=== PATIENT | female | born 1935 | race Caucasian/White ===

== ENCOUNTER → 2018-11-26 11:11 | Outpatient (CLI) | payer MEDICARE, BC, SELFPAY ==
--- NOTE | 2018-11-26 11:18 | CI_ITS ---
Cerebrovascular Exam Indications: Transient vision loss 368.12. IMPRESSIONS 1. The bilateral vertebral arteries are patent with normal antegrade flow. 2. Study suggests 20-49% stenosis involving the right internal carotid artery and the left internal carotid artery, lower end of scale. 3. Tortuous carotid arteries seen bilaterally. 4. Difficult exam. Carotid duplex study. Complete study and Doppler flow study including spectral analysis, color and bob scale imaging. Height: Height: 170.2cm. Height: 67in. Weight: Weight: 81.6kg. Weight: 179.6lb. Body mass index: BMI: 28.2kg/m^2. Body surface area: BSA: 1.98m^2. Location: Vascular laboratory. Patient status: Outpatient. Tables: Arterial flow: + +--------+--------+ Location V sys V ed + +--------+--------+ Right CCA - proximal 83.3cm/s 14.1cm/s + +--------+--------+ Right CCA - distal 62.9cm/s 15.7cm/s + +--------+--------+ Right ECA 62.5cm/s -------- + +--------+--------+ Right ICA - proximal 94.4cm/s 30.6cm/s + +--------+--------+ Right ICA - mid 70.2cm/s 17.9cm/s + +--------+--------+ Right ICA - distal 71.5cm/s 22.3cm/s + +--------+--------+ Right vertebral 31.4cm/s -------- + +--------+--------+ Left CCA - proximal 81.7cm/s 14.7cm/s + +--------+--------+ Left CCA - distal 65.2cm/s 15.7cm/s + +--------+--------+ Left ECA 75.4cm/s -------- + +--------+--------+ Left ICA - proximal 65.4cm/s 18.2cm/s + +--------+--------+ Left ICA - mid 46.4cm/s 10.3cm/s + +--------+--------+ Left ICA - distal 59.7cm/s 17.2cm/s + +--------+--------+ Left vertebral 40.8cm/s -------- + +--------+--------+ Velocity ratios: + + + + + + Right, V sys Right, V ed Left, V sys Left, V ed + + + + + + Max ICA/dist CCA 1.5 1.95 1 1.16 + + + + + + (Report amended ) Electronically signed by: Nikos Jolly [id number]
== END ==
PROVIDERS: PCP Family Medicine; Visit Provider Family Medicine
DX: G45.3 Amaurosis fugax (principal)
CPT/HCPCS: 93880

== ENCOUNTER → 2018-12-25 15:07 | Outpatient (CLI) | payer MEDICARE, BC, SELFPAY | PROVIDERS: PCP Family Medicine; Visit Provider Family Medicine | DX: G47.30 Sleep apnea, unspecified (principal); I10 Essential (primary) hypertension | CPT/HCPCS: G0399 ==

== ENCOUNTER → 2019-03-19 11:48 | Outpatient (CLI) | payer MEDICARE, BC, SELFPAY ==
--- NOTE | 2019-03-19 11:52 | XR_ITS ---
PROCEDURE: XR CHEST 2V CLINICAL HISTORY: CHRONIC COUGH COMPARISON: CXR CHEST(2 VIEWS-NOT PORTABLE) from 04/02/2013 FINDINGS: The cardiomediastinal silhouette and pulmonary vascularity are within normal limits. There are stable benign calcified granulomas. Lung rdz are otherwise clear without pleural effusion or pneumothorax. 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 No acute bony abnormalities. IMPRESSION: No acute findings. Dictated by: Donavan Cole 03/19/2019 12:13 Electronically signed by Donavan Cole in [place] 03/19/2019 12:13
== END ==
PROVIDERS: PCP Family Medicine; Visit Provider Family Medicine
DX: R05 Cough (principal)
CPT/HCPCS: 71046

== ENCOUNTER → 2019-05-29 08:50 | Outpatient (CLI) | payer MEDICARE, BC, SELFPAY ==
--- NOTE | 2019-05-29 09:09 | FL_ITS ---
PROCEDURE: FL BARIUM SWALLOW CLINICAL INDICATION: Dysphagia COMPARISON: No exams were available for comparison TECHNIQUE: In the upright position the patient was observed to swallow barium in both the AP and lateral view. The cervical esophagus was examined under fluoroscopy with images obtained. The patient was then placed prone in the right anterior oblique position and was observed to swallow barium with Valsalva technique . FLUOROSCOPY TIME: 48 seconds FINDINGS: There was no evidence of aspiration. There was normal peristalsis. No filling defects or mucosal abnormalities. No masses or strictures. There is a small sliding hiatal hernia with a non constricting Schatzki's ring IMPRESSION: Small hiatal hernia otherwise negative barium swallow Dictated by: Nikos Jolly MD 05/29/2019 14:05 Electronically signed by Nikos Jolly MD in [facility] 05/29/2019 14:05
--- NOTE | 2019-05-29 09:09 | US_ITS ---
PROCEDURE: US THYROID CLINICAL INDICATION: Thyromegaly COMPARISON: No exams were available for comparison FINDINGS: Right lobe: 4.2 x 1.4 x 1.3 cm with homogeneous echogenicity Left lobe: 3.7 x 1.5 x 1.5 cm with homogeneous echogenicity Isthmus: 3 mm hypoechoic nodule centrally wider than tall fairly well-circumscribed with no calcifications Additional findings: IMPRESSION: 3 mm nodule within the isthmus otherwise negative. Recommend six-month follow-up Dictated by: Nikos Jolly MD 05/29/2019 14:19 Electronically signed by Nikos Jolly MD in [facility] 05/29/2019 14:19
[2019-05-29 13:46] LABS: Free T4 (Free Thyroxine) 0.81 ng/dl (0.76-1.46); Thyroid Stimulating Hormone 2.28 uIU/ml (0.358-3.740)
== END ==
PROVIDERS: PCP Family Medicine; Visit Provider Otolaryngology
DX: R13.10 Dysphagia, unspecified (principal); E01.0 Iodine-deficiency related diffuse (endemic) goiter
CPT/HCPCS: 36415; 74220; 76536; 84439; 84443

== ENCOUNTER → 2020-10-28 11:36 | Outpatient (CLI) | payer MEDICARE, BC, SELFPAY ==
--- NOTE | 2020-10-31 11:16 | P.PN_ITS ---
[facility] Anesthesia Checklist - Patient Identification Patient Identification: Arm Band - Structural Data Admitted From: Home Planned Operative Procedure/s: egd Consent for Planned Operative Procedure(s) Verified: Yes Verified Documents: Surgical Consent, History and Physical - NPO Status Verified Time NPO: 00:00 - Additional verifications Anesthesia Reactions: No - Airway Assessment C-Spine Mobility Assessed: Yes (mp2) TMJ Mobility Assessed: Yes Dentition: Good Dentition - Neurological Assessment Level of Consciousness: Awake, Alert - Anesthesia Plan Anesthesia Risk discussed: Yes Anesthesia Plan: Verified ASA Class: III Anesthesia Type: MAC [facility] History I have reviewed the patient's past medical history: Yes Medical History: Reports:: Hypertension Denies:: Cancer, Diabetes Mellitus Type 1, Diabetes Mellitus Type 2, Internal Pacemaker, MRSA, Seizures *Have you ever received a pneumonia vaccine?: No *Have you received a flu vaccine this season?: Yes Other Medical History: Reports: Other (LAI) Anesthesia experience/problems:: nac Laterality Cases: Right: Arthroscopy Shoulder Other Surgeries: Yes: Other. No: Pacemaker Amputation: No Fractures: No - *Social History Smoking Status: Never smoker Alcohol Intake: never Substance Use Type: denies use *Occupational Status:: retired Housing: house Household Members: other *Travel in the last 8 weeks: None Family Hx:: No significant family history
== END ==
PROVIDERS: Visit Provider Internal Medicine Gastroenterology
DX: Z01.812 Encounter for preprocedural laboratory examination (principal); Z20.822 Contact with and (suspected) exposure to COVID-19; Z13.810 Encounter for screening for upper gastrointestinal disorder; R13.10 Dysphagia, unspecified
CPT/HCPCS: U0003

== ENCOUNTER 2020-10-31 10:23 | Day surgery (SDC) | payer MEDICARE, BC, SELFPAY ==
[2020-10-26 13:15] VITALS: BMI 29.0
[2020-10-31 10:44] VITALS: BP 133/60; PULSE 71; RESP 18; TEMP 36.7; O2SAT 96
--- NOTE | 2020-10-31 11:25 | HMH.PROC ---
[facility] Procedure Note Procedure Note:: Upper Endoscopy Procedure Report: Esophagogastroduodenoscopy with cold biopsies and TTS balloon dilation Endoscopost: Danis Cameron II, MD Referring Physician: Zoran Nava MD Date of Procedure: October 31, 2020 Equipment: Olympus GIF 190 standard upper endoscope Sedation: MAC sedation Indications: Mrs. Zayas is an 85-year-old female with recent intractable GERD 6 weeks ago. This improved with omeprazole. She still gets some intermittent dysphagia and globus sensation. She has some belching and occasional epigastric discomfort. She has some intermittent nausea and regurgitation. She has never had an upper endoscopy. She reports normal bowel function. Procedure: Prior to the procedure, a history and physical exam was performed, and patient's medications and allergies were reviewed. The risks, benefits and alternatives of the sedation and procedure were discussed with the patient. All questions were answered and informed consent was obtained. The patient was brought to the procedure room. Patient identification and proposed procedure were verified by the physician and the nurse. The patient was placed in a left lateral decubitus position and the scope was passed under direct vision. Throughout the procedure, the patient's blood pressure, pulse, and oxygen saturations were monitored continuously. The upper GI endoscopy was accomplished without difficulty. The patient tolerated the procedure well. Findings: The scope was passed directly into the upper esophagus and advanced to the third portion of the duodenum. The post bulbar duodenum and duodenal bulb were normal with normal mucosa and conniventes. The scope was withdrawn through a normal duodenal bulb and pylorus into the stomach. There was moderate bile reflux with linear reactive gastropathy of the antrum. There was some chronic gastritis of the body and fundus of the stomach. Upon retroflexion there was a 2 cm hiatal hernia. 2 biopsies were taken in the antrum and along the lesser curvature for histology to rule out gastritis and/or H pylori. The scope was then withdrawn into the esophagus. There was a serrated Z-line. There was no evidence of reflux esophagitis, Richards's or Schatzki's ring. There were tertiary contractions and evidence of moderate esophageal dysmotility. The entire esophagus was dilated to 60 [place]/20 mm with a TTS hydrostatic balloon. There was some resistance at the cricopharyngeus. The remainder of the esophageal mucosa was normal. Impression: 1. Nonerosive GERD with moderate esophageal dysmotility and small 2 cm hiatal hernia 2. Bile reflux with linear reactive gastropathy and mild chronic gastritis Plan: I will follow-up the biopsies. The patient has had clinical improvement with omeprazole. She does have uncomplicated GERD. We will discuss short-term use (3 months). I do feel that she could achieve maintenance control of her functional GERD with dietary measures and short-term antacids.
[2020-10-31 11:28] VITALS: BP 117/60; PULSE 72; RESP 16; TEMP 36.1; O2SAT 94
[2020-10-31 11:38] VITALS: BP 113/60; PULSE 58; RESP 18; TEMP 36.1; O2SAT 97
[2020-10-31 11:48] VITALS: BP 130/68; PULSE 58; RESP 18; TEMP 36.1; O2SAT 98
[2020-10-31 11:58] VITALS: BP 139/73; PULSE 62; RESP 18; TEMP 36.1; O2SAT 95
[2020-10-31 12:37] VITALS: BP 160/87; PULSE 66; RESP 18; TEMP 36.1; O2SAT 96
== END 2020-10-31 12:37 | disposition home or self-care (01) ==
LOC: OUTP 10:27
PROVIDERS: PCP Family Medicine; Visit Provider Internal Medicine Gastroenterology
PROC: 0DJ08ZZ Inspection of Upper Intestinal Tract, Via Natural or Artificial Opening Endoscopic (ICD-10-PCS; CPT 43235; principal; 2020-10-31 11:30)
DX: K21.9 Gastro-esophageal reflux disease without esophagitis (principal); K22.4 Dyskinesia of esophagus; K31.9 Disease of stomach and duodenum, unspecified; K44.9 Diaphragmatic hernia without obstruction or gangrene; K29.30 Chronic superficial gastritis without bleeding; I10 Essential (primary) hypertension; Z79.899 Other long term (current) drug therapy
CPT/HCPCS: 43239; 43249; 88305; C1726

== ENCOUNTER 2021-06-16 11:07 | Emergency (ER) | payer MEDICARE, BC, SELFPAY ==
[2021-06-16 12:15] VITALS: BP 149/70; PULSE 79; RESP 20; TEMP 36.9; O2SAT 97; BMI 28.1
--- NOTE | 2021-06-16 12:32 | HMH.EDUTC ---
[facility] [place] Disposition Clinical Impression: Acute bronchitis Qualifiers: Bronchitis organism: unspecified organism Qualified Code(s): J20.9 - Acute bronchitis, unspecified Disposition: Home, Self-Care Condition on Discharge: Good Instructions: Acute Bronchitis, DI for Acute Bronchitis, DI for COVID-19 (Suspected or Confirmed ), Preventing the Spread of Coronavirus Discharge Instructions Additional Instructions: Drink plenty of fluids. Take tylenol or ibuprofen for pain or fever. Take the medications as directed. Follow up with your regular doctor. GO TO THE ER FOR ANY WORSENING SYMPTOMS Quarantine until you know the results of your covid-19 test. If it is positive, the health department should call you and give you further instructions about your length of Quarantine and other things. Notify your school or workplace of your results and follow their instructions regarding return to work/school. Prescriptions: Benzonatate [Benzonatate 100mg cap] 100 mg PO TIDP PRN #30 cap PRN Reason: Cough [id number] methylPREDNISolone [Medrol] 4 mg PO DIRECTED 6 Days #21 packet Transmission Status: [id number] Azithromycin [Z-Reno 250mg Tab*] 250 mg PO UD DOSE PK #6 tab Transmission Status: Re[facility] by [facility] Referrals: Zoran Nava MD [Primary Care Provider] - Time of Disposition: 13:09 Medical Decision Making - Medical Records Medical records reviewed: No: I reviewed the patient's medical records. - Edgardo Inquiry Pt receiving controlled substance: No Vital Signs: 06/16/21 12:15 06/16/21 12:50 Temperature 98.4 F 98.4 F Temperature Source Oral Pulse Rate 79 Pulse Rate [Right Brachial] 79 Respiratory Rate 20 20 Blood Pressure 149/70 H Blood Pressure [Right Arm] 149/70 H Blood Pressure Mean [Right Arm] 96 Blood Pressure Source [Right Arm] Automatic Cuff Blood Pressure Position [Right Arm] Sitting 02 Sat by Pulse Oximetry 97 Oxygen Delivery Method Room Air - Lab Data Lab results reviewed: Yes: I reviewed the patient's lab results. Lab Results 06/16/21 12:54: Influenza Type A Ag Negative, Influenza Type B Ag Negative [facility] [place] HPI - General Stated complaint: sore thoat, cough Time Seen by Provider: 06/16/21 12:32 Mode of Arrival: Ambulatory Source of Information: Patient Limitations: No Limitations Description of Symptoms (Recalled from Triage Doc. by RN): PATIENT C/O COUGH WITH PHLEGM THAT STARTED YESTERDAY. DENIES ANY OTHER SYMPTOMS HEENT Symptoms (Recalled from RN notes): No Resp Symptoms (Recalled from RN notes): Yes Skin Symptoms (Recalled from RN notes): No MS Symptoms (Recalled from RN notes): No Functional Status (Recalled from RN notes): WNL - History of Present Illness Provider Complaint: She states that since yesterday she has had a sore throat and a productive cough. She has been coughing very frequently. She denies shortness of breath. She denies fever but she has had some chilling. She has not been vaccinated against covid-19. - Related Data Home Medications Medication Instructions Recorded Confirmed amlodipine 10 mg-benazepril 40 mg 1 tab PO DAILY #90 cap 05/21/19 04/27/21 capsule simvastatin 40 mg tablet 40 mg PO DAILY #90 tab 05/21/19 04/27/21 Oxybutynin Chloride [Oxybutynin 5 mg PO DAILY 10/26/20 04/27/21 Chloride ER] omeprazole 40 mg capsule,delayed 40 mg PO DAILY cap 01/24/21 04/27/21 release vitamins A,C,C-oljs-fxjnio 14,320 1 cap PO BID 01/24/21 04/27/21 unit-226 mg-200 unit capsule Previous Rx's Medication Instructions Recorded Azithromycin [Z-Reno 250mg Tab*] 250 mg PO UD DOSE PK #6 tab 06/16/21 Benzonatate [Benzonatate 100mg 100 mg PO TIDP PRN #30 cap 06/16/21 cap] methylPREDNISolone [Medrol] 4 mg PO DIRECTED 6 Days #21 06/16/21 packet Allergies Allergy/AdvReac Type Severity Reaction Status Date / Time No Known Allergies Allergy
[2021-06-16 12:50] VITALS: BP 149/70; PULSE 79; RESP 20; TEMP 36.9; O2SAT 97
[2021-06-16 13:13] LABS: UTC Influenza A Antigen Negative (Negative); UTC Influenza B Antigen Negative (Negative)
== END 2021-06-16 13:16 | disposition home or self-care (01) ==
PROVIDERS: Emergency Provider Nurse Practitioner Family; PCP Family Medicine
DX: J20.9 Acute bronchitis, unspecified (principal); I10 Essential (primary) hypertension; E78.5 Hyperlipidemia, unspecified
CPT/HCPCS: G0463; 87804; 99202; C9803; U0003; U0005

== ENCOUNTER 2021-06-19 13:00 | Emergency (ER) | payer MEDICARE, BC, SELFPAY ==
[2021-06-19 14:50] VITALS: BP 138/82; PULSE 86; RESP 19; TEMP 37.8; O2SAT 98; BMI 29.7
--- NOTE | 2021-06-19 15:04 | XR_ITS ---
FINAL REPORT CLINICAL HISTORY: COUGH AND CONGESTION FINDINGS: 2 views of the chest were obtained. The heart size is normal. The mediastinum is unremarkable. There are patchy bibasilar airspace infiltrates, right greater than left, consistent with acute pneumonia. There are no pleural effusions. There is no pneumothorax. There is no acute osseous abnormality. IMPRESSION: Patchy bibasilar airspace infiltrates, right greater than left, consistent with acute pneumonia. Continued follow-up is recommended. Reviewed, Interpreted and Dictated by Nicholas Salomon MD Transcribed by Quynh Palma Authenticated by Nicholas Salomon MD on 06/19/2021 04:57:51 PM [facility]
--- NOTE | 2021-06-19 15:30 | HMH.EDUTC ---
[facility] [place] Clinical Impression: Pneumonia Qualifiers: Pneumonia type: due to unspecified organism Laterality: unspecified laterality Lung location: unspecified part of lung Qualified Code(s): J18.9 - Pneumonia, unspecified organism Disposition: Home, Self-Care Condition on Discharge: Good Instructions: Pneumonia-Adult, Cefdinir Additional Instructions: Continue taking Azithromycin and Medrol dose pack as you was prescribed Cefdinir was added Start this medication tomorrow Follow up with Your Family Doctor in the next week to monitor for improvement Straight to ER if any life threatening symptoms or worsening of shortness of breath Prescriptions: Cefdinir [Omnicef 300mg Capsule] 300 mg PO BID #20 cap Transmission Status: Received by [id number] Referrals: Zoran Nava MD [Primary Care Provider] - As needed Time of Disposition: 17:12 Medical Decision Making - Edgardo Inquiry Pt receiving controlled substance: No Edgardo was queried for this patient: No Vital Signs: 06/19/21 14:50 06/19/21 17:18 Temperature 100.0 F H 100.0 F H Temperature Source Oral Pulse Rate 86 Pulse Rate [Right Brachial] 86 Respiratory Rate 19 19 Blood Pressure 138/82 Blood Pressure [Right Arm] 138/82 Blood Pressure Mean [Right Arm] 100 Blood Pressure Source [Right Arm] Automatic Cuff Blood Pressure Position [Right Arm] Sitting 02 Sat by Pulse Oximetry 98 Oxygen Delivery Method Room Air - Lab Data Lab Results 06/19/21 15:04: Influenza Type A Ag Negative, Influenza Type B Ag Negative Orders (Tests/Meds): ED MEDICATIONS Discontinued Medications Generic Name Dose Route Start Last Admin Trade Name Freq PRN Reason Stop Dose Admin Ceftriaxone Sodium 1 gm 06/19/21 17:10 06/19/21 17:15 Ceftriaxone 1gm Vial IM 06/19/21 17:11 1 gm ONCE ONE Administration Lidocaine HCl 0 ml 06/19/21 17:10 06/19/21 17:15 Lidocaine 1% 5ml Pf Vial IM 06/19/21 17:11 2 ml ONCE ONE Administration ORDERS Category Date Time Status Full Resp Panel w/COVID ([facility] [place]) Routine Lab 06/19/21 16:15 Received - Radiology Data #1 Image(s): Chest Image Reviewed: Yes I have reviewed radiologist's interpretation IMPRESSION: Patchy bibasilar airspace infiltrates, right greater than left, consistent with acute pneumonia. Continued follow-up is recommended. [facility] [place] - General Stated complaint: sore throat, cough, runny nose, congestion Time Seen by Provider: 06/19/21 15:30 Mode of Arrival: Ambulatory Source of Information: Patient Limitations: No Limitations Description of Symptoms (Recalled from Triage Doc. by RN): PATIENT C/O COUGH AND CHEST CONGESTION HEENT Symptoms (Recalled from RN notes): No Resp Symptoms (Recalled from RN notes): Yes Skin Symptoms (Recalled from RN notes): No MS Symptoms (Recalled from RN notes): No Functional Status (Recalled from RN notes): WNL - History of Present Illness Provider Complaint: Patient states she was seen a few days ago and was dx with bronchitis States that she has been taking her medication but still isnt feeling much better States that she is tired and achy and cough that is worse when she lays down States that she was worried and wanted to get tested for COVID again - Related Data Home Medications Medication Instructions Recorded Confirmed amlodipine 10 mg-benazepril 40 mg 1 tab PO DAILY #90 cap 05/21/19 04/27/21 capsule simvastatin 40 mg tablet 40 mg PO DAILY #90 tab 05/21/19 04/27/21 Oxybutynin Chloride [Oxybutynin 5 mg PO DAILY 10/26/20 04/27/21 Chloride ER] omeprazole 40 mg capsule,delayed 40 mg PO DAILY cap 01/24/21 04/27/21 release vitamins A,C,M-ggiv-truikq 14,320 1 cap PO BID 01/24/21 04/27/21 unit-226 mg-200 unit capsule Previous Rx's Medication Instructions Recorded Azithromycin [Z-Reno 250mg Tab*] 250 mg PO UD DOSE PK #6 tab 06/16/21 Benzonatate [Benzonatate 100mg 100 mg PO TIDP PRN #30 cap 06/16/21 cap]
[2021-06-19 15:44] LABS: UTC Influenza A Antigen Negative (Negative); UTC Influenza B Antigen Negative (Negative)
[2021-06-19 16:32] LABS: Adenovirus,PCR Not Detected (NotDetected); Bordetella Pertussis Not Detected (NotDetected); Chlamydophila Pneumoniae, PCR Not Detected (NotDetected); Coronavirus 19, PCR Not Detected (NotDetected); Coronavirus 229E Not Detected (NotDetected); Coronavirus NL63 Not Detected (NotDetected); Coronavirus OC43 Not Detected (NotDetected); Coronovirus HKU1,PCR Not Detected (NotDetected); Influenza A, PCR Not Detected (NotDetected); Influenza AH1, 2009 Not Detected (NotDetected); Influenza AH1, PCR Not Detected (NotDetected); Influenza AH3,PCR Not Detected (NotDetected); Influenza B, PCR Not Detected (NotDetected); Mycoplasma Pneumoniae, PCR Not Detected (NotDetected); Parainfluenza 1, PCR Not Detected (NotDetected); Parainfluenza 2, PCR Not Detected (NotDetected); Parainfluenza 3, PCR Not Detected (NotDetected); Parainfluenza 4, PCR Not Detected (NotDetected); Respiratory Syncytial Virus Not Detected (NotDetected); Rhinovirus/Enterovirus Not Detected (NotDetected)
[2021-06-19 17:18] VITALS: BP 138/82; PULSE 86; RESP 19; TEMP 37.8; O2SAT 98
[2021-06-20 02:42] LABS: Human Metapneumovirus Detected (NotDetected)
== END 2021-06-19 17:27 | disposition home or self-care (01) ==
PROVIDERS: Emergency Provider Nurse Practitioner; PCP Family Medicine
DX: J18.9 Pneumonia, unspecified organism (principal); B34.8 Other viral infections of unspecified site; I10 Essential (primary) hypertension
CPT/HCPCS: G0463; 71046; 87581; 87632; 87798; 87804; 96372; 99202; C9803; J0696; U0003; U0005

== ENCOUNTER 2021-06-23 10:54 | Emergency (ER) | payer MEDICARE, BC, SELFPAY ==
[2021-06-23 11:20] VITALS: BP 148/60; PULSE 80; RESP 20; TEMP 37.2; O2SAT 93; BMI 29.0
--- NOTE | 2021-06-23 12:04 | HMH.EDUTC ---
[facility] [place] Disposition Clinical Impression: Viral syndrome Disposition: Home, Self-Care Condition on Discharge: Good Instructions: Human Metapneumovirus Infection Additional Instructions: ? Monitor temp. Tylenol every 4 hours as needed and / or ibuprofen every 6 hours as needed ( As long as your primary care physician has told you that it ok to take both. For fever/aches/pains ER if no less than 101 despite Tylenol or Motrin ? Humidifier/vaporizer or hot steamy shower ? Inhaler every 4-6 hours as needed like we discussed. If unsure how to use it, ask pharmacist to demonstrate how. Should help open airways and improve cough, wheezing, and shortness of breath ? Mucinex during the day for your cough and cough suppressant only at night. Be sure to drink lots of water. Insurance may not cover a prescriptions for mucinex. Might be cheaper to get 400mg tablets and take 2 tablet in the morning, mid-day and evening with lots of water. *Start steroid today. Helps with inflammation therefore, cough and wheezing. Follow directions on the package. Reviewed side effects. Patient reports taking them before. Follow up IMMEDIATELY for new or worsening of symptoms OR no noticeable improvement over the next 48-72 hours. 911 immediately for any life threatening symptoms such as chest pain or difficulty breathing Prescriptions: guaiFENesin [Mucinex 600mg tablet] 1 - 2 tab PO Q12HP PRN #20 tab PRN Reason: Congestion [facility] Status[facility] methylPREDNISolone [Medrol 4mg tab] 4 mg PO DIRECTED #21 tab Transmission Status: Received by [id number] Referrals: Zoran Nava MD [Primary Care Provider] - As needed Time of Disposition: 18:07 Medical Decision Making - Edgardo Inquiry Pt receiving controlled substance: No Edgardo was queried for this patient: No Vital Signs: 06/23/21 11:20 06/23/21 12:31 Temperature 99.0 F 99.0 F Temperature Source Oral Pulse Rate 80 Pulse Rate [Right Brachial] 80 Respiratory Rate 20 20 Blood Pressure 148/60 H Blood Pressure [Right Arm] 148/60 H Blood Pressure Mean [Right Arm] 89 Blood Pressure Source [Right Arm] Automatic Cuff Blood Pressure Position [Right Arm] Sitting 02 Sat by Pulse Oximetry 93 L Oxygen Delivery Method Room Air Orders (Tests/Meds): ED MEDICATIONS Discontinued Medications Generic Name Dose Route Start Last Admin Trade Name Serg PRN Reason Stop Dose Admin Albuterol Sulfate 2.5 mg 06/23/21 12:23 06/23/21 12:29 Albuterol 0.083% 2.5 Mg/3 Ml Neb IH 06/23/21 12:24 2.5 mg ONCE ONE Administration Medical Decision Narrative: Patient educated that viral illness will have to take it course that antibiotics will not work to clear a viral infection patient was given Neb treatment and rechecked SPO2 and it was 97% patient state that she is breathing better now Discussed with patient and recommended transfer to the ED and she declined Family states that they will bring her back if she gets any worse [facility] [place] HPI - General Stated complaint: possible pna Time Seen by Provider: 06/23/21 12:05 Mode of Arrival: Ambulatory Source of Information: Patient Limitations: No Limitations Description of Symptoms (Recalled from Triage Doc. by RN): PATIENT C/O COUGH AND SOA. PATIENT REPORTS SHE WAS SEEN IN [facility] ON 06/19 AND GIVEN ANTIBIOTICS. SHE STATES SHE FOLLOWED UP WITH HER PCP ON SATURDAY AND HE DISCONTINUES HER ANTIBIOTIC. SHE STATES SHE FEELS LIKE SHE NEEDS AN ANTIBIOTIC BECAUSE SHE FEELS LIKE SHE IS NOT GETTING BETTER HEENT Symptoms (Recalled from RN notes): No Resp Symptoms (Recalled from RN notes): Yes Skin Symptoms (Recalled from RN notes): No MS Symptoms (Recalled from RN notes): No Functional Status (Recalled from RN notes): WNL - History of Present Illness Provider Complaint: Patient state that she was was initially on Zpack and it wasnt helping her and she came back in had a URP and was changed to Cefdinir State that she seen her P
[2021-06-23 12:31] VITALS: BP 148/60; PULSE 80; RESP 20; TEMP 37.2; O2SAT 93
== END 2021-06-23 12:41 | disposition home or self-care (01) ==
PROVIDERS: Emergency Provider Nurse Practitioner; PCP Family Medicine
DX: B34.9 Viral infection, unspecified (principal); I10 Essential (primary) hypertension
CPT/HCPCS: G0463; 99202

== ENCOUNTER 2021-11-19 15:03 | Observation (INO) | payer OTHER, MEDICARE, BC, SELFPAY ==
[2021-11-19] VITALS (7 sets, daily range): BP systolic 142–169; BP diastolic 69–84; PULSE 79–96; RESP 16–18; TEMP 36.7–36.9; O2SAT 96–99; BMI 29.0; BMI 29.2
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
[2021-11-19 15:29] LABS: Basophils # 0.2 K/mm3 (0-0.2); Basophils % 2.6 % (0.1-2.0); Eosinophils # 0.2 K/mm3 (0.0-0.4); Eosinophils % 2.1 % (0.1-12.0); Hematocrit 41.1 % (37.0-47.0); Hemoglobin 13.8 g/dL (12.2-16.2); Lymphocytes # 2.6 K/mm3 (0.7-4.5); Lymphocytes % 32.4 % (10-50); Mean Corpuscular HGB Conc 33.6 g/dL (31.8-35.4); Mean Corpuscular Hemoglobin 31.9 pg (27.0-31.2); Mean Corpuscular Volume 95.2 fl (81-99); Mean Platelet Volume 9.3 fl (7.4-10.4); Monocytes # 0.5 K/mm3 (0.1-1.0); Monocytes % 6.6 % (1.7-9.3); Neutrophils # 4.5 K/mm3 (1.8-7.8); Neutrophils % 56.3 % (37.0-80.0); Platelet Count 251 K/mm3 (142-424); Red Blood Count 4.31 M/mm3 (4.20-5.40); Red Cell Distribution Width 12.9 % (11.5-17.5)
[2021-11-19 15:34] LABS: Chloride 104 mmol/L (98-107); Potassium 3.4 mmoL/L (3.5-5.1); Sodium 138 mmol/L (136-145)
[2021-11-19 15:37] LABS: Alanine Aminotransferase 29 U/L (12-78); Albumin Level 4.4 g/dl (3.5-5.0); Albumin/Globulin Ratio 1.4 (1.1-1.8); Alkaline Phosphatase 117 U/L (38-126); Anion Gap 11.4 mEq/L (5-15); Aspartate Amino Transferase 40 U/L (14-36); Bilirubin,Total 0.5 mg/dl (0.2-1.3); Blood Urea Nitrogen 17 mg/dl (7-17); Calcium 9.4 mg/dl (8.4-10.2); Carbon Dioxide 26 mmol/L (22.0-30.0); Creatinine Clearance Estimated 52 mL/min (50-200); Estimated Glomerular Filt Rate 59 ml/min (>60); GFR (African American) 72 ML/MIN (>60); Globulin 3.2 g/dL (1.3-3.2); Glucose 183 mg/dl (74-100); Total Protein,Serum 7.6 g/dl (6.3-8.2)
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
[2021-11-19 15:49] LABS: Troponin I < 0.01 ng/ml (0.00-0.034)
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
--- NOTE | 2021-11-19 16:04 | ECG_ITS ---
APPROVED REPORT Exam: Resting ECG HR:81 bpm ECG Measurements Heart Rate 81 AXES UT 144 P 54 QRSd 82 QRS 30 QT 366 T 28 QTc 404 Conclusion SINUS RHYTHM NORMAL ECG UNCONFIRMED REPORT Electronically signed by : Zoran Van MD 11/21/2021 18:44:26
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
--- NOTE | 2021-11-19 17:28 | PC.NURSE ---
had been paged
--- NOTE | 2021-11-19 17:29 | PC.NURSE ---
is on the phone with
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
--- NOTE | 2021-11-19 18:10 | PC.NURSE ---
Went into room to check on patient and asked if she needed anything. She said she need a glass of water. Brought patient water.
[2021-11-19 18:46] LABS: Coronavirus 19, PCR Not Detected (NotDetected); Influenza A, PCR Not Detected (NotDetected); Influenza B, PCR Not Detected (NotDetected)
[2021-11-19 19:12] LABS: Troponin I < 0.01 ng/ml (0.00-0.034)
--- NOTE | 2021-11-19 19:18 | PC.NURSE ---
REPORT CALLED TO FLOOR
--- NOTE | 2021-11-19 19:55 | PC.NURSE ---
patient remains in ED. called ms for confirmation they were going to ome after the patient. spoke with hakeem.
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
[2021-11-19 22:12] LABS: Troponin I < 0.01 ng/ml (0.00-0.034)
[2021-11-20] VITALS: BP 128/59; PULSE 80; PULSE 88; RESP 17; TEMP 37.2; O2SAT 95
[2021-11-20 04:00] VITALS: BP 117/47; PULSE 79; PULSE 81; RESP 18; TEMP 37.3; O2SAT 94
[2021-11-20 05:00] VITALS: BMI 29.2
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
--- NOTE | 2021-11-20 07:00 | CA_ITS ---
APPROVED REPORT EXAM: Comprehensive 2D, Doppler, and color-flow Echocardiogram Electric Motorman: Chela To, RCS, RVS Ht: 5 ft 6 in Wt: 182lbs BSA: 1.92 BP: 148/74 mmHg Indications: Syncope, HTN 2D Dimensions IVSd 1.07 cm LVEF (Visual) 48.30 % PWd 1.05 cm LA Volume 83.40 mL LVDd 4.12 cm LA Volume Index 43.40 mL/m2 (M/F) 16-34 LVDs 3.13 cm Aortic Root 3.16 cm Left Atrium 2.85 cm LVOT 1.73 cm (M/F) 1.5-2.5 M-Mode Dimensions RVDd 2.86 cm (0.9-2.6) LA Diam 3.56 cm (1.9-4.0) LVDd 4.18 cm (3.5-5.7) Ao Diam 3.46 cm (2.0-3.7) LVDs 3.21 cm (3.5-5.7) IVSd 1.04 cm (0.6-1.1) PWd 0.96 cm (0.6-1.1) EF (Teich) 46.80% EPSs 0.57 cm FS 23.20% EDV (Teich) 77.70 mL TAPSE 2.54 (<1.7) ESV (Teich) 41.30 mL LV Diastology E Decel Time 247.00 (160-240 msec) E/A Ratio 0.71 MED E' 5.20 (< 7 cm/sec) MED A' 10.80 cm/s E'/MED E' Ratio 14.44 (>14) LAT E' 3.80 (<10 cm/sec) LAT A' 11.70 cm/s E/LAT E' Ratio 19.76 (>14) Aortic Valve LVOT Max 107.00 (70-110 cm/s) LVOT VTI 21.26 cm AoV Peak Sukumar. 150.00 (50-130 cm/s) AO Peak GR. 9.00 mmHg AO Mean GR. 4.50 (<5 mmHg) AO VTI 30.49 (18-25 cm) TANYA (VTI) 1.64 (2.5-4.5 cm2) Mitral Valve MV A Velocity 106.00 (40-130 cm/s) E/A Ratio 0.71 MV Decel. Time 247.00 (160-240 ms) MV Mean Gr. 2.30 (<2mmHg) MV PHT 67.00 ms Pulmonary Valve PV Peak Velocity 111.00 (50-150 cm/s) Tricuspid Valve TR P. Velocity 210.00 cm/s RAP Estimate 10.00 mmHg RVSP 27.60 mmHg Left Ventricle Left atrium is mildly enlarged, left ventricle is normal size, mild concentric left ventricular hypertrophy, estimated ejection fraction 55% with no regional wall motion abnormality, Doppler evidence of impaired relaxation seen, tissue Doppler is not indicated raise left atrial pressure. Right Ventricle Right atrium and right ventricle mildly enlarged with normal contractility. Aortic Valve Aortic valve is minimally thickened and fibrosed there is no aortic stenosis or aortic insufficiency. Mitral Valve Mitral valve is minimally thickened, there is mild mitral regurgitation. Tricuspid Valve Tricuspid grossly normal, there is mild tricuspid regurgitation, tricuspid regurgitation jet velocity is inadequate for calculation of the right ventricular systolic pressure. Pulmonic Valve Pulmonic valve is poorly visualized. Great Vessels Aortic root is normal size. Inferior vena cava is normal size with normal inspiratory collapse. Pericardium No significant pericardial effusion. Conclusion 1. Mildly enlarged atrium, normal left ventricular size, mild concentric left ventricular hypertrophy, estimated ejection fraction 55% with no regional wall motion abnormality, grade 1 diastolic dysfunction seen without tissue Doppler evidence of raise left atrial pressure. 2. Mild mitral and tricuspid regurgitation. 3. No significant pericardial effusion noted. 4. Inferior vena cava normal size with normal inspiratory collapse. Electronically signed by : Joao Segovia MD 11/20/2021 19:50:41
--- NOTE | 2021-11-20 07:00 | CA_ITS ---
FINAL REPORT TECHNIQUE: Color Doppler, duplex Doppler and bob scale sonography of the bilateral neck arterial vasculature was performed. Velocities were measured in the carotid arteries. Stenosis evaluation based on the validated velocity criteria. CLINICAL HISTORY: syncope, calc plaque on CT, HTN FINDINGS: The peak systolic velocity of the right common carotid artery is 79 cm/s. The peak systolic velocity of the right internal carotid artery is 109 cm/s and end diastolic velocity 20 cm/s. The ICA/CCA ratio is 1.8. A small amount of plaque is present. The right external carotid artery is patent. The right vertebral artery is patent with antegrade flow. The peak systolic velocity of the left common carotid artery is 88 cm/s. The peak systolic velocity of the left internal carotid artery is 111 cm/s and end diastolic velocity 26 cm/s. The ICA/CCA ratio is 1.66. A small amount of plaque is present. The left external carotid artery is patent.The left vertebral artery is patent with antegrade flow. IMPRESSION: Less than 50% bilateral carotid stenoses. Bilateral patent vertebral arteries with antegrade flow. If indicated, CTA or MRA could further evaluate. Reviewed, Interpreted and Dictated by Bc Bernstein III, MD Transcribed by Deborah Edwards Authenticated and [facility]
--- NOTE | 2021-11-20 07:01 | HMH.PHAINT ---
MEDICATION RECONCILIATION COMPLETED ON PATIENT USING EXTERNAL FILL HISTORY FROM PHARMACY. -SANTOS FONTANEZ, JULIOCESARD
[2021-11-20 08:00] VITALS: BP 134/64; PULSE 79; PULSE 90; RESP 20; TEMP 36.7; O2SAT 95
[2021-11-20 09:12] LABS: Basophils # 0.1 K/mm3 (0-0.2); Basophils % 1.2 % (0.1-2.0); Eosinophils # 0.1 K/mm3 (0.0-0.4); Eosinophils % 0.9 % (0.1-12.0); Hematocrit 38.1 % (37.0-47.0); Hemoglobin 12.9 g/dL (12.2-16.2); Lymphocytes # 1.4 K/mm3 (0.7-4.5); Lymphocytes % 16.2 % (10-50); Mean Corpuscular HGB Conc 33.8 g/dL (31.8-35.4); Mean Corpuscular Hemoglobin 32.5 pg (27.0-31.2); Mean Platelet Volume 9.1 fl (7.4-10.4); Monocytes # 0.6 K/mm3 (0.1-1.0); Monocytes % 6.5 % (1.7-9.3); Neutrophils # 6.5 K/mm3 (1.8-7.8); Neutrophils % 75.3 % (37.0-80.0); Platelet Count 236 K/mm3 (142-424); Red Blood Count 3.97 M/mm3 (4.20-5.40); White Blood Count 8.6 K/mm3 (4.8-10.8)
[2021-11-20 09:24] LABS: Chloride 102 mmol/L (98-107); Potassium 3.6 mmoL/L (3.5-5.1); Sodium 135 mmol/L (136-145)
[2021-11-20 09:27] LABS: Anion Gap 13.6 mEq/L (5-15); Blood Urea Nitrogen 14 mg/dl (7-17); Carbon Dioxide 23 mmol/L (22.0-30.0); Creatinine Clearance Estimated 53 mL/min (50-200); Estimated Glomerular Filt Rate 59 ml/min (>60); GFR (African American) 72 ML/MIN (>60); Glucose 213 mg/dl (74-100)
[2021-11-20 09:28] LABS: Calcium 9.2 mg/dl (8.4-10.2)
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
[2021-11-20 12:00] VITALS: PULSE 70
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
--- NOTE | 2021-11-23 15:18 | CARE MANAGER ---
Spoke with patient for post-discharge phone interview, patient states that she is doing well and has no acute needs at this time.
== END 2021-11-20 14:45 | disposition home or self-care (01) ==
LOC: ER 17:36 → 2ND 17:38
PROVIDERS: Nurse Practitioner Family; Admitting Provider Emergency Medicine; Emergency Provider Emergency Medicine; PCP Family Medicine; Visit Provider Emergency Medicine
DX: R55 Syncope and collapse (principal); S80.212A Abrasion, left knee, initial encounter; Z23 Encounter for immunization; Z20.822 Contact with and (suspected) exposure to COVID-19; S61.421A Laceration with foreign body of right hand, initial encounter; V43.52XA Car driver injured in collision with other type car in traffic accident, initial encounter; Y92.413 State road as the place of occurrence of the external cause; I10 Essential (primary) hypertension; Z79.899 Other long term (current) drug therapy
CPT/HCPCS: 12002; 90471; 36415; 70450; 71045; 72125; 72170; 73130; 73562; 73600; 80048; 80053; 84484; 85025; 90715; 93005; 93306; 93880; 97162; 97166; 99285; C9803; G0378; U0003; U0005

== ENCOUNTER → 2021-12-05 06:14 | Outpatient (CLI) | payer MEDICARE, BC, SELFPAY ==
--- NOTE | 2021-12-05 06:15 | NM_ITS ---
APPROVED REPORT Exam: Nuclear Stress Test Indication: Syncope, HTN, High cholesterol, Tobacco use Patient Location: Outpatient Stress Tech: Amanda Mayer ID Tech:Eileen Downing, ARRT, RT (R)(N) Ht: 5 ft 7 in Wt: 184 lbs Bra Size: 36C HR: 71 bpm BP: 147/68 mmHg BSA: 1.95 m2 TID: 1.09 BMI: 28.8 History: Syncope, HTN, High cholesterol, Tobacco use Procedure: Patient received a 0.4 mg of intravenous Lexiscan, resting heart rate 71 bpm, resting blood pressure 147/68 mmHg, with Lexiscan maximum heart rate achived was 107 bpm which is Less than 85 % of the maximum predicted heart rate and blood pressure was 159/70 mmHg. With Lexiscan, patient denied any complaint of chest pain. Electrocardiogram Resting electrocardiogram shows sinus rhythm, with Lexiscan there is less than 1.[address] segment depression noted from the baseline EKG. The EKG portion of the Lexiscan is nondiagnostic. Cardiac Stress and Resting SPECT Images: Cardiac Stress and Resting SPECT images were obtained using technetium 99m Myoview 32.7 mCi stress and 10.80 mCi at rest. Gated SPECT for analysis of segmental wall motion and calculation of the ejection fraction also done. Prone images were also obtained. Cardiac stress and rest SPECT images show mild fixed defect in the anterior wall with normal contractility gated SPECT is likely secondary to soft tissue attenuation, no reversible ischemia seen, computer derived ejection fraction is over 65% with no regional wall motion abnormality, right ventricle is normal size and contractility. Conclusion: 1. The EKG portion of the Lexiscan is nondiagnostic. 2. No scintigraphic evidence of reversible ischemia seen, computer derived ejection fraction is over 65% with no regional wall motion abnormality, right ventricle is normal size and contractility. 3. Likely normal Lexiscan Myoview study. Electronically signed by : Joao Segovia MD 12/05/2021 20:04:54
--- NOTE | 2021-12-05 06:15 | CA_ITS ---
APPROVED REPORT Exam: Pharmacologic Technologist: Amanda Kline, Ht: 5 ft 7 in Wt: 185 lbs BSA: 1.96 m2 HR: 61 bpm BP: 147/68 mmHg Medical History Medications: Omeprazole,,,,, Simvastatin,,,,, LoTREL,,,,, DiTROPAN xl,,,,, Stress Test Details Test: LEXISCAN HR Resting HR: 71 bpm Max Heart Rate (APMHR): 134.286313 bpm Max HR Achieved: 107 bpm Target HR (85% APMHR): 113.490816 bpm % of APMHR: 79.85 Recovery HR: 87 bpm BP Resting BP: 147.0/68.0 mmHg Max BP: 159.0/70.0 mmHg Recovery BP: 147.0/71.0 mmHg ECG Resting ECG: NSR, normal Clinical Exercise duration: 04:00 min Highest Stage Achieved: Exercise capacity: 1.0 METs Stress ECG Conclusion Symptoms: None Arrhythmias/Ectopy: Occassional isolated PVC ST-T Changes: No significant changes Conclusion: Unremarkable Lexiscan stress. Myoview images reported separately Test Summary RECOVERY 03:22 . . 82 . 147/ 71 . . Stage 1 01:00 . . 105 . . . . Stage 2 01:00 . . 94 . 159/ 70 . . Stage 3 01:00 . . 86 . 150/ 66 . . Stage 4 01:00 . . 87 . 150/ 66 . Stop exercise at 04:00 RECOVERY 01:00 . . 75 . . . . RECOVERY 02:00 . . 74 . 140/ 62 . . RECOVERY 03:00 . . 87 . 147/ 71 . . RECOVERY 03:22 . . 82 . 147/ 71 . . Electronically signed by : Joao Segovia MD 12/05/2021 20:01:53
--- NOTE | 2021-12-05 08:31 | HMH.ITSHM ---
Current Home Medications as stated by this patient Caty Zayas or call center representative. []VITAMINS SIMVASTATIN OMEPRAZOLE AMLODIPINE OXYBUTYNIN
== END ==
PROVIDERS: PCP Family Medicine; Visit Provider Nurse Practitioner Family
DX: E78.5 Hyperlipidemia, unspecified (principal); I10 Essential (primary) hypertension; R55 Syncope and collapse; I65.23 Occlusion and stenosis of bilateral carotid arteries; Z72.0 Tobacco use; R06.09 Other forms of dyspnea; Z20.822 Contact with and (suspected) exposure to COVID-19; Z01.818 Encounter for other preprocedural examination
CPT/HCPCS: 78452; 93017; A9502; C9803; J2785; U0003; U0005

== ENCOUNTER → 2021-12-05 09:23 | Outpatient (CLI) | payer MEDICARE, BC, SELFPAY | PROVIDERS: PCP Family Medicine; Visit Provider Internal Medicine | DX: Z01.812 Encounter for preprocedural laboratory examination (principal); Z20.822 Contact with and (suspected) exposure to COVID-19 | CPT/HCPCS: C9803; U0003; U0005 ==

== ENCOUNTER → 2021-12-06 10:18 | Outpatient (CLI) | payer MEDICARE, BC, SELFPAY ==
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
== END ==
PROVIDERS: PCP Family Medicine; Visit Provider Specialist
DX: R40.4 Transient alteration of awareness (principal); R55 Syncope and collapse
CPT/HCPCS: 70551; 95816

== ENCOUNTER 2021-12-08 09:07 | Day surgery (SDC) | payer MEDICARE, BC, SELFPAY ==
[2021-12-08 09:16] VITALS: BMI 29.7
[2021-12-08 09:30] VITALS: BP 161/73; PULSE 82; RESP 18; TEMP 36.9
[2021-12-08 09:37] VITALS: BP 161/73; PULSE 82; RESP 18; TEMP 36.8; O2SAT 94
[2021-12-08 09:40] VITALS: PULSE 76
[2021-12-08 10:15] VITALS: BP 150/77; PULSE 80; RESP 17; O2SAT 95
[2021-12-08 10:17] VITALS: PULSE 80
[2021-12-08 10:32] VITALS: BP 120/85; PULSE 80; RESP 17; O2SAT 95
--- NOTE | 2021-12-08 12:13 | HMH.LOOP ---
[facility] Loop Recorder Date: 12/08/21 Time: 10:10 Procedure Performed:: Loop recorder insertion Indication:: syncope Technique:: Patient was brought to the cardiac Roofer Applicator. After informed consent obtained, 1% lidocaine with epinephrine was used to anesthetize the site along the left anterior aspect of the chest near the sternal border. Using the preformed scalpel, an incision was made and using the supplied preloaded apparatus, the loop recorder was placed subcutaneously without difficulty. Following the deployment of the loop recorder interrogation of the device was performed to ensure appropriate voltage was being detected. Once this was verified, Steri-Strips were placed over the incision and the patient was prepped to discharge home. Patient tolerated the procedure well with minimal discomfort. Impression:: Successful implantation of loop recorder Serial Number:: Model: M301 LUX-Dx Serial number: [id number] Plan:: Routine postop care Loop recorder was successfully implanted by Chata To APRN under the direct supervision of Dr. Owen Feng MD.
== END 2021-12-08 10:38 | disposition home or self-care (01) ==
LOC: CATHLAB 09:10
PROVIDERS: PCP Family Medicine; Visit Provider Internal Medicine
DX: R55 Syncope and collapse (principal); Z79.899 Other long term (current) drug therapy; I65.23 Occlusion and stenosis of bilateral carotid arteries; I10 Essential (primary) hypertension
CPT/HCPCS: 33285

== ENCOUNTER → 2021-12-11 12:40 | Outpatient (CLI) | payer MEDICARE, BC, SELFPAY | PROVIDERS: PCP Family Medicine; Visit Provider Specialist | DX: G47.33 Obstructive sleep apnea (adult) (pediatric) (principal); R53.83 Other fatigue | CPT/HCPCS: G0399 ==

== ENCOUNTER → 2022-03-13 13:40 | Outpatient (CLI) | payer MEDICARE, BC, SELFPAY ==
[2022-03-13 14:58] LABS: Alanine Aminotransferase 20 U/L (12-78); Albumin Level 4.2 g/dl (3.5-5.0); Alkaline Phosphatase 141 U/L (38-126); Aspartate Amino Transferase 27 U/L (14-36); Bilirubin,Indirect 0.2 mg/dL (0.0-0.9); Bilirubin,Total 0.2 mg/dl (0.2-1.3); Bilirubin,Unconjugated 0.4 mg/dL (0.0-1.1); Chol/HDL Ratio 2.8 (1-3.5); Cholesterol 153 mg/dl (140-200); HDL Cholesterol 54 mg/dl (40-60); Triglycerides 77 mg/dl (30-150); VLDL Cholesterol 15 mg/dL (0-40)
[2022-03-13 15:09] LABS: Direct LDL Cholesterol 84.54 mg/dL (100-129)
== END ==
PROVIDERS: Internal Medicine; PCP Nurse Practitioner Family; Visit Provider Nurse Practitioner
DX: E78.2 Mixed hyperlipidemia (principal)
CPT/HCPCS: 36415; 80061; 80076

== ENCOUNTER 2022-09-29 08:45 | Emergency (ER) | payer MEDICARE, BC, SELFPAY ==
[2022-09-29 09:00] VITALS: BP 131/86; PULSE 76; RESP 19; TEMP 37.1; O2SAT 98; BMI 33.1
[2022-09-29 09:13] LABS: Color,Urine Red (Yellow)
[2022-09-29 09:14] LABS: Apearance,Urine Cloudy (Clear); Bilirubin,Urine Negative (Negative); Blood, Urine 3+ (Negative); Glucose,Urine (UA) Negative (Negative); Ketones,Urine Negative (Negative); Protein,Urine Negative (Negative); Specific Gravity, Urine 1.015 (1.005-1.030); UTC Leukocyte Esterase,Urine 1+ (Negative); UTC Nitrate,Urine Negative (Negative); Urobilinogen,Urine 0.2 EU/dl (0.2)
[2022-09-29 09:40] VITALS: BP 131/86; PULSE 76; RESP 19; TEMP 37.1; O2SAT 98
--- NOTE | 2022-09-29 10:07 | EXP.UTC ---
Discharge Plan Disposition Patient Disposition: Home, Self-Care Condition: Good Prescriptions Prescriptions: New nitrofurantoin monohyd/m-cryst [Macrobid] 100 mg capsule 100 mg PO Q12H 5 Days Qty: 10 0RF Rx Instructions: must administer with a meal/food No Action amlodipine-benazepril 10-40 mg capsule 1 tab PO DAILY Qty: 90 Label Comments: TAKE 1 CAPSULE BY MOUTH ONCE DAILY simvastatin 40 mg tablet 40 mg PO HS Qty: 90 Label Comments: TAKE 1 TABLET BY MOUTH AT BEDTIME omeprazole 40 mg capsule,delayed release(DR/EC) 40 mg PO DAILY Label Comments: TAKE 1 CAPSULE BY MOUTH ONCE DAILY 30 MINUTES BEFORE MORNING MEAL oxybutynin chloride 5 MG tablet extended release 24hr 5 mg PO DAILY Referrals Follow up/Referrals: Biju Hernandes MD [Primary Care Provider] - See instructions Clinical Impressions Clinical Impression: Urinary tract infection Qualifiers: Urinary tract infection type: acute cystitis Hematuria presence: with hematuria Qualified Code(s): N30.01 - Acute cystitis with hematuria Instructions Patient Instructions: DI for Urinary Tract Infection (UTI) Discharge ED Provider: Jenny Pinedo [facility] General Stated complaint: Possible UTI Mode of Arrival: Ambulatory Source of Information: Patient Limitations: No Limitations Time Seen by Provider: 09/29/22 10:07 Description of Symptoms (Recalled from Triage Doc. by RN): PATIENT C/O BLOOD IN URINE AND CHILLS X 2 DAYS HEENT Symptoms (Recalled from RN notes): No Resp Symptoms (Recalled from RN notes): No Skin Symptoms (Recalled from RN notes): No MS Symptoms (Recalled from RN notes): No Functional Status (Recalled from RN notes): WNL History of Present Illness Provider Complaint: Pt relates that she has had blood in her urine with chills for the past 2 days. She denies abdominal pain or back pain. No burning with urination, but has increase frequency and urgency. She denies taking anything for her symptoms. Related Data Home Medications Medication Instructions Recorded Confirmed amlodipine 10 mg-benazepril 40 mg 1 tab PO DAILY Hypertension #90 05/21/19 09/29/22 capsule caps simvastatin 40 mg tablet 40 mg PO HS Cholesterol #90 tabs 05/21/19 09/29/22 oxybutynin chloride 5 mg 5 mg PO DAILY BLADDER 10/26/20 09/29/22 tablet,extended release 24 hr omeprazole 40 mg capsule,delayed 40 mg PO DAILY GERD 01/24/21 09/29/22 release Previous Rx's Medication Instructions Recorded nitrofurantoin 100 mg PO Q12H 5 days #10 caps 09/29/22 monohydrate/macrocrystals 100 mg capsule (Macrobid) Allergies Allergy/AdvReac Type Severity Reaction Status Date / Time No Known Allergies Allergy Verified 09/10/22 13:05 Worker's Comp Is this a Worker's Comp case?: No [facility] Disclaimer: The information contained in this section may have been updated after the patient was seen, as this information can be updated by other users. Surgical History History of right shoulder replacement Family History Other Hypertension Social History Smoking Status: Never smoker second hand exposure: No alcohol intake: never substance use type: denies use current occupational status: retired Travel in the last 8 weeks: None household members: none housing: house marital status: current occupational exposures/hazards: No caffeine: Yes ROS Obtained: Yes All systems reviewed & no additional complaints except as documented Constitutional Constitutional: Reports system reviewed and no additional complaints, except as documented and Reports chills Eyes Eyes: Reports system reviewed and no additional complaints, except as documented ENT Ears, Nose, Mouth, and Throat: Reports system reviewed and no additional complaints, except
== END 2022-09-29 10:10 | disposition home or self-care (01) ==
PROVIDERS: Emergency Provider Nurse Practitioner Family; PCP Family Medicine
DX: N30.01 Acute cystitis with hematuria (principal)
CPT/HCPCS: 81003; 87086; 99212; 99214; G0463

== ENCOUNTER → 2022-10-22 08:23 | Outpatient (CLI) | payer MEDICARE, BC, SELFPAY ==
--- NOTE | 2022-10-22 08:27 | US_ITS ---
FINAL REPORT CLINICAL HISTORY: CALCIFICATION FINDINGS: Sonographic images were obtained of the abdominal aorta. The abdominal aorta measures up to 1.6 in greatest dimensions. The common iliac arteries are within normal limits. Moderate calcified plaque disease. IMPRESSION: No evidence of aneurysm. Reviewed, Interpreted and Dictated by Rohith Cheatham MD Transcribed by Matt Neville Authenticated and [facility]
== END ==
PROVIDERS: PCP Family Medicine; Visit Provider Nurse Practitioner Family
DX: I70.0 Atherosclerosis of aorta (principal)
CPT/HCPCS: 76770

== ENCOUNTER → 2022-11-06 09:12 | Outpatient (CLI) | payer MEDICARE, BC, SELFPAY ==
--- NOTE | 2022-11-06 09:17 | XR_ITS ---
FINAL REPORT CLINICAL HISTORY: Right Foot Pain FINDINGS: 3 weight bearing views of the right foot were obtained. There is no acute fracture or dislocation. There are mild degenerative changes. There is a small chronic calcification medial to the head of the 1st metatarsal. Calcaneal spurs are present. There are vascular calcifications. IMPRESSION: Mild degenerative changes. Reviewed, Interpreted and Dictated by Bc Bernstein III, MD Transcribed by Matt Neville Authenticated and [facility]
== END ==
PROVIDERS: PCP Family Medicine; Visit Provider Nurse Practitioner Family
DX: M79.671 Pain in right foot (principal)
CPT/HCPCS: 73630

== ENCOUNTER 2023-06-16 10:35 | Emergency (ER) | payer MEDICARE, BC, SELFPAY ==
[2023-06-16 11:00] VITALS: BP 127/67; PULSE 104; RESP 18; TEMP 36.8; O2SAT 94; BMI 29.9
--- NOTE | 2023-06-16 11:00 | ED_ITS ---
Discharge Plan Disposition Patient Disposition: Home, Self-Care Condition: Good Prescriptions Prescriptions: New azithromycin [Zithromax] 250 mg tablet 250 mg PO UD DOSE PK Qty: 6 0RF Rx Instructions: Take two (2) tablets today, then one (1) tablet days #2 thru #5 methylprednisolone 4 mg Tablets,Dose Pack 4 mg PO DIRECTED 6 Days Qty: 21 0RF Rx Instructions: Take 1 pack as directed for 6 days No Action amlodipine-benazepril 10-40 mg capsule 1 tab PO DAILY Qty: 90 Patient Comments: TAKE 1 CAPSULE BY MOUTH ONCE DAILY simvastatin 40 mg tablet 40 mg PO HS Qty: 90 Patient Comments: TAKE 1 TABLET BY MOUTH AT BEDTIME omeprazole 40 mg capsule,delayed release(DR/EC) 40 mg PO DAILY Patient Comments: TAKE 1 CAPSULE BY MOUTH ONCE DAILY 30 MINUTES BEFORE MORNING MEAL oxybutynin chloride 5 MG tablet extended release 24hr 5 mg PO DAILY amoxicillin 500 mg capsule 500 mg PO BID Patient Comments: TAKE 1 CAPSULE BY MOUTH TWICE DAILY FOR 10 DAYS tolterodine 1 mg tablet 1 mg PO BID benzonatate 100 mg capsule See Rx Instructions .ROUTE .COMPLEX Patient Comments: TAKE 1 CAPSULE BY MOUTH THREE TIMES DAILY NEEDED FOR 7 DAYS Rx Instructions: TAKE 1 CAPSULE BY MOUTH THREE TIMES DAILY NEEDED FOR 7 DAYS Referrals Follow up/Referrals: Biju Hernandes MD [Primary Care Provider] - See instructions Activity Restrictions/Add. Instructions Additional Instructions/Restrictions: Stop the amoxicillin that you are on and start the azithromycin pack. Start the steroid dose pack. Follow up with your primary care physicain. GO TO THE ER FOR ANY WORSENING SYMPTOMS Clinical Impressions Clinical Impression: Acute bronchitis Instructions Patient Instructions: Acute Bronchitis, DI for Acute Bronchitis Discharge ED Provider: Len Nichole [facility] General Stated complaint: cough congestion weakness Time Seen by Provider: 06/16/23 11:00 History of Present Illness Provider Complaint: She states that for the past 3 days she has had chest congestion, sinus congestion, and she has felt bad. Related Data Home Medications Medication Instructions Recorded Confirmed amlodipine 10 mg-benazepril 40 mg 1 tab PO DAILY Hypertension #90 05/21/19 06/16/23 capsule caps simvastatin 40 mg tablet 40 mg PO HS Cholesterol #90 tabs 05/21/19 06/16/23 oxybutynin chloride 5 mg 5 mg PO DAILY BLADDER 10/26/20 06/16/23 tablet,extended release 24 hr omeprazole 40 mg capsule,delayed 40 mg PO DAILY GERD 01/24/21 06/16/23 release amoxicillin 500 mg capsule 500 mg PO BID 06/16/23 06/16/23 benzonatate 100 mg capsule See Rx Instructions .Route .COMPLEX 06/16/23 06/16/23 tolterodine 1 mg tablet 1 mg PO BID 06/16/23 06/16/23 Previous Rx's Medication Instructions Recorded azithromycin 250 mg tablet 250 mg PO UD DOSE PK #6 tabs 06/16/23 (Zithromax) methylprednisolone 4 mg tablets in 4 mg PO DIRECTED 6 days #21 tabs 06/16/23 a dose pack Allergies Allergy/AdvReac Type Severity Reaction Status Date / Time No Known Allergies Allergy Verified 06/16/23 11:34 [facility] Disclaimer: The information contained in this section may have been updated after the patient was seen, as this information can be updated by other users. Surgical History History of right shoulder replacement Family History Other Hypertension Social History Smoking Status: Never smoker second hand exposure: No alcohol intake: never substance use type: denies use current occupational status: retired Travel in the last 8 weeks: None household members: none housing: house marital status: current occupational exposures/hazards: No caffeine: Yes ROS Obtained: Yes All systems reviewed & no additional complaints except as documented Constitutional Constitutional: Reports poor appetite Eyes Eyes: Reports system reviewed and no additional complaints, except as documented ENT Ears, Nose, Mouth, and Throat: Reports as per HPI Cardiovascular Cardiovascular: Reports system reviewed and no additional complaints, except as documented and Denies chest pain Respiratory Respiratory: Denies shortness of breath, Reports chest congestion, Reports cough, Denies stridor and Denies wheezing Gastrointestinal Gastrointestingal: Reports system reviewed and no additional complaints, except as documented; Denies abdominal pain, diarrhea or vomiting Musculoskeletal Musculoskeletal: Reports system reviewed and no additional complaints, except as documented and Denies arthralgias Integumentary/Breasts Skin/Breast: Reports system reviewed and no additional complaints, except as d ocumented and Denies rash Neurologic Neurologic: Denies paresthesias Allergic/Immunologic Allergic/Immunologic: Denies wheezing Physical Exam General General appearance: alert and in no apparent distress Eye Eye exam: Present normal appearance, PERRL and EOMI ENT ENT exam: Present mucous membranes moist and normal external ear exam Expanded ENT Exam External ear exam: Present normal external inspection TM/Canal exam: Bilateral TM: erythema and bulging Nose exam: Absent sinus tenderness Nasal speculum exam: Bilateral: normal Mouth exam: Present normal external inspection; Absent drooling Teeth exam: Present normal inspection Throat exam: Present tonsillar erythema and tonsillomegaly Neck Neck exam: Present normal inspection, full ROM and trachea midline; Absent tenderness, lymphadenopathy or thyromegaly Chest Chest inspection: Present normal inspection and symmetric chest wall rise; Absent tenderness or rash Respiratory Respiratory exam: Present normal lung sounds bilaterally; Absent respiratory distress, wheezes, stridor or accessory muscle use Cardiovascular Cardiovascular exam: Present regular rate, normal rhythm and normal heart sounds Abdominal Exam Abdominal exam: Present soft; Absent distention, tenderness, guarding, rebound or rigidity Extremities Exam Extremities exam: Present normal inspection, full ROM and normal capillary refill; Absent tenderness or calf tenderness Back Exam Back exam: Present normal inspection and full ROM; Absent tenderness Neurological Exam Neurological exam: Present alert and oriented X3 Psychiatric Psychiatric exam: Present normal affect and normal mood Skin Skin exam: Present warm, dry, intact and normal color Lymphatic Lymphatic Findings: no adenopathy Medical Decision Making Medical Records Medical records reviewed: No I reviewed the patient's medical records. Edgardo Inquiry Pt receiving controlled substance: No
[2023-06-16 11:36] LABS: UTC Strep Screen (Rapid) Negative (Negative)
[2023-06-16 11:51] VITALS: BP 127/67; PULSE 104; RESP 19; TEMP 36.8; O2SAT 94
== END 2023-06-16 11:51 | disposition home or self-care (01) ==
PROVIDERS: Emergency Provider Nurse Practitioner Family; PCP Family Medicine
DX: J20.9 Acute bronchitis, unspecified (principal); R05.9 Cough, unspecified; R09.89 Other specified symptoms and signs involving the circulatory and respiratory systems; R09.81 Nasal congestion; R53.81 Other malaise
CPT/HCPCS: 87880; 99212; 99214; G0463

== ENCOUNTER 2023-06-27 17:54 | Outpatient (CLI) | payer MEDICARE, BC, SELFPAY ==
[2023-06-27 18:43] LABS: Basophils # 0.1 K/mm3 (0-0.2); Basophils % 0.4 % (0.1-2.0); Hematocrit 43.1 % (37.0-47.0); Hemoglobin 14.3 g/dL (12.2-16.2); Lymphocytes # 0.7 K/mm3 (0.7-4.5); Lymphocytes % 3.3 % (10-50); Mean Corpuscular HGB Conc 33.1 g/dL (31.8-35.4); Mean Corpuscular Hemoglobin 32.5 pg (27.0-31.2); Mean Corpuscular Volume 98.2 fl (81-99); Mean Platelet Volume 9.8 fl (7.4-10.4); Monocytes # 0.9 K/mm3 (0.1-1.0); Monocytes % 4.3 % (1.7-9.3); Neutrophils # 18.7 K/mm3 (1.8-7.8); Platelet Count 269 K/mm3 (142-424); Red Blood Count 4.39 M/mm3 (4.20-5.40); Red Cell Distribution Width 12.8 % (11.5-17.5); White Blood Count 20.3 K/mm3 (4.8-10.8)
[2023-06-27 18:48] LABS: MANUAL DIFFERENTIAL MANUAL DIFFERENTIAL (MANUAL DIFF)
[2023-06-27 19:01] LABS: Alanine Aminotransferase 25 U/L (12-78); Albumin Level 4.1 g/dl (3.5-5.0); Albumin/Globulin Ratio 1.4 (1.1-1.8); Alkaline Phosphatase 139 U/L (38-126); Anion Gap 14.1 mEq/L (5-15); Aspartate Amino Transferase 29 U/L (14-36); Bilirubin,Total 0.8 mg/dl (0.2-1.3); Blood Urea Nitrogen 14 mg/dl (7-17); Calcium 8.9 mg/dl (8.4-10.2); Carbon Dioxide 27 mmol/L (22.0-30.0); Chloride 99 mmol/L (98-107); Estimated Glomerular Filt Rate 52 ml/min (>60); GFR (African American) 63 ML/MIN (>60); Glucose 182 mg/dl (74-100); Potassium 5.1 mmoL/L (3.5-5.1); Sodium 135 mmol/L (136-145); Total Protein,Serum 7.1 g/dl (6.3-8.2)
[2023-06-27 19:17] LABS: Lymphocytes % 1 % (10-50); Monocytes % 2 % (2-9); Neutrophils % 97 % (42-76); Platelet Estimate Normal; Stomatocytes 1+; Total Cells Counted 100
== END 2023-06-27 23:59 ==
LOC: LAB.DROPOF 17:58
PROVIDERS: PCP Internal Medicine; Visit Provider Internal Medicine
DX: R11.10 Vomiting, unspecified (principal)
CPT/HCPCS: 80053; 85007; 85025

== ENCOUNTER 2023-06-27 21:13 | Inpatient (IN) | payer MEDICARE, BC, SELFPAY ==
[2023-06-27 21:15] VITALS: BP 142/68; PULSE 104; RESP 16; TEMP 37.3; O2SAT 93; BMI 29.7
--- NOTE | 2023-06-27 21:51 | XR_ITS ---
PROCEDURE INFORMATION: Exam: XR Chest Exam date and time: 06/27/2023 9:52 PM Age: 87 years old Clinical indication: Cough and fever; Patient HX: Cough, congestion, sputum production. Fever. ; Additional info: Weakness chills TECHNIQUE: Imaging protocol: Radiologic exam of the chest. Views: 1 view. COMPARISON: CR XR CHEST PORTABLE 11/19/2021 3:29 PM FINDINGS: Lungs: Possible retrocardiac consolidation. Pleural spaces: No large effusion or pneumothorax. Heart/Mediastinum: No evidence of mediastinal widening or cardiac silhouette enlargement; the mediastinum and heart appear within normal limits for contour and size. Stable cardiac and mediastinal contours. Vasculature: There are calcifications of the aortic arch. Bones/joints: Status post right shoulder arthroplasty. IMPRESSION: Possible retrocardiac consolidation.
[2023-06-27 22:02] LABS: Coronavirus 19, PCR Not Detected (NotDetected); Influenza A, PCR Not Detected (NotDetected); Influenza B, PCR Not Detected (NotDetected)
[2023-06-27 22:21] LABS: Basophils # 0.1 K/mm3 (0-0.2); Basophils % 0.4 % (0.1-2.0); Eosinophils % 0.1 % (0.1-12.0); Hematocrit 42.6 % (37.0-47.0); Hemoglobin 14.2 g/dL (12.2-16.2); Lymphocytes # 0.7 K/mm3 (0.7-4.5); Lymphocytes % 2.9 % (10-50); Mean Corpuscular HGB Conc 33.3 g/dL (31.8-35.4); Mean Corpuscular Hemoglobin 32.3 pg (27.0-31.2); Mean Corpuscular Volume 97.1 fl (81-99); Monocytes # 1.1 K/mm3 (0.1-1.0); Monocytes % 4.3 % (1.7-9.3); Neutrophils # 22.8 K/mm3 (1.8-7.8); Neutrophils % 92.3 % (37.0-80.0); Platelet Count 258 K/mm3 (142-424); Red Blood Count 4.39 M/mm3 (4.20-5.40); Red Cell Distribution Width 12.9 % (11.5-17.5); White Blood Count 24.7 K/mm3 (4.8-10.8)
[2023-06-27 22:23] LABS: Lactic Acid 2.8 mmol/L (0.7-2.1)
--- NOTE | 2023-06-27 22:26 | ECG_ITS ---
APPROVED REPORT Exam: Resting ECG HR:112 bpm ECG Measurements Heart Rate 112 AXES [place] 190 P 74 QRSd 72 QRS 60 QT 238 T 53 QTc 304 Conclusion SINUS TACHYCARDIA NONSPECIFIC T-WAVE ABNORMALITY ABNORMAL RHYTHM ECG UNCONFIRMED REPORT Electronically signed by : Zoran Van MD 06/28/2023 12:06:53
--- NOTE | 2023-06-27 22:28 | CT_ITS ---
PROCEDURE INFORMATION: Exam: CTA Chest With Contrast Exam date and time: 06/27/2023 11:41 PM Age: 87 years old Clinical indication: Shortness of breath; Additional info: SOA hypoxemia TECHNIQUE: Imaging protocol: Computed tomographic angiography of the chest with contrast. Exam focused on the arteries. 3D rendering (Not supervised by radiologist): MIP and/or 3D reconstructed images were created by the technologist. Radiation optimization: All CT scans at this facility use at least one of these dose optimization techniques: automated exposure control; mA and/or kV adjustment per patient size (includes targeted exams where dose is matched to clinical indication); or iterative reconstruction. Contrast material: ISOVUE; Contrast volume: 75 ml; Contrast route: INTRAVENOUS (IV); COMPARISON: 1. CR XR CHEST PORTABLE 06/27/2023 9:52 PM 2. CR XR CHEST PORTABLE 11/19/2021 3:29 PM 3. CR XR CHEST 2V 06/19/2021 3:25 PM FINDINGS: Tubes, catheters and devices: If concern persists, repeat examination or nuclear medicine V/Q scan would be recommended. Pulmonary arteries: There is poor opacification of the pulmonary arterial tree. No large central pulmonary arterial filling defect is seen. Lobar, segmental, and subsegmental branches are not well evaluated. Aorta: There is atherosclerotic disease of the visualized aorta and its major branch vessels. Lungs: There is a right upper lobe calcified granuloma. Left lower lobe and lingular parenchymal consolidation concerning for pneumonia. Scattered areas of bronchial wall thickening which are likely chronic inflammatory. A few areas of subpleural reticulation are noted, nonspecific. A 6 mm right middle lobe pulmonary nodule (image 180 series 2). Fleischner Society guidelines for follow-up are detailed below. Pleural spaces: Unremarkable. No pneumothorax. No pleural effusion. Heart: Unremarkable. No cardiomegaly. No pericardial effusion. Lymph nodes: Unremarkable. No enlarged lymph nodes. Diaphragm: Possible tiny sliding-type hiatal hernia. Bones/joints: Status post right shoulder arthroplasty. There is diffuse degenerative disease of the visualized osseous structures. There is exaggeration of the spinal curvature. Soft tissues: Unremarkable. IMPRESSION: 1. Left lower lobe pneumonia. 2. There is poor opacification of the pulmonary arterial tree. No large central pulmonary arterial filling defect is seen. Lobar, segmental, and subsegmental branches are not well evaluated. If concern persists, repeat examination or nuclear medicine V/Q scan would be recommended. 3. Solid pulmonary nodules measuring less than 6 mm. For patients at low risk (minimal or absent history of smoking and of other known risk factors), no routine follow-up is indicated. For patients at high risk (history of smoking or of other known risk factors), consider optional CT Chest at 12 months. (Reference: Iglesia). REFERENCES: Iglesia Núñez, et al. Guidelines for Management of Incidental Pulmonary Nodules Detected on CT Images: From the Fleischner Society 2017. Radiology. 2017;284(1):228-243.
[2023-06-27 22:29] LABS: Chloride 99 mmol/L (98-107); Potassium 4.3 mmoL/L (3.5-5.1); Sodium 134 mmol/L (136-145)
[2023-06-27 22:32] LABS: Alanine Aminotransferase 39 U/L (12-78); Albumin/Globulin Ratio 1.1 (1.1-1.8); Alkaline Phosphatase 138 U/L (38-126); Anion Gap 13.3 mEq/L (5-15); Aspartate Amino Transferase 37 U/L (14-36); Bilirubin,Total 1.1 mg/dl (0.2-1.3); Blood Urea Nitrogen 14 mg/dl (7-17); Calcium 8.8 mg/dl (8.4-10.2); Carbon Dioxide 26 mmol/L (22.0-30.0); Creatinine Clearance Estimated 54 mL/min (50-200); Estimated Glomerular Filt Rate 52 ml/min (>60); GFR (African American) 63 ML/MIN (>60); Globulin 3.8 g/dL (1.3-3.2); Glucose 222 mg/dl (74-100); Total Protein,Serum 7.8 g/dl (6.3-8.2)
[2023-06-27 22:36] VITALS: BP 119/71; PULSE 110; RESP 22; TEMP 38.4; O2SAT 94
[2023-06-27] MEDS: VANCOMYCIN CONSULT REQUEST 1 EACH NOTAPPLIC (22:36)
[2023-06-27 22:38] LABS: Microscopic, Urine URINE MICROSCOPIC (MICROSCOPIC)
[2023-06-27 22:41] LABS: Appearance,Urine CLEAR (Clear); Bilirubin,Urine Negative (Negative); Blood, Urine 1+ (Negative); Color,Urine YELLOW (Yellow); Glucose,Urine (UA) Negative (Negative); Ketones,Urine 1+ (Negative); Leukocyte Esterase,Urine Negative (Negative); Nitrate,Urine Negative (Negative); Protein,Urine TRACE (Negative)
[2023-06-27 22:41] LABS: NT Pro Brain Natriuretic Pep. 217 pg/mL (0-450)
--- NOTE | 2023-06-27 22:44 | ED_ITS ---
Discharge Plan Disposition Patient Disposition: Home, Self-Care Chief Complaint: Weakness Prescriptions Prescriptions: No Action amlodipine-benazepril 10-40 mg capsule 1 tab PO DAILY Qty: 90 Patient Comments: TAKE 1 CAPSULE BY MOUTH ONCE DAILY simvastatin 40 mg tablet 40 mg PO HS Qty: 90 Patient Comments: TAKE 1 TABLET BY MOUTH AT BEDTIME omeprazole 40 mg capsule,delayed release(DR/EC) 40 mg PO DAILY Patient Comments: TAKE 1 CAPSULE BY MOUTH ONCE DAILY 30 MINUTES BEFORE MORNING MEAL PreserVision AREDS-2 250-90-40-1 mg capsule 1 tab PO BID tolterodine 1 mg tablet 1 mg PO BID Referrals Follow up/Referrals: Owen Temple DO [Primary Care Provider] - See instructions Clinical Impressions Clinical Impression: Pneumonia, Sepsis, Acute respiratory failure with hypoxemia Discharge ED Provider: Francisco Javier Alberts General Adult HPI General Chief complaint: Weakness Stated complaint: cough, weakness, incontinence Time Seen by Provider: 06/27/23 21:55 Mode of Arrival: Wheelchair Source of Information: Patient Limitations: No Limitations Description of Symptoms (Recalled from ER Triage Doc. by RN): pt c/o cough,congestion body chills,weakness x couple of days. was seen by pcp today for same problem History of Present Illness HPI narrative: 87-year-old female history of bronchitis, hyper, hyper lipidemia, carotid artery disease presenting with cough, congestion, body aches. Saw PCP today, labs drawn, concerning for leukocytosis. Patient was told to come to the emergency d epartment. Patient is coughing up green/yellow sputum. Fevers. No nausea or vomiting. Patient has persistent cough that has been interfering with functioning. Related Data Home Medications Medication Instructions Recorded Confirmed amlodipine 10 mg-benazepril 40 mg 1 tab PO DAILY Hypertension #90 05/21/19 06/27/23 capsule caps simvastatin 40 mg tablet 40 mg PO HS Cholesterol #90 tabs 05/21/19 06/27/23 omeprazole 40 mg capsule,delayed 40 mg PO DAILY GERD 01/24/21 06/27/23 release tolterodine 1 mg tablet 1 mg PO BID 06/16/23 06/27/23 vit C 250 mg-vit E 90 mg-zinc 40 1 tab PO BID 06/27/23 06/27/23 mg-copper 1 by-lufrav-rpritv capsule (PreserVision AREDS-2) Allergies Allergy/AdvReac Type Severity Reaction Status Date / Time No Known Allergies Allergy Verified 06/27/23 15:29 [facility] Disclaimer: The information contained in this section may have been updated after the patient was seen, as this information can be updated by other users. Surgical History History of right shoulder replacement Family History Other Hypertension Social History Smoking Status: Never smoker second hand exposure: No alcohol intake: never substance use type: denies use current occupational status: retired Travel in the last 8 weeks: None household members: none housing: house marital status: current occupational exposures/hazards: No caffeine: Yes ROS Obtained: Yes All systems reviewed & no additional complaints except as documented Physical Exam General General appearance: alert and in no apparent distress Head Head exam: atraumatic and normocephalic Eye Eye exam: Present normal appearance, PERRL and EOMI ENT ENT exam: Present mucous membranes moist Neck Neck exam: Present normal inspection, full ROM and trachea midline Respiratory Respiratory exam: Present other (Intermittently coughing, hypoxemic); Absent respiratory distress, wheezes, stridor, accessory muscle use or prolonged expiratory phase Cardiovascular Cardiovascular exam: Present normal rhythm Abdominal Exam Abdominal exam: Present soft; Absent distention, tenderness, guarding, rebound or rigidity Extremities Exam Extremities exam: Absent edema Neurological Exam Neurological exam: Present alert, oriented X3, CN II-XII intact and normal gait; Absent motor sensory deficit Skin Skin exam: Present warm and dry; Absent diaphoresis or erythema Medical Decision Making Medical Records Medical records reviewed: Yes I reviewed the patient's medical records. Edgardo Inquiry Pt receiving controlled substance: No Edgardo was queried for this patient: No Vital Signs: 06/27/23 21:15 06/27/23 22:45 06/27/23 22:45 Temperature 99.1 F Temperature Source Oral Pulse Rate 106 H 106 H Pulse Rate [Right] 104 H Respiratory Rate 16 Blood Pressure Blood Pressure [Right Arm] 142/68 H Blood Pressure Mean Blood Pressure Mean [Right Arm] 92 02 Sat by Pulse Oximetry 93 L 06/27/23 22:36 06/27/23 23:58 Temperature 101.2 F H Temperature Source Pulse Rate 110 H 125 H Pulse Rate [Right] Respiratory Rate 22 16 Blood Pressure 119/71 156/66 H Blood Pressure [Right Arm] Blood Pressure Mean 87 83 Blood Pressure Mean [Right Arm] 02 Sat by Pulse Oximetry 94 L 94 L Lab Data Lab Results 06/27/23 21:58: SARS-CoV-2 (PCR) Not detected, Influenza A Untype (PCR) Not detected, Influenza Type B (PCR) Not detected 06/27/23 22:00: WBC 24.7 H*, RBC 4.39, Hgb 14.2, Hct 42.6, MCV 97.1, MCH 32.3 H, MCHC 33.3, RDW 12.9, Plt Count 258, MPV 9.0, Neut % (Auto) 92.3 H, Lymph % (Auto) 2.9 L, [place] % (Auto) 4.3, Eos % (Auto) 0.1, Baso % (Auto) 0.4, Neut # (Auto) 22.8 H, Lymph # (Auto) 0.7, [place] # (Auto) 1.1 H, Eos # (Auto) 0.0, Baso # (Auto) 0.1, Sodium 134 L, Potassium 4.3, Chloride 99, Carbon Dioxide 26, Anion Gap 13.3, BUN 14, Creatinine 1.00, Estimated Creat Clear 54, Estimated GFR 52 L, Est GFR ( Amer) 63, Glucose 222 H D, Lactate 2.8 H, Calcium 8.8, Total Bilirubin 1.1, AST 37 H D, ALT 39 D, Alkaline Phosphatase 138 H, NT-Pro-B Na triuret Pep 217, Total Protein 7.8, Albumin 4.0, Globulin 3.8 H, Albumin/Glob ulin Ratio 1.1 06/27/23 22:35: Urine Color Yellow, Urine Appearance Clear, Urine pH 6.0, Ur Specific [place] 1.020, Urine Protein Trace, Urine Glucose (UA) Negative, Urine Ketones 1+, Urine Blood 1+, Urine Nitrate Negative, Urine Bilirubin Negative, Urine Urobilinogen 1.0, Ur Leukocyte Esterase Negative, Urine RBC 3-5, Urine WBC None, Ur Squamous Epith Cells None, Urine Bacteria None 06/27/23 22:00 06/27/23 22:00 Orders (Tests/Meds): ED MEDICATIONS Generic Name Dose Route Start Last Admin Trade Name Serg PRN Reason Stop Dose Admin Lactated Ringer's 1,850 mls @ 925 mls/hr 06/27/23 22:30 06/27/23 22:47 Lactated Ringer's 1000 Ml Bag 30 ml/kg infuse over 2 hr (1850 ml) 06/28/23 00:29 925 mls/hr IV Administration .Q2H ONE Vancomycin HCl 2,000 mg/ 250 mls @ 125 mls/hr 06/27/23 22:45 06/27/23 23:23 Sodium Chloride IV 06/28/23 00:44 125 mls/hr ONCE ONE Administration Iopamidol 75 ml 06/27/23 23:58 06/27/23 23:59 Iopamidol-370 (76%);100ml Bottle IV 06/27/23 23:59 75 ml ONCE ONE Administration Miscellaneous 1 each 06/27/23 22:30 06/27/23 22:36 Vancomycin Consult Request NOTAPPLIC 07/27/23 22:29 1 each CONSULT [facility] Administration Sodium Chloride 10 ml 06/27/23 23:58 06/27/23 23:59 Sodium Chloride 0.9% 10ml Syr (Rad Only) IV 07/27/23 23:57 10 ml NEEDED PRN Administration Maintain IV Site Discontinued Medications Generic Name Dose Route Start Last Admin Trade Name Serg PRN Reason Stop Dose Admin Acetaminophen 1,000 mg 06/27/23 23:16 06/27/23 23:23 Acetaminophen 1,000mg/100ml Vial IV 06/27/23 23:17 1,000 mg ONCE ONE Administration Albuterol/Ipratropium 6 ml 06/27/23 22:28 06/27/23 22:45 Ipratropium/Albuterol 3 Ml Neb IH 06/27/23 22:29 6 ml ONCE ONE Administration Cefepime HCl 2 gm/ Sodium 100 mls @ 200 mls/hr 06/27/23 22:28 06/27/23 22:47 Chloride IV 06/27/23 22:57 200 mls/hr ONCE ONE Administration ORDERS Category Date Time Status CT angio chest PE protocol Stat Cat Scan 06/27/23 22:28 Taken XR chest portable Stat Exams 06/27/23 21:51 Completed BNP [Brain Natriuretic Peptide] Stat Lab 06/27/23 22:00 Completed Complete Blood Count Auto Diff Stat Lab 06/27/23 22:00 Completed Comprehensive Metabolic Panel Stat Lab 06/27/23 22:00 Completed Lactic Acid Stat Lab 06/27/23 22:00 Completed Rapid PCR Covid and Flu A/B Stat Lab 06/27/23 21:58 Completed UA [Urinalysis and Microscopic] Stat Lab 06/27/23 22:35 Completed Blood Culture Stat Micro 06/27/23 22:00 Received Sputum Culture & Gram Stain Stat Micro 06/27/23 22:35 Received ECG initial Besson Routine Y 06/27/23 22:26 Completed Medical Decision Narrative: 87-year-old female history of bronchitis, hyper, hyper lipidemia, carotid artery disease presenting with cough, congestion, body aches. Saw PCP today, labs drawn, concerning for leukocytosis. Patient was told to come to the emergency department. Patient is coughing up green/yellow sputum. Fevers. No nausea or vomiting. Patient has persistent cough that has been interfering with functioning. History was obtained via conversation with patient and family. On arrival, patient hemodynamically stable, alert, oriented x4, appropriate, GCS 15, moving all extremities spontaneously, pupils equal and reactive to light. Full physical exam performed and significant for intermittently coughing. Hypoxemic 93%. Tachycardic, hypertensive, febrile. Lungs with no discrete abnormal findings, other than wheezing left lower lobe. Lower extremity edema. Differential includes pneumonia, bronchitis, PE, ACS, IA, pneumothorax, among others. Patient was given vancomycin, cefepime, DuoNeb for symptomatic management and correction of underlying abnormalities. Workup independently interpreted and significant for leukocytosis 24.7, lactate 2.8. Nonactionable chemistry otherwise. Chest x-ray with concern for left lower lobe pneumonia. CT PE without PE, but left lower lobe pneumonia was confirmed. See radiology read for full review of final results. Independent interpretation of EKG shows sinus tachycardia [address] or T wave changes concerning for acute ischemia. OK, QRS, QT intervals within normal limits. On reevaluation, patient resting comfortably in bed. Oxygen placed 2 L. [facility] medicine contacted and case was discussed at length, patient to be admitted. Because patient high risk for clinical decompensation, deemed appropriate for inpatient admission. Results were relayed to patient who voiced understanding and patient was agreeable to inpatient admission and management. Patient was admitted to the hospital for further definitive management. Critical Care Critical Care Time Critical Care Time: No
[2023-06-27 22:45] VITALS: PULSE 106
[2023-06-27] MEDS: IPRATROPIUM/ALBUTEROL 3 ML NEB 6 ML IH (22:45)
[2023-06-27] MEDS: CEFEPIME HCL 2 GM in 0.9 % SODIUM CHLORIDE 100 ML IV (22:47)
[2023-06-27] MEDS: LACTATED RINGERS 1000ML 1,850 ML 925 ML IV (22:47)
[2023-06-27] MEDS: VANCOMYCIN HCL 2,000 MG in 0.9 % SODIUM CHLORIDE 250 ML 125 MG IV (23:23)
[2023-06-27] MEDS: ACETAMINOPHEN 1,000MG/100ML VIAL 1000 MG IV (23:23)
--- NOTE | 2023-06-27 23:56 | PC.NURSE ---
patient back from CT
[2023-06-27 23:58] VITALS: BP 156/66; PULSE 125; RESP 16; O2SAT 94
[2023-06-27] MEDS: SODIUM CHLORIDE 0.9% 10ML SYR (RAD ONLY) 10 ML IV (23:59)
[2023-06-27] MEDS: IOPAMIDOL-370 (76%);100ML BOTTLE 75 ML IV (23:59)
[2023-06-28] VITALS (14 sets, daily range): BP systolic 110–141; BP diastolic 55–98; PULSE 82–110; RESP 18–20; TEMP 36.8–37.9; O2SAT 89–96; BMI 30.3
--- NOTE | 2023-06-28 00:02 | PC.NURSE ---
on phone with hospitalist
--- NOTE | 2023-06-28 00:05 | PC.NURSE ---
notified maintenance worker house trailer of admission
--- NOTE | 2023-06-28 00:07 | PC.NURSE ---
OBSERVATION ADMISSION TO 210 WITH DX OF PNA, SEPSIS WITH ORGAN DYSFUNCTION TO SERVICE OF THE HOSPITALIST.
--- NOTE | 2023-06-28 00:53 | PC.NURSE ---
0024 RECEIVED PHONE REPORT FROM ED VELASQUEZ RN/ED. PATIENT IS A 87 YO FEMALE . DIAGNOSIS: PNEUMONIA/SEPSIS. RESP FAILURE WITH HYPOXEMIA. NKA. WILL ARRIVE BY STRETCHER.
--- NOTE | 2023-06-28 00:58 | PC.NURSE ---
Patient arrived to floor via stretcher from ED at 00:56.
--- NOTE | 2023-06-28 01:13 | P.HP_ITS ---
History of Present Illness *Admission Date: 06/28/23 *Reason for visit:: Cough and shortness of breath *History of present illness: This is an 87-year-old female with past medical history of hypertension and hyperlipidemia who presents to the emergency department today with complaints of cough, congestion, body chills and shortness of breath. She reports cough for several days with increased weakness and fever. She states that her cough has been productive. She reports being treated for bronchitis last week but has had persistent cough and bodyaches since. She saw her PCP today and her labs were drawn concerning for leukocytosis. She was told to go to the emergency department. She endorses green and yellow productive sputum. Denies nausea vomiting. Denies chest pain. Emergency department workup significant for febrile illness with hypoxia. She was noted to be hypoxic in the 80s requiring 2 L nasal cannula. She is also noted to be tachycardic. Leukocytosis noted with a white blood cell count of 24 which is up from 20 from her PCPs office. Lactic acid of 2.8. CT of her chest notable for left lower lobe pneumonia with poor opacification of the pulmonary arterial tree but no filling defect noted. She also has a solid nodule measuring 6 mm. She was covered with vancomycin and cefepime and admitted to the hospitalist service for further evaluation management. [facility] Disclaimer: The information contained in this section may have been updated after the patient was seen, as this information can be updated by other users. Surgical History History of right shoulder replacement Family History Other Hypertension Social History (Updated 06/28/23 @ 01:31 by Vandana Lee RN) Smoking Status: Never smoker second hand exposure: No alcohol intake: never substance use type: denies use current occupational status: retired Travel in the last 8 weeks: None household members: none housing: house marital status: current occupational exposures/hazards: No caffeine: Yes Review of Systems Review of Systems Review of systems:: pertinent systems reviewed and negative unless documented below Constitutional Constitutional: Reports fatigue, Reports fever(s) and Reports lethargy *Cardiovascular Cardiovascular: Reports dyspnea *Respiratory Respiratory: Reports chest congestion, Reports cough, Reports dyspnea and Reports excessive phlegm production Endocrine Endocrine: Reports fatigue Meds Home Medications and Allergies Home Medications Medication Instructions Recorded Confirmed Type amlodipine 10 mg-benazepril 40 mg 1 tab PO DAILY High Blood Pressure 05/21/19 06/27/23 History capsule #90 caps simvastatin 40 mg tablet 40 mg PO HS Cholesterol #90 tabs 05/21/19 06/27/23 History omeprazole 40 mg capsule,delayed 40 mg PO DAILY Acid Reflux 01/24/21 06/27/23 History release tolterodine 1 mg tablet 1 mg PO BID bladder 06/16/23 06/27/23 History vit C 250 mg-vit E 90 mg-zinc 40 1 tab PO BID Supplement 06/27/23 06/27/23 H istory mg-copper 1 [id number]-[id number] capsule (PreserVision AREDS-2) New Prescriptions to Start Prescriptions: Allergies Allergy/AdvReac Type Severity Reaction Status Date / Time No Known Allergies Allergy Verified 06/27/23 15:29 Exam Data for Last 24 hours Vital signs and Labs for Last 24 Hours: Temp Pulse Resp BP Pulse Ox O2 Del Method O2 Flow Rate 98.4 F 110 H 18 141/59 H 94 L Nasal Cannula 2 06/28/23 00:27 06/28/23 00:27 06/28/23 00:27 06/28/23 00:27 06/28/23 00:00 06/28/23 00:27 06/28/23 00:27 Laboratory Results - last 24 hr 06/27/23 21:58: SARS-CoV-2 (PCR) Not detected, Influenza A Untype (PCR) Not detected, Influenza Type B (PCR) Not detected 06/27/23 22:00: WBC 24.7 H*, RBC 4.39, Hgb 14.2, Hct 42.6, MCV 97.1, MCH 32.3 H, MCHC 33.3, RDW 12.9, Plt Count 258, MPV 9.0, Neut % (Auto) 92.3 H, Lymph % (Auto) 2.9 L, [place] % (Auto) 4.3, Eos % (Auto) 0.1, Baso % (Auto) 0.4, Neut # (Auto) 22.8 H, Lymph # (Auto) 0.7, [place] # (Auto) 1.1 H, Eos # (Auto) 0.0, Baso # (Auto) 0.1, Sodium 134 L, Potassium 4.3, Chloride 99, Carbon Dioxide 26, Anion Gap 13.3, BUN 14, Creatinine 1.00, Estimated Creat Clear 54, Estimated GFR 52 L, Est GFR ( Amer) 63, Glucose 222 H D, Lactate 2.8 H, Calcium 8.8, Total Bilirubin 1.1, AST 37 H D, ALT 39 D, Alkaline Phosphatase 138 H, NT-Pro-B Natriuret Pep 217, Total Protein 7.8, Albumin 4.0, Globulin 3.8 H, Albumin/Globulin Ratio 1.1 06/27/23 22:35: Urine Color Yellow, Urine Appearance Clear, Urine pH 6.0, Ur Specific [place] 1.020, Urine Protein Trace, Urine Glucose (UA) Negative, Urine Ketones 1+, Urine Blood 1+, Urine Nitrate Negative, Urine Bilirubin Negative, Urine Urobilinogen 1.0, Ur Leukocyte Esterase Negative, Urine RBC 3-5, Urine WBC None, Ur Squamous Epith Cells None, Urine Bacteria None I & O for Last 24 hours: Intake & Output 06/25/23 06/26/23 06/27/23 06/28/23 23:59 23:59 23:59 23:59 Weight 86.183 kg Constitutional Constitutional: no acute distress *Routine HEENT Exam Head: Present normocephalic Eye: Present EOMI and PERRL ENT: Present mucous membranes moist *Routine Neck Exam Neck: Present supple; Absent lymphadenopathy *Routine Respiratory Exam Respiratory: Present decreased breath sounds and crackles *Routine Cardiovascular Exam Cardiovascular: Present bradycardia *Routine Abdominal Exam Abdominal: Present soft and normoactive bowel sounds; Absent tenderness *Routine Rectal Exam Rectal:: deferred *Routine Genitalia Exam Genitalia:: deferred *Routine Extremities Exam Extremities: Absent cyanosis, clubbing or edema *Routine Skin Exam Skin: Present warm; Absent rash *Routine Neurological Exam Neurological: Present alert and oriented X3 Assessment and Plan *Assessment and plan (1) Severe sepsis with acute organ dysfunction: Status: Acute Category: Medical Code(s): A41.9 - Sepsis, unspecified organism; R65.20 - Severe sepsis without septic shock (2) Pneumonia: Status: Acute Qualifiers: Laterality: left Lung location: lower lobe of lung Pneumonia type: due to unspecified organism Qualified Code(s): J18.9 - Pneumonia, unspecified organism Category: Medical Code(s): J18.9 - Pneumonia, unspecified organism (3) HANSA treated with BiPAP: Status: Chronic Category: Medical Code(s): G47.33 - Obstructive sleep apnea (adult) (pediatric) (4) HLD (hyperlipidemia): Status: Chronic Qualifiers: Hyperlipidemia type: mixed hyperlipidemia Qualified Code(s): E78.2 - Mixed hyperlipidemia Category: Medical Code(s): E78.5 - Hyperlipidemia, unspecified (5) HTN (hypertension): Problem Comment: Active follow-up with [facility]?cardiology team Status: Chronic Qualifiers: Hypertension type: primary hypertension Qualified Code(s): I10 - Essential (primary) hypertension Category: Medical Code(s): I10 - Essential (primary) hypertension Plan This is an 87-year-old female with past medical history of hypertension hyperlipidemia was admitted for further evaluation of sepsis secondary to pneumonia Admit to medicine Severe sepsis with acute organ dysfunction Pneumonia Meets criteria for leukocytosis, fever, tachycardia and infection source with a lactic acidosis. Received 30 mL/kg of normal saline in the emergency department for sepsis Lactic acid 2.8, repeat pending Left lower lobe pneumonia on CT Continue with broad-spectrum antibiotic coverage vancomycin and cefepime Sputum culture obtained prior to antibiotic administration in the emergency department, follow-up culture Follow-up blood cultures Supplemental O2 to keep oxygen saturation greater than 90%. Patient reports wearing CPAP nightly. HLD Continue home statin medication Hypertension Continue home antihypertensives DVT PPx Lovenox Rounded on patient after nurse practitioner. Personally examined and interviewed patient. Agree with exam findings and care plan as documented.
[2023-06-28 01:54] LABS: Reflex Lactic Add Lactic Reflex
[2023-06-28] MEDS: 0.9 % SODIUM CHLORIDE 1000ML 1,000 ML 100 ML IV ×2 (01:54→14:55)
[2023-06-28 02:18] LABS: Lactic Acid Follow Up (RFLX 1) 3.6 mmol/L (0.7-2.1)
--- NOTE | 2023-06-28 02:59 | PC.NURSE ---
REPEAT LACTATE 3.6. [facility] [employer]IN[employer]IAN NOTIFIED. ORDER RECEIVED TO BOLUS WITH ANOTHER LITER (NS).
[2023-06-28] MEDS: 0.9 % SODIUM CHLORIDE 1000ML 1,000 ML 999 ML IV (03:01)
--- NOTE | 2023-06-28 03:01 | EXP.SEPSISRE ---
[facility] Tissue Perfusion Eval Sepsis Re-Evaluation Performed: Yes Date Performed: 06/28/23 Time Performed: 03:02
[2023-06-28 04:00] LABS: Reflex Lactic (2 hrs) Add Lactic Reflex
[2023-06-28 04:48] LABS: Basophils # 0.1 K/mm3 (0-0.2); Basophils % 0.3 % (0.1-2.0); Eosinophils % 0.2 % (0.1-12.0); Hematocrit 37.7 % (37.0-47.0); Mean Corpuscular HGB Conc 33.2 g/dL (31.8-35.4); Mean Corpuscular Hemoglobin 32.5 pg (27.0-31.2); Mean Corpuscular Volume 97.8 fl (81-99); Mean Platelet Volume 8.8 fl (7.4-10.4); Monocytes % 4.2 % (1.7-9.3); Neutrophils # 22.8 K/mm3 (1.8-7.8); Neutrophils % 91.5 % (37.0-80.0); Platelet Count 210 K/mm3 (142-424); Red Blood Count 3.86 M/mm3 (4.20-5.40); White Blood Count 24.9 K/mm3 (4.8-10.8)
[2023-06-28 04:51] LABS: Chloride 102 mmol/L (98-107); Potassium 3.8 mmoL/L (3.5-5.1); Sodium 135 mmol/L (136-145)
[2023-06-28 04:54] LABS: Anion Gap 11.8 mEq/L (5-15); Blood Urea Nitrogen 13 mg/dl (7-17); Carbon Dioxide 25 mmol/L (22.0-30.0); Creatinine Clearance Estimated 55 mL/min (50-200); Estimated Glomerular Filt Rate 59 ml/min (>60); GFR (African American) 72 ML/MIN (>60); Glucose 161 mg/dl (74-100)
[2023-06-28 04:55] LABS: Magnesium 1.7 mg/dl (1.6-2.3)
[2023-06-28 04:56] LABS: MANUAL DIFFERENTIAL MANUAL DIFFERENTIAL (MANUAL DIFF)
[2023-06-28 04:57] LABS: Lactic Acid Follow up (RFLX 2) 3.1 mmol/L (0.7-2.1)
[2023-06-28 05:40] LABS: Hemoglobin A1C 6.1 % (4.0-6.0)
[2023-06-28 06:25] LABS: Lymphocytes % 7 % (10-50); Monocytes % 7 % (2-9); Neutrophils % 65 % (42-76); Total Cells Counted 100
[2023-06-28 06:43] LABS: Platelet Estimate Normal; RBC Morphology Normal
[2023-06-28 07:13] LABS: Hemoglobin 12.4 g/dL (12.2-16.2)
--- NOTE | 2023-06-28 07:37 | [facility].PHAINT1 ---
Pharmacy Intervention Comments: MEDICATION RECONCILIATION COMPLETED ON PATIENT USING EXTERNAL FILL HISTORY FROM PHARMACY AND LIST FROM PCP OFFICE. -SANTOS FONTANEZ, JULIOCESARD
--- NOTE | 2023-06-28 07:45 | P.CONPHA_ITS ---
Pharmacy Consult Date: 06/28/23 Time: 07:46 Referring provider: DR. HOLLEY Reason for Consult:: VANCOMYCIN DOSING Allergies Allergy/AdvReac Type Severity Reaction Status Date / Time No Known Allergies Allergy Verified 06/27/23 15:29 Home Medications Medication Instructions Recorded Confirmed Type amlodipine 10 mg-benazepril 40 mg 1 tab PO DAILY High Blood Pressure 05/21/19 06/27/23 History capsule #90 caps simvastatin 40 mg tablet 40 mg PO HS Cholesterol #90 tabs 05/21/19 06/27/23 History omeprazole 40 mg capsule,delayed 40 mg PO DAILY Acid Reflux 01/24/21 06/27/23 Hi story release tolterodine 1 mg tablet 1 mg PO BID bladder 06/16/23 06/27/23 History vit C 250 mg-vit E 90 mg-zinc 40 1 tab PO BID Supplement 06/27/23 06/27/23 History mg-copper 1 [id number] capsule (PreserVision AREDS-2) New Prescriptions to Start Prescriptions: Height: 1.7 m Weight: 87.634 kg Laboratory Results:: Laboratory Results - last 24 hr 06/27/23 21:58: SARS-CoV-2 (PCR) Not detected, Influenza A Untype (PCR) Not detected, Influenza Type B (PCR) Not detected 06/27/23 22:00: WBC 24.7 H*, RBC 4.39, Hgb 14.2, Hct 42.6, MCV 97.1, MCH 32.3 H, MCHC 33.3, RDW 12.9, Plt Count 258, MPV 9.0, Neut % (Auto) 92.3 H, Lymph % (Auto) 2.9 L, [place] % (Auto) 4.3, Eos % (Auto) 0.1, Baso % (Auto) 0.4, Neut # (Auto) 22.8 H, Lymph # (Auto) 0.7, [place] # (Auto) 1.1 H, Eos # (Auto) 0.0, Baso # (Auto) 0.1, Sodium 134 L, Potassium 4.3, Chloride 99, Carbon Dioxide 26, Anion Gap 13.3, BUN 14, Creatinine 1.00, Estimated Creat Clear 54, Estimated GFR 52 L, Est GFR ( Amer) 63, Glucose 222 H D, Lactate 2.8 H, Calcium 8.8, Total Bilirubin 1.1, AST 37 H D, ALT 39 D, Alkaline Phosphatase 138 H, NT-Pro-B Natriuret Pep 217, Total Protein 7.8, Albumin 4.0, Globulin 3.8 H, Albumin/Globulin Ratio 1.1 06/27/23 22:35: Urine Color Yellow, Urine Appearance Clear, Urine pH 6.0, Ur Specific [place] 1.020, Urine Protein Trace, Urine Glucose (UA) Negative, Urine Ketones 1+, Urine Blood 1+, Urine Nitrate Negative, Urine Bilirubin Negative, Urine Urobilinogen 1.0, Ur Leukocyte Esterase Negative, Urine RBC 3-5, Urine WBC None, Ur Squamous Epith Cells None, Urine Bacteria None 06/28/23 02:04: Lactate 3.6 H 06/28/23 04:40: WBC 24.9 H*, RBC 3.86 L, Hgb 12.4 D, Hct 37.7, MCV 97.8, MCH 32.5 H, MCHC 33.2, RDW 13.0, Plt Count 210, MPV 8.8, Neut % (Auto) 91.5 H, Lymph % (Auto) 4.0 L, [place] % (Auto) 4.2, Eos % (Auto) 0.2, Baso % (Auto) 0.3, Neut # (Auto) 22.8 H, Lymph # (Auto) 1.0, [place] # (Auto) 1.0, Eos # (Auto) 0.0, Baso # (Auto) 0.1, Total Counted 100, Neutrophils % (Manual) 65, Band Neutrophils % 21.0 H, Lymphocytes % (Manual) 7 L, Monocytes % (Manual) 7, Platelet Estimate Normal, RBC Morphology Normal, Sodium 135 L, Potassium 3.8, Chloride 102, Carbon Dioxide 25, Anion Gap 11.8, BUN 13, Creatinine 0.90, Estimated Creat Clear 55, Estimated GFR 59, Est GFR ( Amer) 72, Glucose 161 H D, Hemoglobin A1c 6.1 H, Lactate 3.1 H, Calcium 8.0 L, Magnesium 1.7 Assessment and Plan Assessment and plan all Dx Assessment and Plan for all problems:: Pharmacokinetic dosing service Objective: Patient: Floor: Age: 87 yo Serum creatinine: 1 mg/dL Height: 66.9 Inches Weight (kg): 87.6 Assessment: IBW (kg): 61.37 Dosing wt(kg): 87.6 Estimated Creatinine clearance (ml/min): 38.4 CRCL method: Cockcroft and Gault using ibw(default). Drug selected: Vancomycin Loading dose (mg): 0 Vd (liters): 70.1 (factor used: 0.8 L/kg) Simone (hr-1): 0.036 Half life (hrs): 19.25 Recommended dose: 1500 mg Interval: 24 hrs Infusion time (hrs): 2.0 Predicted peak (mcg/mL): 35.7 Predicted trough (mcg/mL): 16.17 Total body weight is being used for vancomycin dosing. Recommendations: Give Vancomycin 1500 mg q 24 hrs with an expected Cpeak of 35.7 mcg/ml and an expected Ctrough of 16.17 mcg/ml ----Vanco only - ignore for aminoglycosides----- CLvanco= 2.52 L/hr AUC 0-24 /FADIA Data: FADIA 0.5 mcg/mL: AUC/FADIA: 1190.5 FADIA 1.0 mcg/mL: AUC/FADIA: 595.2
[2023-06-28] MEDS: ENOXAPARIN 40MG/0.4ML SYRINGE 40 MG SQ (08:56)
[2023-06-28] MEDS: CEFEPIME HCL 1 GM in 0.9 % SODIUM CHLORIDE 50 ML IV ×2 (08:56→20:58)
[2023-06-28] MEDS: GUAIFENESIN/DEXTROMETHORPHAN 200MG/20MG 10ML UDC 10 ML PO ×3 (09:06→23:32)
--- NOTE | 2023-06-28 09:33 | PC.NURSE ---
Pt C/O cough during assessment. MD was notified. New orders received and carried out
[2023-06-28] MEDS: IPRATROPIUM/ALBUTEROL 3 ML NEB IH ×3 (11:15→23:28)
[2023-06-28] MEDS: TOLTERODINE 1 MG PO (20:58)
[2023-06-28] MEDS: PRAVASTATIN 40MG TAB 80 MG PO (20:58)
[2023-06-28] MEDS: VANCOMYCIN/WATER FOR INJ (PEG) 1.5 GM/300 ML PIGGYBACK IV (22:53)
[2023-06-28] MEDS: ACETAMINOPHEN 325MG TAB 650 MG PO (23:32)
[2023-06-29] VITALS (11 sets, daily range): BP systolic 103–136; BP diastolic 59–86; PULSE 79–107; RESP 16–26; TEMP 36.6–37; O2SAT 90–95; BMI 30.3
--- NOTE | 2023-06-29 03:50 | PC.NURSE ---
Pt is A&Ox4 and currently tolerating 2L of O2. Pt started the shift on 1L of O2 and increased O2 to 2L due to SOB and excessive coughing. Pt is anxious and upset due to coughing pt treated per MAR which helped for a shirt time. Pt denies pain and seems to rest better in a seated position. Son at bedside. Pt denies other needs at this time.
[2023-06-29] MEDS: IPRATROPIUM/ALBUTEROL 3 ML NEB IH ×4 (06:28→23:38)
[2023-06-29 07:19] LABS: Basophils # 0.1 K/mm3 (0-0.2); Basophils % 0.3 % (0.1-2.0); Eosinophils # 0.1 K/mm3 (0.0-0.4); Eosinophils % 0.5 % (0.1-12.0); Hemoglobin 11.9 g/dL (12.2-16.2); Lymphocytes % 10.8 % (10-50); Mean Corpuscular HGB Conc 33.1 g/dL (31.8-35.4); Mean Corpuscular Hemoglobin 32.3 pg (27.0-31.2); Mean Corpuscular Volume 97.7 fl (81-99); Mean Platelet Volume 9.3 fl (7.4-10.4); Monocytes # 0.7 K/mm3 (0.1-1.0); Monocytes % 3.7 % (1.7-9.3); Neutrophils # 15.5 K/mm3 (1.8-7.8); Neutrophils % 84.7 % (37.0-80.0); Platelet Count 194 K/mm3 (142-424); Red Blood Count 3.68 M/mm3 (4.20-5.40); Red Cell Distribution Width 12.8 % (11.5-17.5); White Blood Count 18.3 K/mm3 (4.8-10.8)
[2023-06-29 07:21] LABS: MANUAL DIFFERENTIAL MANUAL DIFFERENTIAL (MANUAL DIFF)
[2023-06-29 07:29] LABS: Alanine Aminotransferase 23 U/L (12-78); Albumin Level 3.3 g/dl (3.5-5.0); Alkaline Phosphatase 121 U/L (38-126); Anion Gap 8.1 mEq/L (5-15); Aspartate Amino Transferase 36 U/L (14-36); Bilirubin,Total 0.7 mg/dl (0.2-1.3); Blood Urea Nitrogen 10 mg/dl (7-17); Calcium 7.9 mg/dl (8.4-10.2); Carbon Dioxide 26 mmol/L (22.0-30.0); Chloride 102 mmol/L (98-107); Creatinine Clearance Estimated 55 mL/min (50-200); Estimated Glomerular Filt Rate 68 ml/min (>60); GFR (African American) 82 ML/MIN (>60); Globulin 3.3 g/dL (1.3-3.2); Glucose 137 mg/dl (74-100); Magnesium 1.8 mg/dl (1.6-2.3); Potassium 3.1 mmoL/L (3.5-5.1); Sodium 133 mmol/L (136-145); Total Protein,Serum 6.6 g/dl (6.3-8.2)
[2023-06-29] MEDS: ACETAMINOPHEN 325MG TAB 650 MG PO ×3 (07:51→23:03)
[2023-06-29] MEDS: GUAIFENESIN/DEXTROMETHORPHAN 200MG/20MG 10ML UDC 10 ML PO ×3 (07:56→20:27)
[2023-06-29] MEDS: 0.9 % SODIUM CHLORIDE 1000ML 1,000 ML 100 ML IV (07:56)
[2023-06-29 08:25] LABS: Lymphocytes % 13 % (10-50); Monocytes % 5 % (2-9); Neutrophils % 82 % (42-76); Total Cells Counted 100
[2023-06-29 08:30] LABS: Platelet Estimate Normal; RBC Morphology Normal
[2023-06-29] MEDS: CEFEPIME HCL 1 GM in 0.9 % SODIUM CHLORIDE 50 ML IV (08:50)
[2023-06-29] MEDS: ENOXAPARIN 40MG/0.4ML SYRINGE 40 MG SQ (08:50)
[2023-06-29] MEDS: POTASSIUM CHLORIDE 20MEQ TAB 20 MEQ PO ×3 (08:51→20:28)
[2023-06-29] MEDS: TOLTERODINE 1 MG PO ×2 (08:52→20:28)
--- NOTE | 2023-06-29 10:51 | P.PN_ITS ---
Subjective *Date: 06/29/23 *Time: 10:51 Interval history: In bedside chair on exam this morning. Tolerating 2 L nasal cannula oxygen. No chest pain but does have a more productive cough. No nausea or vomiting. Tolerating p.o. intake. Having significant coughing fits. Alert and oriented x 3. Family at bedside. Medical Exam Vital signs and Labs for Last 24 Hours: Vital Signs Temp Pulse Pulse Resp BP Pulse Ox O2 Del Method 06/29/23 09:00 Nasal Cannula 06/29/23 08:00 94 H 26 H 116/65 95 Nasal Cannula 06/29/23 08:00 Nasal Cannula 06/29/23 06:28 93 H 06/29/23 06:28 96 H 06/29/23 06:28 90 L Nasal Cannula 06/29/23 03:55 97.9 F 84 16 123/63 94 L Nasal Cannula 06/29/23 06:55 Nasal Cannula 06/29/23 04:38 Nasal Cannula 06/29/23 03:00 Nasal Cannula 06/29/23 01:00 Nasal Cannula 06/28/23 23:00 Nasal Cannula 06/28/23 21:00 Nasal Cannula 06/28/23 20:00 91 L Nasal Cannula 06/28/23 23:53 98.3 F 109 H 20 110/55 L 91 L Nasal Cannula 06/28/23 23:28 100 H 06/28/23 23:28 105 H 06/28/23 19:56 98.5 F 100 H 18 133/95 H 91 L Nasal Cannula 06/28/23 18:55 Nasal Cannula 06/28/23 17:00 Nasal Cannula 06/28/23 18:19 100 H 06/28/23 18:19 100 H 06/28/23 18:19 92 L Nasal Cannula 06/28/23 16:00 100.2 F H 82 18 134/67 93 L Nasal Cannula 06/28/23 15:00 Nasal Cannula 06/28/23 13:00 Nasal Cannula 06/28/23 12:00 99.4 F 97 H 18 140/77 95 Nasal Cannula 06/28/23 11:00 Nasal Cannula 06/28/23 11:15 86 06/28/23 11:15 89 06/28/23 11:15 89 L Nasal Cannula O2 Flow Rate 06/29/23 09:00 2 06/29/23 08:00 2 06/29/23 08:00 2 06/29/23 06:28 06/29/23 06:28 06/29/23 06:28 2 06/29/23 03:55 2 06/29/23 06:55 2 06/29/23 04:38 2 06/29/23 03:00 2 06/29/23 01:00 2 06/28/23 23:00 2 06/28/23 21:00 1 06/28/23 20:00 1 06/28/23 23:53 2 06/28/23 23:28 06/28/23 23:28 06/28/23 19:56 2 06/28/23 18:55 1 06/28/23 17:00 1 06/28/23 18:19 06/28/23 18:19 06/28/23 18:19 2 06/28/23 16:00 2 06/28/23 15:00 1 06/28/23 13:00 1 06/28/23 12:00 2 06/28/23 11:00 1 06/28/23 11:15 06/28/23 11:15 06/28/23 11:15 1 Intake and Output 06/28/23 06/29/23 06/29/23 23:59 07:59 15:59 Intake Total 280 / 4414 240 / 510 270 / 510 Output Total 0 / 500 900 / 900 0 / 900 Balance 280 / 3914 -660 / -390 270 / -390 Intake: Intake, Oral Amount 280 / 880 240 / 510 270 / 510 Output: Output, Urine Amount 0 / 500 900 / 900 0 / 900 Other: Number of Voids 0 Number of Unmeasured Voids 1 3 Weight 87.6 kg Patient Weight 06/29/23 23:59 Weight 87.6 kg Laboratory Results - last 24 hr 06/29/23 06:33: WBC 18.3 H D, RBC 3.68 L, Hgb 11.9 L, Hct 36.0 L, MCV 97.7, MCH 32.3 H, MCHC 33.1, RDW 12.8, Plt Count 194, MPV 9.3, Neut % (Auto) 84.7 H, Lymph % (Auto) 10.8, [place] % (Auto) 3.7, Eos % (Auto) 0.5, Baso % (Auto) 0.3, Neut # (Auto) 15.5 H, Lymph # (Auto) 2.0, [place] # (Auto) 0.7, Eos # (Auto) 0.1, Baso # (Auto) 0.1, Total Counted 100, Neutrophils % (Manual) 82 H, Lymphocytes % (Manual) 13, Monocytes % (Manual) 5, Platelet Estimate Normal, RBC Morphology Normal, Sodium 133 L, Potassium 3.1 L, Chloride 102, Carbon Dioxide 26, Anion Gap 8.1, BUN 10, Creatinine 0.80, Estimated Creat Clear 55, Estimated GFR 68, Est GFR ( Amer) 82, Glucose 137 H, Calcium 7.9 L, Magnesium 1.8, Total Bilirubin 0.7, AST 36, ALT 23 D, Alkaline Phosphatase 121, Total Protein 6.6, Albumin 3.3 L D, Globulin 3.3 H, Albumin/Globulin Ratio 1.0 L I & O for Labs for Last 24 Hours: Intake & Output 06/26/23 06/27/23 06/28/23 06/29/23 23:59 23:59 23:59 23:59 Intake Total 4174 / 4414 510 / 510 Output Total 500 / 500 900 / 900 Balance 3674 / 3914 -390 / -390 Weight 86.183 kg 87.63 kg 87.6 kg Constitutional: Present no acute distress, obese and chronically ill appearing Head: Present atraumatic and normocephalic ENT: Present normal exam Respiratory: Present rhonchi, crackles and normal respiratory effort; Absent wheezes Comment:: Adventitious sounds in the left lung field Cardiac: Present Reg Rate and Rhythm GI: Present soft and normal bowel sounds; Absent distention or tenderness Extremities: Present normal inspection and full ROM Skin: Present intact; Absent erythema Neuro: Present Grossly Intact, alert, awake, oriented x 3 and moves all extremities Assessment and Plan *Assessment and plan (1) Severe sepsis with acute organ dysfunction: Status: Acute Category: Medical Code(s): A41.9 - Sepsis, unspecified organism; R65.20 - Severe sepsis without septic shock (2) Pneumonia: Status: Acute Qualifiers: Laterality: left Lung location: lower lobe of lung Pneumonia type: due to unspecified organism Qualified Code(s): J18.9 - Pneumonia, unspecified organism Category: Medical Code(s): J18.9 - Pneumonia, unspecified organism (3) HANSA treated with BiPAP: Status: Chronic Category: Medical Code(s): G47.33 - Obstructive sleep apnea (adult) (pediatric) (4) HLD (hyperlipidemia): Status: Chronic Qualifiers: Hyperlipidemia type: mixed hyperlipidemia Qualified Code(s): E78.2 - Mixed hyperlipidemia Category: Medical Code(s): E78.5 - Hyperlipidemia, unspecified (5) HTN (hypertension): Problem Comment: Active follow-up with [facility]?cardiology team Status: Chronic Qualifiers: Hypertension type: primary hypertension Qualified Code(s): I10 - Essential (primary) hypertension Category: Medical Code(s): I10 - Essential (primary) hypertension Plan 87-year-old female who presented with sepsis from pneumonia. Currently on 2 L nasal cannula oxygen this morning. Showing some improvement in her cell counts. Continues to require inpatient management. Problems addressed as follows: Severe sepsis with acute organ dysfunction Pneumonia -White cell count improved to 18 from 24, repeat CBC, CMP, magnesium ordered for the morning. -Appears to be responding to antibiotics. Cefepime increased to 2 g every 12 hours, continue vancomycin, monitoring for toxicity. -Chronic cough, continue Robitussin and Tessalon Perles -Nose dry from oxygen, add nasal spray/saline -Continue supplemental oxygen, goal saturation greater 90%. Currently on 2 L. CPAP at night. - Continue to follow sputum culture and blood culture - DuoNebs every 6 hours scheduled Hypokalemia: Potassium 3.1, replacing p.o. today with 20 mEq 3 times daily Hyperlipidemia: Continue pravastatin 80 mg nightly Overactive bladder, continue tolterodine 1 mg twice daily Hypertension: Holding blood pressure meds in the setting of normal blood pressure and sepsis DVT PPx Lovenox Regular diet Full code
[2023-06-29] MEDS: BENZONATATE 100MG CAPSULE 200 MG PO ×3 (11:26→23:03)
[2023-06-29] MEDS: SODIUM CHLORIDE NASAL SPRAY 44ML NS (11:58)
--- NOTE | 2023-06-29 18:47 | PC.NURSE ---
Pt currently resting in the chair at this time. She is currently on RA. O2 sats 94%. Has c/o cough this shift. Medicated per aug. Ambulated to BSC with standby assist. Family in room. Call light within reach.
[2023-06-29] MEDS: CEFEPIME HCL 2 GM in 0.9 % SODIUM CHLORIDE 50 ML IV (20:27)
[2023-06-29] MEDS: PRAVASTATIN 40MG TAB 80 MG PO (20:28)
[2023-06-29 22:19] LABS: Vancomycin,Trough 9.2 ug/mL (5.0-10.0)
--- NOTE | 2023-06-29 22:27 | PC.NURSE ---
Contacted pharmacy with vanc trough level of 9.2, pharmacy ordered to continue with current scheduled dose, Spoke with Asmita from [facility].
[2023-06-29] MEDS: VANCOMYCIN/WATER FOR INJ (PEG) 1.5 GM/300 ML PIGGYBACK IV (22:40)
[2023-06-30] VITALS (10 sets, daily range): BP systolic 132–163; BP diastolic 51–80; PULSE 90–113; RESP 18–20; TEMP 36.7–37; O2SAT 90–94; BMI 30.5
--- NOTE | 2023-06-30 02:25 | PC.NURSE ---
Pt C/O cramping in pelvis, Pt C/O urge to urinate but is not able to form output AIRAM Pleitez notified. Bladder scan perform on pt with 1079 mL result. Recieved orders to insert 16 fr calderon. 1200 out within first 15 minutes. Pt tolerated well.
[2023-06-30] MEDS: GUAIFENESIN/DEXTROMETHORPHAN 200MG/20MG 10ML UDC 10 ML PO ×2 (03:02→19:03)
[2023-06-30] MEDS: ACETAMINOPHEN 325MG TAB 650 MG PO (06:00)
[2023-06-30] MEDS: BENZONATATE 100MG CAPSULE 200 MG PO ×2 (06:01→22:13)
[2023-06-30] MEDS: IPRATROPIUM/ALBUTEROL 3 ML NEB IH ×4 (06:20→23:59)
[2023-06-30 08:26] LABS: Basophils % 0.3 % (0.1-2.0); Eosinophils # 0.1 K/mm3 (0.0-0.4); Eosinophils % 0.6 % (0.1-12.0); Hematocrit 33.2 % (37.0-47.0); Hemoglobin 11.3 g/dL (12.2-16.2); Lymphocytes # 0.8 K/mm3 (0.7-4.5); Lymphocytes % 5.6 % (10-50); Mean Corpuscular Hemoglobin 32.7 pg (27.0-31.2); Mean Corpuscular Volume 96.2 fl (81-99); Mean Platelet Volume 9.6 fl (7.4-10.4); Monocytes # 0.5 K/mm3 (0.1-1.0); Monocytes % 3.5 % (1.7-9.3); Neutrophils # 12.2 K/mm3 (1.8-7.8); Neutrophils % 90.1 % (37.0-80.0); Platelet Count 212 K/mm3 (142-424); Red Blood Count 3.45 M/mm3 (4.20-5.40); Red Cell Distribution Width 12.9 % (11.5-17.5); White Blood Count 13.6 K/mm3 (4.8-10.8)
[2023-06-30 08:28] LABS: Chloride 104 mmol/L (98-107)
[2023-06-30 08:29] LABS: Potassium 3.6 mmoL/L (3.5-5.1); Sodium 135 mmol/L (136-145)
[2023-06-30 08:31] LABS: Blood Urea Nitrogen 8 mg/dl (7-17); Creatinine Clearance Estimated 55 mL/min (50-200); Estimated Glomerular Filt Rate 68 ml/min (>60); GFR (African American) 82 ML/MIN (>60)
[2023-06-30 08:32] LABS: Alanine Aminotransferase 31 U/L (12-78); Albumin Level 3.2 g/dl (3.5-5.0); Albumin/Globulin Ratio 0.9 (1.1-1.8); Alkaline Phosphatase 151 U/L (38-126); Anion Gap 9.6 mEq/L (5-15); Aspartate Amino Transferase 39 U/L (14-36); Bilirubin,Total 0.9 mg/dl (0.2-1.3); Calcium 8.3 mg/dl (8.4-10.2); Carbon Dioxide 25 mmol/L (22.0-30.0); Globulin 3.4 g/dL (1.3-3.2); Glucose 171 mg/dl (74-100); Total Protein,Serum 6.6 g/dl (6.3-8.2)
[2023-06-30 08:38] LABS: MANUAL DIFFERENTIAL MANUAL DIFFERENTIAL (MANUAL DIFF)
[2023-06-30] MEDS: ENOXAPARIN 40MG/0.4ML SYRINGE 40 MG SQ (09:02)
[2023-06-30] MEDS: POTASSIUM CHLORIDE 20MEQ TAB 20 MEQ PO ×3 (09:02→20:01)
[2023-06-30] MEDS: CEFEPIME HCL 2 GM in 0.9 % SODIUM CHLORIDE 50 ML IV ×2 (09:02→20:01)
--- NOTE | 2023-06-30 09:14 | EXP.PHA.CONS ---
Pharmacy Consult Date: 06/30/23 Time: 09:14 Referring provider: DR. HOLLEY Reason for Consult:: VANCOMYCIN LEVEL Allergies Allergy/AdvReac Type Severity Reaction Status Date / Time No Known Allergies Allergy Verified 06/27/23 15:29 Home Medications Medication Instructions Recorded Confirmed Type amlodipine 10 mg-benazepril 40 mg 1 tab PO DAILY High Blood Pressure 05/21/19 06/27/23 History capsule #90 caps simvastatin 40 mg tablet 40 mg PO HS Cholesterol #90 tabs 05/21/19 06/27/23 History omeprazole 40 mg capsule,delayed 40 mg PO DAILY Acid Reflux 01/24/21 06/27/23 History release tolterodine 1 mg tablet 1 mg PO BID bladder 06/16/23 06/27/23 History vit C 250 mg-vit E 90 mg-zinc 40 1 tab PO BID Supplement 06/27/23 06/27/23 History mg-copper 1 [id number]-rtjsjy-[id number] capsule (PreserVision AREDS-2) New Prescriptions to Start Prescriptions: Height: 1.7 m Weight: 88.3 kg Laboratory Results:: Laboratory Results - last 24 hr 06/29/23 21:35: Vancomycin Trough 9.2 06/30/23 07:37: WBC 13.6 H D, RBC 3.45 L, Hgb 11.3 L, Hct 33.2 L, MCV 96.2, MCH 32.7 H, MCHC 34.0, RDW 12.9, Plt Count 212, MPV 9.6, Neut % (Auto) 90.1 H, Lymph % (Auto) 5.6 L, [place] % (Auto) 3.5, Eos % (Auto) 0.6, Baso % (Auto) 0.3, Neut # (Auto) 12.2 H, Lymph # (Auto) 0.8, [place] # (Auto) 0.5, Eos # (Auto) 0.1, Baso # (Auto) 0.0, Sodium 135 L, Potassium 3.6, Chloride 104, Carbon Dioxide 25, Anion Gap 9.6, BUN 8, Creatinine 0.80, Estimated Creat Clear 55, Estimated GFR 68, Est GFR ( Amer) 82, Glucose 171 H, Calcium 8.3 L, Magnesium 2.0 D, Total Bilirubin 0.9, AST 39 H, ALT 31 D, Alkaline Phosphatase 151 H, Total Protein 6.6, Albumin 3.2 L, Globulin 3.4 H, Albumin/Globulin Ratio 0.9 L Assessment and Plan Assessment and plan all Dx Assessment and Plan for all problems:: PATIENT'S VANCOMYCIN TROUGH LEVEL WAS 9.2 MCG/ML OVERNIGHT PRIOR TO 3RD DOSE. RECOMMEND CONTINUING WITH CURRENT DOSE OF VANCOMYCIN 1500 MG Q24H AT THIS TIME.
[2023-06-30 09:43] LABS: Lymphocytes % 7 % (10-50); Monocytes % 3 % (2-9); Neutrophils % 90 % (42-76); Platelet Estimate Normal; RBC Morphology Normal; Total Cells Counted 100
[2023-06-30] MEDS: FUROSEMIDE 40MG/4ML VIAL 40 MG IV (12:59)
[2023-06-30] MEDS: ONDANSETRON 4MG/2ML VIAL 4 MG IV (14:09)
[2023-06-30] MEDS: LORazepam 0.5MG TABLET 0.25 MG PO ×2 (14:34→20:01)
--- NOTE | 2023-06-30 16:31 | PC.NURSE ---
CALLED TO UPDATE MD ON URINARY OUTPUT SINCE ADMINISTRATION OF LASIX THIS AFTERNOON. MD WISHES FOR BLADDER SCAN TO MAKE SURE BLADDER IS FULLY EMPTYING. BLADDER SCAN SHOWED >671ML. UPDATED LEYDI. STATES TO GIVE HER DOSE OF FLOMAX NOW, AND OKAY TO APPLY PURE WICK TO MAKE VOIDING EASIER ON PT. WILL CONTINUE TO MONITOR OUTPUT. IF PT BECOMES SYMPTOMATIC (PRESSURE, DISCOMFORT, URGE TO PEE), OKAY TO INSERT F/C PER LEYDI.
[2023-06-30] MEDS: TAMSULOSIN 0.4MG CAPSULE 0.800000000000000044 MG PO ×2 (16:38→20:01)
--- NOTE | 2023-06-30 16:47 | EXP.ACUTE.PN ---
Subjective *Date: 06/30/23 *Time: 16:47 Interval history: Patient had some urine retention overnight, Elias was placed with removal of over 2 L of urine. Doing better this morning. Wants to trial having catheter out. On room air. Cough has become somewhat productive. No nausea or vomiting. No chest pain. Has been anxious. Requesting something for anxiety. Afebrile Medical Exam Vital signs and Labs for Last 24 Hours: Vital Signs Temp Pulse Pulse Resp BP Pulse Ox O2 Del Method 06/30/23 15:00 Room Air 06/30/23 15:05 98.6 F 96 H 18 138/68 90 L Room Air 06/30/23 13:00 Room Air 06/30/23 11:00 Room Air 06/30/23 11:44 95 H 06/30/23 11:44 101 H 06/30/23 11:44 93 L Room Air 06/30/23 11:04 98.3 F 92 H 19 149/75 H 94 L Room Air 06/30/23 09:00 Room Air 06/30/23 08:00 Room Air 06/30/23 07:29 98.2 F 101 H 18 133/56 L 91 L Room Air 06/30/23 06:54 Room Air 06/30/23 06:20 94 H 06/30/23 06:20 107 H 06/30/23 06:20 91 L Room Air 06/30/23 05:00 Room Air 06/30/23 04:00 98.5 F 100 H 20 132/51 L 92 L Room Air 06/30/23 03:00 Room Air 06/30/23 01:00 Room Air 06/30/23 00:00 98.1 F 105 H 18 158/76 H 90 L 06/29/23 23:38 Nasal Cannula 06/29/23 23:00 Room Air 06/29/23 21:00 Room Air 06/29/23 20:00 98.6 F 94 H 20 136/63 93 L 06/29/23 19:53 93 L Room Air 06/29/23 18:38 94 L Room Air 06/29/23 18:37 Room Air 06/29/23 17:01 94 L Room Air 06/29/23 16:56 Room Air O2 Flow Rate 06/30/23 15:00 06/30/23 15:05 06/30/23 13:00 06/30/23 11:00 06/30/23 11:44 06/30/23 11:44 06/30/23 11:44 06/30/23 11:04 06/30/23 09:00 06/30/23 08:00 06/30/23 07:29 06/30/23 06:54 06/30/23 06:20 06/30/23 06:20 06/30/23 06:20 06/30/23 05:00 06/30/23 04:00 06/30/23 03:00 06/30/23 01:00 06/30/23 00:00 06/29/23 23:38 06/29/23 23:00 93 06/29/23 21:00 06/29/23 20:00 06/29/23 19:53 06/29/23 18:38 06/29/23 18:37 06/29/23 17:01 06/29/23 16:56 Intake and Output 06/30/23 06/30/23 06/30/23 07:59 15:59 23:59 Intake Total 600 / 840 240 / 840 Output Total 3900 / 6800 2900 / 6800 Balance -3300 / -5960 -2660 / -5960 Intake: Intake, Oral Amount 600 / 840 240 / 840 Output: Output, Urine Amount 3900 / 5600 1700 / 5600 Output, Urine Amount (Catheter) 1200 / 1200 Elias 1200 / 1200 Other: Number of Unmeasured Voids 0 0 Number of Bowel Movements 1 Weight 88.3 kg 88.3 kg Patient Weight 06/30/23 23:59 Weight 88.3 kg Laboratory Results - last 24 hr 06/29/23 21:35: Vancomycin Trough 9.2 06/30/23 07:37: WBC 13.6 H D, RBC 3.45 L, Hgb 11.3 L, Hct 33.2 L, MCV 96.2, MCH 32.7 H, MCHC 34.0, RDW 12.9, Plt Count 212, MPV 9.6, Neut % (Auto) 90.1 H, Lymph % (Auto) 5.6 L, [place] % (Auto) 3.5, Eos % (Auto) 0.6, Baso % (Auto) 0.3, Neut # (Auto) 12.2 H, Lymph # (Auto) 0.8, [place] # (Auto) 0.5, Eos # (Auto) 0.1, Baso # (Auto) 0.0, Total Counted 100, Neutrophils % (Manual) 90 H, Lymphocytes % (Manual) 7 L, Monocytes % (Manual) 3, Platelet Estimate Normal, RBC Morphology Normal, Sodium 135 L, Potassium 3.6, Chloride 104, Carbon Dioxide 25, Anion Gap 9.6, BUN 8, Creatinine 0.80, Estimated Creat Clear 55, Estimated GFR 68, Est GFR ( Amer) 82, Glucose 171 H, Calcium 8.3 L, Magnesium 2.0 D, Total Bilirubin 0.9, AST 39 H, ALT 31 D, Alkaline Phosphatase 151 H, Total Protein 6.6, Albumin 3.2 L, Globulin 3.4 H, Albumin/Globulin Ratio 0.9 L I & O for Labs for Last 24 Hours: Intake & Output 06/27/23 06/28/23 06/29/23 06/30/23 23:59 23:59 23:59 23:59 Intake Total 4174 / 4414 1107 / 1467 840 / 840 Output Total 500 / 500 1550 / 1550 6800 / 6800 Balance 3674 / 3914 -443 / -83 -5960 / -5960 Weight 86.183 kg 87.63 kg 87.6 kg 88.3 kg Microbiology Reports for the Last 24 Hours: Microbiology 06/27/23 22:35 Sputum - Expectorated Sputum Gram Stain - Final Constitutional: Present no acute distress, obese and chronically ill appearing Head: Present atraumatic and normocephalic ENT: Present normal exam Respiratory: Present rhonchi, crackles and normal respiratory effort; Absent wheezes Comment:: Adventitious sounds in the left lung field Cardiac: Present Reg Rate and Rhythm GI: Present soft and normal bowel sounds; Absent distention or tenderness Extremities: Present normal inspection, full ROM and edema (1+ in lower extremities) Skin: Present intact; Absent erythema Neuro: Present Grossly Intact, alert, awake, oriented x 3 and moves all extremities Assessment and Plan *Assessment and plan (1) Severe sepsis with acute organ dysfunction: Status: Acute Category: Medical Code(s): A41.9 - Sepsis, unspecified organism; R65.20 - Severe sepsis without septic shock (2) Pneumonia: Status: Acute Qualifiers: Laterality: left Lung location: lower lobe of lung Pneumonia type: due to unspecified organism Qualified Code(s): J18.9 - Pneumonia, unspecified organism Category: Medical Code(s): J18.9 - Pneumonia, unspecified organism (3) HANSA treated with BiPAP: Status: Chronic Category: Medical Code(s): G47.33 - Obstructive sleep apnea (adult) (pediatric) (4) HLD (hyperlipidemia): Status: Chronic Qualifiers: Hyperlipidemia type: mixed hyperlipidemia Qualified Code(s): E78.2 - Mixed hyperlipidemia Category: Medical Code(s): E78.5 - Hyperlipidemia, unspecified (5) HTN (hypertension): Problem Comment: Active follow-up with [facility]?cardiology team Status: Chronic Qualifiers: Hypertension type: primary hypertension Qualified Code(s): I10 - Essential (primary) hypertension Category: Medical Code(s): I10 - Essential (primary) hypertension (6) Urinary retention: Status: Acute Category: Medical Code(s): R33.9 - Retention of urine, unspecified Plan 87-year-old female who presented with sepsis from pneumonia. Currently on 2 L nasal cannula oxygen this morning. Showing some improvement in her cell counts. Weaning oxygen. New onset of urinary retention. Continues to require inpatient management. Problems addressed as follows: Severe sepsis with acute organ dysfunction, improving Pneumonia -White cell count improved to 13 from 24, repeat CBC, CMP, magnesium ordered for the morning. -Appears to be responding to antibiotics. Continue cefepime 2 g every 12 hours. continue vancomycin, monitoring for toxicity. -Chronic cough, continue Robitussin and Tessalon Perles -Continue supplemental oxygen, goal saturation greater 90%. Currently on room air. CPAP at night. - Continue to follow sputum culture and blood culture - DuoNebs every 6 hours scheduled Hypokalemia: Potassium within normal range today, replacing p.o. today with 20 mEq 3 times daily Hyperlipidemia: Continue pravastatin 80 mg nightly Urinary retention. Patient on tolterodine for overactive bladder, concerned that she is actually having urinary incontinence due to overflow. Will initiate tamsulosin 0.8 mg nightly. Elias removed today, monitor urine output. Will scan again in the morning and if still has retention, will place Elias and refer to urology for follow-up. Hypertension: Holding blood pressure meds in the setting of normal blood pressure and sepsis DVT PPx Lovenox Regular diet Full code
[2023-06-30] MEDS: PRAVASTATIN 40MG TAB 80 MG PO (20:04)
[2023-06-30] MEDS: VANCOMYCIN/WATER FOR INJ (PEG) 1.5 GM/300 ML PIGGYBACK IV (22:08)
[2023-07-01] VITALS: BP 141/73; PULSE 100; PULSE 87; RESP 16; TEMP 37.8; O2SAT 97
[2023-07-01] MEDS: GUAIFENESIN/DEXTROMETHORPHAN 200MG/20MG 10ML UDC 10 ML PO ×2 (01:57→08:13)
[2023-07-01 04:00] VITALS: BP 125/59; PULSE 105; RESP 24; TEMP 37.2; O2SAT 80; BMI 30.9
--- NOTE | 2023-07-01 06:02 | PC.NURSE ---
2100 decreased UOP, anxious, couldn't void, distended, and pelvic pain - bladder scanned: 780ml PRV. hung calderon 16FR and immediately drained 700mls, stat lock in place. 0545 O2 80% RA, son states pt has hx of HANSA and wears CPAP at home - 2l NC added and pt 95% now
[2023-07-01 06:30] VITALS: PULSE 88; PULSE 94; O2SAT 92
[2023-07-01] MEDS: IPRATROPIUM/ALBUTEROL 3 ML NEB IH (06:30)
[2023-07-01 07:24] LABS: Basophils % 0.4 % (0.1-2.0); Eosinophils # 0.1 K/mm3 (0.0-0.4); Eosinophils % 1.2 % (0.1-12.0); Hematocrit 32.9 % (37.0-47.0); Lymphocytes # 1.6 K/mm3 (0.7-4.5); Lymphocytes % 17.5 % (10-50); Mean Corpuscular HGB Conc 33.5 g/dL (31.8-35.4); Mean Corpuscular Hemoglobin 32.6 pg (27.0-31.2); Mean Corpuscular Volume 97.4 fl (81-99); Mean Platelet Volume 9.1 fl (7.4-10.4); Monocytes # 0.6 K/mm3 (0.1-1.0); Monocytes % 6.8 % (1.7-9.3); Neutrophils # 6.6 K/mm3 (1.8-7.8); Neutrophils % 74.1 % (37.0-80.0); Platelet Count 205 K/mm3 (142-424); Red Blood Count 3.38 M/mm3 (4.20-5.40); Red Cell Distribution Width 12.8 % (11.5-17.5)
[2023-07-01 07:31] LABS: Magnesium 2.1 mg/dl (1.6-2.3)
[2023-07-01 07:32] LABS: Alanine Aminotransferase 28 U/L (12-78); Albumin Level 3.1 g/dl (3.5-5.0); Albumin/Globulin Ratio 0.9 (1.1-1.8); Alkaline Phosphatase 141 U/L (38-126); Anion Gap 8.8 mEq/L (5-15); Aspartate Amino Transferase 35 U/L (14-36); Bilirubin,Total 0.7 mg/dl (0.2-1.3); Blood Urea Nitrogen 12 mg/dl (7-17); Calcium 7.9 mg/dl (8.4-10.2); Carbon Dioxide 27 mmol/L (22.0-30.0); Chloride 102 mmol/L (98-107); Creatinine Clearance Estimated 56 mL/min (50-200); Estimated Glomerular Filt Rate 59 ml/min (>60); GFR (African American) 72 ML/MIN (>60); Globulin 3.3 g/dL (1.3-3.2); Glucose 116 mg/dl (74-100); Potassium 3.8 mmoL/L (3.5-5.1); Sodium 134 mmol/L (136-145); Total Protein,Serum 6.4 g/dl (6.3-8.2)
[2023-07-01 07:35] VITALS: BP 118/65; PULSE 106; RESP 16; TEMP 37.2; O2SAT 89
[2023-07-01] MEDS: CEFEPIME HCL 2 GM in 0.9 % SODIUM CHLORIDE 50 ML IV (08:04)
[2023-07-01] MEDS: ENOXAPARIN 40MG/0.4ML SYRINGE 40 MG SQ (08:04)
[2023-07-01] MEDS: POTASSIUM CHLORIDE 20MEQ TAB 20 MEQ PO ×2 (08:04→12:26)
--- NOTE | 2023-07-01 08:22 | P.PN_ITS ---
Subjective *Date: 07/01/23 *Time: 08:22 Medical Exam Vital signs and Labs for Last 24 Hours: Vital Signs Temp Pulse Pulse Resp BP Pulse Ox O2 Del Method 07/01/23 07:35 98.9 F 106 H 16 118/65 89 L Nasal Cannula 07/01/23 06:45 Nasal Cannula 07/01/23 04:00 98.9 F 105 H 24 125/59 L 80 L Room Air 07/01/23 04:35 Room Air 07/01/23 03:00 Room Air 07/01/23 01:00 Room Air 07/01/23 00:00 100.1 F H 100 H 16 141/73 H 97 Room Air 07/01/23 00:00 100 H 07/01/23 00:00 87 06/30/23 23:00 Room Air 06/30/23 21:00 Room Air 06/30/23 20:00 110 H Room Air 06/30/23 20:00 98.4 F 113 H 18 163/80 H 91 L Room Air 06/30/23 19:04 91 H 06/30/23 19:03 90 06/30/23 17:15 Room Air 06/30/23 15:00 Room Air 06/30/23 15:05 98.6 F 96 H 18 138/68 90 L Room Air 06/30/23 13:00 Room Air 06/30/23 11:00 Room Air 06/30/23 11:44 95 H 06/30/23 11:44 101 H 06/30/23 11:44 93 L Room Air 06/30/23 11:04 98.3 F 92 H 19 149/75 H 94 L Room Air 06/30/23 09:00 Room Air O2 Flow Rate 07/01/23 07:35 2 07/01/23 06:45 2 07/01/23 04:00 07/01/23 04:35 07/01/23 03:00 07/01/23 01:00 07/01/23 00:00 07/01/23 00:00 07/01/23 00:00 06/30/23 23:00 06/30/23 21:00 06/30/23 20:00 06/30/23 20:00 06/30/23 19:04 06/30/23 19:03 06/30/23 17:15 06/30/23 15:00 06/30/23 15:05 06/30/23 13:00 06/30/23 11:00 06/30/23 11:44 06/30/23 11:44 06/30/23 11:44 06/30/23 11:04 06/30/23 09:00 Intake and Output 06/30/23 07/01/23 07/01/23 23:59 07:59 15:59 Intake Total 840 / 1680 470 / 470 Output Total 1000 / 1000 Balance 840 / -5120 -530 / -530 Intake: Intake, Oral Amount 360 / 1200 470 / 470 Intake, Other Amount 30 / 30 Intake, Total IV Amount 450 / 450 Cefepime HCl 2 gm In 0.9 % 150 / 150 Sodium Chloride 50 ml @ 100 mls /hr IV Q12H FLACO Rx#:[id number] Vancomycin/Water For Inj (Peg) 300 / 300 1.5 gm In 300 ml @ 150 mls/hr IV Q24H FLACO Rx#:[id number] Output: Output, Urine Amount 1000 / 1000 Other: Intake, Other Source Saline Solution Number of Unmeasured Voids 0 Weight 89.556 kg Patient Weight 07/01/23 23:59 Weight 89.556 kg Laboratory Results - last 24 hr 06/30/23 07:37: WBC 13.6 H D, RBC 3.45 L, Hgb 11.3 L, Hct 33.2 L, MCV 96.2, MCH 32.7 H, MCHC 34.0, RDW 12.9, Plt Count 212, MPV 9.6, Neut % (Auto) 90.1 H, Lymph % (Auto) 5.6 L, [place] % (Auto) 3.5, Eos % (Auto) 0.6, Baso % (Auto) 0.3, Neut # (Auto) 12.2 H, Lymph # (Auto) 0.8, [place] # (Auto) 0.5, Eos # (Auto) 0.1, Baso # (Auto) 0.0, Total Counted 100, Neutrophils % (Manual) 90 H, Lymphocytes % (Manual) 7 L, Monocytes % (Manual) 3, Platelet Estimate Normal, RBC Morphology Normal, Sodium 135 L, Potassium 3.6, Chloride 104, Carbon Dioxide 25, Anion Gap 9.6, BUN 8, Creatinine 0.80, Estimated Creat Clear 55, Estimated GFR 68, Est GFR ( Amer) 82, Glucose 171 H, Calcium 8.3 L, Magnesium 2.0 D, Total Bilirubin 0.9, AST 39 H, ALT 31 D, Alkaline Phosphatase 151 H, Total Protein 6.6, Albumin 3.2 L, Globulin 3.4 H, Albumin/Globulin Ratio 0.9 L 07/01/23 06:58: WBC 9.0 D, RBC 3.38 L, Hgb 11.0 L, Hct 32.9 L, MCV 97.4, MCH 32.6 H, MCHC 33.5, RDW 12.8, Plt Count 205, MPV 9.1, Neut % (Auto) 74.1, Lymph % (Auto) 17.5, [place] % (Auto) 6.8, Eos % (Auto) 1.2, Baso % (Auto) 0.4, Neut # (Auto) 6.6, Lymph # (Auto) 1.6, [place] # (Auto) 0.6, Eos # (Auto) 0.1, Baso # (Auto) 0.0, Sodium 134 L, Potassium 3.8, Chloride 102, Carbon Dioxide 27, Anion Gap 8.8, BUN 12 D, Creatinine 0.90, Estimated Creat Clear 56, Estimated GFR 59, Est GFR ( Amer) 72, Glucose 116 H D, Calcium 7.9 L, Magnesium 2.1, Total Bilirubin 0.7, AST 35, ALT 28, Alkaline Phosphatase 141 H, Total Protein 6.4, Albumin 3.1 L, Globulin 3.3 H, Albumin/Globulin Ratio 0.9 L I & O for Labs for Last 24 Hours: Intake & Output 06/28/23 06/29/23 06/30/23 07/01/23 23:59 23:59 23:59 23:59 Intake Total 4174 / 4414 1107 / 1467 1680 / 1680 470 / 470 Output Total 500 / 500 1550 / 1550 6800 / 6800 1000 / 1000 Balance 3674 / 3914 -443 / -83 -5120 / -5120 -530 / -530 Weight 87.63 kg 87.6 kg 88.3 kg 89.556 kg Microbiology Reports for the Last 24 Hours: Microbiology 06/27/23 22:35 Sputum - Expectorated Sputum Gram Stain - Final The patient's infection will respond to the chosen ABx?: Yes (BLOOD CULTURE NO GROWTH AT 24 HR, SPUTUM PENDING, WHITE COUNT NORMAL (9.0)) Is the patient receiving the right drug, dose, and route?: Yes Could a more targeted ABx be ordered?: No
[2023-07-01 11:34] VITALS: BP 113/51; PULSE 92; RESP 16; TEMP 36.8; O2SAT 86
--- NOTE | 2023-07-01 11:51 | P.DS_ITS ---
General Admission date:: 06/28/23 Discharge date: 07/01/23 HPI HPI HPI: This is an 87-year-old female with past medical history of hypertension and hyperlipidemia who presents to the emergency department today with complaints of cough, congestion, body chills and shortness of breath. She reports cough for several days with increased weakness and fever. She states that her cough has been productive. She reports being treated for bronchitis last week but has had persistent cough and bodyaches since. She saw her PCP today and her labs were drawn concerning for leukocytosis. She was told to go to the emergency department. She endorses green and yellow productive sputum. Denies nausea vomiting. Denies chest pain. Emergency department workup significant for febrile illness with hypoxia. She was noted to be hypoxic in the 80s requiring 2 L nasal cannula. She is also noted to be tachycardic. Leukocytosis noted with a white blood cell count of 24 which is up from 20 from her PCPs office. Lactic acid of 2.8. CT of her chest notable for left lower lobe pneumonia with poor opacification of the pulmonary arterial tree but no filling defect noted. She also has a solid nodule measuring 6 mm. She was covered with vancomycin and cefepime and admitted to the hospitalist service for further evaluation management. Hospital Course Hospital Course Hospital Course: 87-year-old female who presented with sepsis from pneumonia. Symptoms have been present for approximately 2 weeks before coming to the hospital. Was initiated on antibiotics and oxygen. Gradually showed improvement in her oxygenation and overall clinical appearance. White cell count significantly improved and resumed to normal by day of discharge. Still requiring oxygen, provided at discharge. Transition to oral antibiotics to complete course. Follow-up with urology as an outpatient due to development of urinary retention. Problems addressed during hospitalization as follows: Severe sepsis with acute organ dysfunction, improving Pneumonia -White cell count elevated 24,000 on presentation, normalized to 9000 by day of discharge. Sepsis symptoms resolved with treatment of her underlying infection. Was initiated on cefepime and vancomycin. Gradually transition to Levaquin to complete 7 days of antibiotics. Having prominent cough, initiated on Tessalon Perles and Robitussin. Continue cough medication at home. Breathing better at rest but still requiring oxygen with activity and sleep. Discharged home with supplemental oxygen. Continue inhalers at home. Due to a component of pulmonary congestion, patient was diuresed last 2 days of hospitalization with improvement in crackles on exam. Appears euvolemic on discharge. Hypokalemia: Potassium was replaced during admission and normalized. No indication to continue supplementation at discharge. Hyperlipidemia: Continue pravastatin 80 mg nightly Urinary retention. Patient on tolterodine for overactive bladder, concerned that she is actually having urinary incontinence due to overflow. Initiated on tamsulosin 0.8 mg nightly. Elias catheter was placed due to retention. Patient had over a liter remaining in her bladder even with voiding. Attempts were made to remove the Elias but after 24 hours with spontaneous voiding, noted to have another 675 cc of urine in her bladder. Elias replaced and will discharge home with Elias. Referral made to urology to evaluate. Counseled on signs and symptoms to watch for for possible UTI. Hypertension: Holding blood pressure meds in the setting of normal blood pressure and sepsis. Patient to monitor blood pressure at home. If blood pressure elevates greater than 140/90 consistently, okay to resume her home regimen. Spent 30 minutes in discharge counseling, documentation, chart review, and direct care with patient. Exam Data for Last 24 hours Vital signs and Labs for Last 24 Hours: Temp Pulse Resp BP Pulse Ox O2 Del Method O2 Flow Rate 98.2 F 92 H 16 113/51 L 86 L Room Air 2 07/01/23 11:34 07/01/23 11:34 07/01/23 11:34 07/01/23 11:34 07/01/23 11:34 07/01/23 11:34 07/01/23 07:35 Laboratory Results - last 24 hr 07/01/23 06:58: WBC 9.0 D, RBC 3.38 L, Hgb 11.0 L, Hct 32.9 L, MCV 97.4, MCH 32.6 H, MCHC 33.5, RDW 12.8, Plt Count 205, MPV 9.1, Neut % (Auto) 74.1, Lymph % (Auto) 17.5, [place] % (Auto) 6.8, Eos % (Auto) 1.2, Baso % (Auto) 0.4, Neut # (Auto) 6.6, Lymph # (Auto) 1.6, [place] # (Auto) 0.6, Eos # (Auto) 0.1, Baso # (Auto) 0.0, Sodium 134 L, Potassium 3.8, Chloride 102, Carbon Dioxide 27, Anion Gap 8.8, BUN 12 D, Creatinine 0.90, Estimated Creat Clear 56, Estimated GFR 59, Est GFR ( Amer) 72, Glucose 116 H D, Calcium 7.9 L, Magnesium 2.1, Total Bilirubin 0.7, AST 35, ALT 28, Alkaline Phosphatase 141 H, Total Protein 6.4, Albumin 3.1 L, Globulin 3.3 H, Albumin/Globulin Ratio 0.9 L I & O for Last 24 hours: Intake & Output 06/28/23 06/29/23 06/30/23 07/01/23 23:59 23:59 23:59 23:59 Intake Total 4174 / 4414 1107 / 1467 1680 / 1680 470 / 470 Output Total 500 / 500 1550 / 1550 6800 / 6800 1000 / 1000 Balance 3674 / 3914 -443 / -83 -5120 / -5120 -530 / -530 Weight 87.63 kg 87.6 kg 88.3 kg 89.556 kg Microbiology Reports for the Last 24 Hours: Microbiology 06/27/23 22:00 Blood Blood Culture - Preliminary 06/27/23 22:00 Blood Blood Culture - Preliminary 06/27/23 22:35 Sputum - Expectorated Sputum Gram Stain - Final Constitutional Constitutional: no acute distress, obese, chronically ill appearing and cooperative *Routine HEENT Exam Head: Present normocephalic Eye: Present EOMI and PERRL ENT: Present mucous membranes moist *Routine Neck Exam Neck: Present supple; Absent lymphadenopathy *Routine Respiratory Exam Respiratory: Present crackles (right base and left posterior lung field) and normal respiratory effort; Absent accessory muscle use or rhonchi *Routine Cardiovascular Exam Cardiovascular: Present RRR *Routine Abdominal Exam Abdominal: Present soft and normoactive bowel sounds; Absent tenderness *Routine Extremities Exam Extremities: Absent cyanosis, clubbing or edema *Routine Skin Exam Skin: Present warm; Absent rash *Routine Neurological Exam Neurological: Present alert, oriented X3 and moving all extremities; Absent altered mental status Results Data Completed and Pending Labs on day of discharge: Labs from last 24 hours 07/01/23 06:58 WBC 9.0 D RBC 3.38 L Hgb 11.0 L Hct 32.9 L MCV 97.4 MCH 32.6 H MCHC 33.5 RDW 12.8 Plt Count 205 MPV 9.1 Neut % (Auto) 74.1 Lymph % (Auto) 17.5 [place] % (Auto) 6.8 Eos % (Auto) 1.2 Baso % (Auto) 0.4 Neut # (Auto) 6.6 Lymph # (Auto) 1.6 [place] # (Auto) 0.6 Eos # (Auto) 0.1 Baso # (Auto) 0.0 Sodium 134 L Potassium 3.8 Chloride 102 Carbon Dioxide 27 Anion Gap 8.8 BUN 12 D Creatinine 0.90 Estimated Creat Clear 56 Estimated GFR 59 Est GFR ( Amer) 72 Glucose 116 H D Calcium 7.9 L Magnesium 2.1 Total Bilirubin 0.7 AST 35 ALT 28 Alkaline Phosphatase 141 H Total Protein 6.4 Albumin 3.1 L Globulin 3.3 H Albumin/Globulin Ratio 0.9 L Preliminary micro results at discharge 06/27/23 22:00 Blood Culture - Preliminary Blood 06/27/23 22:00 Blood Culture - Preliminary Blood DS: Diagnosis Discharge Diagnosis (1) Severe sepsis with acute organ dysfunction: Status: Acute Code(s): A41.9 - Sepsis, unspecified organism; R65.20 - Severe sepsis without septic shock (2) Pneumonia: Status: Acute Code(s): J18.9 - Pneumonia, unspecified organism Qualifiers: Laterality: left Lung location: lower lobe of lung Pneumonia type: due to unspecified organism Qualified Code(s): J18.9 - Pneumonia, unspecified organism (3) HANSA treated with BiPAP: Status: Chronic Code(s): G47.33 - Obstructive sleep apnea (adult) (pediatric) (4) HLD (hyperlipidemia): Status: Chronic Code(s): E78.5 - Hyperlipidemia, unspecified Qualifiers: Hyperlipidemia type: mixed hyperlipidemia Qualified Code(s): E78.2 - Mixed hyperlipidemia (5) HTN (hypertension): Status: Chronic Code(s): I10 - Essential (primary) hypertension Qualifiers: Hypertension type: primary hypertension Qualified Code(s): I10 - Essential (primary) hypertension Problem details: Active follow-[facility] with [facility]?cardiology team (6) Urinary retention: Status: Acute Code(s): R33.9 - Retention of urine, unspecified Meds Home Medications and Allergies Home Medications Medication Instructions Recorded Confirmed Type amlodipine 10 mg-benazepril 40 mg 1 tab PO DAILY High Blood Pressure 05/21/19 06/27/23 History capsule #90 caps simvastatin 40 mg tablet 40 mg PO HS Cholesterol #90 tabs 05/21/19 06/27/23 History omeprazole 40 mg capsule,delayed 40 mg PO DAILY Acid Reflux 01/24/21 06/27/23 History release vit C 250 mg-vit E 90 mg-zinc 40 1 tab PO BID Supplement 06/27/23 06/27/23 History mg-copper 1 lb-xopujg-wginag capsule (PreserVision AREDS-2) dextromethorphan-guaifenesin 10 10 ml PO Q6HP PRN Cough 5 days 07/01/23 Rx mg-100 mg/5 mL oral syrup #237 mL levofloxacin 750 mg tablet 750 mg PO DAILY 2 days #2 tabs 07/01/23 Rx tamsulosin 0.4 mg capsule 0.8 mg PO HS 30 days #60 caps 07/01/23 Rx New Prescriptions to Start Prescriptions: dextromethorphan-guaifenesin Len Cartagena levofloxacin [place],Len tamsulosin Len Cartagena Allergies Allergy/AdvReac Type Severity Reaction Status Date / Time No Known Allergies Allergy Verified 06/27/23 15:29 Discharge Plan Disposition Patient Disposition: Home, Self-Care Condition: Fair Discharge Order Discharge Orders: Discharge Order (Routine); Ordered 07/01/23 Ordered By: Len Cartagnea Follow up Plan Follow up with: Arian Bernal MD [Staff Physician] - 07/22/23 1:45 pm Owen Temple DO [Primary Care Provider] - 07/09/23 10:00 am Prescriptions/Medication Reconciliation: New tamsulosin 0.4 mg Capsule 0.8 mg PO HS 30 Days Qty: 60 0RF dextromethorphan-guaifenesin 10-100 mg/5 mL Syrup 10 ml PO Q6HP PRN (Reason: Cough) 5 Days Qty: 237 0RF levofloxacin 750 mg tablet 750 mg PO DAILY 2 Days Qty: 2 0RF Rx Instructions: first dose 07/02 Continued simvastatin 40 mg tablet 40 mg PO HS Qty: 90 Patient Comments: TAKE 1 TABLET BY MOUTH AT BEDTIME omeprazole 40 mg capsule,delayed release(DR/EC) 40 mg PO DAILY Patient Comments: TAKE 1 CAPSULE BY MOUTH ONCE DAILY 30 MINUTES BEFORE MORNING MEAL PreserVision AREDS-2 250-90-40-1 mg capsule 1 tab PO BID Held amlodipine-benazepril 10-40 mg capsule 1 tab PO DAILY Qty: 90 Hold Instructions: resume if blood pressure consistently >140/90 Patient Comments: TAKE 1 CAPSULE BY MOUTH ONCE DAILY Discontinued tolterodine 1 mg tablet 1 mg PO BID Other Ambulatory Orders: Home Medical Equipment (Routine) Location: None Selected Ordered By: Len Cartagena Problem Reconciliation Problems Reviewed?: Yes Patient Discharge Instructions ACTIVITY: Continue current activity DIET: continue same diet Patient Instructions: DI for Pneumonia -- Adult, DI for Sepsis -- Adult, Catheter-Associated Urinary Tract Infection Providers Primary Care Provider: Owen Temple Admit Provider: Len Cartagena Attending Provider: Len Cartagena
[2023-07-01] MEDS: FUROSEMIDE 40MG/4ML VIAL 40 MG IV (12:26)
--- NOTE | 2023-07-01 13:46 | PC.NURSE ---
went over discharge packet with pt and son. waiting for home o2 to be delivered at this time.
--- NOTE | 2023-07-01 14:35 | CARE MANAGER ---
Patient's O2 saturation is 83% on room air at rest.
[2023-07-03 10:02] LABS: MRSA DNA PCR Negative
--- NOTE | 2023-07-03 14:34 | CARE MANAGER ---
Called and spoke with patient regarding recent discharge. Patient stated that she is doing well, has started taking her new medication, and was unaware of scheduled f/u appts. I gave her appt date/time and she put them on her calender.
== END 2023-07-01 15:53 | disposition home or self-care (01) | DRG 871 ==
LOC: ER 06-28 00:13 → 2ND 06-28 00:58
PROVIDERS: Nurse Practitioner Acute Care; Admitting Provider Internal Medicine Adolescent Medicine; Emergency Provider Emergency Medicine; PCP Internal Medicine; Visit Provider Internal Medicine Adolescent Medicine
DX: A41.9 Sepsis, unspecified organism (principal); J18.9 Pneumonia, unspecified organism; J96.01 Acute respiratory failure with hypoxia; R65.20 Severe sepsis without septic shock; G47.33 Obstructive sleep apnea (adult) (pediatric); E78.2 Mixed hyperlipidemia; I10 Essential (primary) hypertension; R33.9 Retention of urine, unspecified; Z96.611 Presence of right artificial shoulder joint; E87.6 Hypokalemia; N32.81 Overactive bladder
CPT/HCPCS: 36415; 71045; 71275; 80048; 80053; 80202; 81001; 83036; 83605; 83735; 83880; 85007; 85025; 87040; 87070; 87205; 87278; 87636; 87641; 93005; 94640; J0131; J0692; J2405; J3370; Q9967

== ENCOUNTER 2023-07-22 15:31 | Outpatient (CLI) | payer MEDICARE, BC, SELFPAY ==
[2023-07-22 15:37] LABS: Microscopic, Urine URINE MICROSCOPIC (MICROSCOPIC)
[2023-07-22 15:51] LABS: Appearance,Urine CLEAR (Clear); Bilirubin,Urine Negative (Negative); Blood, Urine Negative (Negative); Color,Urine YELLOW (Yellow); Glucose,Urine (UA) Negative (Negative); Ketones,Urine Negative (Negative); Leukocyte Esterase,Urine Negative (Negative); Nitrate,Urine Negative (Negative); Protein,Urine Negative (Negative); Specific Gravity, Urine >= 1.030 (1.005-1.030); Urobilinogen,Urine 0.2 EU/dl (0.2)
[2023-07-27 15:10] LABS: Atopobium vaginae Low - 0 Score (.); BVAB2 Low - 0 Score (.); Candida albicans NAA Negative (Negative); Candida glabrata Positive (Negative); Chlamydia Trachomatis NAA Negative (Negative); HSV 1 NAA Negative (Negative); HSV 2 NAA Negative (Negative); Megasphaera 1 Low - 0 Score (.); Neisseria gonorrhoeae NAA Negative (Negative); Trich vag NAA Negative (Negative)
[2023-08-01 10:23] LABS: Atopobium vaginae 0; Candida albicans, NAA 0; Megasphaera 1 0
[2023-08-01 10:24] LABS: Bacterial Vaginosis Associated 0
== END 2023-07-22 23:59 ==
LOC: LAB.DROPOF 15:32
PROVIDERS: PCP Internal Medicine; Visit Provider Urology
DX: N89.8 Other specified noninflammatory disorders of vagina; N39.41 Urge incontinence; R33.9 Retention of urine, unspecified; N77.1 Vaginitis, vulvitis and vulvovaginitis in diseases classified elsewhere; Z11.3 Encounter for screening for infections with a predominantly sexual mode of transmission
CPT/HCPCS: 81001; 87491; 87529; 87591; 87661; 87798; 87801

== ENCOUNTER 2023-08-23 13:09 | Outpatient (CLI) | payer MEDICARE, BC, SELFPAY | END 2023-08-23 23:59 | disposition home or self-care (01) | PROVIDERS: PCP Internal Medicine; Visit Provider Internal Medicine | DX: R05.9 Cough, unspecified (principal); R53.83 Other fatigue; Z79.899 Other long term (current) drug therapy | CPT/HCPCS: 87070; 87205 ==

== ENCOUNTER 2023-08-26 15:39 | Outpatient (CLI) | payer MEDICARE, BC, SELFPAY | END 2023-08-26 23:59 | PROVIDERS: PCP Urology; Visit Provider Urology | DX: N39.41 Urge incontinence; R33.9 Retention of urine, unspecified; N95.2 Postmenopausal atrophic vaginitis | CPT/HCPCS: 87801 ==

== ENCOUNTER 2023-09-12 11:37 | Outpatient (CLI) | payer MEDICARE, BC, SELFPAY ==
[2023-09-12 12:06] LABS: Basophils # 0.1 K/mm3 (0-0.2); Basophils % 1.3 % (0.1-2.0); Eosinophils # 0.1 K/mm3 (0.0-0.4); Eosinophils % 2.4 % (0.1-12.0); Hematocrit 42.2 % (37.0-47.0); Hemoglobin 13.4 g/dL (12.2-16.2); Lymphocytes # 1.8 K/mm3 (0.7-4.5); Lymphocytes % 32.6 % (10-50); Mean Corpuscular HGB Conc 31.7 g/dL (31.8-35.4); Mean Corpuscular Hemoglobin 31.6 pg (27.0-31.2); Mean Corpuscular Volume 99.5 fl (81-99); Mean Platelet Volume 8.4 fl (7.4-10.4); Monocytes # 0.4 K/mm3 (0.1-1.0); Monocytes % 7.4 % (1.7-9.3); Neutrophils % 56.3 % (37.0-80.0); Platelet Count 256 K/mm3 (142-424); Red Blood Count 4.24 M/mm3 (4.20-5.40); Red Cell Distribution Width 13.7 % (11.5-17.5); White Blood Count 5.4 K/mm3 (4.8-10.8)
[2023-09-12 12:50] LABS: Alanine Aminotransferase 22 U/L (12-78); Albumin Level 3.9 g/dl (3.5-5.0); Alkaline Phosphatase 120 U/L (38-126); Anion Gap 8.6 mEq/L (5-15); Aspartate Amino Transferase 33 U/L (14-36); Bilirubin,Direct 0.1 mg/dl (0.0-0.4); Bilirubin,Indirect 0.5 mg/dL (0.0-0.9); Bilirubin,Total 0.6 mg/dl (0.2-1.3); Bilirubin,Unconjugated 0.5 mg/dL (0.0-1.1); Blood Urea Nitrogen 16 mg/dl (7-17); Calcium 9.3 mg/dl (8.4-10.2); Carbon Dioxide 32 mmol/L (22.0-30.0); Chloride 105 mmol/L (98-107); Chol/HDL Ratio 4.9 (1-3.5); Cholesterol 166 mg/dl (140-200); Estimated Glomerular Filt Rate 59 ml/min (>60); GFR (African American) 71 ML/MIN (>60); Glucose 118 mg/dl (74-100); HDL Cholesterol 34 mg/dl (40-60); Magnesium 2.2 mg/dl (1.6-2.3); Potassium 4.6 mmoL/L (3.5-5.1); Sodium 141 mmol/L (136-145); Triglycerides 141 mg/dl (30-150); VLDL Cholesterol 28 mg/dL (0-40)
[2023-09-12 12:53] LABS: Free T4 (Free Thyroxine) 0.97 ng/dl (0.78-2.19)
[2023-09-12 13:01] LABS: Direct LDL Cholesterol 86.82 mg/dL (100-129)
[2023-09-12 13:21] LABS: Thyroid Stimulating Hormone 2.98 uIU/mL (0.465-4.68)
== END 2023-09-12 23:59 ==
LOC: LAB 11:38
PROVIDERS: PCP Internal Medicine; Visit Provider Nurse Practitioner Family
DX: E78.2 Mixed hyperlipidemia (principal); R06.00 Dyspnea, unspecified; I10 Essential (primary) hypertension; G47.33 Obstructive sleep apnea (adult) (pediatric); Z95.818 Presence of other cardiac implants and grafts; Z99.89 Dependence on other enabling machines and devices
CPT/HCPCS: 80048; 80061; 80076; 83735; 84439; 84443; 85025

== ENCOUNTER 2023-10-10 13:50 | Outpatient (CLI) | payer MEDICARE, BC, SELFPAY ==
--- NOTE | 2023-10-10 13:51 | US_ITS ---
FINAL REPORT TECHNIQUE: Sonographic imaging of the urinary bladder were obtained pre and postvoid CLINICAL HISTORY: Urge incontinence COMPARISON: None FINDINGS: Sonographic imaging of the urinary bladder were obtained. The prevoid volume measured 464 cc. The postvoid urinary bladder volume was measured at 220 cc. IMPRESSION: Significant postvoid residual. Reviewed, Interpreted and Dictated by Nicholas Salomon MD Transcribed by RGOELIO Castro Authenticated and [facility]
== END 2023-10-10 23:59 | disposition home or self-care (01) ==
LOC: RAD 13:51
PROVIDERS: PCP Internal Medicine; Visit Provider Urology
DX: N39.41 Urge incontinence (principal); N39.43 Post-void dribbling
CPT/HCPCS: 76857

== ENCOUNTER → 2023-11-01 10:01 | Day surgery (SDC) | payer MEDICARE, BC, SELFPAY ==
[2023-11-01 10:59] VITALS: BP 166/68; PULSE 64; RESP 16; TEMP 36.5; O2SAT 96; BMI 29.7
[2023-11-01] MEDS: LIDOCAINE 2% UROJET 10ML 10 ML (12:20)
--- NOTE | 2023-11-01 12:27 | HMH.PROCNOTE ---
[facility] Procedure Note Date: 11/01/23 Time: 12:27 Procedure Note:: Preop diagnosis urinary frequency/urgency/UTI postop diagnosis urinary urgency/frequency/UTI/urethritis Operation cystoscopy The patient was brought to the operating room. Local anesthesia was administered. She was prepped and draped in the usual fashion for procedural cystoscopy. The patient has atrophic vaginitis and voids intra vaginally. She was catheterized for culture and sensitivity. She then underwent flexible cystoscopy. She has significant urethritis. The patient's bladder is trabeculated throughout. There is no bladder stone tumor hemorrhage or infection otherwise. Her ureteral orifice ease are normal bilaterally with clear E flux of urine. The patient will come next week and we will recheck postvoid residual urine.
[2023-11-01 12:31] VITALS: BP 159/71; PULSE 66; RESP 18; TEMP 36.7; O2SAT 95
== END | disposition home or self-care (01) ==
PROVIDERS: PCP Internal Medicine; Visit Provider Urology
PROC: 0TJB8ZZ Inspection of Bladder, Via Natural or Artificial Opening Endoscopic (ICD-10-PCS; CPT 52000; principal; 2023-11-01 11:15)
DX: N34.2 Other urethritis (principal); N95.2 Postmenopausal atrophic vaginitis
CPT/HCPCS: 52000; 87086

== ENCOUNTER 2023-11-05 08:33 | Outpatient (CLI) | payer MEDICARE, BC, SELFPAY ==
--- NOTE | 2023-11-05 08:38 | US_ITS ---
FINAL REPORT CLINICAL HISTORY: Urge incontience COMPARISON: None FINDINGS: ULTRASOUND BLADDER WITH POST VOID RESIDUAL Bladder volumes were estimated based on 3 dimensional measurements, pre- and postvoid. Prevoid bladder volume: 674 mls Postvoid bladder volume: 247 mls IMPRESSION: Significant postvoid residual.. Reviewed, Interpreted and Dictated by Nicholas Salomon MD Transcribed by Deborah Edwards Authenticated and [facility]
== END 2023-11-05 23:59 | disposition home or self-care (01) ==
LOC: RAD 08:34
PROVIDERS: PCP Internal Medicine; Visit Provider Urology
DX: N39.41 Urge incontinence (principal)
CPT/HCPCS: 76857

== ENCOUNTER 2024-03-16 07:58 | Outpatient (CLI) | payer MEDICARE, BC, SELFPAY ==
--- NOTE | 2024-03-16 08:06 | CA_ITS ---
FINAL REPORT TECHNIQUE: Real-time imaging was performed of the extracranial carotid arteries in transverse and longitudinal planes, with color duplex evaluation of blood flow velocity. Spectral analysis was performed. The cervical vertebral arteries were also examined. CLINICAL HISTORY: LAUREN,LT BRUIT,HTN COMPARISON: 11/20/2021 FINDINGS: NASCET technique is utilized for stenosis evaluation. Right carotid system (centimeters/second): CCA: 76 ICA: 148 ECA: 91 Vertebral artery: Antegrade ICA/CCA ratio: 2.8 Mild plaque is identified at the bifurcation. Left carotid system (centimeters/second): CCA: 77 ICA: 75 ECA: 106 Vertebral artery: Antegrade ICA/CCA ratio: 1.2 Mild plaque is identified at the bifurcation. IMPRESSION: Less than 50% right ICA stenosis. Less than 50% left ICA stenosis. Antegrade flow in the vertebral arteries bilaterally. Reviewed, Interpreted and Dictated by Nicholas Salomon MD Transcribed by Swetha Negrete Authenticated and . [facility]
== END 2024-03-16 23:59 | disposition home or self-care (01) ==
PROVIDERS: PCP Internal Medicine; Visit Provider Internal Medicine
DX: R09.89 Other specified symptoms and signs involving the circulatory and respiratory systems (principal); I65.29 Occlusion and stenosis of unspecified carotid artery
CPT/HCPCS: 93880

== ENCOUNTER 2024-06-20 08:12 | Outpatient (CLI) | payer MEDICARE, BC, SELFPAY ==
--- OUTSIDE RECORDS SUMMARY | 2025-06-21 11:37 | XMS_ITS | Encounter Summary ---
Author Organization [facility] Address [address] [place] [address] Care Team Providers Care Sales Advisory Manager Name Role Phone Jann Hernandes MD Unavailable [phone] Owen Temple DO Primary Care Provider [phone] Chata Temple DO Unavailable [phone] Reason for Visit * Reason Comments Med Refill Encounter Details Date Type Department Care Team (Late st Contact Info) Description 04/12/2025 Refill [facility] [address] [place] [address] Ivonne Meyers, CRABBING MACHINE OPERATOR, DNP [address] [place] [address] Social History Tobacco Use Types Packs/Day Years Used Date Smoking Tobacco: Never Passive Smoke Exposure: Never Smokeless Tobacco: Never Alcohol Use Standard Drinks/Week Comments Not Currently 0 (1 standard drink = 0.6 oz pur e alcohol) PHQ-2 Answer Date Recorded Patient Health Questionnaire-2 Score 0 03/15/2025 Comments No Sex and Gender Information Value Date Recorded Sex Assigned at Not on file Legal Sex Female 5:57 PM EDT Gender Identity Not on file Sexual Orientation Not on file documented as of this encounter Miscellaneous Notes * Telephone Encounter - Sonal Cordero MD - 04/19/2025 11:56 AM EST Spoke with patient. Flomax was initially prescribed by Dr Bernal and then refilled per Ivonne Meyers APRN. She does not think it really ever changed her urinary symptoms. She has noticed not change after not taking it for last 4 days so prefers not to refill at this time. documented in this encounter Plan of Treatment Upcoming Encounters Date Type Department Care Team (Late st Contact Info) Description 09/13/2025 12:40 PM EDT Office Visit [place] [facility] [address] [place] [address] Sonal Cordero MD [address] [place] [address] documented as of this encounter Visit Diagnoses Not on filedocumented in this encounter Additional Health Concerns Assessment Noted Time A fall risk assessment has been complete d for the patient 03/15/2025 12:33 PM EDT A Body Mass Index follow-up plan has been documented for the patient 03/16/2025 8:38 PM EDT documented as of this encounter Care Teams Sales Advisory Manager Relationship Specialty Start Date End Date Owen Temple DO [address] [place] [address] [address] [place] [address] PCP - General 08/06/24 Jann Hernandes MD [address] [place] [address] [address] [place] [address] 12/12/21 Chata Temple DO [address] [facility] [address] [place] [address] Resident 10/14/24 documented as of this encounter
--- OUTSIDE RECORDS SUMMARY | 2025-06-21 11:37 | XMS_ITS | Clinical Summary ---
Author Organization [facility] Address [address] [place] [address] Care Team Providers Care Sales Route Driver Name Role Phone Jann Hernandes MD Unavailable [phone] Owen Temple DO Primary Care Provider [phone] Chata Temple DO Unavailable [phone] Allergies No known active allergies Medications amLODIPine-benazep ril (Lotrel) 10-40 MG capsule Take 1 capsule by mouth daily. 11/01/19 22 Active omeprazole (PriLOSEC) [address] capsule Take by mouth daily. 12/10/19 22 Active simvastatin (Zocor) 40 MG tablet Take by mouth nightly. 12/10/19 22 Active multivitamin-cloth colors examiner als-folic acid-coenzyme q10 (Preservision AREDS 2) [...] tablets by mouth every 8 hours. Under [place] law, monthly prescriptions (30 days) can be refilled at 25 days and three-month prescriptions (90 days) at 80 days. Please contact the insurance company with questions if refills are denied. 100 tablet 1 11/27/19 Active ibuprofen 600 MG tablet Take 1 tablet by mouth every 6 hours. 100 tablet 11/27/19 Active ondansetron ODT (Zofran-ODT) 4 MG disintegrating tablet Dissolve 1 tablet on the tongue every 6 hours as needed for nausea or vomiting. 10 tablet 11/27/19 Active Additional Information Patient not taking.Reported on 03/15/2025 oxyCODONE (Roxicodone) 5 MG immediate release tablet Take 1 tablet by mouth 1 time as needed (pain score of 3-5 out of 10). 3 tablet 11/27/19 Active Additional Information Patient not taking.Reported on 03/15/2025 senna-docusate (Helena-Colace) 8.6-50 MG tablet Take 1 tablet by mouth daily. 30 tablet 1 11/27/19 Active Additional Information Patient not taking.Reported on 03/15/2025 tamsulosin (Flomax) 0.4 MG 24 hr capsule Take 1 capsule by mouth once daily 30 capsule 03/08/20 Active Hospital, Clinic, or Other Facility Administered [...] loop recorder present 12/17/2023 Macular degeneration 12/17/2023 Urge incontinence 12/17/2023 Incomplete emptying of [...] mass in dex (BMI) 25.0-29.9 12/17/2023 03/07/2025 Syncope 12/17/2023 06/20/2025 Nocturia 12/17/2023 03/07/2025 Encounters Date Type Department Care Team Description 04/12/2025 [facility]ill [facility] [address] [place] [address] Ivonne Meyers, FLOOR INSTALLER, DNP from Last 3 Months Immunizations Immunization [...] Sign Reading Time Taken Comments Blood Pressure 115/63 03/15/2025 12:29 PM EDT Pulse 87 03/15/2025 12:29 PM EDT Temperature 36.9 C (98.4 F) 12/28/2024 12:42 PM EDT Respiratory Rate 15 03/15/2025 12:29 PM EDT Oxygen Saturation 98% 03/15/2025 12:29 PM EDT Inhaled Oxygen Concentration - - Weight 80.5 kg (177 lb 7.5 oz) 03/15/2025 12:29 PM EDT Height 170.2 cm (5' 7 ) 03/15/2025 12:29 PM EDT Body Mass Index 27.8 03/15/2025 12:29 PM EDT Plan of Treatment Upcoming Encounters Date Type Department Care Team (Late st Contact Info) Description 09/13/2025 12:40 PM EDT Office Visit [place] [facility] [address] [place] [address] Sonal Cordero MD [address] [place] [address] Health Maintenance Due Date Last Done Comments [facility]-Bone Density Scan 1935 [facility]-Medicare Annual Wellness (AWV) 1935 [facility]-Infant/Child/Adol SDOH Screenings 1935 [facility]-LNTLM-43 Vaccine (#1) 02/22/1936 [facility]- SDOH Screenings 08/21/1953 [facility]-Adult SDOH Screenings 08/21/1953 [facility]-Zoster Vaccines (1 of 2) 08/21/1954 [facility]-RSV Vaccine: 60+ Years or (1 - 1-dose 75+ series) 08/21/2010 [facility]-Pneumococcal Vaccine: 50+ Years (2 of 2 - PCV) 02/13/2017 02/14/2016 [facility]-Influenza Vaccine (#1) 2025 03/30/2020 [facility]-Diabetes: Hemoglobin A1C 10/22/2025 10/22/2024 [facility]-Depression Screening 03/15/2026 03/15/2025 [facility]-DTaP,Tdap,and Td Vaccines (2 - Td or Tdap) 11/20/2031 11/19/2021, 1996 [facility]-Obesity Intervention Completed 025, 08/06/2024, 03/02/2024, Additional history exists HPV Vaccines (No Doses Required) Completed [facility]-HIB Vaccines Aged Out No longer e [...] on patient's age to complete this topic Procedures Procedure Name Priority Date/Time Associated Diagnosis Comments HEMOGLOBIN A1C Routine 10/22/2024 1:48 PM EDT Endometrial adenocarcinoma (CMS/HCC) Personal history of other endocrine, nutritional and metabolic disease from Last 3 Months or Most Recently Relevant to Health Maintenance Results * (ABNORMAL) Hemoglobin A1c (10/22/2024 1:48 PM EDT) Hemoglobin A1c 6.3(H) <5.7 % 10/22/2024 5:52 PM EDT [facility] Blood Venous blood specimen / Unknown Venipuncture / Unknown 10/22/2024 1:48 PM EDT 10/22/2024 3:05 PM EDT Narrative [facility] - 10/22/2024 5:52 PM EDT HA1C Interpretive Data: Diagnosis of Diabetes: Diabetic > or = 6.5% Pre-diabetic 5.7 to 6.4% Non-diabetic < or = 5.6% Glycemic Targets for Type I and Type II Diabetics: Non- Adults <7.0% Adults <6.0% Children and Adolescents <7.5% Source: [place] [employer]. Standards of medical care in diabetes,2017. Diabetes Care.2017:40 (suppl 1):S1-S135. us Meri Tai MD LAB BLOOD ORDERABLES Final Re sult [facility] [address] [place] [address] from Last 3 Months or Most Recently Relevant to Health Maintenance [place] [address] ANTHEM Advance Directives * Full Code (Latest Code Status on File) Date Activated Date Inactivated Comments 11/25/2024 12:20 PM 11/26/2024 12:46 PM Question Answer Comments Patient has decision-making capacity? Yes Care Teams Sales Route Driver Relationship Specialty Start Date End Date Owen Temple DO [address] [place] [address] [place] [address] PCP - General 08/06/24 Jann Hernandes MD [address] [place] [address] [address] [place] [address] 12/12/21 Chata Temple DO [address] [place] [address] [place] [address] Resident 10/14/24
--- OUTSIDE RECORDS SUMMARY | 2025-06-21 11:37 | XMS_ITS | Encounter Summary ---
Author Organization [facility] Address [address] [place] [address] Care Team Providers Care Senior Data Modeler Name Role Phone Zoran Nava MD Primary Care Provider [phone] Jann Hernandes MD Unavailable [phone] Owen Temple DO Primary Care Provider [phone] Chata Temple DO Unavailable [phone] Encounter Details Date Type Department Care Team (Latest Contact Info) Description 04/18/2023 [facility] [address] [place] [address] Coty Cowan MD [address] [place] [address] Exudative age-related macular degeneration of left eye [...] Description 09/13/2025 12:40 PM EDT Office Visit [place] [facility] [address] [place] [address] Sonal Cordero MD [address] [place] [address] documented as of this encounter [...] documented as of this encounter Care Teams Senior Data Modeler Relationship Specialty Start Date End Date Zoran Nava MD [address] [place] [address] [id number] PCP - General 10/28/20 08/05/24 Owen Temple DO 1210 [facility] [address] [place] [address] PCP - General 08/06/24 Jann Hernandes MD [address] [place] [address] [address] [place], [place] [id number] 12/12/21 Chata Temple DO 1210 [facility] [address] [place] [address] Resident 10/14/24 documented as of this encounter
--- OUTSIDE RECORDS SUMMARY | 2025-06-21 11:37 | XMS_ITS ---
Author Organization [facility] Address [address] [place] [address] Care Team Providers Care [employer] H[employer] R Instructor Name Role Phone Jann Hernandes MD Unavailable [phone] Owen Temple DO Primary Care Provider [phone] Chata Temple DO Unavailable [phone] Active Problems Problem Noted Date Diagnosed [...]
--- OUTSIDE RECORDS SUMMARY | 2025-06-21 11:37 | XMS_ITS | Encounter Summary ---
Author Organization [facility] Address [address] [place] [address] Care Team Providers Care Checkout Supervisor Name Role Phone Jann Hernandes MD Unavailable [phone] Owen Temple DO Primary Care Provider [phone] Chata Temple DO Unavailable [phone] Encounter Details Date Type Department Care Team (Late st Contact Info) Description 10/22/2024 Lab Requisition [facility] [address] [place] [address] Meri Tai MD [address] [facility] [address] [place] [address] Postmenopausal bleeding Social History Tobacco [...] Department Care Team (Late Contact Info) Description 09/13/2025 12:40 PM EDT Office Visit [place] [facility] [address] [place] [address] Sonal Cordero MD [address] [place] [address] documented as of this encounter Procedures Procedure Name Priority Date/Time Associated Diagnosis Comments SURGICAL PATHOLOGY CONSULT Routine 10/22/2024 10:44 AM EDT Postmenopausal bleeding documented in this encounter Results * Surgical Pathology Consult (10/22/2024 10:44 AM EDT) Case Report Sugical Pathology Consult Case: [id number] Authorizing Provider: Meri Tai MD Collected: 10/22/2024 1044 Ordering Location: [facility] Received: 10/22/2024 1044 Pathologist: Mely Saleh MD Specimen: Endometrium, [id number] 10/23/2024 10:45 AM EDT [facility] Final Diagnosis Outside slides Date of collection: 10/08/24 Endometrium, curettage: - Endometrial adenocarcinoma, endometrioid type, FIGO grade 2 10/23/2024 10:45 AM EDT [facility] at 1045 EDT Comment Outside IHC (reviewed): MMR panel: retained nuclear expression of mismatch-repair proteins P63: wild type 10/23/2024 10:45 AM EDT [facility] Clinical Information N95.0 - Postmenopausal bleeding [ICD-10-CM] 10/23/2024 10:45 AM EDT [facility] Gross Description A. [id number] Received along with a corresponding pathology report from [facility] are 11 slide(s) labeled outside case: [id number] collected on 10/08/2024. 10/23/2024 10:45 AM EDT [facility] Note: A resident was involved in the service. I attest I examined the relevant preparations for the specimens and confirmed the diagnosis or interpretation. 10/23/2024 10:45 AM EDT [facility] Tissue Endometrial structure / Unknown 10/22/2024 10:44 AM EDT 10/22/2024 10:44 AM EDT us Meri Tai MD LAB PATHOLOGY ORDERABLES Valorie manning Result [facility] [address] [place] [address] documented in this encounter Visit Diagnoses Diagnosis Postmenopausal bleeding documented in this encounter Additional Health Concerns Assessment Noted Time A fall risk assessment has been complete d for the patient 10/22/2024 12:17 PM EDT A Body Mass Index follow-up plan has been documented for the patient 08/06/2024 12:03 PM EST documented as of this encounter Care Teams Checkout Supervisor Relationship Specialty Start Date End Date Owen Temple DO 12[address] [facility] [address] [place] [address] PCP - General 08/06/24 Jann Hernandes MD [address] [place] [address] [address] [place] [address] 12/12/21 Chata Temple DO 1210 [facility] [address] [place] [address] Resident 10/14/24 documented as of this encounter
--- OUTSIDE RECORDS SUMMARY | 2025-06-21 11:38 | XMS_ITS | Encounter Summary ---
Author Organization [facility] Address [address] 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 [...] Description 09/13/2025 12:40 PM EDT Office Visit [place] [facility] [address] [place] [address] Sonal Cordero MD [address] [place] [address] documented as of this encounter [...] documented as of this encounter Care Teams Control Clerk Auditing Relationship Specialty Start Date End Date Zoran Nava MD [address] [place] [address] PCP - General 10/28/20 08/05/24 Owen Temple DO [address] [place] [address] [place] [address] PCP - General 08/06/24 Jann Hernandes MD [address] [place] [address] [address] [place] [address] 12/12/21 Chata Temple DO [address] [place] [address] [address] [place] [address] Resident 10/14/24 documented as of this encounter
== END 2024-06-20 23:59 | disposition home or self-care (01) ==
LOC: LAB.DROPOF 06-21 11:35
PROVIDERS: PCP Internal Medicine; Visit Provider Nurse Practitioner
DX: R35.0 Frequency of micturition (principal)
CPT/HCPCS: 87086

== ENCOUNTER 2024-07-06 07:22 | Emergency (ER) | payer MEDICARE, BC, SELFPAY ==
[2024-07-06] VITALS (15 sets, daily range): BP systolic 134–174; BP diastolic 60–74; PULSE 62–82; RESP 18–20; TEMP 36.7–37.3; O2SAT 92–99; BMI 28.1
--- NOTE | 2024-07-06 07:59 | CA_ITS ---
FINAL REPORT TECHNIQUE: Multiple transverse and longitudinal images were performed of the right femoral-popliteal deep venous system with augmentation and compression maneuvers. CLINICAL HISTORY: RT KNEE PAIN RADIATING INTO RLE,NKI,EDEMA COMPARISON: None FINDINGS: Right lower extremity duplex ultrasound demonstrates normal flow in the deep venous system. There is no abnormal echogenicity to suggest thrombus. There is normal compression and augmentation. IMPRESSION: No evidence of right lower extremity DVT. Reviewed, Interpreted and Dictated by Nicholas Salomon MD Transcribed by Swetha Negrete Authenticated and [facility]
--- NOTE | 2024-07-06 07:59 | XR_ITS ---
FINAL REPORT CLINICAL HISTORY: Right hip pain FINDINGS: RIGHT HIP Two views of the right hip demonstrate no acute fracture or dislocation. There is mild narrowing of the right hip joint space. The femoral head has a normal smooth contour. There are mild hypertrophic changes at the acetabular margin. No soft tissue abnormality is seen. IMPRESSION: No acute bony abnormality. Reviewed, Interpreted and Dictated by Nicholas Salomon MD Transcribed by Quynh Palma Authenticated and [facility]
--- NOTE | 2024-07-06 07:59 | XR_ITS ---
FINAL REPORT CLINICAL HISTORY: Right lower extremity pain FINDINGS: RIGHT FEMUR 2 views were obtained. There is no acute fracture or dislocation. There is moderate narrowing of the medial compartment joint space. There is small to moderate osteophyte formation at the medial joint margin. There is no soft tissue abnormality. IMPRESSION: No acute bony abnormality. Reviewed, Interpreted and Dictated by Nicholas Salomon MD Transcribed by Quynh Palma Authenticated and [facility]
--- NOTE | 2024-07-06 07:59 | XR_ITS ---
FINAL REPORT CLINICAL HISTORY: Right lower extremity pain FINDINGS: RIGHT TIBIA/FIBULA 2 views were obtained. There is no acute fracture or dislocation. There is moderate narrowing of the medial compartment joint space of the knee. There is no soft tissue abnormality. IMPRESSION: No acute bony abnormality. Reviewed, Interpreted and Dictated by Nicholas Salomon MD Transcribed by Quynh Palma Authenticated and [facility]
--- NOTE | 2024-07-06 08:01 | ED_ITS ---
Discharge Plan Disposition Patient Disposition: Home, Self-Care Condition: Good Prescriptions Prescriptions: New naproxen 500 mg tablet 500 mg PO BID Qty: 20 0RF methocarbamol 750 mg tablet 750 mg PO Q8H PRN (Reason: pain) Qty: 20 0RF No Action estradiol 0.01 % (0.1 mg/gram) cream See Rx Instructions vaginal .COMPLEX Qty: 42.5 2RF Rx Instructions: Using finger technique daily for two weeks and then twice weekly vaginally; PreserVision AREDS-2 250-90-40-1 mg capsule 1 tab PO BID tolterodine 1 mg tablet 1 mg PO DAILY Patient Comments: TAKE 1 TABLET BY MOUTH TWICE DAILY simvastatin 40 mg tablet 40 mg PO HS Qty: 90 1RF tamsulosin [Flomax] 0.4 mg capsule 0.4 mg PO DAILY Qty: 30 3RF losartan 50 mg tablet See Rx Instructions .ROUTE .COMPLEX Qty: 90 0RF Dose Instruction: Take 1 tablet by mouth once daily Rx Instructions: Take 1 tablet by mouth once daily amlodipine 10 mg tablet See Rx Instructions .ROUTE .COMPLEX Qty: 90 0RF Dose Instruction: Take 1 tablet by mouth once daily Rx Instructions: Take 1 tablet by mouth once daily pantoprazole 40 mg tablet,delayed release (DR/EC) 40 mg PO DAILY Qty: 30 2RF Referrals Follow up/Referrals: Gordon Sultana DO [Staff Physician] - See instructions Owen Temple DO [Primary Care Provider] - See instructions Activity Restrictions/Add. Instructions Additional Instructions/Restrictions: You were evaluated in the emergency department today. At this time, we discussed potential drainage of fluid of your knee to rule out infection or gout, however since you are electing to go home. Please follow-up very closely with orthopedics for reassessment of your knee pain. drupal architect your prescriptions at the pharmacy and take them as needed for pain. You may also take Tylenol every 4-6 hours as needed. Ice and keep your leg elevated to help reduce swelling. Return to the emergency department for new or worsening symptoms such as high fevers, redness and warmth of your knee that is new, or any other concerning symptoms. Clinical Impressions Clinical Impression: Knee pain, right Instructions Patient Instructions: DI for Knee Effusion, DI for Knee Pain Print Language Print Language: Upper Sorbian Discharge ED Provider: Ivonne Seth General Adult HPI General Chief complaint: Extremity Injury, Lower Stated complaint: Pain, some swelling in R leg Time Seen by Provider: 07/06/24 07:34 Mode of Arrival: Wheelchair Source of Information: Relative Limitations: No Limitations Description of Symptoms (Recalled from ER Triage Doc. by RN): pt has had right leg/knee pain swelling over last 2-3 weeks which has gotten worse over last 3 days, pt was concerned for blood clot. pt right knee is swollen and tender to touch she states the pain runs up and down the leg History of Present Illness HPI narrative: This patient is an 88-year-old female with a history of hypertension, hyperlipidemia, and HANSA presenting to the emergency department for evaluation with concern for right knee pain. Patient states that she has been having right knee/leg pain and swelling over the last 2 to 3 weeks, but has been acutely worse over the last 3 days. She notes it is mostly right behind her kneecap and she thought something could be wrong with her kneecap, but then it started going up into her thigh and down the front of her leg, so she thought she could have a blood clot. She notes that she is having some trouble bearing weight on it intermittently, but she is still able to walk. She also notes that she is having hard time getting dressed because she has a hard time straightening out and bending her knee. No fevers, chills, redness, warmth, wounds, other skin changes, or other concerns. No recent falls or injuries. Related Data Home Medications ?Medication ?Instructions ?Recorded ?Confirmed vit C 250 mg-vit E 90 mg-zinc 40 1 tab PO BID Supplement 06/27/23 05/19/24 mg-copper 1 [id number] capsule (PreserVision AREDS-2) tolterodine 1 mg tablet 1 mg PO DAILY 11/04/23 05/19/24 Previous Rx's ?Medication ?Instructions ?Recorded estradiol 0.01% (0.1 mg/gram) See Rx Instructions vaginal 11/18/23 vaginal cream .COMPLEX #42.5 grams simvastatin 40 mg tablet 40 mg PO HS Cholesterol #90 tabs 03/17/24 tamsulosin 0.4 mg capsule (Flomax) 0.4 mg PO DAILY #30 caps 04/03/24 amlodipine 10 mg tablet See Rx Instructions .Route 05/08/24 .COMPLEX #90 tabs losartan 50 mg tablet See Rx Instructions .Route 05/08/24 .COMPLEX #90 tabs pantoprazole 40 mg tablet,delayed 40 mg PO DAILY #30 tabs 06/18/24 release methocarbamol 750 mg tablet 750 mg PO Q8H PRN pain #20 tabs 07/06/24 naproxen 500 mg tablet 500 mg PO BID #20 tabs 07/06/24 Allergies Allergy/AdvReac Type Severity Reaction Status Date / Time No Known Allergies Allergy Verified 05/19/24 09:37 [facility] Disclaimer: The information contained in this section may have been updated after the patient was seen, as this information can be updated by other users. Medical History Diastolic dysfunction Left carotid bruit Carotid artery stenosis Urinary retention Sleep apnea Macular degeneration Hyperlipidemia Hypertension Dyspnea Surgical History History of left knee surgery History of right shoulder replacement Family History Other Hypertension Social History Smoking Status: Never smoker second hand exposure: No alcohol intake: never substance use type: denies use current occupational status: retired Travel in the last 8 weeks: None household members: none housing: house marital status: current occupational exposures/hazards: No caffeine: No Other Medical History Have you received the Flu Vaccine for this season: No Have you received the Pneumonia Vaccine: No ROS Obtained: Yes All systems reviewed & no additional complaints except as documented Physical Exam General General appearance: alert, in no apparent distress and obese Head Head exam: atraumatic and normocephalic Eye Eye exam: Present normal appearance, PERRL and EOMI ENT ENT exam: Present normal exam, normal oropharynx, mucous membranes moist and normal external ear exam Neck Neck exam: Present normal inspection, full ROM and trachea midline; Absent tenderness Chest Chest inspection: Present normal inspection and symmetric chest wall rise; Absent tenderness Respiratory Respiratory exam: Present normal lung sounds bilaterally; Absent respiratory distress, wheezes, stridor or accessory muscle use Cardiovascular Cardiovascular exam: Present regular rate and normal rhythm Abdominal Exam Abdominal exam: Present soft; Absent distention, tenderness or guarding Extremities Exam Extremities exam: Present tenderness, normal capillary refill, edema, joint swelling (R knee effusion) and other (Tenderness to palpation over the right knee joint in the anterior thigh. Right knee effusion noted. No redness, warmth, wounds, skin color changes. Limited ROM R knee 2/2 pain. Neurovascularly intact distally.); Absent full ROM Back Exam Back exam: Present normal inspection and full ROM; Absent tenderness Neurological Exam Neurological exam: Present alert, oriented X3, CN II-XII intact and normal gait; Absent motor sensory deficit Psychiatric Psychiatric exam: Present normal affect and normal mood Skin Skin exam: Present warm and dry Medical Decision Making Medical Records Medical records reviewed: Yes I reviewed the patient's medical records. Screening: Per USPSTF and CDC recommendations, given the prevalence of disease in our region, it is our hospital?s policy to screen for HIV and viral Hepatitis for all patients aged 18 and over and those with ongoing risk factors. Edgardo Inquiry Pt receiving controlled substance: No Vital Signs: 07/06/24 07:24 07/06/24 07:37 07/06/24 07:45 Temperature 99.1 F Temperature Source Oral Pulse Rate 76 78 Pulse Rate [Left Radial] 82 Respiratory Rate 20 Blood Pressure Blood Pressure [Right Arm] 174/67 H Blood Pressure Mean [Right Arm] 102 Blood Pressure Source Blood Pressure Position 02 Sat by Pulse Oximetry 97 99 99 Oxygen Delivery Method Room Air 07/06/24 08:28 07/06/24 08:29 07/06/24 08:30 Temperature Temperature Source Pulse Rate 72 71 67 Pulse Rate [Left Radial] Respiratory Rate Blood Pressure 156/69 H Blood Pressure [Right Arm] Blood Pressure Mean [Right Arm] Blood Pressure Source Blood Pressure Position 02 Sat by Pulse Oximetry 97 95 95 Oxygen Delivery Method 07/06/24 08:45 07/06/24 09:00 07/06/24 09:15 Temperature Temperature Source Pulse Rate 67 68 69 Pulse Rate [Left Radial] Respiratory Rate Blood Pressure 151/74 H Blood Pressure [Right Arm] Blood Pressure Mean [Right Arm] Blood Pressure Source Blood Pressure Position 02 Sat by Pulse Oximetry 93 L 94 L 93 L Oxygen Delivery Method 07/06/24 09:30 07/06/24 09:45 07/06/24 10:00 Temperature Temperature Source Pulse Rate 66 68 62 Pulse Rate [Left Radial] Respiratory Rate Blood Pressure 138/67 134/61 Blood Pressure [Right Arm] Blood Pressure Mean [Right Arm] Blood Pressure Source Blood Pressure Position 02 Sat by Pulse Oximetry 92 L 95 92 L Oxygen Delivery Method 07/06/24 10:15 07/06/24 10:30 07/06/24 10:50 Temperature 98.0 F Temperature Source Oral Pulse Rate 64 67 67 Pulse Rate [Left Radial] Respiratory Rate 18 Blood Pressure 135/60 135/60 Blood Pressure [Right Arm] Blood Pressure Mean [Right Arm] Blood Pressure Source Automatic Cuff Blood Pressure Position Sitting 02 Sat by Pulse Oximetry 96 95 Oxygen Delivery Method Room Air Lab Data Lab results reviewed: Yes I reviewed the patient's lab results. Lab Results 07/06/24 08:05: WBC 8.8, RBC 4.29, Hgb 13.3, Hct 40.3, MCV 93.9, MCH 31.0, MCHC 33.0, RDW 12.2, Plt Count 197, MPV 10.8 H, Neut % (Auto) 74.4, Lymph % (Auto) 15.6, [place] % (Auto) 8.1, Eos % (Auto) 0.9, Baso % (Auto) 0.8, Neut # (Auto) 6.6, Lymph # (Auto) 1.4, [place] # (Auto) 0.7, Eos # (Auto) 0.1, Baso # (Auto) 0.1, ESR 56 H, Sodium 140, Potassium 4.0, Chloride 103, Carbon Dioxide 26, Anion Gap 15.0, BUN 17, Creatinine 0.80, Estimated Creat Clear 50, Estimated GFR 68, Est GFR ( Amer) 82, Glucose 119 H, Calcium 9.6, Total Bilirubin 0.5, AST 36, ALT 35, Alkaline Phosphatase 121, C-Reactive Protein 1.1, Total Protein 7.5, Albumin 4.2, Globulin 3.3 H, Albumin/Globulin Ratio 1.3 07/06/24 08:05 07/06/24 08:05 Orders (Tests/Meds): ED MEDICATIONS Discontinued Medications Generic Name Dose Route Start Last Admin Trade Name Freq PRN Reason Stop Dose Admin Acetaminophen 1,000 mg 07/06/24 07:59 07/06/24 08:18 Acetaminophen 500mg Tab PO 07/06/24 08:00 1,000 mg ONCE ONE Administration Ketorolac Tromethamine 15 mg 07/06/24 07:59 07/06/24 08:18 Ketorolac 30mg/Ml Vial IV 07/06/24 08:00 15 mg ONCE ONE Administration Lidocaine 1 each 07/06/24 07:59 07/06/24 08:18 Lidocaine 5% Transdermal Patch TP 07/06/24 08:00 1 each ONCE ONE Administration Oxycodone HCl 5 mg 07/06/24 08:00 07/06/24 08:18 Oxycodone 5mg Immediate Release Tablet PO 07/06/24 08:01 5 mg ONCE ONE Administration ORDERS Category Date Time Status Femur XR right 2 views [XR femur RT 2V] Stat Exams 07/06/24 07:59 Completed Hip XR right minimum 2 views [XR hip RT 2-3V w/pelvis] Exams 07/06/24 07:59 Completed Stat Tibia/fibula XR right 2 views [XR tibia fibula RT 2V] Exams 07/06/24 07:59 Completed Stat CRP [C-Reactive Protein] Stat Lab 07/06/24 08:05 Completed Complete Blood Count Auto Diff Stat Lab 07/06/24 08:05 Completed Comprehensive Metabolic Panel Stat Lab 07/06/24 08:05 Completed ESR [Erythrocyte Sedimentation Rate] Stat Lab 07/06/24 08:05 Completed CA venous doppler LE RT Stat Y 07/06/24 07:59 Completed Medical Decision Narrative: In summary, this patient is a 88-year-old female presenting to the Emergency Department for evaluation of atraumatic right knee pain and swelling. Differential diagnoses considered include but are not limited to osteoarthritis, gouty arthritis, septic arthritis, DVT, fracture. Ruling out the most morbid conditions drove assessment. It should be noted patient's history includes obesity, hypertension, hyperlipidemia, HANSA which may or may not be at goal therapy. This complicates all aspects of care by increasing patient's risk for morbidity. I reviewed patient's past medical records and noted previous admission about a year ago with concern for respiratory failure in the setting of pneumonia. On exam, the patient is swelling and tenderness of the right knee and anterior thigh with no redness, warmth, or skin changes. She has limited range of motion secondary to pain but she is able to bear weight. She is neurovascularly intact distally. Clinical exam is reassuring and I feel that she is low risk for having septic arthritis, however given the knee effusion with limited range of motion, I did decide to risk stratify with inflammatory markers including ESR and CRP. workup also included CBC, CMP, x-rays of the right lower extremity, and DVT ultrasound. Patient was given IV Toradol, oral Tylenol, and oral oxycodone for symptomatic improvement. I independently interpreted x-rays prior to the radiologist read and noted no obvious acute fracture. Please see their read for final interpretation. Ultrasound is not concerning for DVT. Labs were obtained that demonstrated reassuring CBC with no significant leukocytosis, chemistry is also reassuring. ESR is elevated at 56.. On reassessment, patient had improvement in her pain after administration of interventions above and is feeling a little bit better. She remains neurovascularly intact. She remains afebrile. Overall, I feel she is very low risk for septic arthritis without significant risk factors, and her leg is not red, hot, warm. She has no significant leukocytosis or fever. I had shared decision make with the patient and her family with regards to whether or not we should obtain an arthrocentesis. I explained that that is the only way to definitively exclude septic arthritis as a cause of atraumatic pain, but I do not feel it is likely that she has septic arthritis based on reassuring exam. I offered arthrocentesis here versus discharge with follow-up with orthopedics. They would like to be discharged to follow-up with orthopedics at this time given improvement in symptoms. Given this, patient was discharged with prescriptions for naproxen and Robaxin as well as very strict return precautions. She was given instructions for orthopedic follow-up. Critical Care Critical Care Time Critical Care Time: No
[2024-07-06] MEDS: OXYCODONE 5MG IMMEDIATE RELEASE TABLET 5 MG PO (08:18)
[2024-07-06] MEDS: LIDOCAINE 5% TRANSDERMAL PATCH 1 EACH TP (08:18)
[2024-07-06] MEDS: ACETAMINOPHEN 500MG TAB 1000 MG PO (08:18)
[2024-07-06] MEDS: KETOROLAC 30MG/ML VIAL 15 MG IV (08:18)
[2024-07-06 08:20] LABS: Basophils # 0.1 K/mm3 (0-0.2); Basophils % 0.8 % (0.1-2.0); Eosinophils # 0.1 K/mm3 (0.0-0.4); Eosinophils % 0.9 % (0.1-12.0); Hematocrit 40.3 % (37.0-47.0); Hemoglobin 13.3 g/dL (12.2-16.2); Lymphocytes # 1.4 K/mm3 (0.7-4.5); Lymphocytes % 15.6 % (10-50); Mean Corpuscular Volume 93.9 fl (81-99); Mean Platelet Volume 10.8 fl (7.4-10.4); Monocytes # 0.7 K/mm3 (0.1-1.0); Monocytes % 8.1 % (1.7-9.3); Neutrophils # 6.6 K/mm3 (1.8-7.8); Neutrophils % 74.4 % (37.0-80.0); Platelet Count 197 K/mm3 (142-424); Red Blood Count 4.29 M/mm3 (4.20-5.40); Red Cell Distribution Width 12.2 % (11.5-17.5); White Blood Count 8.8 K/mm3 (4.8-10.8)
[2024-07-06 08:26] LABS: Chloride 103 mmol/L (98-107)
[2024-07-06 08:27] LABS: Albumin Level 4.2 g/dl (3.5-5.0); Sodium 140 mmol/L (136-145)
[2024-07-06 08:29] LABS: Blood Urea Nitrogen 17 mg/dl (7-17); Creatinine Clearance Estimated 50 mL/min (50-200); Estimated Glomerular Filt Rate 68 ml/min (>60); GFR (African American) 82 ML/MIN (>60)
[2024-07-06 08:30] LABS: Alanine Aminotransferase 35 U/L (12-78); Albumin/Globulin Ratio 1.3 (1.1-1.8); Alkaline Phosphatase 121 U/L (38-126); Aspartate Amino Transferase 36 U/L (14-36); Bilirubin,Total 0.5 mg/dl (0.2-1.3); Calcium 9.6 mg/dl (8.4-10.2); Carbon Dioxide 26 mmol/L (22.0-30.0); Globulin 3.3 g/dL (1.3-3.2); Glucose 119 mg/dl (74-100); Total Protein,Serum 7.5 g/dl (6.3-8.2)
--- NOTE | 2024-07-06 08:30 | PC.NURSE ---
xr at bedside
[2024-07-06 08:35] LABS: C-Reactive Protein 1.1 mg/L (0-4)
--- NOTE | 2024-07-06 08:40 | PC.NURSE ---
vascular at bedside for doppler of leg
[2024-07-06 09:04] LABS: Erythrocyte Sedimentation Rate 56 mm/hr (0-30)
--- NOTE | 2024-07-06 09:25 | PC.NURSE ---
DR YASHIRA SPANN
--- NOTE | 2024-07-06 09:46 | PC.NURSE ---
DR CEDENO AT BEDSIDE TO UPDATE PT AND FAMILY
== END 2024-07-06 10:50 | disposition home or self-care (01) ==
PROVIDERS: Emergency Provider Emergency Medicine; PCP Internal Medicine
DX: M25.561 Pain in right knee (principal); M79.604 Pain in right leg
CPT/HCPCS: 73502; 73552; 73590; 80053; 85025; 85651; 86140; 93971; 96374; 99283; J1885

== ENCOUNTER 2024-07-07 10:13 | Outpatient (CLI) | payer MEDICARE, BC, SELFPAY ==
--- NOTE | 2024-07-07 10:24 | XR_ITS ---
FINAL REPORT CLINICAL HISTORY: Rt knee pain COMPARISON: None FINDINGS: RIGHT KNEE: There is no acute fracture or dislocation. Moderate medial compartment joint space narrowing is noted. Subchondral sclerosis is present. There is moderate narrowing of the patellofemoral facet consistent with osteoarthritic change. There is no soft tissue abnormality. IMPRESSION: Degenerative changes without acute bony abnormality. Reviewed, Interpreted and Dictated by Nicholas Salomon MD Transcribed by Swetha Negrete Authenticated and [facility]
== END 2024-07-07 23:59 | disposition home or self-care (01) ==
LOC: RAD 10:14
PROVIDERS: PCP Internal Medicine; Visit Provider Orthopaedic Surgery
DX: M25.561 Pain in right knee (principal)
CPT/HCPCS: 73562

== ENCOUNTER 2024-07-14 13:27 | Outpatient (CLI) | payer MEDICARE, BC, SELFPAY | END 2024-07-14 23:59 | disposition home or self-care (01) | LOC: LAB.DROPOF 13:28 | PROVIDERS: PCP Internal Medicine; Visit Provider Internal Medicine | DX: N39.0 Urinary tract infection, site not specified (principal) | CPT/HCPCS: 87086 ==

== ENCOUNTER 2024-07-17 17:56 | Outpatient (CLI) | payer MEDICARE, BC, SELFPAY ==
[2024-07-17 18:11] LABS: Microscopic, Urine URINE MICROSCOPIC (MICROSCOPIC)
[2024-07-17 19:13] LABS: Appearance,Urine Cloudy (Clear); Bilirubin,Urine Negative (Negative); Blood, Urine 3+ (Negative); Color,Urine YELLOW (Yellow); Glucose,Urine (UA) Negative (Negative); Ketones,Urine Negative (Negative); Leukocyte Esterase,Urine 2+ (Negative); Nitrate,Urine Negative (Negative); Protein,Urine Negative (Negative); Urobilinogen,Urine 0.2 EU/dl (0.2)
[2024-07-17 19:44] LABS: Bacteria,Urine Trace /lpf; RBC,Urine 50-100 #/hpf (0-3); WBC,Urine 20-50 #/hpf (0-3)
== END 2024-07-17 23:59 | disposition home or self-care (01) ==
LOC: LAB.DROPOF 17:57
PROVIDERS: PCP Internal Medicine; Visit Provider Internal Medicine
DX: R33.9 Retention of urine, unspecified (principal); R82.90 Unspecified abnormal findings in urine
CPT/HCPCS: 81001; 87086

== ENCOUNTER 2024-08-03 09:35 | Emergency (ER) | payer MEDICARE, BC, SELFPAY ==
[2024-08-03 09:37] VITALS: BP 133/65; PULSE 84; RESP 18; TEMP 36.9; O2SAT 95; BMI 29.7
--- NOTE | 2024-08-03 09:59 | CA_ITS ---
FINAL REPORT CLINICAL HISTORY: RLE leg pain that woke her up this morning. Pain is in posterior aspect of right thigh. Denies trauma, denies swelling. States it hurts to straighten the right leg. HTN, HLD. FINDINGS: DUPLEX VENOUS SONOGRAPHY OF THE RIGHT LOWER EXTREMITY Multiple transverse and longitudinal scans were performed of the femoropopliteal deep venous system, with augmentation and compression maneuvers. FINDINGS: Normal phasic flow was noted in the visualized deep venous system. No intraluminal increased echogenicity is noted to suggest thrombus. There is normal compression and augmentation of the venous structures. No abnormal venous collaterals are seen. IMPRESSION: No evidence of deep venous thrombosis of the right lower extremity. Reviewed, Interpreted and Dictated by Chiqui Barcenas MD Transcribed by Quynh Palma Authenticated and [facility]
--- NOTE | 2024-08-03 10:19 | ED_ITS ---
Discharge Plan Disposition Patient Disposition: Home, Self-Care Condition: Good Prescriptions Prescriptions: No Action simvastatin 40 mg tablet 40 mg PO HS Qty: 90 1RF tamsulosin [Flomax] 0.4 mg capsule 0.4 mg PO DAILY Qty: 30 3RF losartan 50 mg tablet See Rx Instructions .ROUTE .COMPLEX Qty: 90 0RF Dose Instruction: Take 1 tablet by mouth once daily Rx Instructions: Take 1 tablet by mouth once daily amlodipine 10 mg tablet See Rx Instructions .ROUTE .COMPLEX Qty: 90 0RF Dose Instruction: Take 1 tablet by mouth once daily Rx Instructions: Take 1 tablet by mouth once daily pantoprazole 40 mg tablet,delayed release (DR/EC) 40 mg PO DAILY Qty: 30 2RF methocarbamol 750 mg tablet 750 mg PO Q8HP PRN (Reason: Pain) Patient Comments: TAKE 1 TABLET BY MOUTH EVERY 8 HOURS NEEDED FOR PAIN naproxen 500 mg tablet 500 mg PO BIDP PRN (Reason: Pain) Patient Comments: TAKE 1 TABLET BY MOUTH TWICE DAILY Referrals Follow up/Referrals: Gordon Sultana DO [Staff Physician] - See instructions Owen Temple DO [Primary Care Provider] - See instructions Activity Restrictions/Add. Instructions Additional Instructions/Restrictions: Please follow up tomorrow with Dr. Sultana at 1045 am. Rest, ice, and elevate your leg to help reduce pain and swelling. Return to the emergency department for new or worsening symptoms Clinical Impressions Clinical Impression: Pain and swelling of right lower extremity, Osteoarthritis of right knee Instructions Patient Instructions: DI for Osteoarthritis, DI for Leg Pain Print Language Print Language: Danish Discharge ED Provider: Ivonne Seth General Adult [facility] General Chief complaint: Extremity Problem,Nontraumatic Stated complaint: Rt leg pain, no accident Time Seen by Provider: 08/03/24 09:46 Mode of Arrival: Family Vehicle Source of Information: Patient and Medical Record Limitations: No Limitations Description of Symptoms (Recalled from ER Triage Doc. by RN): Pt c/o pain to posterior and lateral R knee wo injury. States she woke up at 6am with the knee pain and when she attempts to walk on it the pain radiates down her RLE to her foot. Pulses are intact. No redness or swelling. Pain worsens with leg straight out. Pt was at podiatry appt this AM and referred to ER for suspected DVT. Pt is not on any blood thinners and has never had a dvt or PE. History of Present Illness HPI narrative: This patient is an 88-year-old female with history of osteoarthritis, hypertension, hyperlipidemia, HANSA presented to the emergency department for evaluation with concern for right posterior leg swelling and pain. Patient states that she is having pain behind her right knee. No known injury. She states that she woke up at 6 AM with the pain and if she tends to walk on it radiates down her entire leg into her foot. She was seen by podiatry today and they told her to come to the ED for workup of DVT. Of note, patient was evaluated here 07/06/2024 for similar symptoms, DVT ultrasound was negative at that time. Workup was reassuring and she was discharged for follow-up with orthopedics. They did knee injections for presumed osteoarthritis, and initially she states that she had been doing okay but the symptoms acutely worsened today. Family notes that she had been favoring that leg since then. N o fevers, chest pain, shortness of breath, or other concerns noted at this time Related Data Home Medications ?Medication ?Instructions ?Recorded ?Confirmed methocarbamol 750 mg tablet 750 mg PO Q8HP PRN Pain 08/03/24 08/03/24 naproxen 500 mg tablet 500 mg PO BIDP PRN Pain 08/03/24 08/03/24 Previous Rx's ?Medication ?Instructions ?Recorded simvastatin 40 mg tablet 40 mg PO HS Cholesterol #90 tabs 03/17/24 tamsulosin 0.4 mg capsule (Flomax) 0.4 mg PO DAILY #30 caps 04/03/24 amlodipine 10 mg tablet See Rx Instructions .Route 05/08/24 .COMPLEX #90 tabs losartan 50 mg tablet See Rx Instructions .Route 05/08/24 .COMPLEX #90 tabs pantoprazole 40 mg tablet,delayed 40 mg PO DAILY #30 tabs 06/18/24 release Allergies Allergy/AdvReac Type Severity Reaction Status Date / Time No Known Allergies Allergy Verified 08/03/24 08:56 [facility] Disclaimer: The information contained in this section may have been updated after the patient was seen, as this information can be updated by other users. Medical History Contamination of urine culture Diastolic dysfunction Left carotid bruit Carotid artery stenosis Urinary retention Sleep apnea Macular degeneration Hyperlipidemia Hypertension Dyspnea Surgical History History of left knee surgery History of right shoulder replacement Family History Other Hypertension Social History Smoking Status: Never smoker second hand exposure: No alcohol intake: never substance use type: denies use current occupational status: retired Travel in the last 8 weeks: None household members: none housing: house marital status: current occupational exposures/hazards: No caffeine: No Other Medical History Have you received the Flu Vaccine for this season: No Have you received the Pneumonia Vaccine: No ROS Obtained: Yes All systems reviewed & no additional complaints except as documented Physical Exam General General appearance: alert and in no apparent distress Head Head exam: atraumatic and normocephalic Eye Eye exam: Present normal appearance, PERRL and EOMI ENT ENT exam: Present normal exam, normal oropharynx, mucous membranes moist and normal external ear exam Neck Neck exam: Present normal inspection, full ROM and trachea midline; Absent te nderness Chest Chest inspection: Present normal inspection and symmetric chest wall rise; Absent tenderness Respiratory Respiratory exam: Present normal lung sounds bilaterally; Absent respiratory distress, wheezes, stridor or accessory muscle use Cardiovascular Cardiovascular exam: Present regular rate and normal rhythm Abdominal Exam Abdominal exam: Present soft; Absent distention, tenderness or guarding Extremities Exam Extremities exam: Present tenderness, normal capillary refill, edema and other (Right knee swelling, right lower leg swelling, pain and tenderness in the right popliteal fossa. Neurovascularly intact distally. No redness, warmth, or skin changes.) Back Exam Back exam: Present normal inspection and full ROM; Absent tenderness Neurological Exam Neurological exam: Present alert, oriented X3, CN II-XII intact and normal gait; Absent motor sensory deficit Psychiatric Psychiatric exam: Present normal affect and normal mood Skin Skin exam: Present warm and dry Medical Decision Making Medical Records Medical records reviewed: Yes I reviewed the patient's medical records. Screening: Per USPSTF and CDC recommendations, given the prevalence of disease in our region, it is our hospital?s policy to screen for HIV and viral Hepatitis for all patients aged 18 and over and those with ongoing risk factors. Edgardo Inquiry Pt receiving controlled substance: No Vital Signs: 08/03/24 09:37 08/03/24 11:36 Temperature 98.5 F 98.5 F Temperature Source Oral Oral Pulse Rate 80 Pulse Rate [Right] 84 Respiratory Rate 18 18 Blood Pressure 137/62 Blood Pressure [Right Arm] 133/65 Blood Pressure Mean [Right Arm] 87 Blood Pressure Source Automatic Cuff Blood Pressure Source [Right Arm] Automatic Cuff Blood Pressure Position Sitting 02 Sat by Pulse Oximetry 95 Oxygen Delivery Method Room Air Room Air Lab Data Lab results reviewed: Yes I reviewed the patient's lab results. Orders (Tests/Meds): ED MEDICATIONS Discontinued Medications Generic Name Dose Route Start Last Admin Trade Name Freq PRN Reason Stop Dose Admin Ketorolac Tromethamine 30 mg 08/03/24 11:03 08/03/24 11:30 Ketorolac 30mg/Ml Vial IM 08/03/24 11:04 30 mg ONCE ONE Administration ORDERS Category Date Time Status CA venous doppler LE RT Stat Y 08/03/24 09:59 Completed Medical Decision Narrative: In summary, this patient is a 88-year-old female presenting to the Emergency Department for evaluation of atraumatic right leg pain and swelling that is worsened since evaluation here 07/06/2024. Differential diagnoses considered include but are not limited to osteoarthritis flare, cellulitis, DVT, Anders's cyst. Ruling out the most morbid conditions drove assessment. It should be noted patient's history includes HANSA, hypertension, hyperlipidemia, osteoarthritis which may or may not be at goal therapy. This complicates all aspects of care by increasing patient's risk for morbidity. I reviewed patient's past medical records and noted previous evaluations here as well as by orthopedics for similar symptoms in the past with negative DVT ultra sound and reassuring history and exam in orthopedic clinic. Joint injection was performed.. On exam, the patient is lying in bed in no acute distress with reassuring vital signs and cardiac telemetry. She has pain and swelling of the right lower extremity but no redness, warmth, or skin changes. She is neurovascularly intact. Most of her pain is in the right popliteal fossa. Given she chroni maday has issues with this knee and leg, I feel she is likely having a flareup of her osteoarthritis. workup included DVT ultrasound of the right lower extremity. I independently interpreted ultrasound prior to the radiologist read and noted no blood clot. Please see their read for final interpretation. Ultimately, I feel patient is likely having a flareup of the symptoms that I had seen her for 07/06/2024. She does not have a blood clot, leg is not red, hot, or angry. She has known osteoarthritis at this right knee. I called and arranged an appointment for her with orthopedics tomorrow at 10:45 AM, and she is agreeable with this. At this time, feel she is appropriate for discharge with close orthopedic follow-up. Strict return precautions were given and she was discharged after all questions were answered Critical Care Critical Care Time Critical Care Time: No
--- NOTE | 2024-08-03 10:35 | PC.NURSE ---
Vascular at [facility]
--- NOTE | 2024-08-03 10:46 | PC.NURSE ---
per cartographic technician scan is negative for dvt, ER made aware
[2024-08-03] MEDS: KETOROLAC 30MG/ML VIAL 30 MG IM (11:30)
[2024-08-03 11:36] VITALS: BP 137/62; PULSE 80; RESP 18; TEMP 36.9; O2SAT 97
== END 2024-08-03 11:36 | disposition home or self-care (01) ==
PROVIDERS: Emergency Provider Emergency Medicine; PCP Internal Medicine
DX: M17.11 Unilateral primary osteoarthritis, right knee (principal); M79.604 Pain in right leg; M25.561 Pain in right knee; R22.41 Localized swelling, mass and lump, right lower limb
CPT/HCPCS: 93971; 96372; 99283; J1885

== ENCOUNTER 2024-08-08 05:35 | Emergency (ER) | payer MEDICARE, BC, SELFPAY ==
[2024-08-08 05:41] VITALS: BP 136/64; PULSE 60; RESP 20; TEMP 36.6; O2SAT 97; BMI 25.8
--- NOTE | 2024-08-08 06:02 | ED_ITS ---
Discharge Plan Disposition Patient Disposition: Home, Self-Care Prescriptions Prescriptions: No Action meloxicam 15 mg tablet 15 mg PO DAILY Qty: 30 1RF simvastatin 40 mg tablet 40 mg PO HS Qty: 90 1RF tamsulosin [Flomax] 0.4 mg capsule 0.4 mg PO DAILY Qty: 30 3RF losartan 50 mg tablet See Rx Instructions .ROUTE .COMPLEX Qty: 90 0RF Dose Instruction: Take 1 tablet by mouth once daily Rx Instructions: Take 1 tablet by mouth once daily amlodipine 10 mg tablet See Rx Instructions .ROUTE .COMPLEX Qty: 90 0RF Dose Instruction: Take 1 tablet by mouth once daily Rx Instructions: Take 1 tablet by mouth once daily pantoprazole 40 mg tablet,delayed release (DR/EC) 40 mg PO DAILY Qty: 30 2RF methocarbamol 750 mg tablet 750 mg PO Q8HP PRN (Reason: Pain) Patient Comments: TAKE 1 TABLET BY MOUTH EVERY 8 HOURS NEEDED FOR PAIN Referrals Follow up/Referrals: Danis Cameron II, MD [Staff Physician] - See instructions Owen Temple DO [Primary Care Provider] - See instructions Activity Restrictions/Add. Instructions Additional Instructions/Restrictions: Recommend following up with your PCP and with GI for assessment of your difficulty swallowing. If you get something stuck in your throat, recommend return to the ER for further assessment. Clinical Impressions Clinical Impression: Dysphagia Qualifiers: Dysphagia type: unspecified Qualified Code(s): R13.10 - Dysphagia, unspecified Instructions Patient Instructions: DI for Diarrhea and Traveler's Diarrhea -- Adult, DI for Diarrhea and Traveler's Diarrhea -- Child, DI for Nausea -- Adult, DI for Nausea -- Child Print Language Print Language: Vietnamese Discharge ED Provider: Nile Valerio Adult HPI General Chief complaint: Nausea/Vomiting/Diarrhea Stated complaint: trouble swallowing, possible obstruction Time Seen by Provider: 08/08/24 05:40 Mode of Arrival: Ambulatory Source of Information: Patient Limitations: No Limitations Description of Symptoms (Recalled from ER Triage Doc. by RN): Pt states she has had hx of acid reflux and worse tonight feels like she is having progressively more trouble swallowing. Pt not drooling able to swallow secretions History of Present Illness HPI narrative: 88-year-old female with a of hyper, sleep apnea, obesity presents for worsening trouble swallowing. She reports been ongoing for 3 to 4 months and is still getting worse. She came in today because last night she was eating some bread sticks and fell like it got stuck for a little bit. Food is not currently stuck and she has been able to swallow liquids and her secretions. She reports intermittent acid reflux but currently denies any pain. Denies any shortness of breath. Related Data Home Medications ?Medication ?Instructions ?Recorded ?Confirmed methocarbamol 750 mg tablet 750 mg PO Q8HP PRN Pain 08/03/24 08/08/24 Previous Rx's ?Medication ?Instructions ?Recorded simvastatin 40 mg tablet 40 mg PO HS Cholesterol #90 tabs 03/17/24 tamsulosin 0.4 mg capsule (Flomax) 0.4 mg PO DAILY #30 caps 04/03/24 amlodipine 10 mg tablet See Rx Instructions .Route 05/08/24 .COMPLEX #90 tabs losartan 50 mg tablet See Rx Instructions .Route 05/08/24 .COMPLEX #90 tabs pantoprazole 40 mg tablet,delayed 40 mg PO DAILY #30 tabs 06/18/24 release meloxicam 15 mg tablet 15 mg PO DAILY Arthritis #30 tabs 08/04/24 Allergies Allergy/AdvReac Type Severity Reaction Status Date / Time No Known Allergies Allergy Verified 08/04/24 11:38 [facility] Disclaimer: The information contained in this section may have been updated after the patient was seen, as this information can be updated by other users. Medical History Contamination of urine culture Diastolic dysfunction Left carotid bruit Carotid artery stenosis Urinary retention Sleep apnea Macular degeneration Hyperlipidemia Hypertension Dyspnea Surgical History History of left knee surgery History of right shoulder replacement Family History Other Hypertension Social History Smoking Status: Never smoker second hand exposure: No alcohol intake: never substance use type: denies use current occupational status: retired Travel in the last 8 weeks: None household members: none housing: house marital status: current occupational exposures/hazards: No caffeine: No Have you lived/traveled outside [place] in past 30 days?: No Contact w/someone who lives/traveled outside [place] past 30 days?: No Exposure to someone with infectious disease in past 14 days?: No Do you have a fever (greater than 100.4 F or 38 C)?: No Have you tested positive for COVID-19: No Exposed to someone with COVID-19 in past 14 days?: No Do you have a sore throat?: No Do you have a cough?: No Do you have any weakness?: No Do you have any diarrhea?: No Are you experiencing any unusual bleeding?: No Do you have any muscle aches/pain?: No Do you have any abdominal pain?: No Are you experiencing loss of taste or smell?: No Other Medical History Have you received the Flu Vaccine for this season: No Have you received the Pneumonia Vaccine: No ROS Obtained: Yes All systems reviewed & no additional complaints except as documented Physical Exam General General appearance: alert and in no apparent distress Head Head exam: atraumatic and normocephalic Eye Eye exam: Present normal appearance, PERRL and EOMI ENT ENT exam: Present normal oropharynx and normal external ear exam Neck Neck exam: Present normal inspection and full ROM Chest Chest inspection: Present normal inspection and symmetric chest wall rise; Absent tenderness Respiratory Respiratory exam: Present normal lung sounds bilaterally; Absent respiratory distress Cardiovascular Cardiovascular exam: Present regular rate and normal rhythm Abdominal Exam Abdominal exam: Present soft; Absent distention, tenderness or guarding Extremities Exam Extremities exam: Present normal inspection; Absent edema or joint swelling Back Exam Back exam: Present normal inspection; Absent tenderness Neurological Exam Neurological exam: Present alert and oriented X3; Absent motor sensory deficit Psychiatric Psychiatric exam: Present normal affect and normal mood Skin Skin exam: Present warm, dry and normal color Lymphatic Lymphatic Findings: no adenopathy Medical Decision Making Medical Records Medical records reviewed: Yes I reviewed the patient's medical records. Screening: Per USPSTF and CDC recommendations, given the prevalence of disease in our region, it is our hospital?s policy to screen for HIV and viral Hepatitis for all patients aged 18 and over and those with ongoing risk factors. Edgardo Inquiry Pt receiving controlled substance: No Edgardo was queried for this patient: No Vital Signs: 08/08/24 05:41 Temperature 97.8 F Temperature Source Oral Pulse Rate [Right Brachial] 60 Respiratory Rate 20 Blood Pressure [Right Arm] 136/64 Blood Pressure Mean [Right Arm] 88 Blood Pressure Source [Right Arm] Automatic Cuff Blood Pressure Position [Right Arm] Sitting 02 Sat by Pulse Oximetry 97 Oxygen Delivery Method Room Air Lab Data Lab results reviewed: Yes I reviewed the patient's lab results. Orders (Tests/Meds): ORDERS Category Date Time Status HIV Combo Routine Lab 08/08/24 05:42 Received Hepatitis C Ab Qual. W/ RFX Routine Lab 08/08/24 05:42 Received Medical Decision Narrative: 88-year-old female with history of hypertension hyperlipidemia obesity and sleep apnea presents for worsening dysphagia over the last several months as well as some acid reflux. History was obtained via interactive discussion with patient. On arrival, patient is [afebrile, hemodynamically stable, satting appropriately, alert, oriented x4, GCS 15], moving all extremities spontaneously. Full physical exam performed and significant for no significant physical exam abnormalities, no indication the patient has a fluid bolus at this time Differential includes but is not limited to esophagitis, GERD, food bolus, esophageal stricture. On history and exam, no indication for emergent endoscopy. Considered performing labs and CT imaging, but given chronicity of symptoms and no acute issues at this time, I do not think that it was indicated. Recommended she follow-up with PCP and our GI team for swallow study, endoscopy etc. She was agreeable to plan and was discharged in stable condition. She was given strict return precautions for food bolus impaction. Procedures Risk/Benefits of Procedure(s) Were Explained: Yes Critical Care Critical Care Time Critical Care Time: No
[2024-08-08 06:04] VITALS: BP 108/64; PULSE 67; RESP 16; TEMP 36.6; O2SAT 98
[2024-08-08 06:52] LABS: HIV Combo NEGATIVE (Negative)
[2024-08-08 07:00] LABS: Hepatitis C Ab Qual. W/ RFX NEGATIVE (Negative)
== END 2024-08-08 06:09 | disposition home or self-care (01) ==
PROVIDERS: Emergency Provider Emergency Medicine; PCP Internal Medicine
DX: R13.10 Dysphagia, unspecified (principal)
CPT/HCPCS: 86803; 87389; 99283

== ENCOUNTER 2024-09-21 15:57 | Outpatient (CLI) | payer MEDICARE, BC, SELFPAY ==
--- NOTE | 2024-09-21 16:00 | US_ITS ---
PROCEDURE: US TRANSVAGINAL CLINICAL INDICATION: Postmenopausal bleeding COMPARISON: No exams were available for comparison FINDINGS: Transvaginal sonographic images of the pelvis were obtained. UTERUS: 6.7cm x 4.5cmx 3.2cm anteverted with a combined endometrial thickness of 18.7 mm. There are calcifications within the myometrium. The endometrium appears markedly thickened and is homogeneous in appearance. Within the endometrium at the fundus there appears to be a hyperechoic area that could possibly be a polyp measuring 1.7 cm in size. There appears to be blood flow within this polyp. LEFT OVARY: Not visualized RIGHT OVARY: Not visualized Both ovaries are not visualized. There is no fluid in the cul-de-sac. IMPRESSION: 1. Anteverted uterus normal in shape and size. The endometrium is markedly thickened measuring 18.7 mm. Within the endometrium there appears to be a 1.7 cm polyp. Cannot rule out endometrial carcinoma or endometrial hyperplasia. Suggest endometrial sampling. 2. The ovaries were not visualized and are likely atrophic. 3. No fluid in the cul-de-sac. Dictated by: Dylon Hawk MD 09/21/2024 16:55 Dylon Hawk MD in OV 09/21/2024 16:55
== END 2024-09-21 23:59 | disposition home or self-care (01) ==
LOC: RAD 15:58
PROVIDERS: PCP Internal Medicine; Visit Provider Obstetrics & Gynecology
DX: N95.0 Postmenopausal bleeding (principal)
CPT/HCPCS: 76830

== ENCOUNTER 2024-09-30 07:20 | Day surgery (SDC) | payer MEDICARE, BC, SELFPAY ==
[2024-09-28 17:14] VITALS: BMI 29.7
[2024-09-30] MEDS: LACTATED RINGERS 1000ML 1,000 ML 50 ML IV (08:15)
[2024-09-30 08:16] VITALS: BP 131/80; PULSE 68; RESP 16; TEMP 36.3; O2SAT 96
[2024-09-30 08:33] LABS: Basophils # 0.1 K/mm3 (0-0.2); Basophils % 1.2 % (0.1-2.0); Eosinophils # 0.2 K/mm3 (0.0-0.4); Eosinophils % 2.5 % (0.1-12.0); Hemoglobin 13.5 g/dL (12.2-16.2); Lymphocytes # 1.5 K/mm3 (0.7-4.5); Lymphocytes % 24.6 % (10-50); Mean Corpuscular HGB Conc 32.9 g/dL (31.8-35.4); Mean Corpuscular Hemoglobin 31.2 pg (27.0-31.2); Mean Corpuscular Volume 94.7 fl (81-99); Mean Platelet Volume 10.7 fl (7.4-10.4); Monocytes # 0.5 K/mm3 (0.1-1.0); Monocytes % 9.2 % (1.7-9.3); Neutrophils # 3.7 K/mm3 (1.8-7.8); Neutrophils % 62.2 % (37.0-80.0); Nucleated Red Blood Cells # 0 10^3/uL; Nucleated Red Blood Cells % 0 %; Platelet Count 213 K/mm3 (142-424); Red Blood Count 4.33 M/mm3 (4.20-5.40); Red Cell Distribution Width 12.6 % (11.5-17.5); White Blood Count 5.9 K/mm3 (4.8-10.8)
--- NOTE | 2024-09-30 08:34 | EXP.ANES.CKL ---
[facility] Disclaimer: The information contained in this section may have been updated after the patient was seen, as this information can be updated by other users. Medical History Contamination of urine culture Diastolic dysfunction Left carotid bruit Carotid artery stenosis Urinary retention Sleep apnea Macular degeneration Hyperlipidemia Hypertension Dyspnea Surgical History History of left knee surgery History of right shoulder replacement Family History Other Hypertension Social History Smoking Status: Never smoker second hand exposure: No alcohol intake: never substance use type: denies use current occupational status: retired Travel in the last 8 weeks: None household members: none housing: house marital status: current occupational exposures/hazards: No caffeine: No Have you lived/traveled outside [place] in past 30 days?: No Contact w/someone who lives/traveled outside [place] past 30 days?: No Exposure to someone with infectious disease in past 14 days?: No Do you have a fever (greater than 100.4 F or 38 C)?: No Have you tested positive for COVID-19: No Exposed to someone with COVID-19 in past 14 days?: No Do you have a sore throat?: No Do you have a cough?: No Do you have any weakness?: No Do you have any diarrhea?: No Are you experiencing any unusual bleeding?: No Do you have any muscle aches/pain?: No Do you have any abdominal pain?: No Are you experiencing loss of taste or smell?: No [facility] Anesthesia Checklist Patient Identification Patient Identification: Arm Band Structural Data Admitted From: Home Planned Operative Procedure/s: EGD Consent for Planned Operative Procedure(s) Verified: Yes Verified Documents: Surgical Consent and History and Physical NPO Status Verified Time NPO: 00:00 Additional verifications Anesthesia Reactions: No Airway Assessment Mallampati Score:: Class II C-Spine Mobility Assessed: Yes TMJ Mobility Assessed: Yes Dentition: Good Dentition Neurological Assessment Level of Consciousness: Awake, Alert and Appropriate Anesthesia Plan Anesthesia Risk discussed: Yes Anesthesia Plan: Verified ASA Class: III Anesthesia Type: MAC
[2024-09-30 08:45] LABS: Albumin Level 4.3 g/dl (3.5-5.0); Chloride 105 mmol/L (98-107); Sodium 142 mmol/L (136-145)
[2024-09-30 08:48] LABS: Alanine Aminotransferase 30 U/L (12-78); Albumin/Globulin Ratio 1.2 (1.1-1.8); Alkaline Phosphatase 132 U/L (38-126); Aspartate Amino Transferase 33 U/L (14-36); Bilirubin,Total 0.6 mg/dl (0.2-1.3); Blood Urea Nitrogen 20 mg/dl (7-17); Carbon Dioxide 27 mmol/L (22.0-30.0); Creatinine Clearance Estimated 52 mL/min (50-200); Estimated Glomerular Filt Rate 59 ml/min (>60); GFR (African American) 71 ML/MIN (>60); Globulin 3.5 g/dL (1.3-3.2); Glucose 117 mg/dl (74-100); Total Protein,Serum 7.8 g/dl (6.3-8.2)
--- NOTE | 2024-09-30 08:49 | EXP.HP ---
History of Present Illness *Admission Date: 09/30/24 *Reason for visit:: Dysphagia and food regurgitation *History of present illness: Mrs. Zayas is an 89-year-old female who is here for diagnostic/therapeutic upper endoscopy secondary to dysphagia. The examination is deemed medically necessary for upper endoscopy. The patient has been seen, interviewed and examined prior to the procedure by both myself and the anesthesia provider. [facility] Disclaimer: The information contained in this section may have been updated after the patient was seen, as this information can be updated by other users. Medical History Contamination of urine culture Diastolic dysfunction Left carotid bruit Carotid artery stenosis Urinary retention Sleep apnea Macular degeneration Hyperlipidemia Hypertension Dyspnea Surgical History History of left knee surgery History of right shoulder replacement Family History Other Hypertension Social History Smoking Status: Never smoker second hand exposure: No alcohol intake: never substance use type: denies use current occupational status: retired Travel in the last 8 weeks: None household members: none housing: house marital status: current occupational exposures/hazards: No caffeine: No Have you lived/traveled outside [place] in past 30 days?: No Contact w/someone who lives/traveled outside US past 30 days?: No Exposure to someone with infectious disease in past 14 days?: No Do you have a fever (greater than 100.4 F or 38 C)?: No Have you tested positive for COVID-19: No Exposed to someone with COVID-19 in past 14 days?: No Do you have a sore throat?: No Do you have a cough?: No Do you have any weakness?: No Do you have any diarrhea?: No Are you experiencing any unusual bleeding?: No Do you have any muscle aches/pain?: No Do you have any abdominal pain?: No Are you experiencing loss of taste or smell?: No Other Medical History Have you received the Flu Vaccine for this season: No Have you received the Pneumonia Vaccine: No Review of Systems Review of Systems Review of systems (narrative): Negative *Cardiovascular Comments: Negative *Gastrointestinal Comments: Negative *Genitourinary Comments: Negative *Musculoskeletal Comments: Negative *Neurologic Comments: Negative Meds Home Medications and Allergies Home Medications ?Medication ?Instructions ?Recorded ?Confirmed ?Type tamsulosin 0.4 mg capsule (Flomax) 0.4 mg PO DAILY #30 caps 04/03/24 09/30/24 Rx meloxicam 15 mg tablet 15 mg PO DAILY Arthritis #30 tabs 08/04/24 09/30/24 Rx pantoprazole 40 mg tablet,delayed 40 mg PO BID 09/15/24 09/30/24 History release amlodipine 10 mg tablet 10 mg PO DAILY 09/28/24 09/30/24 History losartan 50 mg tablet 50 mg PO DAILY 09/28/24 09/30/24 History simvastatin 40 mg tablet 40 mg PO DAILY 09/28/24 09/30/24 History New Prescriptions to Start Prescriptions: Allergies Allergy/AdvReac Type Severity Reaction Status Date / Time No Known Allergies Allergy Verified 09/30/24 08:14 Exam Data for Last 24 hours Vital signs and Labs for Last 24 Hours: Temp Pulse Resp BP Pulse Ox O2 Del Method 97.4 F L 68 16 131/80 96 Room Air 09/30/24 08:16 09/30/24 08:16 09/30/24 08:16 09/30/24 08:16 09/30/24 08:16 09/30/24 08:16 Laboratory Results - last 24 hr 09/30/24 08:22: WBC 5.9, RBC 4.33, Hgb 13.5, Hct 41.0, MCV 94.7, MCH 31.2, MCHC 32.9, RDW 12.6, Plt Count 213, MPV 10.7 H, Neut % (Auto) 62.2, Lymph % (Auto) 24.6, [place] % (Auto) 9.2, Eos % (Auto) 2.5, Baso % (Auto) 1.2, Neut # (Auto) 3.7, Lymph # (Auto) 1.5, [place] # (Auto) 0.5, Eos # (Auto) 0.2, Baso # (Auto) 0.1 I & O for Last 24 hours: Intake & Output 09/27/24 09/28/24 09/29/24 09/30/24 23:59 23:59 23:59 23:59 Weight 190 lb *Routine HEENT Exam Head: Present normocephalic Eye: Present EOMI and PERRL ENT: Present mucous membranes moist *Routine Neck Exam Neck: Present supple *Routine Respiratory Exam Respiratory: Present CTA bilaterally *Routine Cardiovascular Exam Cardiovascular: Present RRR *Routine Abdominal Exam Abdominal: Present soft and normoactive bowel sounds; Absent tenderness *Routine Rectal Exam Rectal:: deferred *Routine Genitalia Exam Genitalia:: deferred *Routine Extremities Exam Extremities: Absent cyanosis, clubbing or edema *Routine Skin Exam Skin: Present warm; Absent rash *Routine Neurological Exam Neurological: Present alert and oriented X3 Assessment and Plan *Assessment and plan (1) Dysphagia: Status: Acute Qualifiers: Dysphagia type: unspecified Qualified Code(s): R13.10 - Dysphagia, unspecified Category: Medical Code(s): R13.10 - Dysphagia, unspecified (2) GERD (gastroesophageal reflux disease): Status: Acute Category: Medical Code(s): K21.9 - Gastro-esophageal reflux disease without esophagitis (3) Regurgitation of food: Status: Acute Category: Medical Code(s): R11.10 - Vomiting, unspecified (4) Nausea: Status: Acute Category: Medical Code(s): R11.0 - Nausea Plan A/P: 1. Dysphagia with food regurgitation and reflux is the preprocedural diagnosis. The patient will be anesthetized/sedated using MAC sedation. The patient has been seen and examined. Cardiac and lung assessment prior to the examination is stable. Proceed with planned diagnostic EGD.
[2024-09-30 08:54] VITALS: O2SAT 99
--- NOTE | 2024-09-30 09:01 | P.PCN_ITS ---
[facility] Procedure Note Date: 09/30/24 Time: 09:09 Procedure Note:: Upper Endoscopy Procedure Report: Esophagogastroduodenoscopy with cold biopsies and TTS balloon dilation Endoscopost: Danis Cameron II, MD Referring Physician: Owen Temple DO Date of Procedure: September 30, 2024 Equipment: Olympus GIF 190 standard upper endoscope Sedation: MAC sedation Indications: Mrs. Zayas is an 89-year-old female with dysphagia/swallowing difficulty. This has been going on for 2 to 3 years but getting worse. She gets this with solid foods more so than liquids and often has to regurgitate her food. She does report gastroesophageal reflux with very little heartburn. She reports no bloating, belching, nausea or early satiety. Over the last 2 to 3 weeks she has had some increased constipation. Her last EGD was over 20 years ago. She has never had a colonoscopy and never done a Cologuard test. She reports no family history of esophageal or gastric cancer. She has had no unintentional weight loss. She does take pantoprazole daily and this was increased to twice daily by her PCP. The patient's hemoglobin and hematocrit today were 13.5 and 41.0. Her alkaline phosphatase was mildly elevated at 132 but the remainder of her liver chemistries are normal. Procedure: Prior to the procedure, a history and physical exam was performed, and patient's medications and allergies were reviewed. The risks, benefits and alternatives of the sedation and procedure were discussed with the patient. All questions were answered and informed consent was obtained. The patient was brought to the procedure room. Patient identification and proposed procedure were verified by the physician and the nurse. The patient was placed in a left lateral decubitus position and the scope was passed under direct vision. Throughout the procedure, the patient's blood pressure, pulse, and oxygen saturations were monitored continuously. The upper GI endoscopy was accomplished without difficulty. The patient tolerated the procedure well. Findings: The scope was passed directly into the upper esophagus and advanced to the third portion of the duodenum. The post bulbar duodenum and duodenal bulb were normal with normal mucosa and conniventes. The scope was withdrawn through a normal duodenal bulb and pylorus into the stomach. There was mild antral gastropathy. There was moderate to marked gastric atrophy of the body and fundus with some mucosal changes suggestive of gastric intestinal metaplasia with atrophy. Biopsies were taken from the fundus of the stomach separately from biopsies of the antrum of the stomach. Upon retroflexion there was a small to medium sized 3 cm hiatal hernia. The scope was then withdrawn into the esophagus. There was no evidence of reflux esophagitis, Richards's or Schatzki's ring. There were no strictures. There were very strong tertiary contractions and evidence of moderate to marked esophageal dysmotility. The entire esophagus was dilated to 60 [place]/20 mm with a TTS hydrostatic balloon. There was mild resistance at the cricopharyngeus. The remainder of the esophageal mucosa was normal. Impression: 1. Nonerosive GERD with moderate to marked esophageal dysmotility, mild cricopharyngeal spasm and medium size 3 cm hiatal hernia?status post dilation to 20 mm 2. Moderate to marked proximal gastric atrophy/atrophic gastritis?biopsies taken to rule out gastric intestinal metaplasia 3. Bile reflux with mild antral gastropathy Plan: I will follow-up the biopsies. I do feel that her swallowing difficulty is related to the esophageal dysmotility. Pantoprazole and acid suppression is not best in persons with atrophic gastritis and parietal cell atrophy. There is less proton pumps with achlorhydria and the patient is not producing acid because of this. Further acid suppression can lead to progressive atrophy. The patient primarily has bile reflux which does contribute to her esophageal dysmotility. I would recommend treatment of her constipation/obstipation. I would also recommend prokinetic therapy. We will discuss treatment options. I would also check B12 levels and iron levels because of her atrophic gastritis. She does not have anemia.
[2024-09-30 09:19] VITALS: BP 83/59; PULSE 99; RESP 18; TEMP 36.6; O2SAT 92
[2024-09-30 09:29] VITALS: BP 88/56; PULSE 93; RESP 16; O2SAT 93
[2024-09-30 09:39] VITALS: BP 92/58; PULSE 87; RESP 16; O2SAT 92
[2024-09-30 09:49] VITALS: BP 101/60; PULSE 81; RESP 18; O2SAT 95
[2024-09-30 10:31] LABS: Vitamin B12 303 pg/mL (239-931)
[2024-09-30 10:56] LABS: Iron 112 ug/dL (37-170)
[2024-09-30 10:57] LABS: Total Iron Binding Capacity 221 ug/dL (265-497)
[2024-09-30 11:14] LABS: Ferritin 54.6 ng/ml (11.1-264)
== END 2024-09-30 09:50 | disposition home or self-care (01) ==
PROVIDERS: Obstetrics & Gynecology; PCP Internal Medicine; Visit Provider Internal Medicine Gastroenterology
PROC: 0DJ08ZZ Inspection of Upper Intestinal Tract, Via Natural or Artificial Opening Endoscopic (ICD-10-PCS; CPT 43239; principal; 2024-09-30 09:00)
DX: K22.4 Dyskinesia of esophagus (principal); J39.2 Other diseases of pharynx; K44.9 Diaphragmatic hernia without obstruction or gangrene; K29.40 Chronic atrophic gastritis without bleeding; K31.9 Disease of stomach and duodenum, unspecified; K21.9 Gastro-esophageal reflux disease without esophagitis; R13.10 Dysphagia, unspecified; R11.10 Vomiting, unspecified
CPT/HCPCS: 43239; 43249; 80053; 82607; 82652; 82728; 83540; 83550; 85025; 88305; C1726; J7120

== ENCOUNTER 2024-10-08 06:12 | Day surgery (SDC) | payer MEDICARE, BC, SELFPAY ==
[2024-10-01 13:08] VITALS: BMI 31.4
[2024-10-08] VITALS (9 sets, daily range): BP systolic 110–147; BP diastolic 46–71; PULSE 60–79; RESP 12–17; TEMP 36.1–36.3; O2SAT 95–97
--- NOTE | 2024-10-08 07:00 | EXP.ANES.CKL ---
[facility] Disclaimer: The information contained in this section may have been updated after the patient was seen, as this information can be updated by other users. Medical History Contamination of urine culture Diastolic dysfunction Left carotid bruit Carotid artery stenosis Urinary retention Sleep apnea Macular degeneration Hyperlipidemia Hypertension Dyspnea Surgical History History of left knee surgery History of right shoulder replacement Family History Other Hypertension Social History Smoking Status: Never smoker second hand exposure: No alcohol intake: never substance use type: denies use current occupational status: retired Travel in the last 8 weeks: None household members: none housing: house marital status: current occupational exposures/hazards: No caffeine: No Have you lived/traveled outside [place] in past 30 days?: No Contact w/someone who lives/traveled outside US past 30 days?: No Exposure to someone with infectious disease in past 14 days?: No Do you have a fever (greater than 100.4 F or 38 C)?: No Have you tested positive for COVID-19: No Exposed to someone with COVID-19 in past 14 days?: No Do you have a sore throat?: No Do you have a cough?: No Do you have any weakness?: No Do you have any diarrhea?: No Are you experiencing any unusual bleeding?: No Do you have any muscle aches/pain?: No Do you have any abdominal pain?: No Are you experiencing loss of taste or smell?: No [facility] Anesthesia Checklist Patient Identification Patient Identification: Arm Band and Verbal (Name & ) Structural Data Admitted From: Home Planned Operative Procedure/s: hysteroscopy, D&C, myosure placement Consent for Planned Operative Procedure(s) Verified: Yes Verified Documents: Surgical Consent NPO Status Verified Time NPO: 00:00 Chart Verification Results Verified: ECG Additional verifications Patient : No Anesthesia Reactions: No Hx Blood Transfusions: No Blood Transfusion Reaction: No Airway Assessment Mallampati Score:: Class II Dentition: Good Dentition Neurological Assessment Level of Consciousness: Awake, Alert and Appropriate Anesthesia Plan Anesthesia Risk discussed: Yes Anesthesia Plan: Verified ASA Class: II Anesthesia Type: General
--- NOTE | 2024-10-08 08:56 | EXP.ANES.I ---
[facility] Anesthesia Record Part I Anesthesia Record I Intake, IV Amount: 700 Hydration: Adequate Estimated blood loss (mL): 0 Urine output (mL): 0 Blood Products used (#): none Blood Pressure: 147/50 SaO2: 96 Pulse Rate: 79 Airway Patency: Patent Respiratory Rate: 12 Temperature: 97.0 F Patient is:: Drowsy and Stable Stable to PACU at:: 08:50
--- NOTE | 2024-10-08 10:06 | P.OP_ITS ---
Date of procedure: 10/08/24 Pre-op Diagnosis:: 1. Post menopausal bleeding 2. Thickened endometrial stripe Post-op Diagnosis:: 1. Post menopausal bleeding 2. Thickened endometrial stripe 3. Endometrial polyp 4. Diffuse endometrial proliferation Procedure performed:: 1. Hysteroscopy 2. Dilation and curettage 3. MyoSure polypectomy Surgeon:: Chata Temple DO [employer]PLIANCE [employer] ASSEMBLER:: Other (Saurabh Pollard) Anesthesia: GETA Estimated blood loss (mL): 10 Operative findings:: Findings: -EUA nonrevealing secondary to habitus. Appropriate appearing vaginal wall without significant prolapse or defects. Cervical os appropriately dilated, not requiring significant effort to gain access with the hysteroscope. -Hysteroscopy revealed an immediate endometrial polyp followed by diffusely proliferative endometrium Operative note:: The patient was taken back to the OR where general anesthesia was obtained.? She was placed in the dorsal lithotomy position using yellow fin stirrups and sterilely prepped and draped in the usual fashion.? An in and out catheter was used to drain her bladder.? A timeout was performed.? A weighted speculum was used to visualize this cervix, a single-tooth tenaculum was applied to the anterior lip of the cervix. The cervix was only slightly dilated to allow entry to the ectocervix and hydrodisection was used to get the scope the rest of the way into the cavity. The hysterscope was inserted and a large polyp was noted in the lower uterine segment on the patient's right side of the uterus. Images were obtained of the cavity. The left side of the uterus was noted to have diffusely proliferative endometrium.? Decision was made to proceed with the MyoSure for polypectomy. Device set up, primed and zeroed. The device was used to resect the outer edge of the polyp until the complete polyp was removed down to the base. At the conclusion of the procedure there was a fluid deficit of about 150mLs. Total myosure cutting time was 1minutes 41seconds. Following removal of the polyp and appropriate sampling of the endometrium the MyoSure hysteroscope was removed.?The single-tooth tenaculum was removed and hemostasis was noted at the tenaculum sites.? All instruments were removed from the vagina.? All counts were correct, per nursing.? This concluded the procedure, the patient was awakened from anesthesia, and transferred to the PACU in stable condition. Condition: stable Disposition: PACU Specimens:: Endometrial polyp and curettings Complications:: None
--- NOTE | 2024-10-08 16:12 | P.PNANES_ITS ---
[facility] Anesthesia Record Part II Anesthesia Record Part II Discharge Time: 09:20 Destination: Surgical Day Care (OP Surgery) PACU nurse assessment reviewed?: Yes Patient Condition:: Good Anesthesia Complications:: None Swallowing reflex intact?: Yes Airway Patency: Patent Cyanosis?: No Blood Pressure: 114/50 SaO2: 96 Respiratory Rate: 16 Pulse Rate: 63 Temperature: 97.2 F Mental Status: Alert & Oriented Pain level:: 0 Nausea and/or vomitting:: None Intake, IV Amount: 0 Hydration: Adequate
== END 2024-10-08 10:11 | disposition home or self-care (01) ==
PROVIDERS: PCP Internal Medicine; Visit Provider Obstetrics & Gynecology
PROC: 0UDB8ZZ Extraction of Endometrium, Via Natural or Artificial Opening Endoscopic (ICD-10-PCS; CPT 58558; principal; 2024-10-08 07:30)
DX: N92.4 Excessive bleeding in the premenopausal period (principal); R93.89 Abnormal findings on diagnostic imaging of other specified body structures; N84.0 Polyp of corpus uteri
CPT/HCPCS: 58558; J1100; J2405; J3010; J7120

== ENCOUNTER 2024-11-06 07:57 | Outpatient (CLI) | payer MEDICARE, BC, SELFPAY ==
--- NOTE | 2024-11-06 08:02 | MR_ITS ---
FINAL REPORT TECHNIQUE: Multiplanar MR without contrast CLINICAL HISTORY: LBP. UNABLE TO FULLY STRAIGHTEN. RIGHT LEG PAIN. FINDINGS: There is mild chronic compression fracture at T12. No lumbar fracture is identified. There is minimal anterolisthesis of L3 on 4 measuring 2 mm. Marrow signal pattern is unremarkable. T11-12: Small right lateral canal disc protrusion. T12-L1: Unremarkable. L1-2: Mild annular disc bulge. L2-3: Moderate annular disc bulge. Mild central canal stenosis and mild neuroforaminal narrowing. L3-4: Mild annular disc bulge and moderate facet overgrowth. Mild central canal stenosis and moderate neuroforaminal narrowing. L4-5: Mild annular disc bulge and mild facet arthropathy. Borderline central canal stenosis and moderate neuroforaminal narrowing. L5-S1: Mild annular disc bulge and facet arthropathy. Moderate bilateral neuroforaminal narrowing without central canal stenosis. IMPRESSION: Diffuse degenerative changes with canal stenosis at L2-3 and L3-4 and multilevel neuroforaminal narrowing. Chronic compression fracture of T12. Reviewed, Interpreted and Dictated by Rohith Cheatham MD Transcribed by Tara Cobian Authenticated and [facility]
== END 2024-11-06 23:59 | disposition home or self-care (01) ==
LOC: RAD 07:58
PROVIDERS: PCP Internal Medicine; Visit Provider Specialist/Technologist Athletic Trainer
DX: M51.369 Other intervertebral disc degeneration, lumbar region without mention of lumbar back pain or lower extremity pain (principal); M48.061 Spinal stenosis, lumbar region without neurogenic claudication; M47.817 Spondylosis without myelopathy or radiculopathy, lumbosacral region; S22.089A Unspecified fracture of T11-T12 vertebra, initial encounter for closed fracture; X58.XXXA Exposure to other specified factors, initial encounter
CPT/HCPCS: 72148

== ENCOUNTER 2024-11-10 10:03 | Outpatient (RCR) | payer MEDICARE, BC, SELFPAY | END 2024-11-10 23:59 | disposition home or self-care (01) | LOC: PT 10:03 | PROVIDERS: PCP Internal Medicine; Visit Provider Specialist/Technologist Athletic Trainer | DX: M43.16 Spondylolisthesis, lumbar region (principal) | CPT/HCPCS: 97163 ==

== ENCOUNTER 2024-11-12 08:58 | Outpatient (CLI) | payer MEDICARE, BC, SELFPAY ==
--- NOTE | 2024-11-12 09:02 | CT_ITS ---
FINAL REPORT TECHNIQUE: Routine axial images were obtained from the lung apices to below the diaphragm following IV contrast administration. Individualized dose reduction techniques using automated exposure control or adjustment of the mA and/or kV according to the patient size were employed. CLINICAL HISTORY: ENDOMETRIAL CANCER ENDOMETRIAL CANCER, PATIENT FOUND OUT 2 WEEKS AGO, HAS NOT STARTED CHEMO YET COMPARISON: CTA of the chest 06/27/2023 FINDINGS: CT CHEST WITH CONTRAST: CT examination of the chest was performed after the administration of intravenous contrast. There are partially calcified small mediastinal lymph nodes noted. No hilar adenopathy is identified. A small hiatal hernia is noted. The previous dense left lower lobe airspace infiltrate seen on the prior exam of 06/27/2023 has resolved. There are several pulmonary nodules identified. There is an anterior right middle lobe nodule best seen on image #46 of series 4, which appear stable when compared to the prior exam. There is an anterior right lower lobe nodule best seen on image #50 of series 4, also stable when compared to the prior exam. There is a nodule in the left lower lobe that likely was previously obscured by the airspace infiltrate in the left lower lobe on the prior exam. This nodule measures 5 mm in size, is best seen on image 45 of series 4. IMPRESSION: Multiple pulmonary nodules are noted as described above. 2 of the nodules are stable in appearance, the third nodule likely was obscured by a previous dense left lower lobe airspace infiltrate which has resolved in the interim. Would recommend continued surveillance of these pulmonary nodules. Reviewed, Interpreted and Dictated by Nicholas Salomon MD Transcribed by Swetha Negrete Authenticated and [facility]
--- NOTE | 2024-11-12 09:02 | CT_ITS ---
FINAL REPORT TECHNIQUE: After the administration of intravenous contrast, axial images were obtained through the abdomen and pelvis by computed tomography. The study was performed with techniques to keep radiation dose as low as reasonably achievable, (ALARA). Individual dose reduction techniques using automated exposure control or adjustment of mA and/or kV according to the patient's size were employed. CLINICAL HISTORY: ENDOMETRIAL CANCER, PATIENT FOUND OUT 2 WEEKS AGO, HAS NOT STARTED CHEMO YET COMPARISON: None FINDINGS: CT ABDOMEN PELVIS WITH CONTRAST: Abdomen: The liver parenchyma is homogeneous. The gallbladder contains gallstones, also seen on the prior CTA of the chest from 2023. The spleen, pancreas, adrenals and kidneys appear unremarkable. The aorta is normal in caliber, with dense vascular calcifications in the aortoiliac arteries. There is no free fluid or adenopathy. Pelvis: The appendix is normal in appearance. The urinary bladder is unremarkable. There is no free fluid or adenopathy. There is moderately advanced left hip osteoarthritic change. There is a questionable 1.8 cm uterine mass, best seen on image 100 of series 5. IMPRESSION: Gallstones are present in the gallbladder, also seen on the prior CTA of the chest from 2023. Moderately advanced left hip osteoarthritic change. Questionable 1.8 cm uterine mass, as described above. Reviewed, Interpreted and Dictated by Nicholas Salomon MD Transcribed by Swetha Negrete Authenticated and [facility]
[2024-11-12 09:23] LABS: Blood Urea Nitrogen 18 mg/dl (7-17); Estimated Glomerular Filt Rate 59 ml/min (>60); GFR (African American) 71 ML/MIN (>60)
[2024-11-12] MEDS: SODIUM CHLORIDE 0.9% 10ML SYR (RAD ONLY) 10 ML IV (10:08)
[2024-11-12] MEDS: IOPAMIDOL-370 (76%);100ML BOTTLE 75 ML IV (10:09)
== END 2024-11-12 23:59 | disposition home or self-care (01) ==
LOC: RAD 09:00
PROVIDERS: PCP Internal Medicine; Visit Provider Obstetrics & Gynecology Gynecologic Oncology
DX: C54.1 Malignant neoplasm of endometrium (principal); K80.20 Calculus of gallbladder without cholecystitis without obstruction; M16.12 Unilateral primary osteoarthritis, left hip; R91.8 Other nonspecific abnormal finding of lung field
CPT/HCPCS: 36415; 71260; 74177; 82565; 84520; Q9967

== ENCOUNTER 2024-11-19 08:00 | Outpatient (RCR) | payer MEDICARE, BC, SELFPAY | END 2024-11-19 23:59 | disposition home or self-care (01) | LOC: PT 08:00 | PROVIDERS: PCP Internal Medicine; Visit Provider Specialist/Technologist Athletic Trainer | DX: M43.16 Spondylolisthesis, lumbar region (principal) | CPT/HCPCS: 97110; 97530 ==

== ENCOUNTER 2024-12-10 09:02 | Outpatient (CLI) | payer MEDICARE, BC, SELFPAY ==
--- OUTSIDE RECORDS SUMMARY | 2024-10-22 11:00 | XMS_ITS | Encounter Summary ---
Author Organization [facility] Address [address] [id number] Care Team Providers Care Frame Gate Mortiser Operator Name Role Phone Jann Hernandes MD Unavailable [phone] Owen Temple DO Primary Care Provider [phone] Chata Temple DO Unavailable Reason for Referral * Imaging (Routine) - Authorized Specialty Diagnoses / Procedures Referred By Contac t Referred To Contact Diagnoses Endometrial adenocarcinoma (CMS/HCC) Procedures CT Abdomen Pelvis w IV Contrast Meri Tai MD [address] [address] Phone: tel: fax: Referral ID Status Reason Start Date Expiration Date V isits Requested Visits Authorized [id number] Authorized 10/22/2024 04/23/2026 1 1 * Imaging (Routine) - Authorized Specialty Diagnoses / Procedures Referred By Contac t Referred To Contact Diagnoses Endometrial adenocarcinoma (CMS/HCC) Procedures CT Chest w IV Contrast Meri Tai MD [address] [address] Phone: tel: fax: Referral ID Status Reason Start Date Expiration Date V isits Requested Visits Authorized [id number] Authorized 10/22/2024 04/23/2026 1 1 Reason for Visit * Consultation (Routine) - Closed Specialty Diagnoses / Procedures Referred By Contact Referred To Contact Gynecologic Oncology Diagnoses Endometrial adenocarcinoma (CMS/HCC) Chata Temple, DO [address] [facility] [address] [place] [address] Phone: tel:[phone] fax:[phone] [facility] Gynecology [address] [place] [address] Phone: tel: fax: Referral ID Status Reason Start Date Expiration Date V isits Requested Visits Authorized [id number] Closed Specialty Services Required 10/14/2024 04/15/2026 1 1 Encounter Details Date Type Department Care Team (Late st Contact Info) Description 10/22/2024 11:00 AM EDT Office Visit [facility] Gynecology [address] [place] [address] Meri Tai MD [address] [place] [facility] [address] [place] [address] Endometrial adenocarcinoma (CMS/HCC) (Primary Dx); Personal history [...] y.o. female. Referring Physician: Chata Temple DO [address] [place] [address] Primary Care Provider: Owen Temple DO Oncology History: Cancer Staging No matching staging information was found for the patient. Quality Nurse Cancer Treatment History: post menopausal bleeding and [...] is detailed below. She denies history of KS, DVT, stroke. Patient is and lives in [place]. Lives alone but on same property as one of her sons. Does all ADLS independently. Uses cane when leaving home to avoid tripping as she has low visibility. She has 2 children. She is retired from [employer] and also worked on the family [...] (one) time each day., Disp: , Rfl: bapycgozviib-rbgyugmn-uuuao acid-coenzyme q10 (Preservision AREDS 2) capsule, Take [...] nursing note reviewed. Exam conducted with a endodontist present. Constitutional: Appearance: Normal appearance. HENT: Head: [...] on Feb 13 2016 6:05P Transcribed by: [facility]ITAL[facility]ana Feb 13 2016 6:03P Dictated by: [...] - Will plan pre-op CT scan in [place] with G2 histology and thickened endometrium since [...] Wallace MD Gynecologic Oncology Fellow, PGY 6 [facility] [address] [place] [address] [address] [facility] [address] Dept Loc: [phone] * Progress Notes - Marina New MD - 10/22/2024 11:00 AM EDT Images from the original note were not included. Patient ID: Caty Zayas is a 89 y.o. female. Referring Physician: Chata Temple DO [address] [facility] [address] [place] [address] Primary Care Provider: Owen Temple DO Oncology History: Cancer Staging No matching staging information was found for the patient. Quality Nurse Cancer Treatment History: post menopausal bleeding and [...] is detailed below. She denies history of KS, DVT, stroke. Patient is and lives in [place]. Lives alone but on same property as one of her sons. Does all ADLS independently. Uses cane when leaving home to avoid tripping as she has low visibility. She has 2 children. She is retired from [employer] and also worked on the [employer] until 4 years ago when eyesight [...] nursing note reviewed. Exam conducted with a endodontist present. Constitutional: Appearance: Normal appearance. HENT: Head: [...] - Will plan pre-op CT scan in [place] with G2 histology and thickened endometrium since [...] Gynecologic Oncology Fellow, PGY 6 MARIAN [facility]KEON [facility] GYNECOLOGY [address] [facility] [address] Dept Loc: [phone] [1] Past Medical History: Diagnosis Date GERD [...] (one) time each day., Disp: , Rfl: ymcegptonpbb-aamscsnj-gdllr acid-coenzyme q10 (Preservision AREDS 2) capsule, Take 1 capsule by mouth daily. (Patient not taking: Reported on 10/22/2024), Disp: , Rfl: Current Facility-Administered Medications: iothalamate meglumine (Cysto Conray) 17.2 % urethral solution solution 250 mL, 250 mL, Urethral, Once in imaging, Ivonne Meyers, [place], DNP [5] No Known Allergies Cosigned by [...] Description 12/28/2024 9:30 AM EDT Office Visit [facility] Gynecology [address] [place] [address] Meri Tai MD [address] [place] [place] [address] 03/15/2025 10:10 AM EDT Appointment [facility] Radiology [address] [place] [address] 03/15/2025 11:40 AM EDT Clinical Support [facility] [address] [place] [address] 03/15/2025 12:40 PM EDT Office Visit [facility] [address] [place] [address] Sonal Cordero MD [address] [place] [address] Scheduled Orders Name Type Priority Associated Diagnoses [...] Detected Not Detected 10/22/2024 3:53 PM EDT [facility] Swab Both anterior nares / Unknown Non-blood Collection / Unknown 10/22/2024 1:48 PM EDT 10/22/2024 2:27 PM EDT Narrative [facility] - 10/22/2024 3:53 PM EDT This [...] MICROBIOLOGY - GENERAL OR DERABLES Final Result [facility] [address] [place] [address] * (ABNORMAL) Hemoglobin A1c (10/22/2024 1:48 PM EDT) Hemoglobin A1c 6.3(H) <5.7 % 10/22/2024 5:52 PM EDT [facility] Blood Venous blood specimen / Unknown Venipuncture / Unknown 10/22/2024 1:48 PM EDT 10/22/2024 3:05 PM EDT Narrative [facility] - 10/22/2024 5:52 PM EDT HA1C Interpretive Data: Diagnosis of Diabetes: Diabetic > or = 6.5% Pre-diabetic 5.7 to 6.4% Non-diabetic < or = 5.6% Glycemic Targets for Type I and Type II Diabetics: Non- Adults <7.0% Adults <6.0% Children and Adolescents <7.5% Source: [place] [employer]. Standards of medical care in diabetes,2017. Diabetes Care.2017:40 (suppl 1):S1-S135. us Meri Tai MD LAB BLOOD ORDERABLES Final Re sult [facility] [address] [place] [address] * CBC W/O Differential (10/22/2024 1:48 PM EDT) WBC Count 6.58 3.70 - 10.30 10*3/uL LAB HEMATOLOGY METHOD 10/22/2024 3:15 PM EDT [facility] RBC Count 4.32 3.90 - 5.20 10*6/uL LAB HEMATOLOGY METHOD 10/22/2024 3:15 PM EDT [facility] HGB 13.8 11.2 - 15.7 g/dL LAB HEMATOLOGY METHOD 10/22/2024 3:15 PM EDT [facility] HCT 41.2 34.0 - 45.0 % LAB HEMATOLOGY METHOD 10/22/2024 3:15 PM EDT [facility] Platelet Count 311 155 - 369 10*3/uL LAB HEMATOLOGY METHOD 10/22/2024 3:15 PM EDT [facility] MCV 95 79 - 98 fL LAB HEMATOLOGY METHOD 10/22/2024 3:15 PM EDT [facility] MCH 31.9 26.0 - 32.0 pg LAB HEMATOLOGY METHOD 10/22/2024 3:15 PM EDT [facility] MCHC 33.5 30.7 - 35.5 g/dL LAB HEMATOLOGY METHOD 10/22/2024 3:15 PM EDT [facility] RDW 13.1 11.5 - 14.5 % LAB HEMATOLOGY METHOD 10/22/2024 3:15 PM EDT [facility] MPV 12.3 8.8 - 12.5 fL LAB HEMATOLOGY METHOD 10/22/2024 3:15 PM EDT [facility] nRBC 0.0 <=0.0 per 100 WBCs LAB HEMATOLOGY METHOD 10/22/2024 3:15 PM EDT [facility] Blood Venous blood specimen / Unknown Venipuncture / Unknown 10/22/2024 1:48 PM EDT 10/22/2024 3:05 PM EDT us Meri Tai MD LAB BLOOD ORDERABLES Final Re sult [facility] [address] [place] [address] * (ABNORMAL) Comprehensive metabolic panel (10/22/2024 1:48 PM EDT) Glucose, Plasma 113(H) 74 - 99 mg/dL 10/22/2024 3:13 PM EDT [facility] BUN, Plasma 25(H) 8 - 23 mg/dL 10/22/2024 3:13 PM EDT [facility] Creatinine, Plasma 0.91 0.60 - 1.10 mg/dL 10/22/2024 3:13 PM EDT [facility] BUN/Creatinine Ratio 27 10/22/2024 3:13 PM EDT [facility] Sodium, Plasma 137 136 - 145 mmol/L 10/22/2024 3:13 PM EDT [facility] Potassium, Plasma 5.2(H) 3.6 - 4.9 mmol/L 10/22/2024 3:13 PM EDT [facility] Comment:Hemolyzed, result ma y be falsely increased. Chloride, Plasma 106 97 - 107 mmol/L 10/22/2024 3:13 PM EDT [facility] CO2, Plasma 21(L) 22 - 29 mmol/L 10/22/2024 3:13 PM EDT [facility] Anion Gap 10 6 - 16 mmol/L 10/22/2024 3:13 PM EDT [facility] Total Calcium, Plasma 9.3 8.9 - 10.2 mg/dL 10/22/2024 3:13 PM EDT [facility] Total Protein 7.6 6.3 - 7.9 g/dL 10/22/2024 3:13 PM EDT [facility] Albumin, Plasma 3.9 3.5 - 5.2 g/dL 10/22/2024 3:13 PM EDT [facility] AST, Plasma 53(H) 10 - 35 U/L 10/22/2024 3:13 PM EDT [facility] Comment:Hemolyzed, result ma y be falsely increased. ALT, Plasma 21 10 - 35 U/L 10/22/2024 3:13 PM EDT [facility] Comment:Hemolyzed, result ma y be falsely increased or decreased. Alkaline Phosphatase, Plasma 124 46 - 142 U/L 10/22/2024 3:13 PM EDT [facility] Comment:Hemolyzed, result ma y be falsely decreased. Total Bilirubin, Plasma 0.4 0.2 - 1.1 mg/dL 10/22/2024 3:13 PM EDT [facility] eGFRcr 60.4 mL/min/1.7 3m*2 10/22/2024 3:13 PM EDT [facility] Comment:Reported eGFRcr in m L/min/1.73m2 is based the CKD-EPI 2020 equation that does not use a race coefficient. Blood Venous blood specimen / Unknown Venipuncture / Unknown 10/22/2024 1:48 PM EDT 10/22/2024 2:35 PM EDT us Meri Tai MD LAB BLOOD ORDERABLES Final Re sult [facility] [address] [place] [address] documented in this encounter Visit Diagnoses Diagnosis [...] documented as of this encounter Care Teams Frame Gate Mortiser Operator Relationship Specialty Start Date End Date Owen Temple DO [address] [place] [address] PCP - General 08/06/24 Jann Hernandes MD [address] [place] [address] #1 #1 [place] [id number] 12/12/21 Chata Temple DO [address] [place] [address] Resident 10/14/24 documented as of this encounter
--- OUTSIDE RECORDS SUMMARY | 2024-11-13 12:30 | XMS_ITS | Encounter Summary ---
Author Organization Healthcare Address [address] [place] [address] Care Team Providers Care Fire Management Officer Name Role Phone Jann Hernandes MD Unavailable [phone] Owen Temple DO Primary Care Provider [phone] Chata Temple DO Unavailable [phone] Encounter Details Date Type Department Care Team (Latest Contact Info) Description 11/13/2024 12:30 PM EDT Pre-[facility] Testing [facility] [address] [place] [address] Preop examination (Primary Dx) Social History Tobacco Use Types Packs/Day Years [...] Sign Reading Time Taken Comments Blood Pressure 166/78 11/13/2024 12:33 PM EDT Pulse 72 11/13/2024 12:33 PM EDT Temperature 36.7 C (98 F) 11/13/2024 12:33 PM EDT Respiratory Rate - - Oxygen Saturation 96% 11/13/2024 12:33 PM EDT Inhaled Oxygen Concentration - - Weight 85.8 kg (189 lb 2.5 oz) 11/13/2024 12:33 PM EDT Height 170.2 cm (5' 7 ) 11/13/2024 12:33 PM EDT Body Mass Index 29.63 11/13/2024 12:33 PM EDT documented in this encounter Miscellaneous Notes * PAT Evaluation Note - Vasu Hooker APRN - 11/13/2024 12:30 PM EDT HPI Caty Zayas is a 89 y.o. 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 bethanechol, Take 1 tablet (50 mg) by mouth 4 (four) times a day. losartan, Take 1 tablet by mouth daily. meloxicam, Take by mouth daily. pantoprazole, Take 1 tablet by mouth 2 times a day. simvastatin, Take by mouth nightly. tamsulosin, Take 1 capsule by mouth daily. bgqwsauakzhl-crqdrajg-cypdp acid-coenzyme q10, Take 1 capsule by mouth daily. (Patient not taking: Reported on 10/22/2024) omeprazole, Take by mouth daily. (Patient not taking: Reported on 11/13/2024) Current Facility-Administered Medications: iothalamate meglumine ROS Anesthesia: Date of last anesthetic: 10/2024 d and c - no issues history of previous anesthesia and obstructive sleep apnea (not complaint with cpap). Does not havea history of anesthetic complications, malignant hyperthermia and PONV. Cardiovascular: carotid artery disease (carotid artery stenosis less than 50% right ICA stenosis less than 50% leftICA stenosis antegrade flow in the vertebral arteries bilateraly- 03/16/24 scan), dyspnea (mild shortness of breath with activity) and hyperlipidemia. Does not have angina, atrial fibrillation, CAD, CHF, dysrhythmias, murmur, pacemaker, past CT or syncope. hypertension: is well controlled. Exercise tolerance is 2 flights of stairs. Does not have chest pain. Cardio additional comments: Patient lives by herself. Activity is limited by decreased vision. Can lay flat. No active cardiac complaints. 10/06/24 Cards OV uploaded in media 09/2024 EKG Normal sinus rhythm 76 bpm 09/2023 Normal biventricular systolic function Grade 2 diastolic dysfunction No significant valvular stenosis or regurgitation Nuclear stress test 12/05/21 The EKG portion of the lexiscan is nondiagnostic No scintigraphic evidence of reversible ischemia seen, computer derived EF is over 65% with no regional wall motion abnormality, right ventricle is normal size and contractility Likley normal lexiscan myoview study. Respiratory: Patient has dyspnea (mild shortness of breath with activity).no asthma: no COPD: Has not had an upper respiratory infection in last 30 days. Has not had bronchitis in the last 30 days, pneumonia in the last 30 days, RSV in the last 30 days or COVID in the last 30 days. HEENT: difficulty swallowing (reports on occasion).Does not have chipped teeth, loose teeth or missing teeth.decreased vision (+macular degeneration). Does not have hearing loss. Neurological: no seizures: Did not have a cerebrovascular accident.Does not have TIA. Musculoskeletal: arthritis (right knee and back). Does not have cervical spine limited mobility. Integumentary: Negative skin ROS. Gastrointestinal: GERD (improved with medication): poorly controlled.hernia (hiatal hernia). Does not have cirrhosis or hepatitis. GI/ additional comments: +OAB Genitourinary: Does not have chronic renal disease.Does not have renal disease. Hematological/Lymphatic: History of no DVT. History of no pulmonary embolism. Not in a hypercoagulable state. no history of chemotherapy no history of radiation Does not have HIV, MRSA or tuberculosis. Hem/Lymph ROS additional comments: +Endometrial adenocarcinoma Endocrine/Metabolic: does not have diabetes mellitus. Does not have thyroid disorder. Lab Results Component Value Date WBC 6.58 10/22/2024 HGB 13.8 10/22/2024 HCT 41.2 10/22/2024 MCV 95 10/22/2024 PLT 311 10/22/2024 Lab Results Component Value Date GLUCOSE 113 (H) 10/22/2024 BUN 25 (H) 10/22/2024 CREATININE 0.91 10/22/2024 BCR 27 10/22/2024 NA 137 10/22/2024 K 5.2 (H) 10/22/2024 CL 106 10/22/2024 CO2 21 (L) 10/22/2024 CA 8.5 (L) 02/14/2016 ALBUMIN 3.9 10/22/2024 ALKPHOS 124 10/22/2024 BILITOT 0.4 10/22/2024 Lab Results Component Value Date HGBA1C 6.3 (H) 10/22/2024 Lab Results Component Value Date INR 02/14/2016 0.9 (NOTE) OPTIMAL INR RANGES FOR PATIENT ON ORAL ANTICOAGULANT THERAPY Prevention of venous thromboembolism INR 2.0 to 3.0 In patients with heart disease: Atrial fibrillation INR 2.0 to 3.0 Valvular heart disease INR 2.0 to 3.0 Tissue heart valves INR 2.0 to 3.0 Mechanical prosthetic valves INR 2.5 to 3.[address] INR 2.5 to 3.5 INR 02/13/2016 0.9 (NOTE) OPTIMAL INR RANGES FOR PATIENT ON ORAL ANTICOAGULANT THERAPY Prevention of venous thromboembolism INR 2.0 to 3.0 In patients with heart disease: Atrial fibrillation INR 2.0 to 3.0 Valvular heart disease INR 2.0 to 3.0 Tissue heart valves INR 2.0 to 3.0 Mechanical prosthetic valves INR 2.5 to 3.[address] INR 2.5 to 3.5 Visit Vitals BP (!) 166/78 Pulse 72 Temp 36.7 ??C (98 ??F) (Tympanic) Ht 1.702 m (5' 7 ) Wt 85.8 kg (189 lb 2.5 oz) SpO2 96% BMI 29.63 kg/m?? OB Status Postmenopausal Smoking Status Never BSA 2.01 m?? Physical Exam Airway Mallampati: I Mouth opening: normal TM distance: >3 FB Neck ROM: full Cardiovascular Rhythm: regular Rate: normal Dental - normal exam Pulmonary Breath sounds clear to auscultation Neurological Oriented: normal to time, normal to place and normal to person Skin Musculoskeletal Extremities Anesthesia Plan ASA 3 Anesthesia technique(s) discussed with the patient/family: general Comment: Cardiac records and clearance received and uploaded in media To Whom it may concern: This is to certify that caty Zayas is a patient or mine and was last evaluated in outpatient cardiology clinic at [facility] on 10/06/24. At the time of evaluation, the patient demonstrated functional capacity of ?4 METs and was stable from a cardiovascular standpoint. The most recent cardiac work-up and cardiac medications were reviewed. The patient is considered at acceptable operative risk, the risk is non- modifiable at this time and is unlikely to be further mitigated by additional pre- operative cardiac work- up. Accordingly, and if deemed surgically feasible, the patient may undergo surgery without additional cardiac testing.Post operative, routine care is recommended. Chata Boogie APRN Andrea R Covington, APRN [1] Past Medical History: Diagnosis Date GERD (gastroesophageal reflux disease) HLD (hyperlipidemia) Hypertension Macular degeneration Overactive bladder Urinary incontinence [2] No family history on file. [3] Social History Tobacco Use Smoking status: Never Passive exposure: Never Smokeless tobacco: Never Vaping Use Vaping status: Never Used Substance Use Topics Alcohol use: Not Currently Drug use: Not Currently [4] Past Surgical History: Procedure Laterality Date LEG SURGERY Left 2016 REVERSE TOTAL SHOULDER ARTHROPLASTY Right 2013 WRIST FRACTURE SURGERY Left [5] No Known Allergies * Preprocedure Instructions - Vasu Hooker APRN - 11/13/2024 12:30 PM EDT Home Medication Instructions Current Medications Medication Instructions amLODIPine-benazepril (Lotrel) 10-40 MG capsule Hold day of surgery bethanechol (Urecholine) 50 MG tablet Take morning of surgery losartan (Cozaar) 50 MG tablet Hold day of surgery meloxicam (Mobic) 15 MG tablet Hold 5-7 days before surgery pantoprazole (Protonix) 40 MG EC tablet Take morning of surgery simvastatin (Zocor) 40 MG tablet Take night before surgery tamsulosin (Flomax) 0.4 MG 24 hr capsule Take night before surgery General Preoperative Instructions You will be called the business day before surgery with your arrival time No food after midnight the night before surgery. You can drink clear liquids up to 2 hours prior to arrival. Please do not try to get all your hydration in 2 hours prior to arrival. Start the day before surgery drinking more than you usually would.After midnight, you can have clear liquids only (water, apple juice, Gatorade) up to 2 hours prior to arrival. No coffee or tea. No alcohol or smoking prior to surgery Arrive on time to avoid delays Parking/Registration procedure explained You MUST have a responsible adult available for transport to and from hospital Visitation policy for the day of surgery reviewed Bring insurance card, photo ID, along with power of employment attorney, guardianship or advanced directives if applicable Do not bring money, jewelry or other valuables Hibiclens bathing instructions reviewed if applicable Notify surgeon of fever, illness, any changes or if you decide not to have surgery Pediatric patients under 12 years of age (If applicable) No solid food or milk after midnight Formula 6 hours prior to arrival for surgery Breast milk 4 hours prior to arrival surgery Clear liquids 2 hours prior to arrival for surgery Diabetes Instructions (If applicable) Take diabetes medication as instructed You may have up to 4 ounces of apple juice 2 hours prior to arrival for surgery for low glucose documented in this encounter Plan of Treatment Upcoming Encounters Date Type Department Care Team (Late st Contact Info) Description 12/28/2024 9:30 AM EDT Office Visit [facility] [address] [place] [id number] Meri Tai MD [address] [place] [address] 03/15/2025 10:10 AM EDT Appointment [facility] [address] [place] [address] 03/15/2025 11:40 AM EDT Clinical Support [facility] [address], [address] [place] [address] 03/15/2025 12:40 PM EDT Office Visit [facility] [address], [address] [place] [address] Sonal Cordero MD [address] [place] [address] documented as of this encounter Goals Goal Patient Goal Type Associated Problems Recent Progress Patient-Stated? Author Autogenerat ed Goal Care Plan Autogenerated Problem No Renetta Myles documented as of this encounter Visit Diagnoses Diagnosis Preop examination- Primary Unspecified pre-operative examination documented in this encounter Additional Health Concerns Active Problems Noted Date Diagnosed Date Autogenerated Problem 10/22/2024 Assessment Noted Time A fall risk assessment has been complete d for the patient 10/22/2024 12:17 PM EDT A Body Mass Index follow-up plan has been documented for the patient 08/06/2024 12:03 PM EST documented as of this encounter Care Teams Fire Management Officer Relationship Specialty Start Date End Date Owen Temple DO [address] [facility] [address] [place] [address] PCP - General 08/06/24 Jann Hernandes MD [address] [place] [address] [address] [place] [address] 12/12/21 Chata Temple DO [address] [place] [address] Resident 10/14/24 documented as of this encounter
--- OUTSIDE RECORDS SUMMARY | 2024-11-25 05:35 | XMS_ITS | Encounter Summary ---
Author Organization [facility] Address [address] [place] [address] Care Team Providers Care Engineering Manager Name Role Phone Jann Hernandes MD Unavailable [phone] Owen Temple DO Primary Care Provider [phone] Chata Temple DO Unavailable [phone] Reason for Visit * Auth/Cert (Routine) Specialty Diagnoses / Procedures Referred By Contac t Referred To Contact Diagnoses Endometrial adenocarcinoma (CMS/HCC) Endometrial adenocarcinoma ([facility]/HCC) [C54.1] Procedures OK LAPAROSCOPY W TOT HYSTERECTUTERUS <=250 GRAM W TUBE/OVARY OK INTRAOPERATIVE SENTINEL LYMPH NODE ID W DYE INJECTION OK LAP,PELVIC LYMPHADENECTOMY Robot TLHBSO SLN Meri Tai MD [address] [facility] [address] [place] [address] Phone: tel: fax: [facility] [address] [place] [address] Phone: tel: Referral ID Status Reason Start Date Expiration Date Visits Re quested Visits Authorized [id number] 1 1 Encounter Details Date Type Department Care Team (Late st Contact Info) Description 11/25/2024 5:35 AM EDT - 11/26/2024 10:41 AM EDT Hospital Encounter [facility] [address] [place] [address] Meri Tai MD [address] [place] [address] Endometrial adenocarcinoma ([facility]/HCC) Discharge Disposition: Home or Self Care Social [...] do not scrub. Pat dry. Call MD operations examiner for GYO service if: - you have [...] confirm an appointment. Dr. Meri Tai - [facility] [address] [facility] [address], [place] [address] documented in this encounter Medications at Time of Discharge acetaminophen (Tylenol) 325 MG tablet Take 2 tablets by mouth every 8 hours. Under [place] law, monthly prescriptions (30 days) can be [...] MG tablet Take by mouth nightly. 2 tamsulosin (Flomax) 0.4 MG 24 hr capsule Take 1 capsule by mouth daily. enoxaparin (Lovenox) 40 MG/0.4ML solution prefilled syringe Inject 0.4 mL under the skin daily for 7 days. 2.8 mL 5 12/04/19 25 documented as of this encounter Miscellaneous Notes * Hospital Course - Mendoza, Chela B, MD - 11/26/2024 10:41 AM EDT Caty [...] MD PCP name and Address: Owen Temple, [address] [place] [address] Referring provider name and address: Chata Temple, [address] [place] [address] Chief Concern, Brief History of Present Illness, [...] tablets by mouth every 8 hours. Under [place] law, monthly prescriptions (30 days) can be [...] Take 1 capsule by mouth daily. . jvodqphimzve-iwuxvzqw-mxpuy acid-coenzyme q10 capsule Take 1 capsule by mouth daily. omeprazole [address] capsule Commonly known as: PriLOSEC Take by mouth daily. Where to Get Your Medications These medications were sent to [facility] - [place], [place] - [address], [facility] [address] acetaminophen 325 MG tablet enoxaparin 40 MG/0.4ML [...] do not scrub. Pat dry. Call MD operations examiner for GYO service if: - you have [...] confirm an appointment. Dr. Meri Tai - [facility] [address] [facility] [address], [place] [address] Outpatient Follow-Up Future Appointments Date Time Provider Department Center 11/30/2024 12:[address] [facility] 11/30/2024 2:00 PM [facility] 11/30/2024 3:00 PM [facility] Test Results Pending At Discharge Pending Labs Order Current Status Surgical Pathology Exam In process Discharge Disposition/Condition Disposition: Home Condition: Stable (s/sx potential problems absent or manageable) I spent < 30 minutes of patient care and instruction time in preparation for this discharge. Chela Mendoza MD PGY-1, Obstetrics and Gynecology [facility] Cosigned by Meri Tai MD at [...] pepcid Please page on-call [place]Y[facility] resident at [phone] for questions or concerns regarding this patient's [...] from the original note were not included. [id number] Hysterectomy: Surgical Procedures A hysterectomy is the [...] surgery Last Reviewed Date: 2022 00:00:00 ?? [id number] [employer]. All rights reserved. This information is not [...] 95 10/22/2024 PLT 311 10/22/2024 Assessment/Plan Caty Keatingws 89 y.o. s/p RA-TLH/BSO with SLNBx . [...] pepcid Please page on-call [place] resident at [phone] for questions or concerns regarding this patient's [...] Agree with above assessment and evaluation from resident/ACUTE CARE NURSE. * Op Note - Stephanie Proctor MD - 11/25/2024 8:35 AM EDT Operative Note Date: 11/25/24 Location: [facility] Name: Caty Zayas, : 1935, Diagnoses: Pre-op Diagnosis Endometrial adenocarcinoma (CMS/HCC) Post-op Diagnosis Endometrial adenocarcinoma (CMS/HCC) Procedure(s): RA-TLH, BSO, SLNBx Attending Surgeon(s): * Meri Tai - Primary Slice Cutting Machine Operator(s): * Stephanie Proctor MD - Fellow Anesthesia: General ASA: III Blood Administration: Blood Product Administration History None Estimated Blood Loss: Minimal Drains: Urethral Catheter Non-latex 16 Fr. (Active) Site Assessment Clean;Skin intact 11/25/24 1200 Output (mL) 325 mL 11/25/24 1600 Specimen: Specimens ID Source Frozen? 1 [place] Lymph Node No Description: right obturator sentinel lymph node 2 Uterus No Description: UTERUS, CERVIX, BILATERAL TUBES AND OVARIES 3 [place] Lymph Node No Description: LEFT COMMON ILIAC [...] One mL of ICG was given superficially and deep (4 ml Total). The cervix was sounded and dilated. A [employer] uterine manipulator was placed. The patient???s arms were tucked and the patient was [...] aorta for ICG dye was systematically performed. [place] LNs were seen at the left common [...] Urethral, Once in Luigi sargent Amber E, APRN, DNP Current Outpatient Medications: amLODIPine-benazepril (Lotrel) 10-40 [...] Take by mouth daily., Disp: , Rfl: exeocjxrcyyc-cdihewcb-lttei acid-coenzyme q10 (Preservision AREDS 2) capsule, Take [...] [address] [place] [address] Meri Tai MD [address] [facility] [address] [place] [address] 03/15/2025 10:10 AM EDT Appointment [facility] [address] [place] [address] 03/15/2025 11:40 AM EDT Clinical Support [facility] [address] [place] [address] 03/15/2025 12:40 PM EDT Office Visit [facility] [address] [place] [address] Sonal Cordero MD [address] [place] [address] documented as of this encounter Goals Goal [...] 11/25/2024 9:25 AM EDT Endometrial adenocarcinoma (CMS/HCC) OK LAPAROSCOPY W TOT HYSTERECTUTERUS <=250 GRAM W TUBE/OVARY 11/25/2024 8:00 AM EDT Endometrial adenocarcinoma (CMS/HCC) TYPE AND SCREEN Routine 11/25/2024 6:46 AM EDT POCT GLUCOSE METER UNSOLICITED RESULTS Routine 11/25/2024 5:58 AM EDT documented in this encounter Results * Phosphorus (11/26/2024 6:25 AM EDT) Phosphorus, Plasma 3.2 2.5 - 4.5 mg/dL 11/26/2024 7:01 AM EDT [facility] Blood Venous blood specimen / Unknown Venipuncture / Unknown 11/26/2024 6:25 AM EDT 11/26/2024 6:33 AM EDT Meri Tai MD LAB BLOOD ORDERABLES Final Re sult Performing Organization Address [facility] Co de Phone Number [facility] [address] [place] [address] * Magnesium, Plasma (11/26/2024 6:25 AM EDT) Magnesium, Plasma 1.9 1.9 - 2.4 mg/dL 11/26/2024 7:01 AM EDT [facility] Blood Venous blood specimen / Unknown Venipuncture / Unknown 11/26/2024 6:25 AM EDT 11/26/2024 6:33 AM EDT Meri Tai MD LAB BLOOD ORDERABLES Final Re sult Performing Organization Address [facility] Co de Phone Number [facility] [address] [place] [address] * (ABNORMAL) Basic metabolic panel (11/26/2024 6:25 AM EDT) Glucose, Plasma 141(H) 74 - 99 mg/dL 11/26/2024 7:01 AM EDT [facility] BUN, Plasma 14 8 - 23 mg/dL 11/26/2024 7:01 AM EDT [facility] Creatinine, Plasma 0.81 0.60 - 1.10 mg/dL 11/26/2024 7:01 AM EDT [facility] BUN/Creatinine Ratio 17 11/26/2024 7:01 AM EDT [facility] Sodium, Plasma 136 136 - 145 mmol/L 11/26/2024 7:01 AM EDT [facility] Potassium, Plasma 3.7 3.6 - 4.9 mmol/L 11/26/2024 7:01 AM EDT [facility] Chloride, Plasma 102 97 - 107 mmol/L 11/26/2024 7:01 AM EDT [facility] CO2, Plasma 24 22 - 29 mmol/L 11/26/2024 7:01 AM EDT [facility] Anion Gap 10 6 - 16 mmol/L 11/26/2024 7:01 AM EDT [facility] Total Calcium, Plasma 8.7(L) 8.9 - 10.2 mg/dL 11/26/2024 7:01 AM EDT [facility] eGFRcr 69.5 mL/min/1.7 3m*2 11/26/2024 7:01 AM EDT [facility] Comment:Reported eGFRcr in m L/min/1.73m2 is based the CKD-EPI 2020 equation that does not use a race coefficient. Blood Venous blood specimen / Unknown Venipuncture / Unknown 11/26/2024 6:25 AM EDT 11/26/2024 6:33 AM EDT Meri Tai MD LAB BLOOD ORDERABLES Final Re sult [facility] [address] [place] [address] * (ABNORMAL) Ionized calcium, whole blood (11/26/2024 4:23 AM EDT) Ionized Calcium, Whole Blood 4.2(L) 4.6 - 5.1 mg/dL LAB HEMATOLOGY METHOD 11/26/2024 4:48 AM EDT [facility] Blood Venous blood specimen / Unknown Venipuncture / Unknown 11/26/2024 4:23 AM EDT 11/26/2024 4:46 AM EDT Meri Tai MD LAB BLOOD ORDERABLES Final Re sult [facility] [address] [place] [address] * (ABNORMAL) CBC W/O Differential (11/26/2024 4:23 AM EDT) WBC Count 9.80 3.70 - 10.30 10*3/uL LAB HEMATOLOGY METHOD 11/26/2024 5:06 AM EDT [facility] RBC Count 3.77(L) 3.90 - 5.20 10*6/uL LAB HEMATOLOGY METHOD 11/26/2024 5:06 AM EDT [facility] HGB 11.9 11.2 - 15.7 g/dL LAB HEMATOLOGY METHOD 11/26/2024 5:06 AM EDT [facility] HCT 35.9 34.0 - 45.0 % LAB HEMATOLOGY METHOD 11/26/2024 5:06 AM EDT [facility] Platelet Count 190 155 - 369 10*3/uL LAB HEMATOLOGY METHOD 11/26/2024 5:06 AM EDT [facility] MCV 95 79 - 98 fL LAB HEMATOLOGY METHOD 11/26/2024 5:06 AM EDT [facility] MCH 31.6 26.0 - 32.0 pg LAB HEMATOLOGY METHOD 11/26/2024 5:06 AM EDT [facility] MCHC 33.1 30.7 - 35.5 g/dL LAB HEMATOLOGY METHOD 11/26/2024 5:06 AM EDT [facility] RDW 12.7 11.5 - 14.5 % LAB HEMATOLOGY METHOD 11/26/2024 5:06 AM EDT [facility] MPV 11.6 8.8 - 12.5 fL LAB HEMATOLOGY METHOD 11/26/2024 5:06 AM EDT [facility] nRBC 0.0 <=0.0 per 100 WBCs LAB HEMATOLOGY METHOD 11/26/2024 5:06 AM EDT [facility] Blood Venous blood specimen / Unknown Venipuncture / Unknown 11/26/2024 4:23 AM EDT 11/26/2024 4:51 AM EDT us Meri Tai MD LAB BLOOD ORDERABLES Final Re sult [facility] [address] [place] [address] * Surgical Pathology Exam (11/25/2024 9:25 AM EDT) Case Report Surgical Pathology Case: [id number] Authorizing Provider: Meri Tai MD Collected: 11/25/2024 0925 Ordering Location: [facility] OPERATING ROOM Received: 11/25/2024 1210 Pathologist: Jennifer Faust MD Specimens: A) - [place] Lymph Node, right obturator sentinel lymph node B) - Uterus, UTERUS, CERVIX, BILATERAL TUBES AND OVARIES C) - [place] Lymph Node, LEFT COMMON ILIAC SENTINEL LYMPH NODE 12/01/2024 5:39 PM EDT [facility] Addendum This addendum has been issued to report that the entire endometrial lesion is submitted for histologic evaluation in [id number]. The diagnosis remains unchanged. 12/01/2024 5:39 PM EDT [facility] Addendum electronically signed by Jennifer Faust MD [...] METASTATIC CARCINOMA (0/1). 12/01/2024 5:39 PM EDT [facility] at 1729 EDT Comment The performed immunostains on the biopsy specimen at the outside institution showed the following results ([id number]): MMR panel: retained nuclear expression of mismatch-repair proteins P53: wild type 12/01/2024 5:39 PM EDT [facility] Synoptic Checklist ENDOMETRIUM ENDOMETRIUM - All Specimens [...] Pelvic Nodes Examined: 4 Number of Pelvic [place] Nodes Examined: 4 Total Number of Para-aortic [...] the Endometrium): IA1 12/01/2024 5:39 PM EDT [facility] Clinical Information Endometrial adenocarcinoma (CMS/HCC) [C54.1] 12/01/2024 5:39 PM EDT [facility] Gross Description A. RIGHT OBTURATOR SENTINEL [...] sectioned to reveal a prominent corpus albicans. Clinical Science Liaison sections of the specimen are submitted as [...] ROGELIO Murphy (ASCP) 12/01/2024 5:39 PM EDT [facility] Note: A resident was involved in the service. I attest I examined the relevant preparations for the specimens and confirmed the diagnosis or interpretation. 12/01/2024 5:39 PM EDT [facility] Tissue Specimen from sentinel lymph node [...] PATHOLOGY ORDERABLES Edit ed Result - Final [facility] [address] [place] [address] * Type and screen (11/25/2024 6:46 AM [...] ORDERABLE S Final Result Performing Organization Address City/[facility]/ZIP Co de Phone Number BLOOD BANK [address] [place] [address], * (ABNORMAL) POCT glucose meter (11/25/2024 5:58 [...] 11/25/2024 6:02 AM EDT [facility] Model Maker ID Nancy Light 11/26/19 25 6:02 AM EDT [facility] Device ID [id number] 11/25/2024 6:02 AM EDT [facility] Specimen Type POC Capillary 11/25/2024 6:02 AM EDT [facility] Blood Capillary blood specimen / Unknown 11/25/2024 5:58 AM EDT 11/25/2024 6:02 AM EDT Meri Tai MD LAB POINT OF CARE TE ST DOCKED DEVICE UNSOLICITED RESULTS Final Result Performing Organization Address City/[facility]/ZIP Co de Phone Number [facility] [address] [place] [address] documented in this encounter Visit Diagnoses Diagnosis [...] 2108 (Given - Provider: Vasu Meade RN) 06 (Not Given - Provider: Miri Rutherford RN [...] Meade RN) 0832 (Given - Provider: Yesenia Ku RN) famotidine (Pepcid) 40 MG/5ML suspension 20 mg(Linked [...] 1343 (See Alternative - Provider: Yesenia Ku, ROXANE)210 (See Alternative - Provider: Vasu Meade RN) 0851 (See Alternative - Provider: Yesenia Ku, ROXANE) heparin (porcine) injection 5,000 Units (COMPLETED) 5,000 Units, Subcutaneous, Once, 1 dose, On Sat11/25/24 at 0700, Routine, Holding - Preprocedure 0652 (Given - Provider: Guerline Vaz RN) ibuprofen tablet 600 mg 600 mg, Oral, Every 6 hours scheduled, First dose on Sat11/25/24 at 1315, Until Discontinued, Routine, Recovery(Phase II-Outpatient)/On Unit(Inpatient) 1242 (Given - Provider: Hailey Anderson)1722 (Given - Provider: Vasu Meade RN)2338 (Not Given - Provider: Miri Ruthefrord RN - Reason: Patient/family refused) 0604 (Not Given - Provider: Miri Rutherford RN - Reason: Patient/family refused)1200 (Canceled Entry - Provider: Automatic Discharge Provider - Comment: Automatically canceled at discontinue of medication order) pantoprazole (Protonix) EC tablet 40 mg 40 mg, Oral, 2 times daily, First dose on Sat11/25/24 at 2100, Until Discontinued, Routine 2113 (Given - Provider: Vasu Meade RN) 0831 (Given - Provider: Yesenia Ku, ROXANE) Povidone-Iodine 5 % swab solution 1 Application (COMPLETED) Nasal, Once, 1 dose, On Sat11/25/24 at 0700, Routine 0630 (Given - Provider: Guerline E Vaz, RN) senna (Senokot) tablet 8.6 mg 8.6 [...] Vaz RN)1931 (Given - Provider: Vasu Meade, ROXANE) 0626 (Given - Provider: Arlyn Castro RN) [...] Ku RN)1856 (New Bag - Provider: Vasu Meade RN) PRN Medication Order 11/24/2024 11/25/2024 11/26/2024 [...] moderate pain 1619 (Given - Provider: Yesenia uK RN) polyethylene glycol (Miralax) packet 17 g [...] documented as of this encounter Care Teams Engineering Manager Relationship Specialty Start Date End Date Owen Temple DO [address] [facility] [address] [place] [address] PCP - General 08/06/24 Jann Hernandes MD [address] [place] [address] [address]1 [address] [place] [address] 12/12/21 Chata Temple DO [address] [place] [facility] [address] [place] [address] Resident 10/14/24 documented as of this encounter
--- OUTSIDE RECORDS SUMMARY | 2024-11-25 08:15 | XMS_ITS | Encounter Summary ---
Author Organization [facility] Address [address] [place] [address] Care Team Providers Care Migratory Game Bird Biologist Name Role Phone Jann Hernandes MD Unavailable [phone] Owen Temple DO Primary Care Provider [phone] Chata Temple DO Unavailable [phone] Reason for Visit * Auth/Cert (Routine) Specialty Diagnoses / Procedures Referred By Contac t Referred To Contact Diagnoses Endometrial adenocarcinoma (CMS/HCC) Endometrial adenocarcinoma ([facility]/HCC) [C54.1] Procedures AK LAPAROSCOPY W TOT HYSTERECTUTERUS <=250 GRAM W TUBE/OVARY AK INTRAOPERATIVE SENTINEL LYMPH NODE ID W DYE INJECTION AK LAP,PELVIC LYMPHADENECTOMY Robot TLHBSO SLN Meri Tai MD [address] [facility] [address] [facility] [address] [place] [address] Phone: tel: fax: [facility] A OPERATING ROOM [address] [place] [address] Phone: tel: Referral ID Status Reason Start Date Expiration Date Visits Re quested Visits Authorized [id number] 1 1 Encounter Details Date Type Department Care Team (Late st Contact Info) Description 11/25/2024 8:15 AM EDT - 11/25/2024 12:20 PM EDT Surgery [facility] A OPERATING ROOM [address] [place] [address] Meri Tai MD [address] [facility] [address] [place] [address] Robot TLHBSO SLN [[id number] (CPT )] Surgery Details Date/Time Status Location OR Service Patient Class Case Class Case Type Trauma Case? 11/25/2024 8:15 AM Posted [facility] 04 Gynecologic Oncology Extended Recovery E-Electi ve Panel 1 Procedure LRB Anes Op Region Wound Class Comments Robot TLHBSO SLN Bilateral General Abdomen Class II/ Wang an Contaminated Surgeon Surgeon Role Service Panel Elena Blackman MD 1 Stephanie Proctor MD Fellow 1 Meri Tai MD Primary Gynecologic Oncology 1 documented in this encounter Social History Tobacco [...] Sign Reading Time Taken Comments Blood Pressure 121/46 11/25/2024 12:20 PM EDT Pulse 70 11/25/2024 12:20 PM EDT Temperature 36.5 C (97.7 F) 11/25/2024 12:00 PM EDT Respiratory Rate 23 11/25/2024 12:20 PM EDT Oxygen Saturation 96% 11/25/2024 12:20 PM EDT Inhaled Oxygen Concentration - - [...] Sameera Parnell Patient Health Questionnaire-2 Score 0 05/0 01/2025 12:16 PM EDT Sameera Parnell * Calculated C-SSRS Risk Score (Lifetime/Recent) Answer Date of Assessment Author No Risk Indicated 11/25/2024 6:00 AM EDT Guerline Vaz, RN * Question Answer Date of Assessment Author 1. Wish to be (Past 1 Month) No 025 6:00 AM EDT Guerline Vaz, RN 2. Non-Specific Active Suici hussain Thoughts (Past 1 Month) No 11/25/2024 6:00 AM EDT Guerline Vaz, RN 6. Suicidal Behavior (Lifetime) No 6:00 AM EDT Guerline Vaz, RN documented as of this encounter Discharge [...] do not scrub. Pat dry. Call MD information technology administrator for [facility] service if: - you have [...] confirm an appointment. Dr. Meri Tai - [facility] [address] [facility], [place] [address] documented in this encounter Medications at Time of Discharge acetaminophen (Tylenol) 325 MG tablet Take 2 tablets by mouth every 8 hours. Under [place] law, monthly prescriptions (30 days) can be [...] MD PCP name and Address: Owen Temple, [address] [place] [address] Referring provider name and address: Chata Temple, [address] [place] [address] Chief Concern, Brief History of Present Illness, [...] tablets by mouth every 8 hours. Under [place] law, monthly prescriptions (30 days) can be [...] Take 1 capsule by mouth daily. . aktheovzndfk-czecvaie-qhlij acid-coenzyme q10 capsule Take 1 capsule by mouth daily. omeprazole [address] capsule Commonly known as: PriLOSEC Take by mouth daily. Where to Get Your Medications These medications were sent to [facility] - [place], [place] - [address] [facility] [address] acetaminophen 325 MG tablet enoxaparin 40 MG/0.4ML [...] do not scrub. Pat dry. Call MD information technology administrator for [facility]YO service if: - you have [...] confirm an appointment. Dr. Meri Tai - [facility] [facility] [address] [facility], [place] [address] Outpatient Follow-Up Future Appointments Date Time Provider Department Center 11/30/2024 12:[address] [facility] 11/30/2024 2:00 PM [facility] 11/30/2024 3:00 PM Clark Mathews MD [facility] Test Results Pending At Discharge Pending Labs Order Current Status Surgical Pathology Exam In process Discharge Disposition/Condition Disposition: Home Condition: Stable (s/sx potential problems absent or manageable) I spent < 30 minutes of patient care and instruction time in preparation for this discharge. Chela Mendoza MD PGY-1, Obstetrics and Gynecology [facility] Cosigned by Meri Tai MD at [...] pepcid Please page on-call [facility] resident at [phone] for questions or concerns regarding this patient's [...] from the original note were not included. [id number] Hysterectomy: Surgical Procedures A hysterectomy is the [...] surgery Last Reviewed Date: 2022 00:00:00 ?? [phone] The [employer]. All rights reserved. This information is not [...] 95 10/22/2024 PLT 311 10/22/2024 Assessment/Plan Caty Lane Prows 89 y.o. s/p [...] pepcid Please page on-call [facility] resident at [phone] for questions or concerns regarding this patient's [...] Agree with above assessment and evaluation from resident/VISITING PROFESSOR. * Op Note - Hitesh, Stephanie A, MD - 11/25/2024 8:35 AM EDT Operative Note Date: 11/25/24 Location: [facility] Name: Caty Zayas, : 1935, Diagnoses: Pre-op Diagnosis Endometrial adenocarcinoma (CMS/HCC) Post-op Diagnosis Endometrial adenocarcinoma (CMS/HCC) Procedure(s): RA-TLH, BSO, SLNBx Attending Surgeon(s): Meri Alston - Primary Enterprise Mobility Architect(s): * Stephanie Proctor MD - Fellow Anesthesia: General ASA: III Blood Administration: Blood Product Administration History None Estimated Blood Loss: Minimal Drains: Urethral Catheter Non-latex 16 Fr. (Active) Site Assessment Clean;Skin intact 11/25/24 1200 Output (mL) 325 mL 11/25/24 1600 Specimen: Specimens ID Source Frozen? 1 [place] Lymph Node No Description: right obturator sentinel lymph node 2 Uterus No Description: UTERUS, CERVIX, BILATERAL TUBES AND OVARIES 3 [place] Lymph Node No Description: LEFT COMMON ILIAC [...] The cervix was sounded and dilated. A [employer] uterine manipulator was placed. Thepatient???s arms were [...] aorta for ICG dye was systematically performed. [place] LNs were seen at the left common [...] mL, Urethral, Once in imaging, Ivonne Meyers, COMPUTER METEOROLOGIST, DNP Current Outpatient Medications: amLODIPine-benazepril (Lotrel) 10-40 [...] Take by mouth daily., Disp: , Rfl: ckbtdcyngbhc-pwqgjbhe-mqzad acid-coenzyme q10 (Preservision AREDS 2) capsule, Take [...] [address] [place] [address] Meri Tai MD [address] [place] [address] 03/15/2025 10:10 AM EDT Appointment [facility] [address] [place] [address] 03/15/2025 11:40 AM EDT Clinical Support [facility] [address] [place] [address] 03/15/2025 12:40 PM EDT Office Visit [facility] Urology [address], [address] [place] [address] Sonal Cordero MD [address] [place] [address] documented as of this encounter [...] 11/25/2024 9:25 AM EDT Endometrial adenocarcinoma (CMS/HCC) AK LAPAROSCOPY W TOT HYSTERECTUTERUS <=250 GRAM W TUBE/OVARY 11/25/2024 8:00 AM EDT Endometrial adenocarcinoma (CMS/HCC) TYPE AND SCREEN Routine 11/25/2024 6:46 AM EDT POCT GLUCOSE METER UNSOLICITED RESULTS Routine 11/25/2024 5:58 AM EDT documented in this encounter Results * Phosphorus (11/26/2024 6:25 AM EDT) Phosphorus, Plasma 3.2 2.5 - 4.5 mg/dL 11/26/2024 7:01 AM EDT [facility] Blood Venous blood specimen / Unknown Venipuncture / Unknown 11/26/2024 6:25 AM EDT 11/26/2024 6:33 AM EDT Meri Tai MD LAB BLOOD ORDERABLES Final Re sult [facility] [address] [place] [address] * Magnesium, Plasma (11/26/2024 6:25 AM EDT) Magnesium, Plasma 1.9 1.9 - 2.4 mg/dL 11/26/2024 7:01 AM EDT [facility] Blood Venous blood specimen / Unknown Venipuncture / Unknown 11/26/2024 6:25 AM EDT 11/26/2024 6:33 AM EDT Meri Tai MD LAB BLOOD ORDERABLES Final Re sult [facility] [address] [place] [address] * (ABNORMAL) Basic metabolic panel (11/26/2024 6:25 AM EDT) Glucose, Plasma 141(H) 74 - 99 mg/dL 11/26/2024 7:01 AM EDT [facility] BUN, Plasma 14 8 - 23 mg/dL 11/26/2024 7:01 AM EDT [facility] Creatinine, Plasma 0.81 0.60 - 1.10 mg/dL 11/26/2024 7:01 AM EDT [facility] BUN/Creatinine Ratio 17 11/26/2024 7:01 AM EDT [facility] Sodium, Plasma 136 136 - 145 mmol/L 11/26/2024 7:01 AM EDT [facility] Potassium, Plasma 3.7 3.6 - 4.9 mmol/L 11/26/2024 7:01 AM EDT [facility] Chloride, Plasma 102 97 - 107 mmol/L 11/26/2024 7:01 AM EDT [facility] CO2, Plasma 24 22 - 29 mmol/L 11/26/2024 7:01 AM EDT [facility] Anion Gap 10 6 - 16 mmol/L 11/26/2024 7:01 AM EDT [facility] Total Calcium, Plasma 8.7(L) 8.9 - 10.2 mg/dL 11/26/2024 7:01 AM EDT [facility] eGFRcr 69.5 mL/min/1.7 3m*2 11/26/2024 7:01 AM EDT [facility] Comment:Reported eGFRcr in m L/min/1.73m2 is based the CKD-EPI 2020 equation that does not use a race coefficient. Blood Venous blood specimen / Unknown Venipuncture / Unknown 11/26/2024 6:25 AM EDT 11/26/2024 6:33 AM EDT us Meri Tai MD LAB BLOOD ORDERABLES Final Re sult [facility] [address] [place] [address] * (ABNORMAL) Ionized calcium, whole blood (11/26/2024 4:23 AM EDT) Ionized Calcium, Whole Blood 4.2(L) 4.6 - 5.1 mg/dL LAB HEMATOLOGY METHOD 11/26/2024 4:48 AM EDT [facility] Blood Venous blood specimen / Unknown Venipuncture / Unknown 11/26/2024 4:23 AM EDT 11/26/2024 4:46 AM EDT us Meri Tai MD LAB BLOOD ORDERABLES Final Re sult [facility] [address] [place] [address] * (ABNORMAL) CBC W/O Differential (11/26/2024 4:23 AM EDT) WBC Count 9.80 3.70 - 10.30 10*3/uL LAB HEMATOLOGY METHOD 11/26/2024 5:06 AM EDT [facility] RBC Count 3.77(L) 3.90 - 5.20 10*6/uL LAB HEMATOLOGY METHOD 11/26/2024 5:06 AM EDT [facility] HGB 11.9 11.2 - 15.7 g/dL LAB HEMATOLOGY METHOD 11/26/2024 5:06 AM EDT [facility] HCT 35.9 34.0 - 45.0 % LAB HEMATOLOGY METHOD 11/26/2024 5:06 AM EDT [facility] Platelet Count 190 155 - 369 10*3/uL LAB HEMATOLOGY METHOD 11/26/2024 5:06 AM EDT [facility] MCV 95 79 - 98 fL LAB HEMATOLOGY METHOD 11/26/2024 5:06 AM EDT [facility] MCH 31.6 26.0 - 32.0 pg LAB HEMATOLOGY METHOD 11/26/2024 5:06 AM EDT [facility] MCHC 33.1 30.7 - 35.5 g/dL LAB HEMATOLOGY METHOD 11/26/2024 5:06 AM EDT [facility] RDW 12.7 11.5 - 14.5 % LAB HEMATOLOGY METHOD 11/26/2024 5:06 AM EDT [facility] MPV 11.6 8.8 - 12.5 fL LAB HEMATOLOGY METHOD 11/26/2024 5:06 AM EDT [facility] nRBC 0.0 <=0.0 per 100 WBCs LAB HEMATOLOGY METHOD 11/26/2024 5:06 AM EDT [facility] Blood Venous blood specimen / Unknown Venipuncture / Unknown 11/26/2024 4:23 AM EDT 11/26/2024 4:51 AM EDT us Meri Tai MD LAB BLOOD ORDERABLES Final Re sult [facility] [address] [place] [address] * Surgical Pathology Exam (11/25/2024 9:25 AM EDT) Case Report Surgical Pathology Case: [id number] Authorizing Provider: Meri Tai MD Collected: 11/25/2024 0925 Ordering Location: [facility] A OPERATING ROOM Received: 11/25/2024 1210 Pathologist: Jennifer Faust MD Specimens: A) - [place] Lymph Node, right obturator sentinel lymph node B) - Uterus, UTERUS, CERVIX, BILATERAL TUBES AND OVARIES C) - [place] Lymph Node, LEFT COMMON ILIAC SENTINEL LYMPH NODE 12/01/2024 5:[address] [facility] Addendum This addendum has been issued to report that the entire endometrial lesion is submitted for histologic evaluation in [id number]. The diagnosis remains unchanged. 12/01/2024 5:[address] [facility] Addendum electronically signed by Jennifer [...] METASTATIC CARCINOMA (0/1). 12/01/2024 5:[address] [facility] at 1729 EDT Comment The performed immunostains on the biopsy specimen at the outside institution showed the following results ([id number]): MMR panel: retained nuclear expression of mismatch-repair proteins P53: wild type 12/01/2024 5:[address] [facility] Synoptic Checklist ENDOMETRIUM ENDOMETRIUM - [...] Pelvic Nodes Examined: 4 Number of Pelvic [place] Nodes Examined: 4 Total Number of Para-aortic [...] Endometrium): IA1 12/01/2024 5:[address] [facility] Clinical Information Endometrial adenocarcinoma (CMS/HCC) [C54.1] 12/01/2024 5:[address] [facility] Gross Description A. RIGHT OBTURATOR SENTINEL LYMPH NODE Received in formalin labeled right obturator sentinel lymph node are 2 clinton-yellow lobulated soft tissue fragments measuring 1.6 x 1.0 x 0.5 cm and 2.8 x 0.8 x 0.5 cm. The specimen is palpated to reveal 3 possible clitnon-pink lymph nodes measuring 0.9 x 0.4 x [...] sectioned to reveal a prominent corpus albicans. Rural Carrier Associate sections of the specimen are submitted as [...] ROGELIO Murphy (ASCP) 12/01/2024 5:39 PM EDT [facility] Note: A resident was involved in the service. I attest I examined the relevant preparations for the specimens and confirmed the diagnosis or interpretation. 12/01/2024 5:39 PM EDT [facility] Tissue Specimen from sentinel lymph [...] EDT Comment:Pre-op diagnosis: Endometrial adenocarcinoma (CMS/HCC) [C54.1] Meri Tai MD LAB PATHOLOGY ORDERABLES Edit ed Result - Final Performing Organization Address City/[facility]/ZIP Co de Phone Number [facility] [address] [place] [address] * Type and screen (11/25/2024 6:46 AM [...] ORDERABLE S Final Result Performing Organization Address [facility] de Phone Number BLOOD BANK [address] [place] [address] * (ABNORMAL) POCT glucose meter (11/25/2024 5:58 AM EDT) Pathologist [facility] POCT Glucose 114(H) 74 - 99 mg/dL [...] 11/25/2024 6:02 AM EDT [facility] Track Welder ID Nancy Light 11/26/19 25 6:02 AM EDT [facility] Device ID [id number] 11/25/2024 6:02 AM EDT [facility] Specimen Type POC Capillary 11/25/2024 6:02 AM EDT [facility] Blood Capillary blood specimen / Unknown 11/25/2024 5:58 AM EDT 11/25/2024 6:02 AM EDT us Meri Tai MD LAB POINT OF CARE TE ST DOCKED DEVICE UNSOLICITED RESULTS Final Result [facility] [address] [place] [address] documented in this encounter Visit Diagnoses Diagnosis Endometrial adenocarcinoma (CMS/HCC)- Primary Endometrial cancer (CMS/HCC) Malignant neoplasm of corpus uteri, except isthmus Gastroesophageal reflux disease without esophagitis Esophageal reflux Endometrial adenocarcinoma (CMS/HCC) documented in this encounter Admitting Diagnoses Diagnosis [...] Given 11/25/2024 12:42 PM EDT 600 mg indocyanine green (IC-Green) injection As needed, Starting on Sat11/25/24 at 0858, Until Sat11/25/24 at 1157, Routine, Intraprocedure Given 11/25/2024 8:58 AM EDT 1.5 mg Other lactated Ringer's infusion 50 mL/hr, Intravenous, Continuous, [...] - Preprocedure, line care sterile water injection As needed, Starting on Sat11/25/24 at 0859, Until Sat11/25/24 at 1157, Routine, Intraprocedure Given 11/25/2024 8:59 AM EDT 20 mL Oth er documented in this encounter Active and Recently [...] dose (after last modification) on Sat11/25/24 at 211, Until Discontinued, Routine, Recovery(Phase II-Outpatient)/On Unit(Inpatient) 2108 (Given - Provider: Vasu Meade, ROXANE) 06 (Not Given - Provider: Miri Rutherford [...] II-Outpatient)/On Unit(Inpatient) 1343 (Given - Provider: Yesenia Ku RN)2108 (Given - Provider: Vasu Meade RN) 0851 (Canceled Entry - Provider: Yesenia Ku RN) famotidine PF (Pepcid) injection 20 mg(Linked Group 1) 20 mg, Intravenous, 2 times daily, First dose on Sat11/25/24 at 1315, Until Discontinued, Routine, Recovery(Phase II-Outpatient)/On Unit(Inpatient) 1343 (See Alternative - Provider: Yesenia Ku RN)2108 (See Alternative - Provider: Vasu Meade RN) 0851 (See Alternative - Provider: Yesenia Ku RN) heparin (porcine) injection 5,000 Units (COMPLETED) [...] refused) 0604 (Not Given - Provider: Miri Rutherford, ROXANE - Reason: Patient/family refused)1200 (Canceled Entry - Provider: Automatic Discharge Provider - Comment: Automatically canceled at discontinue of medication order) pantoprazole (Protonix) EC tablet 40 mg 40 mg, Oral, 2 times daily, First dose on Sat11/25/24 at 2100, Until Discontinued, Routine 2113 (Given - Provider: Vasu Meade RN) 0831 (Given - Provider: Yesenia Ku RN) Povidone-Iodine 5 % swab solution 1 Application (COMPLETED) Nasal, Once, 1 dose, On Sat11/25/24 at 0700, Routine 0630 (Given - Provider: Guerline Vaz RN) senna (Senokot) tablet 8.6 mg 8.6 mg, Oral, Daily, First dose on Sat11/25/24 at 1315, Until Discontinued, Routine, Phase II/On Unit 1343 (Given - Provider: Yesenia Ku, ROXANE) 0831 (Given - Provider: Yesenia Ku RN) [...] documented as of this encounter Care Teams Migratory Game Bird Biologist Relationship Specialty Start Date End Date Owen Temple DO [facility] [address] [address] PCP - General 08/06/24 Jann Hernandes MD [address] [place] [address] #1 [address] [address] 12/12/21 Chata Temple DO 1210 [facility] [address] [address] Resident 10/14/24 documented as of this encounter
--- OUTSIDE RECORDS SUMMARY | 2024-11-25 08:15 | XMS_ITS | Encounter Summary ---
Author Organization [facility] Address [address] [place] [address] Care Team Providers Care Procurement Officer Name Role Phone Jann Hernandes MD Unavailable [phone] Owen Temple DO Primary Care Provider [phone] Chata Temple DO Unavailable Reason for Visit * Auth/Cert (Routine) Specialty Diagnoses / Procedures Referred By Contac t Referred To Contact Diagnoses Endometrial adenocarcinoma (CMS/HCC) Endometrial adenocarcinoma ([facility]/HCC) [C54.1] Procedures [place] LAPAROSCOPY W TOT HYSTERECTUTERUS <=250 GRAM W TUBE/OVARY TX INTRAOPERATIVE SENTINEL LYMPH NODE ID W DYE INJECTION TX LAP,PELVIC LYMPHADENECTOMY Robot TLHBSO SLN Meri Tai MD 800 [facility] [address] [place] [address] Phone: tel: fax: [facility] A OPERATING ROOM [address] [place] [address] Phone: tel: Referral ID Status Reason Start Date Expiration Date Visits Re quested Visits Authorized [id number] 1 1 Encounter Details Date Type Department Care Team (Late st Contact Info) Description 11/25/2024 8:15 AM EDT Anesthesia Event [facility] RO[facility] [address] [place] [address] Paulie Morris MD [address] [place] [address] Brayden Velázquez MD [address] [place] [address] Anesthesia Record Procedure Summary Procedure Name Responsible [...] Forearm; Site Prep: Chlorhexidine ; Local Anesth: [place]; Technique: Anatomical landmarks; Inserted by: ronnie vaz [...] portions of the procedure(s) and immediately available [facility] the entire duration. See resident note [...] portions of the procedure(s) and immediately available [facility] the entire duration. See resident note [...] monitoring: continuous pulse ox, heart rate and radiographer cardiac catheterization Block type: TAP Laterality: left and right [...] portions of the procedure(s) and immediately available [facility] the entire duration. See resident note for details. * Anesthesia Preprocedure Evaluation - Paulie Morris MD - 11/25/2024 7:15 AM EDT LILA Zayas is a 89 y.o. female who presents with Pre-op Diagnosis * Endometrial adenocarcinoma (CMS/HCC) [C54.1] now scheduled for Robot TLHBSO SLN (Bilateral) with Meri Tai MD on 11/25/20[place] [facility] Past Medical History[1] Family History[2] Social History[3] [...] fibrillation, CAD, CHF, dysrhythmias, murmur, pacemaker, past LA or syncope. hypertension: is well controlled. Exercise [...] INR 2.5 to 3.5 Prevention of recurrent LA INR 2.5 to 3.5 INR 02/13/2016 0.9 (NOTE) OPTIMAL INR RANGES FOR PATIENT ON ORAL ANTICOAGULANT THERAPY Prevention of venous thromboembolism INR 2.0 to 3.0 In patients with heart disease: Atrial fibrillation INR 2.0 to 3.0 Valvular heart disease INR 2.0 to 3.0 Tissue heart valves INR 2.0 to 3.0 Mechanical prosthetic valves INR 2.5 to 3.5 Prevention of recurrent LA INR 2.5 to 3.5 Visit Vitals BP [...] last evaluated in outpatient cardiology clinic at [facility] on 10/06/24. At the time of evaluation, [...] [address] [place] [address] Meri Tai MD [address] [facility] [address] [place] [address] 03/15/2025 10:10 AM EDT Appointment [facility] [address] [place] [address] 03/15/2025 11:40 AM EDT Clinical Support [facility] [address] [place] [address] 03/15/2025 12:40 PM EDT Office Visit [facility] Urology [address] [place] [address] Sonal Cordero MD [address] [place] [address] documented as of this encounter Goals Goal [...] ANESTHESIA PLACEHOLDER Routine 11/25/2024 8:26 AM EDT TX AN ELECTIVE ENDOTRACHEAL AIRWAY Routine 11/25/2024 8:26 [...] monitoring: continuous pulse ox, heart rate and radiographer cardiac catheterization Block type: TAP Laterality: left and right [...] MD ANESTHESIA ORDERABLES Fin al Result * TX AN ELECTIVE ENDOTRACHEAL AIRWAY, PB ANESTHESIA PLACEHOLDER [...] documented as of this encounter Care Teams Procurement Officer Relationship Specialty Start Date End Date Owen Temple DO 1210 [facility] [address] [address] PCP - General 08/06/24 Jann Hernandes MD [address] [place] [address] #1 [address] [address] 12/12/21 Chata Temple DO 1210 [facility] [address] [place] [address] Resident 10/14/24 documented as of this encounter
[2024-12-10 15:17] LABS: Microscopic, Urine URINE MICROSCOPIC (MICROSCOPIC)
[2024-12-10 15:58] LABS: Bilirubin,Urine Negative (Negative); Blood, Urine Negative (Negative); Color,Urine YELLOW (Yellow); Glucose,Urine (UA) Negative (Negative); Ketones,Urine TRACE (Negative); Leukocyte Esterase,Urine 2+ (Negative); Nitrate,Urine Negative (Negative); Protein,Urine Negative (Negative); Specific Gravity, Urine 1.025 (1.005-1.030); Urobilinogen,Urine 0.2 EU/dl (0.2)
[2024-12-10 17:05] LABS: Appearance,Urine Cloudy (Clear)
[2024-12-10 17:46] LABS: Bacteria,Urine 4+ /lpf; Squamous Epithelial Cell,Urine Occasional #/hpf (0-5)
--- OUTSIDE RECORDS SUMMARY | 2024-12-11 10:25 | XMS_ITS | Encounter Summary ---
Author Organization [facility] Address [address] [place] [address] Care Team Providers Care Rotary Drum Tanner Name Role Phone Jann Hernandes MD Unavailable [phone] Owen Temple DO Primary Care Provider [phone] Chata Temple DO Unavailable [phone] Encounter Details Date Type Department Care Team (Latest Contact Info) Description 11/13/2024 Travel Social History Tobacco Use Types Packs/Day Years [...] on file documented as of this encounter Plan of Treatment Upcoming Encounters Date Type Department Care Team (Late st Contact Info) Description 12/28/2024 9:30 AM EDT Office Visit [facility] [address] [place] [address] Meri Tai MD [address] [place] [address] 03/15/2025 10:10 AM EDT Appointment [facility] [address] [place] [address] 03/15/2025 11:40 AM EDT Clinical Support [facility] [address] [place] [address] 03/15/2025 12:40 PM EDT Office Visit [facility] [address] [place] [address] Sonal Cordero MD [address] [place] [address] documented as of this encounter Goals Goal Patient Goal Type Associated Problems Recent Progress Patient-Stated? Author Autogenerat ed Goal Care Plan Autogenerated Problem No Renetta Myles documented as of this encounter Visit Diagnoses Not on filedocumented in this encounter Additional Health Concerns Active Problems Noted Date Diagnosed Date Autogenerated Problem 10/22/2024 Assessment Noted Time A fall risk assessment has been complete d for the patient 10/22/2024 12:17 PM EDT A Body Mass Index follow-up plan has been documented for the patient 08/06/2024 12:03 PM EST documented as of this encounter Care Teams Rotary Drum Tanner Relationship Specialty Start Date End Date Owen Temple DO [address] [facility] [address] [place] [address] PCP - General 08/06/24 Jann Hernandes MD [address] [place] [address] [address]1 [address] [place] [address] 12/12/21 Chata Temple DO [address] [place] [address] Resident 10/14/24 documented as of this encounter
--- OUTSIDE RECORDS SUMMARY | 2024-12-11 10:25 | XMS_ITS | Encounter Summary ---
Author Organization [facility] Address [address] [place] [address] Care Team Providers Care Clinical Research Tech Name Role Phone Jann Hernandes MD Unavailable [phone] Owen Temple DO Primary Care Provider [phone] Chata Temple DO Unavailable [phone] Encounter Details Date Type Department Care Team (Late Contact Info) Description 11/12/2024 Orders Only External Location [address] [place] [address] Provider, External Social History Tobacco Use Types Packs/Day Years [...] Encounters Date Type Department Care Team (Late Contact Info) Description 12/28/2024 9:30 AM EDT Office Visit [facility] 800 [facility] [address] [place] [address] Meri Tai MD [address] [facility] [address] [place] [address] 03/15/2025 10:10 AM EDT Appointment [facility] [address] [place] [address] 03/15/2025 11:40 AM EDT Clinical Support [facility] Lab [address] [place] [address] 03/15/2025 12:40 PM EDT Office Visit [facility] Urology [address] [place] [address] Sonal Cordero MD [address] [place] [address] documented as of this encounter Goals Goal Patient Goal Type Associated Problems Recent Progress Patient-Stated? Author Autogenerat ed Goal Care Plan Autogenerated Problem No Renetta Myles documented as of this encounter Procedures Procedure Name Priority Date/Time Associated Diagnosis Comments CT THORACIC OUTSIDE IMAGES 11/12/2024 9:50 AM EDT documented in this encounter Results * CT THORACIC OUTSIDE IMAGES (11/12/2024 9:50 AM EDT) Anatomical Region Laterality Modality Computed Tomogra phy 11/12/2024 9:50 AM EDT us External Provider IMG CT PROCEDURES Final Result documented in this encounter Visit Diagnoses [...] documented as of this encounter Care Teams Clinical Research Tech Relationship Specialty Start Date End Date Owen Temple DO [address] [place] [address] [place] [address] PCP - General 08/06/24 Jann Hernandes MD [address] [place] [address] #1 [address] [place] [address] 12/12/21 Chata Temple DO 1210 [facility] [address] [place] [address] Resident 10/14/24 documented as of this encounter
--- OUTSIDE RECORDS SUMMARY | 2024-12-11 10:25 | XMS_ITS | Encounter Summary ---
Author Organization [facility] Address [address] [place] [address] Care Team Providers Care Blind Aide Name Role Phone Jann Hernandes MD Unavailable [phone] Owen Temple DO Primary Care Provider [phone] Chata Temple DO Unavailable [phone] Encounter Details Date Type Department Care Team (Late Contact Info) Description 11/12/2024 Orders Only External Location [address] [place] [address] Provider, External Social History Tobacco [...] EDT Office Visit [facility] 800 [facility] [address] [place] [address] Meri Tai MD [address] [facility] [address] [place] [address] 03/15/2025 10:10 AM EDT Appointment [facility] [address] [place] [address] 03/15/2025 11:40 AM EDT Clinical Support [facility] [address] [place] [address] 03/15/2025 12:40 PM EDT Office Visit [facility] Urology [address] [place] [address] Sonal Cordero MD [address] [place] [address] documented as of this encounter [...] documented as of this encounter Care Teams Blind Aide Relationship Specialty Start Date End Date Owen Temple DO [address] [place] [address] [place] [address] PCP - General 08/06/24 Jann Hernandes MD [address] [place] [address] #1 [address]1 [place] [address] 12/12/21 Chata Temple DO 1210 [facility] [address] [place] [address] Resident 10/14/24 documented as of this encounter
--- OUTSIDE RECORDS SUMMARY | 2024-12-11 10:26 | XMS_ITS | Encounter Summary ---
Author Organization [facility] Address [address] [place] [address] Care Team Providers Care Special Education Coordinator Name Role Phone Jann Hernandes MD Unavailable Owen Temple DO Primary Care Provider [phone] Chata Temple DO Unavailable [phone] Reason for Referral * Consultation (Routine) - Closed Specialty Diagnoses / Procedures Referred By Contact Referred To Contact Gynecologic Oncology Diagnoses Endometrial adenocarcinoma (CMS/HCC) Chata Temple DO [address] [address] Phone: tel:[phone] fax:[phone] [facility] [address] [place] [address] Phone: tel: fax: Referral ID Status Reason Start Date Expiration Date V isits Requested Visits Authorized [id number] Closed Specialty Services Required 10/14/2024 04/15/2026 1 1 Encounter Details Date Type Department Care Team (Late st Contact Info) Description 10/14/2024 Orders Only [facility] [address] [place] [address] Chata Temple DO [address] [place] [address] Endometrial adenocarcinoma (CMS/HCC) (Primary Dx) Social History Tobacco Use Types Packs/Day Years Used Date Smoking Tobacco: Never Passive Smoke Exposure: Never Smokeless Tobacco: Never Alcohol Use Standard Drinks/Week Comments Not Currently 0 (1 standard drink = 0.6 oz pur e alcohol) PHQ-2 Answer Date Recorded Patient Health Questionnaire-2 Score 0 12/17/2023 Comments No Sex and Gender Information Value [...] Gynecology [address] [place] [address] Meri Tai MD [address] [facility] [address] [place] [address] 03/15/2025 10:10 AM EDT Appointment [facility] [address] [place] [address] 03/15/2025 11:40 AM EDT Clinical Support [facility] [address], [address] [place] [address] 03/15/2025 12:40 PM EDT Office Visit [facility] Urology [address], [address] [place] [address] Sonal Cordero MD [address] [place] [address] Scheduled Referrals Name Type Priority Associated Diagnoses Orde r Schedule Ambulatory referral to Gynecologic Oncology Outpatient Referral Routine Endometrial adenocarcinoma (CMS/HCC) Expected: 10/14/2024, Expires: 04/15/2026 documented as of this encounter Visit Diagnoses Diagnosis Endometrial adenocarcinoma (CMS/HCC)- Primary documented in this encounter Additional Health Concerns Assessment Noted Time A fall risk assessment has been complete d for the patient 03/02/2024 1:20 PM EDT A Body Mass Index follow-up plan has been documented for the patient 08/06/2024 12:03 PM EST documented as of this encounter Care Teams Special Education Coordinator Relationship Specialty Start Date End Date Owen Temple DO [address] [place] [address] PCP - General 08/06/24 Jann Hernandes MD [address] [place] [address] [address] [place] [address] 12/12/21 Chata Temple DO [address] [place] [address] Resident 10/14/24 documented as of this encounter
--- OUTSIDE RECORDS SUMMARY | 2024-12-11 10:26 | XMS_ITS | Encounter Summary ---
Author Organization [facility] Address [address] [place] [id number] Care Team Providers Care Manager Documentation Name Role Phone Jann Hernandes MD Unavailable [phone] Owen Temple DO Primary Care Provider [phone] Chata Temple DO Unavailable [phone] Encounter Details Date Type Department Care Team (Late st Contact Info) Description 12/02/2024 Orders Only [facility] [address] [place] [phone] Zahra Jones MD [address] [place] [address] Social History Tobacco Use Types Packs/Day Years [...] [address] [place] [address] Meri Tai MD 800 [facility] [address] [place] [address] 03/15/2025 10:10 AM EDT Appointment [facility] [address] [place] [address] 03/15/2025 11:40 AM EDT [facility] [address], [address] [place] [address] 03/15/2025 12:40 PM EDT Office Visit [facility] Urology [address], [address] [place] [address] Sonal Cordero MD [address] [place] [address] documented as of this encounter [...] documented as of this encounter Care Teams Manager Documentation Relationship Specialty Start Date End Date Owen Temple DO [address] [place] [address] PCP - General 08/06/24 Jann Hernandes MD [address] [place] [address] [address] [place] [address] 12/12/21 Chata Temple DO [address] [place] [address] [place] [address] Resident 10/14/24 documented as of this encounter
--- OUTSIDE RECORDS SUMMARY | 2024-12-11 10:26 | XMS_ITS | Encounter Summary ---
Author Organization [facility] Address [address] [id number] Care Team Providers Care Jackscrew Man Name Role Phone Jann Hernandes MD Unavailable [phone] Owen Temple DO Primary Care Provider [phone] Chata Temple DO Unavailable [phone] Encounter Details Date Type Department Care Team (Late st Contact Info) Description 10/22/2024 Lab Requisition [facility] [address] [place] [address] Meri Tai MD 800 [facility] [address] [place] [address] Postmenopausal bleeding Social History Tobacco Use Types Packs/Day Years [...] as of this encounter Functional Status * Over the [...] Sameera Parnell documented as of this encounter Plan of Treatment Upcoming Encounters Date Type Department Care Team (Late st Contact Info) Description 12/28/2024 9:30 AM EDT Office Visit [facility] [address] [place] [address] Meri Tai MD [address] [place] [address] 03/15/2025 10:10 AM EDT Appointment [facility] [address] [place] [address] 03/15/2025 11:40 AM EDT Clinical Support [facility] [address], [address] [place] [address] 03/15/2025 12:40 PM EDT Office Visit [facility]rology [address], [address] [place] [address] Sonal Cordero MD [address] [place] [address] documented as of this encounter Goals Goal Patient Goal Type Associated Problems Recent Progress Patient-Stated? Author Autogenerat ed Goal Care Plan Autogenerated Problem No Renetta Myles documented as of this encounter Procedures Procedure Name Priority Date/Time Associated Diagnosis Comments SURGICAL PATHOLOGY CONSULT Routine 10/22/2024 10:44 AM EDT Postmenopausal bleeding documented in this encounter Results * Surgical Pathology Consult (10/22/2024 10:44 AM EDT) Case Report Sugical Pathology Consult Case: [id number] Authorizing Provider: Meri Tai MD Collected: 10/22/2024 1044 Ordering Location: [facility] Lab Received: 10/22/2024 1044 Pathologist: Mely Saleh MD Specimen: Endometrium, [id number] 10/23/2024 10:45 AM EDT [facility] Final Diagnosis Outside slides Date of collection: 10/08/24 Endometrium, curettage: - Endometrial adenocarcinoma, endometrioid type, FIGO grade 2 10/23/2024 10:45 AM EDT [facility] at 1045 EDT Comment Outside IHC (reviewed): MMR panel: retained nuclear expression of mismatch-repair proteins P63: wild type 10/23/2024 10:45 AM EDT [facility] Clinical Information N95.0 - Postmenopausal bleeding [ICD-10-CM] 10/23/2024 10:45 AM EDT [facility] Gross Description A. [id number] Received along with a corresponding pathology report from [facility] are 11 slide(s) labeled outside case: [id number] collected on 10/08/2024. 10/23/2024 10:45 AM EDT [facility] Note: A resident was involved in the service. I attest I examined the relevant preparations for the specimens and confirmed the diagnosis or interpretation. 10/23/2024 10:45 AM EDT [facility] Tissue Endometrial structure / Unknown 10/22/2024 10:44 AM EDT 10/22/2024 10:44 AM EDT us Meri Tai MD LAB PATHOLOGY ORDERABLES Valorie manning Result [facility] [address] [place] [address] documented in this encounter Visit Diagnoses Diagnosis Postmenopausal bleeding documented in this encounter Additional Health Concerns Active Problems Noted Date Diagnosed Date Autogenerated Problem 10/22/2024 Assessment Noted Time A fall risk assessment has been complete d for the patient 10/22/2024 12:17 PM EDT A Body Mass Index follow-up plan has been documented for the patient 08/06/2024 12:03 PM EST documented as of this encounter Care Teams Jackscrew Man Relationship Specialty Start Date End Date Maverick, Owen D, DO [address] [place] [address] [place] [address] PCP - General 08/06/24 Jann Hernandes MD [address] [place] [address] [address] [place] [address] 12/12/21 Chata Temple DO [address] [place] [address] [place] [address] Resident 10/14/24 documented as of this encounter
--- OUTSIDE RECORDS SUMMARY | 2024-12-11 10:26 | XMS_ITS ---
Author Organization [facility] Address [address] [place] [address] Care Team Providers Care Shot Peening Operator Name Role Phone Jann Hernandes MD Unavailable [phone] Owen Temple DO Primary Care Provider [phone] Chata Temple DO Unavailable [phone] Active Problems Problem Noted Date Diagnosed Date Endometrial cancer 11/25/2024 Gastroesophageal reflux disease without esophagi tis 11/25/2024 Endometrial adenocarcinoma 10/22/2024 Gross hematuria 08/06/2024 Arthritis of right foot 12/17/2023 Post-menopausal atrophic vaginitis 12/17/2023 Calcaneal spur of right foot 12/17/2023 Callus of foot 12/17/2023 Carotid artery stenosis 12/17/2023 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/2023 HLD (hyperlipidemia) 12/17/2023 HTN (hypertension) 12/17/2023 Implantable loop recorder present 12/17/2023 Macular degeneration 12/17/2023 Overweight with body mass index (BMI) 25.0-29.9 12/17/2023 Syncope 12/17/2023 Urge incontinence 12/17/2023 Incomplete emptying of bladder 12/17/2023 Vascular calcification 12/17/2023 Nocturia 12/17/2023 Urinary frequency 12/17/2023 Stress incontinence 12/17/2023 Endometrial thickening on ultrasound 12/27/2021 Overview (12/27/2021): 86 yo female with an incidentally noted thickened endometrium on OCS 1.48 cm on US 11/10/2021 Review of prior scans shows similar appearance in 2016 Asymptomatic, no VB Suspect benign process Reviewed options and elected to follow Will have repeat US in OCS If increase in thickening or VB noted will proceed with biopsy at that time Current Treatment and Therapy Plans No current plan information found. Past Treatment and Therapy Plans No past plan information found. Lifetime Dose Tracking * Chemical Lifetime Dose Automatic Entry Manual Entr y Fluoro Time 1.693 minutes 1.693 minutes 0 minutes Air Kerma 80.063 mGy 80.063 mGy 0 mGy
--- OUTSIDE RECORDS SUMMARY | 2024-12-11 10:26 | XMS_ITS | Encounter Summary ---
Author Organization [facility] Address [address] [place] [address] Care Team Providers Care Leak Detector Name Role Phone Jann Hernandes MD Unavailable [phone] Owen Temple DO Primary Care Provider [phone] Chata Temple DO Unavailable [phone] Reason for Visit * Reason Onset Date Comments HCN Clinical Concern/Question 11/30/2024 Encounter Details Date Type Department Care Team (Late st Contact Info) Description 11/30/2024 Telephone [facility] Urology [address] [place] [address] Clark Mathews MD [address] [place] [address] HCN Clinical Concern/Question Social History Tobacco Use Types Packs/Day Years [...] on file documented as of this encounter Miscellaneous Notes * Telephone Encounter - Clark Mathews MD - 11/30/2024 1:19 PM EDT Sure, can reschedule with [place]. Thanks * Telephone Encounter - Savi Briggs - 11/30/2024 11:09 AM EDT Clinical Concern/Question Reason for Call: pt grandchild calling to reschedule appt today with anisha... pt had hysterectomylast week so thinks she cannot do in office procedure today Best contact number: [phone] (mobile) Optimal time of day to reach caller: ANYTIME Additional comments/information from caller: None Note: Please do not reply to this message. Follow-up communication and further actions as a result of this message need to be communicated with the patient directly, if the patient is not active onMyChart. If the patient is active on MyChart, they will receive notification of the communication/outcome via [employer] [place]. documented in this encounter Plan of Treatment Upcoming Encounters Date Type Department Care Team (Late st Contact Info) Description 12/28/2024 9:30 AM EDT Office Visit [facility] [address] [place] [place] [address] Meri Tai MD [address] [place] [facility] [address] [place] [address] 03/15/2025 10:10 AM EDT Appointment [facility] [address] [place] [address] 03/15/2025 11:40 AM EDT Clinical Support [facility] [address], 2[address] [place] [address] 03/15/2025 12:40 PM EDT Office Visit [facility] Urology [address], [address] [place] [address] Sonal Cordero MD [address] [place] [address] documented as of this encounter [...] documented as of this encounter Care Teams Leak Detector Relationship Specialty Start Date End Date Owen Temple DO 1210 [facility] [address] [place] [address] PCP - General 08/06/24 Jann Hernandes MD [address] [place] [address] [address] [place] [address] 12/12/21 Chata Temple DO [address] [place] [address] Resident 10/14/24 documented as of this encounter
--- OUTSIDE RECORDS SUMMARY | 2024-12-11 10:26 | XMS_ITS | Encounter Summary ---
Author Organization [facility] Address [address] 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) (Primary Dx); 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 Social History Tobacco Use Types Packs/Day Years Used Date Smoking Tobacco: Never Smokeless Tobacco: Never Alcohol Use Standard Drinks/Week Comments Not Currently 0 (1 standard drink = 0.6 oz pur e alcohol) Comments Unknown Sex and Gender Information Value Date Recorded [...] [address] [place] [place] [address] Meri Tai MD [address] [place] [address] 03/15/2025 10:10 AM EDT Appointment [facility] [address] [place] [address] 03/15/2025 11:40 AM EDT [facility] [address], [address] [place] [address] 03/15/2025 12:40 PM EDT Office Visit [facility] [address], [address] [place] [address] Sonal Cordero MD [address] [facility] [address] [place] [address] documented as of this encounter Visit Diagnoses Diagnosis 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 [address] [place] [address] PCP - General 08/06/24 Jann Hernandes MD [address] [place] [address] [address] [place] [address] 12/12/21 Chata Temple DO [address] [place] [address] Resident 10/14/24 documented as of this encounter
--- OUTSIDE RECORDS SUMMARY | 2024-12-11 10:26 | XMS_ITS | Clinical Summary ---
Author Organization [facility] Address [address] [place] [address] Care Team Providers Care Clinical Studies Specialist Name Role Phone Jann Hernandes MD Unavailable [phone] Owen Temple DO Primary Care Provider [phone] Chata Temple DO Unavailable [phone] Allergies No known active allergies Medications amLODIPine-benazep ril (Lotrel) 10-40 MG capsule Take 1 capsule by mouth daily. 11/01/19 22 Active omeprazole (PriLOSEC) [address] capsule Take by mouth daily. 12/10/19 22 Active simvastatin (Zocor) 40 MG tablet Take by mouth nightly. 12/10/19 22 Active multivitamin-cellophane wrapping examiner als-folic acid-coenzyme q10 (Preservision AREDS 2) capsule Take 1 capsule by mouth daily. Active losartan (Cozaar) 50 MG tablet Take 1 tablet by mouth daily. Active tamsulosin (Flomax) 0.4 MG 24 hr capsule Take 1 capsule by mouth daily. Active meloxicam (Mobic) 15 MG tablet Take by mouth daily. 08/04/19 25 Active bethanechol (Urecholine) 50 MG tablet Take 1 tablet (50 mg) by mouth 4 (four) times a day. 120 tablet 11 08/06/19 25 026 Active pantoprazole (Protonix) 40 MG EC tablet Take 1 tablet by mouth 2 times a day. 10/14/19 25 Active acetaminophen (Tylenol) 325 MG tablet Take 2 tablets by mouth every 8 hours. Under [place] law, monthly prescriptions (30 days) can be refilled at 25 days and three-month prescriptions (90 days) at 80 days. Please contact the insurance company with questions if refills are denied. 100 tablet 1 11/27/19 25 Active ibuprofen 600 MG tablet Take 1 tablet by mouth every 6 hours. 100 tablet 11/27/19 25 Active ondansetron ODT (Zofran-ODT) 4 MG disintegrating tablet Dissolve 1 tablet on the tongue every 6 hours as needed for nausea or vomiting. 10 tablet 11/27/19 25 Active oxyCODONE (Roxicodone) 5 MG immediate release tablet Take 1 tablet by mouth 1 time as needed (pain score of 3-5 out of 10). 3 tablet 11/27/19 25 Active senna-docusate (Helena-Colace) 8.6-50 MG tablet Take 1 tablet by mouth daily. 30 tablet 1 11/27/19 25 Active enoxaparin (Lovenox) 40 MG/0.4ML solution prefilled syringe Inject 0.4 mL under the skin daily for 7 days. 2.8 mL 11/27/19 25 025 Hospital, Clinic, or Other Facility Administered Medication Ordered Dose Route Frequency Start Date End Date Status iothalamate meglumine (Cysto Conray) 17.2 % urethral solution solution 250 mLIndications:Incomplet e emptying of bladder,Urinary frequency,Nocturia 250 mL UR Once in imaging 08/06/2024 A ctive Active Problems Problem Noted Date Diagnosed Date [...] will proceed with biopsy at that time Encounters Date Type Department Care Team Description 12/04/2024 Results Follow-Up [facility] [address] [place] [address] Stephanie Proctor MD 12/02/2024 Orders Only [facility] Gyne[facility] [address] [facility] [address] [place] [address] Zahra Jones MD 11/30/2024 Telephone [facility] [address], [address] [place] [phone] Clark Mathews MD HCN Clinical Concern/Question 11/25/2024 8:15 AM EDT - 11/25/2024 12:20 PM EDT Surgery [facility] A OPERATING ROOM [address] [place] [phone] Meri Tai MD Robot TLHBSO SLN [[id number] (CPT )] 11/25/2024 8:15 AM EDT Anesthesia Event [facility] [address] [place] [address] Paulie Morris MD Kelley, Justin S, MD 11/25/2024 5:35 AM EDT - 11/26/2024 10:41 AM EDT Hospital Encounter [facility] [address] [place] [address] Meri Tai MD Endometrial adenocarcinoma (CMS/HCC) Discharge Disposition: Home or Self Care 11/25/2024 Telephone [facility] [address] [place] [address] Clark Mathews MD HCN - Patient Message (Reschedule ) 11/25/2024 Travel 11/13/2024 12:30 PM EDT Pre-Admission Testing [facility] [address], [address] [place] [address] Preop examination (Primary Dx) 11/13/2024 Travel 11/12/2024 Orders Only External Location [address] [place] [address] Provider, External 11/12/2024 Orders Only External Location [address] [place] [address] Provider, External 11/12/2024 Telephone [facility] [address] [place] [address] Meri Tai MD 11/12/2024 Travel 11/03/2024 Telephone [facility] [address] [place] [address] Meri Tai MD 10/22/2024 11:00 AM EDT Office Visit [facility] [address] [place] [address] Meri Tai MD Endometrial adenocarcinoma (CMS/HCC) (Primary Dx); Personal history of other endocrine, nutritional and metabolic disease 10/22/2024 Travel 10/22/2024 Lab Requisition [facility] [address] [place] [address] Meri Tai MD Postmenopausal bleeding 10/14/2024 Orders Only [facility] [address] [place] [address] Chata Temple DO Endometrial adenocarcinoma (CMS/HCC) (Primary Dx) 09/14/2024 Telephone [facility] [address] [place] [address] Clark Mathews MD from Last 3 Months Immunizations Immunization Administration Dates Next Due Pneumococcal Polysaccharide PPV23 02/14/2016 Family History Medical History Relation Name Comments Anesthesia problems Neg Hx Malig Hyperthermia Neg Hx Social History Tobacco Use Types Packs/Day Years Used Date Smoking Tobacco: Never Passive Smoke Exposure: Never Smokeless Tobacco: Never Tobacco Cessation:Counseling Given: Not Answered Alcohol Use Standard Drinks/Week Comments Not Currently 0 (1 standard drink = 0.6 oz pur e alcohol) PHQ-2 Answer Date Recorded Patient Health Questionnaire-2 Score 0 10/22/2024 Comments No Sex and Gender Information Value Date Recorded Sex Assigned at Not on file Legal Sex Female 5:57 PM EDT Gender Identity Not on file Sexual Orientation Not on file Last Filed Vital Signs Vital Sign Reading [...] Mass Index 29.63 11/13/2024 12:33 PM EDT Plan of Treatment Upcoming Encounters Date Type Department Care Team (Late st Contact Info) Description 12/28/2024 9:30 AM EDT Office Visit [facility] [address] [place] [address] Meri Tai MD [address] [facility] [address] [place] [phone] 03/15/2025 10:10 AM EDT Appointment [facility] [address] [place] [address] 03/15/2025 11:40 AM EDT Clinical Support [place] [facility] [address] [place] [address] 03/15/2025 12:40 PM EDT Office Visit [facility] [address], [address] [place] [address] Sonal Cordero MD [address] [place] [address] Health Maintenance Due Date Last Done Comments [facility]-Bone Density Scan 1935 [facility]-Medicare Annual Wellness (AWV) 1935 [facility]-Infant/Child/Adol SDOH Screenings 1935 [facility]-UNWLZ-30 Vaccine (#1) 08/21/1940 [facility]- SDOH Screenings 08/21/1953 [facility]-Adult SDOH Screenings 08/21/1953 [facility]-Zoster Vaccines (1 of 2) 08/21/1954 [facility]-RSV Vaccine: 60+ Years or (1 - 1-dose 75+ series) 08/21/2010 [facility]-Pneumococcal Vaccine: 50+ Years (2 of 2 - PCV) 02/13/2017 02/14/2016 [facility]-Influenza Vaccine (Season Ended) 2025 03/30/2020 [facility]-Depression Screening 10/22/2025 10/22/2024 [facility]-Diabetes: Hemoglobin A1C 10/22/2025 10/22/2024 [facility]-DTaP,Tdap,and Td Vaccines (2 - Td or Tdap) 11/20/2031 11/19/2021, 1996 [facility]-Obesity Intervention Completed 025, 03/02/2024, 02/20/2024, Additional history exists HPV Vaccines Aged Out No longer eligi ble based on patient's age to complete this topic [facility]-HIB Vaccines Aged Out No longer e ligible based on patient's age to complete this topic [facility]-Hepatitis A Vaccines Aged Out No longer eligible based on patient's age to complete this topic [facility]-IPV Vaccines Aged Out No longer e ligible based on patient's age to complete this topic [facility]-Rotavirus Vaccines Aged Out No lo nger eligible based on patient's age to complete this topic Goals Goal Patient Goal Type Associated Problems Recent Progress Patient-Stated? Author Autogenerat ed Goal Care Plan Autogenerated Problem No Renetta Myles Jemal Procedures Procedure Name Priority Date/Time Associated Diagnosis Comments PHOSPHORUS, PLASMA Routine 11/26/2024 6: 25 AM EDT MAGNESIUM, PLASMA Routine 11/26/2024 6:2 5 AM EDT BASIC METABOLIC PANEL, PLASMA Routine 11/26/2024 6:25 AM EDT IONIZED CALCIUM, WHOLE BLOOD Routine 11/26/2024 4:23 AM EDT CBC W/O DIFFERENTIAL Routine 11/26/2024 4:23 AM EDT SURGICAL PATHOLOGY EXAM Routine 11/25/2024 9:25 AM EDT Endometrial adenocarcinoma (CMS/HCC) ANESTHESIA PERIPHERAL IV PLACEMENT Routine 11/25/2024 8:30 AM EDT PB POINT OF CARE IMAGING PLACEHOLDER Routine 11/25/2024 8:30 AM EDT PB ANESTHESIA PLACEHOLDER Routine 11/25/2024 8:26 AM EDT AL AN ELECTIVE ENDOTRACHEAL AIRWAY Routine 11/25/2024 8:26 AM EDT AL LAPAROSCOPY W TOT HYSTERECTUTERUS <=250 GRAM W TUBE/OVARY 11/25/2024 8:00 AM EDT Endometrial adenocarcinoma (CMS/HCC) TYPE AND SCREEN Routine 11/25/2024 6:46 AM EDT POCT GLUCOSE METER UNSOLICITED RESULTS Routine 11/25/2024 5:[address] THORACIC OUTSIDE IMAGES 11/12/2024 9:[address] THORACIC OUTSIDE IMAGES 11/12/2024 9:50 AM EDT HEMOGLOBIN A1C Routine 10/22/2024 1:48 PM EDT Endometrial adenocarcinoma (CMS/HCC) Personal history of other endocrine, nutritional and metabolic disease CBC W/O DIFFERENTIAL Routine 10/22/2024 1:48 PM EDT Endometrial adenocarcinoma (CMS/HCC) COMPREHENSIVE METABOLIC PANEL, PLASMA Routine 10/22/2024 1:48 PM EDT 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) BY PCR Routine 10/22/2024 1:48 PM EDT Endometrial adenocarcinoma (CMS/HCC) SURGICAL PATHOLOGY CONSULT Routine 10/22/2024 10:44 AM EDT Postmenopausal bleeding from Last 3 Months Results * Phosphorus (11/26/2024 6:25 AM EDT) Phosphorus, Plasma 3.2 2.5 - 4.5 mg/dL 11/26/2024 7:01 AM EDT [facility] Blood Venous blood specimen / Unknown Venipuncture / Unknown 11/26/2024 6:25 AM EDT 11/26/2024 6:33 AM EDT us Meri Tai MD LAB BLOOD ORDERABLES Final Re sult Performing Organization Address [facility]/ZIP Co de Phone Number [facility] [address] [place] [address] * Magnesium, Plasma (11/26/2024 6:25 AM EDT) Magnesium, Plasma 1.9 1.9 - 2.4 mg/dL 11/26/2024 7:01 AM EDT [facility] Blood Venous blood specimen / Unknown Venipuncture / Unknown 11/26/2024 6:25 AM EDT 11/26/2024 6:33 AM EDT us Meri Tai MD LAB BLOOD ORDERABLES Final Re sult Performing Organization Address City/[facility]/ZIP Co de Phone Number [facility] [address] [place] [address] * (ABNORMAL) Basic metabolic panel (11/26/2024 6:25 AM EDT) Glucose, Plasma 141(H) 74 - 99 mg/dL 11/26/2024 7:01 AM EDT [facility] BUN, Plasma 14 8 - 23 mg/dL 11/26/2024 7:01 AM EDT [facility] Creatinine, Plasma 0.81 0.60 - 1.10 mg/dL 11/26/2024 7:01 AM EDT [facility] BUN/Creatinine Ratio 17 11/26/2024 7:01 AM EDT [facility] Sodium, Plasma 136 136 - 145 mmol/L 11/26/2024 7:01 AM EDT [facility] Potassium, Plasma 3.7 3.6 - 4.9 mmol/L 11/26/2024 7:01 AM EDT [facility] Chloride, Plasma 102 97 - 107 mmol/L 11/26/2024 7:01 AM EDT [facility] CO2, Plasma 24 22 - 29 mmol/L 11/26/2024 7:01 AM EDT [facility] Anion Gap 10 6 - 16 mmol/L 11/26/2024 7:01 AM EDT [facility] Total Calcium, Plasma 8.7(L) 8.9 - 10.2 mg/dL 11/26/2024 7:01 AM EDT [facility] eGFRcr 69.5 mL/min/1.7 3m*2 11/26/2024 7:01 AM EDT [facility] Comment:Reported eGFRcr in m L/min/1.73m2 is based the CKD-EPI 2020 equation that does not use a race coefficient. Blood Venous blood specimen / Unknown Venipuncture / Unknown 11/26/2024 6:25 AM EDT 11/26/2024 6:33 AM EDT us Meri Tai MD LAB BLOOD ORDERABLES Final Re sult [facility] [address] [place] [address] * (ABNORMAL) Ionized calcium, whole blood (11/26/2024 4:23 AM EDT) Ionized Calcium, Whole Blood 4.2(L) 4.6 - 5.1 mg/dL LAB HEMATOLOGY METHOD 11/26/2024 4:48 AM EDT [facility] Blood Venous blood specimen / Unknown Venipuncture / Unknown 11/26/2024 4:23 AM EDT 11/26/2024 4:46 AM EDT us Meri Tai MD LAB BLOOD ORDERABLES Final Re sult [facility] [address] [place] [address] * (ABNORMAL) CBC W/O Differential (11/26/2024 4:23 AM EDT) Only the most recent of2 resultswithin the time period is included. Pathologist [facility] WBC Count 9.80 3.70 - 10.30 10*3/uL LAB HEMATOLOGY METHOD 11/26/2024 5:06 AM EDT [facility] RBC Count 3.77(L) 3.90 - 5.20 10*6/uL LAB HEMATOLOGY METHOD 11/26/2024 5:06 AM EDT [facility] HGB 11.9 11.2 - 15.7 g/dL LAB HEMATOLOGY METHOD 11/26/2024 5:06 AM EDT [facility] HCT 35.9 34.0 - 45.0 % LAB HEMATOLOGY METHOD 11/26/2024 5:06 AM EDT [facility] Platelet Count 190 155 - 369 10*3/uL LAB HEMATOLOGY METHOD 11/26/2024 5:06 AM EDT [facility] MCV 95 79 - 98 fL LAB HEMATOLOGY METHOD 11/26/2024 5:06 AM EDT [facility] MCH 31.6 26.0 - 32.0 pg LAB HEMATOLOGY METHOD 11/26/2024 5:06 AM EDT [facility] MCHC 33.1 30.7 - 35.5 g/dL LAB HEMATOLOGY METHOD 11/26/2024 5:06 AM EDT [facility] RDW 12.7 11.5 - 14.5 % LAB HEMATOLOGY METHOD 11/26/2024 5:06 AM EDT [facility] MPV 11.6 8.8 - 12.5 fL LAB HEMATOLOGY METHOD 11/26/2024 5:06 AM EDT [facility] nRBC 0.0 <=0.0 per 100 WBCs LAB HEMATOLOGY METHOD 11/26/2024 5:06 AM EDT [facility] Blood Venous blood specimen / Unknown Venipuncture / Unknown 11/26/2024 4:23 AM EDT 11/26/2024 4:51 AM EDT us Meri Tai MD LAB BLOOD ORDERABLES Final Re sult [facility] [address] [place] [address] * Surgical Pathology Exam (11/25/2024 9:25 AM EDT) Case Report Surgical Pathology Case: [id number] Authorizing Provider: Meri Tai MD Collected: 11/25/2024 0925 Ordering Location: [facility] A OPERATING ROOM Received: 11/25/2024 1210 Pathologist: Jennifer Faust MD Specimens: A) - [place] Lymph Node, right obturator sentinel lymph node B) - Uterus, UTERUS, CERVIX, BILATERAL TUBES AND OVARIES C) - [place] Lymph Node, LEFT COMMON ILIAC SENTINEL LYMPH NODE 12/01/2024 5:39 PM EDT [facility] Addendum This addendum has been issued to report that the entire endometrial lesion is submitted for histologic evaluation in [id number]. The diagnosis remains unchanged. 12/01/2024 5:39 PM EDT [facility] Addendum electronically signed by Jennifer Faust [...] METASTATIC CARCINOMA (0/1). 12/01/2024 5:39 PM EDT [facility] at 1729 EDT Comment The performed immunostains on the biopsy specimen at the outside institution showed the following results ([id number]): MMR panel: retained nuclear expression of mismatch-repair proteins P53: wild type 12/01/2024 5:39 PM EDT [facility] Synoptic Checklist ENDOMETRIUM ENDOMETRIUM - [...] Pelvic Nodes Examined: 4 Number of Pelvic [place] Nodes Examined: 4 Total Number of Para-aortic [...] the Endometrium): IA1 12/01/2024 5:39 PM EDT [facility] Clinical Information Endometrial adenocarcinoma (CMS/HCC) [C54.1] 12/01/2024 5:39 PM EDT [facility] Gross Description A. RIGHT OBTURATOR [...] sectioned to reveal a prominent corpus albicans. Scenery Builder sections of the specimen are submitted as [...] ROGELIO Murphy (ASCP) 12/01/2024 5:39 PM EDT [facility] Note: A resident was involved in the service. I attest I examined the relevant preparations for the specimens and confirmed the diagnosis or interpretation. 12/01/2024 5:39 PM EDT [facility] Tissue Specimen from sentinel lymph [...] PATHOLOGY ORDERABLES Edit ed Result - Final [facility] [address] [place] [address] * Peripheral IV (11/25/2024 8:30 AM EDT) [...] CARE IMAGING PLACEHOLDER (11/25/2024 8:30 AM EDT) Narrative Shoshana Francisco MD - 11/25/2024 8:30 AM EDT Shoshana [...] monitoring: continuous pulse ox, heart rate and vice president of human resources Block type: TAP Laterality: left and right [...] rate change: no Slow fractionated injection: yes Paulie Morris MD ANESTHESIA ORDERABLES Fin al Result * AL AN ELECTIVE ENDOTRACHEAL AIRWAY, PB ANESTHESIA PLACEHOLDER [...] MD ANESTHESIA ORDERABLES Fin al Result * Type and screen (11/25/2024 6:46 AM [...] ORDERABLE S Final Result Performing Organization Address [facility] Co de Phone Number BLOOD BANK [address] * (ABNORMAL) POCT glucose meter (11/25/2024 5:58 [...] for testing. Comment 11/25/2024 6:02 AM EDT [facility] Paid Search Analyst ID Nancy Light 11/26/19 25 6:02 AM EDT [facility] Device ID [id number] 11/25/2024 6:02 AM EDT [facility] Specimen Type POC Capillary 11/25/2024 6:02 AM EDT [facility] Blood Capillary blood specimen / Unknown 11/25/2024 5:58 AM EDT 11/25/2024 6:02 AM EDT us Meri Tai MD LAB POINT OF CARE TE ST DOCKED DEVICE UNSOLICITED RESULTS Final Result Performing Organization Address City/[facility] Co de Phone Number [facility] [address] [place] [address] * CT THORACIC OUTSIDE IMAGES (11/12/2024 9:50 AM EDT) Only the most recent of2 resultswithin the time period is included. Anatomical Region Laterality Modality Computed Tomogra phy 11/12/2024 9:50 AM EDT us External Provider IMG CT PROCEDURES Final Result * Methicillin Resistant Staphylococcus aureus (MRSA) by PCR (10/22/2024 1:48 PM EDT) Methicillin Resistant Staphylococcus aureus (MRSA) by PCR Not Detected Not Detected 10/22/2024 3:53 PM EDT [facility] Swab Both anterior nares / Unknown Non-blood Collection / Unknown 10/22/2024 1:48 PM EDT 10/22/2024 2:27 PM EDT Narrative [facility] - 10/22/2024 3:53 PM EDT This test is FDA approved for use with nares swab specimens using the eSwabs. This test is used for clinical purposes. It should not be regarded as investigational or for research. This laboratory is certified under the Clinical Laboratory improvement Amendments of 1988 (CLIA-88 as qualified to perform high complexity clinical laboratory testing. Meri Tai MD LAB MICROBIOLOGY - GENERAL OR DERABLES Final Result Performing Organization Address City/State/[facility] Co de Phone Number [facility] [address] [place] [address] * (ABNORMAL) Hemoglobin A1c (10/22/2024 1:48 PM EDT) Hemoglobin A1c 6.3(H) <5.7 % 10/22/2024 5:52 PM EDT [facility] Blood Venous blood specimen / Unknown Venipuncture / Unknown 10/22/2024 1:48 PM EDT 10/22/2024 3:05 PM EDT Narrative [facility] - 10/22/2024 5:52 PM EDT HA1C Interpretive Data: Diagnosis of Diabetes: Diabetic > or = 6.5% Pre-diabetic 5.7 to 6.4% Non-diabetic < or = 5.6% Glycemic Targets for Type I and Type II Diabetics: Non- Adults <7.0% Adults <6.0% Children and Adolescents <7.5% Source: [place] [employer]. Standards of medical care in diabetes,2017. Diabetes Care.2017:40 (suppl 1):S1-S135. Meri Tai MD LAB BLOOD ORDERABLES Final Re sult [facility] [address] [place] [address] * (ABNORMAL) Comprehensive metabolic panel (10/22/2024 1:48 PM EDT) Glucose, Plasma 113(H) 74 - 99 mg/dL 10/22/2024 3:13 PM EDT [facility] BUN, Plasma 25(H) 8 - 23 mg/dL 10/22/2024 3:13 PM EDT [facility] Creatinine, Plasma 0.91 0.60 - 1.10 mg/dL 10/22/2024 3:13 PM EDT [facility] BUN/Creatinine Ratio 27 10/22/2024 3:13 PM EDT [facility] Sodium, Plasma 137 136 - 145 mmol/L 10/22/2024 3:13 PM EDT [facility] Potassium, Plasma 5.2(H) 3.6 - 4.9 mmol/L 10/22/2024 3:13 PM EDT [facility] Comment:Hemolyzed, result ma y be falsely increased. Chloride, Plasma 106 97 - 107 mmol/L 10/22/2024 3:13 PM EDT [facility] CO2, Plasma 21(L) 22 - 29 mmol/L 10/22/2024 3:13 PM EDT [facility] Anion Gap 10 6 - 16 mmol/L 10/22/2024 3:13 PM EDT [facility] Total Calcium, Plasma 9.3 8.9 - 10.2 mg/dL 10/22/2024 3:13 PM EDT [facility] Total Protein 7.6 6.3 - 7.9 g/dL 10/22/2024 3:13 PM EDT [facility] Albumin, Plasma 3.9 3.5 - 5.2 g/dL 10/22/2024 3:13 PM EDT [facility] AST, Plasma 53(H) 10 - 35 U/L 10/22/2024 3:13 PM EDT [facility] Comment:Hemolyzed, result ma y be falsely increased. ALT, Plasma 21 10 - 35 U/L 10/22/2024 3:13 PM EDT [facility] Comment:Hemolyzed, result ma y be falsely increased or decreased. Alkaline Phosphatase, Plasma 124 46 - 142 U/L 10/22/2024 3:13 PM EDT [facility] Comment:Hemolyzed, result ma y be falsely decreased. Total Bilirubin, Plasma 0.4 0.2 - 1.1 mg/dL 10/22/2024 3:13 PM EDT [facility] eGFRcr 60.4 mL/min/1.7 3m*2 10/22/2024 3:13 PM EDT [facility] Comment:Reported eGFRcr in m L/min/1.73m2 is based the CKD-EPI 2020 equation that does not use a race coefficient. Blood Venous blood specimen / Unknown Venipuncture / Unknown 10/22/2024 1:48 PM EDT 10/22/2024 2:35 PM EDT us Meri Tai MD LAB BLOOD ORDERABLES Final Re sult [facility] [address] [place] [address] * Surgical Pathology Consult (10/22/2024 10:44 AM EDT) Case Report Sugical Pathology Consult Case: [id number] Authorizing Provider: Meri Tai MD Collected: 10/22/2024 1044 Ordering Location: [facility] Lab Received: 10/22/2024 1044 Pathologist: Mely Saleh MD Specimen: Endometrium, [id number] 10/23/2024 10:45 AM EDT [facility] Final Diagnosis Outside slides Date of collection: 10/08/24 Endometrium, curettage: - Endometrial adenocarcinoma, endometrioid type, FIGO grade 2 10/23/2024 10:45 AM EDT [facility] at 1045 EDT Comment Outside IHC (reviewed): MMR panel: retained nuclear expression of mismatch-repair proteins P63: wild type 10/23/2024 10:45 AM EDT [facility] Clinical Information N95.0 - Postmenopausal bleeding [ICD-10-CM] 10/23/2024 10:45 AM EDT [facility] Gross Description A. [id number] Received along with a corresponding pathology report from [facility] Laboratory are 11 slide(s) labeled outside case: [id number] collected on 10/08/2024. 10/23/2024 10:45 AM EDT [facility] Note: A resident was involved in the service. I attest I examined the relevant preparations for the specimens and confirmed the diagnosis or interpretation. 10/23/2024 10:45 AM EDT [facility] Tissue Endometrial structure / Unknown 10/22/2024 10:44 AM EDT 10/22/2024 10:44 AM EDT us Meri Tai MD LAB PATHOLOGY ORDERABLES Valorie manning Result [facility] [address] [place] [address] from Last 3 Months Additional Health Concerns Active Problems Noted Date Diagnosed Date Autogenerated Problem 10/22/2024 Insurance MEDICARE FORMERLY [facility], [facility]–1983 Advance Directives * Full Code (Latest Code Status on File) Date Activated Date Inactivated Comments 11/25/2024 12:20 PM 11/26/2024 12:46 PM Question Answer Comments Patient has decision-making capacity? Yes Care Teams Clinical Studies Specialist Relationship Specialty Start Date End Date Owen Temple DO [address] [facility] [address] [id number] PCP - General 08/06/24 Jann Hernandes MD [address] [place] [address] #1 [address] [place] [address] 12/12/21 Chata Temple DO [address] [place] [address] [place] [address] Resident 10/14/24
--- OUTSIDE RECORDS SUMMARY | 2024-12-11 10:26 | XMS_ITS | Encounter Summary ---
Author Organization [facility] Address [address] [place] [address] Care Team Providers Care Clinical Scientist Name Role Phone Jann Hernandes MD Unavailable [phone] Owen Temple DO Primary Care Provider [phone] Chata Temple DO Unavailable [phone] Encounter Details Date Type Department Care Team (Latest Contact Info) Description 10/22/2024 Travel Social History Tobacco Use Types Packs/Day [...] [address] [place] [address] Meri Tai MD [address] [place] [address] 03/15/2025 10:10 AM EDT Appointment [facility] [address] [place] [address] 03/15/2025 11:40 AM EDT Clinical Support [place] [facility] [address], 2[address] [place] [address] 03/15/2025 12:40 PM EDT Office Visit [facility] Urology [address], 2[address] [place] [address] Sonal Cordero MD [address] [place] [address] documented as of this encounter Goals Goal Patient Goal Type Associated Problems Recent Progress Patient-Stated? Author Autogenerat ed Goal Care Plan Autogenerated Problem No Renetta Myles L documented as of this encounter Visit Diagnoses [...] as of this encounter Care Teams Clinical Scientist Relationship Specialty Start Date End Date Owen Temple DO [address] [place] [address] PCP - General 08/06/24 Jann Hernandes MD 430 [facility] [address]1 [address] [place] [address] 12/12/21 Chata Temple DO 1210 [facility] [address] [place] [address] Resident 10/14/24 documented as of this encounter
--- OUTSIDE RECORDS SUMMARY | 2024-12-11 10:26 | XMS_ITS | Encounter Summary ---
Author Organization [facility] Address [address] [id number] Care Team Providers Care Director Of Acquisitions Name Role Phone Jann Hernandes MD Unavailable [phone] Owen Temple DO Primary Care Provider [phone] Chata Temple DO Unavailable [phone] Encounter Details Date Type Department Care Team (Late Contact Info) Description 12/04/2024 Results Follow-Up [facility] [address] [place] [address] Stephanie Proctor MD [address] [place] [address] Social History Tobacco Use Types Packs/Day Years [...] EDT Office Visit [facility] Gyne[facility] 800 [facility] [address] [place] [address] Meri Tai MD 800 [facility] [address] [place] [address] 03/15/2025 10:10 AM EDT Appointment [facility] [address] [place] [address] 03/15/2025 11:40 AM EDT [facility] [address], 2[address] [place] [address] 03/15/2025 12:40 PM EDT Office Visit [facility] Urology [address], 2[address] [place] [address] Sonal Cordero MD [address] [place] [address] documented as of this encounter [...] documented as of this encounter Care Teams Director Of Acquisitions Relationship Specialty Start Date End Date Owen Temple DO [address] [place] [address] PCP - General 08/06/24 Jann Hernandes MD [address] [place] [address] #1 [address] [place] [id number] 12/12/21 Chata Temple DO [address] [place] [address] Resident 10/14/24 documented as of this encounter
--- OUTSIDE RECORDS SUMMARY | 2024-12-11 10:26 | XMS_ITS | Encounter Summary ---
Author Organization [facility] Address [address] [place] [address] Care Team Providers Care Stencil Inspector Name Role Phone Jann Hernandes MD Unavailable [phone] Owen Temple DO Primary Care Provider [phone] Chata Temple DO Unavailable [phone] Reason for Visit * Reason Onset Date Comments HCN - Patient Message 11/25/2024 Reschedule Encounter Details Date Type Department Care Team (Late st Contact Info) Description 11/25/[address] [facility] Urology [address], 2[address] [place] [address] Clark Mathews MD [address] [place] [address] HCN - Patient Message (Reschedule ) Social History Tobacco Use Types Packs/Day Years [...] Risk Indicated 11/26/2024 8:00 AM EDT Yesenia Ku, RN * Question Answer Date of Assessment Author 1. Wish to be (Past 1 Month) No 025 8:00 AM EDT Yesenia Ku, RN 2. Non-Specific Active Suici hussain Thoughts (Past 1 Month) No 11/26/2024 8:00 AM EDT Comfort Ku RN 6. Suicidal Behavior (Lifetime) No 8:00 AM EDT Yesenia Ku, RN documented as of this encounter Miscellaneous Notes * Telephone Encounter - Jennifer Bermudez - 11/25/2024 2:16 PM EDT Patient Phone Message Reason for Call: Ebony requesting a return call to reschedule 11/30 CT, lab, and cysto rescheduled due to pt having a hysterectomy today. Best contact number and optimal time of day to reach caller: [phone] Note: Please do not reply to this message. Follow-up communication and further actions as a result of this message need to be communicated with the patient directly, if the patient is not active onMyChart. If the patient is active on MyChart, they will receive notification of the communication/outcome via [employer]. documented in this encounter Plan of Treatment Upcoming Encounters Date Type Department Care Team (Late st Contact Info) Description 12/28/2024 9:30 AM EDT Office Visit [facility] Gyne[facility] [address] [place] [address] Meri Tai MD [address] [place] [address] 03/15/2025 10:10 AM EDT Appointment [facility] [address] [place] [address] 03/15/2025 11:40 AM EDT Clinical Support [place] [facility] [address], [address] [place] [address] 03/15/2025 12:40 PM EDT Office Visit [facility] Urology [address], [address] [place] [address] Sonal Cordero MD [address] [place] [address] documented as of this encounter [...] documented as of this encounter Care Teams Stencil Inspector Relationship Specialty Start Date End Date Owen Temple DO 1210 [facility] [address] [place] [address] PCP - General 08/06/24 Jann Hernandes MD [address] [place] [address] [address]1 [address] [place] [address] 12/12/21 Chata Temple DO [address] [place] [address] Resident 10/14/24 documented as of this encounter
--- OUTSIDE RECORDS SUMMARY | 2024-12-11 10:26 | XMS_ITS | Encounter Summary ---
Author Organization [facility] Address [address] [place] [address] Care Team Providers Care Chargeback Analyst Name Role Phone Jann Hernandes MD Unavailable [phone] Owen Temple DO Primary Care Provider [phone] Chata Temple DO Unavailable [phone] Encounter Details Date Type Department Care Team (Latest Contact Info) Description 11/12/2024 Travel Social History Tobacco Use Types Packs/Day [...] [address] [place] [address] Meri Tai MD [address] [place] [address] 03/15/2025 10:10 AM EDT Appointment [facility] [address] [place] [address] 03/15/2025 11:40 AM EDT Clinical Support [place] [facility] [address], 2nd [place] [address] 03/15/2025 12:40 PM EDT Office Visit [facility] Urology [address], 2nd [place] [address] Sonal Cordero MD [address] [place] [address] documented as of this encounter Goals Goal [...] documented as of this encounter Care Teams Chargeback Analyst Relationship Specialty Start Date End Date Owen Temple DO 1210 [facility] [address] [place] [address] PCP - General 08/06/24 Jann Hernandes MD [address] [place] [address] #1 [address] [place] [address] 12/12/21 Chata Temple DO [address] [place] [address] Resident 10/14/24 documented as of this encounter
--- OUTSIDE RECORDS SUMMARY | 2024-12-11 10:26 | XMS_ITS | Encounter Summary ---
Author Organization [facility] Address [address] 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 ([facility]) Coty Cowan MD [address] [address] Phone: tel: fax: Referral ID Status Reason Start Date Expiration Date Visits Requested Visits Authorized [id number] Authorized Specialty Services Required 12/17/2023 06/17/2025 1 1 Encounter Details Date Type Department Care Team (Latest Contact Info) Description 12/17/2023 [facility] [address] [place] [address] Coty Cowan MD [address] [place] [address] 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 (Primary Dx); 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 (CMS/HCC) Social History Tobacco Use Types Packs/Day Years Used Date Smoking Tobacco: Never Smokeless Tobacco: Never Alcohol Use Standard Drinks/Week Comments Not Currently 0 (1 standard drink = 0.6 oz pur e alcohol) PHQ-2 Answer Date Recorded Patient Health Questionnaire-2 Score 0 12/17/2023 Comments Unknown Sex and Gender Information Value [...] pleasure in doing things Not at all 12/17/2023 8:20 AM EDT Meghana Childers LPN Feeling down, depressed, or hopeless Not at all 12/17/2023 8:20 AM EDT Meghana Childers LPN Patient Health Questionnaire -2 Score 0 12/17/2023 8:20 AM EDT Meghana Childers LPN documented as of this encounter Plan of Treatment Upcoming Encounters Date Type Department Care Team (Late st Contact Info) Description 12/28/2024 9:30 AM EDT Office Visit [facility] [address] [place] [address] Meri Tai MD [address] [facility] [address] [place] [address] 03/15/2025 10:10 AM EDT Appointment [facility] Radiology [address] [place] [address] 03/15/2025 11:40 AM EDT Clinical Support [facility] Lab [address], 2nd [place] [address] 03/15/2025 12:40 PM EDT Office Visit [place] [facility] [address], [address] [place] [address] Sonal Cordero MD [address] [place] [address] Scheduled Referrals Name Type Priority Associated Diagnoses Orde r Schedule Ambulatory referral to Optometry Outpatient Referral Routine 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 (CMS/HCC) 1 Occurrences starting 12/17/2023 until 06/18/2025 documented as of this encounter Visit Diagnoses Diagnosis 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- Primary 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 (CMS/HCC) documented in this encounter Additional Health Concerns Assessment Noted Time A fall risk assessment has been complete d for the patient 12/17/2023 8:21 AM EDT A Body Mass Index follow-up plan has been documented for the patient 12/17/2023 9:21 AM EDT documented as of this encounter Care Teams General Merchandise Salesperson Relationship Specialty Start Date End Date Zoran Nava MD [address] [place] [address] PCP - General 10/28/20 08/05/24 Owen Temple DO 1210 [facility] [address] [place] [id number] PCP - General 08/06/24 Jann Hernandes MD [address] [place] [address] [address]1 [address] [place] [id number] 12/12/21 Chata Temple DO 1210 [place] [facility] [address] [place] [address] Resident 10/14/24 documented as of this encounter
--- OUTSIDE RECORDS SUMMARY | 2024-12-11 10:26 | XMS_ITS | Encounter Summary ---
Author Organization [facility] Address [address] [id number] Care Team Providers Care Knocker Off Name Role Phone Jann Hernandes MD Unavailable [phone] Owen Temple DO Primary Care Provider [phone] Chata eTmple DO Unavailable [phone] Encounter Details Date Type Department Care Team (Late st Contact Info) Description 11/12/2024 Telephone [facility]cology 800 [facility] [address] [place] [address] Meri Tai MD [address] [facility] [address] [place] [address] Social History Tobacco Use Types Packs/Day Years [...] encounter Miscellaneous Notes * Telephone Encounter - Stephanie Proctor MD - 11/12/2024 3:56 PM EDT Called patient, started to talk about results and she lost service. Tried multiple times and went to . Called son and discussed results, no e/o cancer outside uterus. He will let patient know Stephanie BRITO Fellow * Telephone Encounter - ChuckyfranciscoMarquisemau Castro - 11/12/2024 2:[address]'s CT report is in media. Surgery is on 11/25. Images are being pushed. documented in this encounter Plan of Treatment Upcoming Encounters Date Type Department Care Team (Late st Contact Info) Description 12/28/2024 9:30 AM EDT Office Visit [facility] [address] [place] [address] Meri Tai MD [address] [facility] [address] [place] [address] 03/15/2025 10:10 AM EDT Appointment [facility] Radiology [address] [place] [address] 03/15/2025 11:40 AM EDT Clinical Support [facility] Lab [address], 2nd [place] [address] 03/15/2025 12:40 PM EDT Office Visit [facility] Urology [address], [address]nd [place] [address] Sonal Cordero MD [address] [place] [address] documented as of this encounter Goals Goal [...] documented as of this encounter Care Teams Knocker Off Relationship Specialty Start Date End Date Owen Temple DO 1210 [facility] [address] [place] [address] PCP - General 08/06/24 Jann Hernandes MD [address] [place] [address] #1 [address] [place] [address] 12/12/21 Chata Temple DO 1210 [facility] [address] [place] [address] Resident 10/14/24 documented as of this encounter
--- OUTSIDE RECORDS SUMMARY | 2024-12-11 10:26 | XMS_ITS | Encounter Summary ---
Author Organization [facility] Address [address] [place] [address] Care Team Providers Care Professor Of Pathology Name Role Phone Jann Hernandes MD Unavailable [phone] Owen Temple DO Primary Care Provider [phone] Chata Temple DO Unavailable [phone] Encounter Details Date Type Department Care Team (Latest Contact Info) Description 11/25/2024 Travel Social History Tobacco Use Types Packs/Day [...] Author No Risk Indicated 11/25/2024 6:00 AM Guerline Suresh RN * Question Answer Date of Assessment Author 1. Wish to be (Past 1 Month) No 025 6:00 AM Guerline Suresh, RN 2. Non-Specific Active Suici hussain Thoughts (Past 1 Month) No 11/25/2024 6:00 AM Guerline Suresh RN 6. Suicidal Behavior (Lifetime) No 6:00 AM EDT Guerline Vaz, RN documented as of this encounter Plan of Treatment Upcoming Encounters Date Type Department Care Team (Late st Contact Info) Description 12/28/2024 9:30 AM EDT Office Visit [facility] [address] [place] [address] Meri Tai MD [address] [place] [address] 03/15/2025 10:10 AM EDT Appointment [facility] [address] [place] [address] 03/15/2025 11:40 AM EDT Clinical Support [facility] Lab [address] [place] [address] 03/15/2025 12:40 PM EDT Office Visit [facility] Urology [address], [address] [place] [address] Sonal Cordero MD [address] [place] [address] documented as of this encounter Goals Goal [...] documented as of this encounter Care Teams Professor Of Pathology Relationship Specialty Start Date End Date Owen Temple DO [address] [place] [address] PCP - General 08/06/24 Jann Hernandes MD [address] [place] [address] [address]1 [address] [place] [address] 12/12/21 Chata Temple DO 1210 [place] [facility] [address] [place], [place] [address] Resident 10/14/24 documented as of this encounter
--- OUTSIDE RECORDS SUMMARY | 2024-12-11 10:26 | XMS_ITS | Encounter Summary ---
Author Organization [facility] Address [address] [id number] Care Team Providers Care Medicare Sales Executive Name Role Phone Jann Hernandes MD Unavailable [phone] Owen Temple DO Primary Care Provider [phone] Chata Temple DO Unavailable [phone] Encounter Details Date Type Department Care Team (Late st Contact Info) Description 11/03/2024 Telephone [facility] [address] [facility] [address] [place] [address] Meri Tai MD [address] [facility] [address] [place] [address] Social History Tobacco Use Types [...] encounter Miscellaneous Notes * Telephone Encounter - Aisha Cross - 11/03/2024 10:03 AM EDT Pt scheduled for CT CAP at [facility] on 11/12 at 9:15AM. Pt is aware. documented in this encounter Plan of Treatment Upcoming Encounters Date Type Department Care Team (Late st Contact Info) Description 12/28/2024 9:30 AM EDT Office Visit [facility] [address] [place] [address] Meri Tai MD [address] [place] [address] 03/15/2025 10:10 AM EDT Appointment [facility] [address] [place] [address] 03/15/2025 11:40 AM EDT Clinical Support [facility] Lab [address] [place] [address] 03/15/2025 12:40 PM EDT Office Visit [facility] Urology [address] [place] [address] Sonal Cordero MD [address] [place] [address] documented as of this encounter Goals Goal [...] documented as of this encounter Care Teams Medicare Sales Executive Relationship Specialty Start Date End Date Owen Temple, [address] [place], [place] [id number] PCP - General 08/06/24 Jann Hernandes MD [address] [place] [address] [address]1 [address] [place] [address] 12/12/21 Chata Temple DO [address] [place], [facility] Resident 10/14/24 documented as of this encounter
== END 2024-12-10 23:59 | disposition home or self-care (01) ==
LOC: LAB.DROPOF 12-11 10:24
PROVIDERS: PCP Internal Medicine; Visit Provider Internal Medicine
DX: R10.2 Pelvic and perineal pain (principal); R41.82 Altered mental status, unspecified; R39.9 Unspecified symptoms and signs involving the genitourinary system
CPT/HCPCS: 81001; 87086; 87088; 87186

== ENCOUNTER 2024-12-18 14:32 | Emergency (ER) | payer MEDICARE, BC, SELFPAY ==
--- OUTSIDE RECORDS SUMMARY | 2024-10-22 11:00 | XMS_ITS | Encounter Summary ---
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 Glycemic Targets for Type I and Type II Diabetics: Non- Adults <7.0% Adults <6.0% Children and Adolescents <7.5% Source: [place] [employer]. Standards of medical care in diabetes,2017. Diabetes Care.2017:40 (suppl 1):S1-S135. us Meri Tai MD LAB BLOOD ORDERABLES Final Re sult [facility] [address] [place] [address] * CBC W/O Differential (10/22/2024 1:48 PM EDT) WBC Count 6.58 3.70 - 10.30 10*3/uL LAB HEMATOLOGY METHOD 10/22/2024 3:15 PM EDT [facility] RBC Count 4.32 3.90 - 5.20 10*6/uL LAB HEMATOLOGY METHOD 10/22/2024 3:15 PM EDT [facility] HGB 13.8 11.2 - 15.7 g/dL LAB HEMATOLOGY METHOD 10/22/2024 3:15 PM EDT [facility] HCT 41.2 34.0 - 45.0 % LAB HEMATOLOGY METHOD 10/22/2024 3:15 PM EDT [facility] Platelet Count 311 155 - 369 10*3/uL LAB HEMATOLOGY METHOD 10/22/2024 3:15 PM EDT [facility] MCV 95 79 - 98 fL LAB HEMATOLOGY METHOD 10/22/2024 3:15 PM EDT [facility] MCH 31.9 26.0 - 32.0 pg LAB HEMATOLOGY METHOD 10/22/2024 3:15 PM EDT [facility] MCHC 33.5 30.7 - 35.5 g/dL LAB HEMATOLOGY METHOD 10/22/2024 3:15 PM EDT [facility] RDW 13.1 11.5 - 14.5 % LAB HEMATOLOGY METHOD 10/22/2024 3:15 PM EDT [facility] MPV 12.3 8.8 - 12.5 fL LAB HEMATOLOGY METHOD 10/22/2024 3:15 PM EDT [facility] nRBC 0.0 <=0.0 per 100 WBCs LAB HEMATOLOGY METHOD 10/22/2024 3:15 PM EDT [facility] Blood Venous blood specimen / Unknown Venipuncture / Unknown 10/22/2024 1:48 PM EDT 10/22/2024 3:05 PM EDT us Meri Tai MD LAB BLOOD ORDERABLES Final Re sult [facility] [address] [place] [address] * (ABNORMAL) Comprehensive metabolic panel (10/22/2024 1:48 PM EDT) Glucose, Plasma 113(H) 74 - 99 mg/dL 10/22/2024 3:13 PM EDT [facility] BUN, Plasma 25(H) 8 - 23 mg/dL 10/22/2024 3:13 PM EDT [facility] Creatinine, Plasma 0.91 0.60 - 1.10 mg/dL 10/22/2024 3:13 PM EDT [facility] BUN/Creatinine Ratio 27 10/22/2024 3:13 PM EDT [facility] Sodium, Plasma 137 136 - 145 mmol/L 10/22/2024 3:13 PM EDT [facility] Potassium, Plasma 5.2(H) 3.6 - 4.9 mmol/L 10/22/2024 3:13 PM EDT [facility] Comment:Hemolyzed, result ma y be falsely increased. Chloride, Plasma 106 97 - 107 mmol/L 10/22/2024 3:13 PM EDT [facility] CO2, Plasma 21(L) 22 - 29 mmol/L 10/22/2024 3:13 PM EDT [facility] Anion Gap 10 6 - 16 mmol/L 10/22/2024 3:13 PM EDT [facility] Total Calcium, Plasma 9.3 8.9 - 10.2 mg/dL 10/22/2024 3:13 PM EDT [facility] Total Protein 7.6 6.3 - 7.9 g/dL 10/22/2024 3:13 PM EDT [facility] Albumin, Plasma 3.9 3.5 - 5.2 g/dL 10/22/2024 3:13 PM EDT [facility] AST, Plasma 53(H) 10 - 35 U/L 10/22/2024 3:13 PM EDT [facility] Comment:Hemolyzed, result ma y be falsely increased. ALT, Plasma 21 10 - 35 U/L 10/22/2024 3:13 PM EDT [facility] Comment:Hemolyzed, result ma y be falsely increased or decreased. Alkaline Phosphatase, Plasma 124 46 - 142 U/L 10/22/2024 3:13 PM EDT [facility] Comment:Hemolyzed, result ma y be falsely decreased. Total Bilirubin, Plasma 0.4 0.2 - 1.1 mg/dL 10/22/2024 3:13 PM EDT [facility] eGFRcr 60.4 mL/min/1.7 3m*2 10/22/2024 3:13 PM EDT [facility] Comment:Reported eGFRcr in m L/min/1.73m2 is based the CKD-EPI 2020 equation that does not use a race coefficient. Blood Venous blood specimen / Unknown Venipuncture / Unknown 10/22/2024 1:48 PM EDT 10/22/2024 2:35 PM EDT us Meri Tai MD LAB BLOOD ORDERABLES Final Re sult [facility] [address] [place] [address] documented in this encounter Visit Diagnoses Diagnosis Endometrial adenocarcinoma (CMS/HCC)- Primary Personal history of other endocrine, nutritional and metabolic disease documented in this encounter Additional Health Concerns Active Problems Noted Date Diagnosed Date Autogenerated Problem 10/22/2024 Assessment Noted Time A fall risk assessment has been complete d for the patient 10/22/2024 12:17 PM EDT A Body Mass Index follow-up plan has been documented for the patient 08/06/2024 12:03 PM EST documented as of this encounter Care Teams Inserting Operator Relationship Specialty Start Date End Date Owen Temple DO [address] [place] [address] PCP - General 08/06/24 Jann Hernandes MD [address] [place] [address] #1 #1 [place] [id number] 12/12/21 Chata Temple DO [address] [place] [address] Resident 10/14/24 documented as of this encounter
--- OUTSIDE RECORDS SUMMARY | 2024-11-13 12:30 | XMS_ITS | Encounter Summary ---
Author Organization Healthcare Address [address] [place] [address] Care Team Providers Care Sand Mill Grinder Name Role Phone Jann Hernandes MD Unavailable [phone] Owen Temple DO Primary Care Provider [phone] Chata Temple DO Unavailable [phone] Encounter Details Date Type Department Care Team (Latest Contact Info) Description 11/13/2024 12:30 PM EDT Pre-Admission Testing [facility] [address], [address] [place] [address] Preop examination (Primary Dx) Social [...] Miscellaneous Notes * PAT Evaluation Note - aVsu Hooker APRN - 11/13/2024 12:30 PM EDT HPI Caty Zayas is a 89 y.o. 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 [place] Medical History[1] Family History[2] Social History[3] SURGICAL [...] tamsulosin, Take 1 capsule by mouth daily. pxiwnpzoyncl-qnnhdgkv-ahqjs acid-coenzyme q10, Take 1 capsule by mouth [...] fibrillation, CAD, CHF, dysrhythmias, murmur, pacemaker, past [place] or syncope. hypertension: is well controlled. Exercise [...] INR 2.5 to 3.5 Prevention of recurrent [place] INR 2.5 to 3.5 INR 02/13/2016 0.9 (NOTE) OPTIMAL INR RANGES FOR PATIENT ON ORAL ANTICOAGULANT THERAPY Prevention of venous thromboembolism INR 2.0 to 3.0 In patients with heart disease: Atrial fibrillation INR 2.0 to 3.0 Valvular heart disease INR 2.0 to 3.0 Tissue heart valves INR 2.0 to 3.0 Mechanical prosthetic valves INR 2.5 to 3.5 Prevention of recurrent [place] INR 2.5 to 3.5 Visit Vitals BP [...] last evaluated in outpatient cardiology clinic at [facility] on 10/06/24. At the time of [...] card, photo ID, along with power of health care attorney, guardianship or advanced directives if applicable [...] Gynecology [address] [place] [id number] Meri Tai MD [address] [place] [address] [place] [address] 03/15/2025 10:10 AM EDT Appointment [facility] [address] [place] [address] 03/15/2025 11:40 AM EDT Clinical Support [facility] [address] [place] [address] 03/15/2025 12:40 PM EDT Office Visit [facility] [address], [address] [place] [address] Sonal Cordero MD [address] [place] [address] documented as of this encounter [...] documented as of this encounter Care Teams Sand Mill Grinder Relationship Specialty Start Date End Date Owen Temple DO [address] [facility] [address] [address] [address] PCP - General 08/06/24 Jann Hernandes MD [address] [place] [address] [address] [address] 12/12/21 Chata Temple DO [address] [place] [address] Resident 10/14/24 documented as of this encounter
--- OUTSIDE RECORDS SUMMARY | 2024-11-25 05:35 | XMS_ITS | Encounter Summary ---
Author Organization [facility] Address [address] [place] [address] Care Team Providers Care Health Informatics Advisor Name Role Phone Jann Hernandes MD Unavailable [phone] Owen Temple DO Primary Care Provider [phone] Chata Temple DO Unavailable [phone] Reason for Visit * Auth/Cert (Routine) Specialty Diagnoses / Procedures Referred By Contac t Referred To Contact Diagnoses Endometrial adenocarcinoma (CMS/HCC) Endometrial adenocarcinoma ([facility]/HCC) [C54.1] Procedures [place] LAPAROSCOPY W TOT HYSTERECTUTERUS <=250 GRAM W TUBE/OVARY [place] INTRAOPERATIVE SENTINEL LYMPH NODE ID W DYE INJECTION [place] LAP,PELVIC LYMPHADENECTOMY Robot TLHBSO SLN Meri Tai MD [address] [facility] [address] [facility] [address] [place] [address] Phone: tel: fax: [facility] [address] [place] [address] Phone: tel: Referral ID Status Reason Start Date Expiration Date Visits Re quested Visits Authorized [id number] 1 1 Encounter Details Date Type Department Care Team (Late st Contact Info) Description 11/25/2024 5:35 AM EDT - 11/26/2024 10:41 AM EDT Hospital Encounter [facility] [address] [place] [address] Meri Tai MD [address] [place] [address] [place] [address] Endometrial adenocarcinoma ([facility]/HCC) Discharge Disposition: Home or Self Care Social History Tobacco Use Types Packs/Day Years [...] Sign Reading Time Taken Comments Blood Pressure 155/65 11/26/2024 7:00 AM EDT Pulse 76 11/26/2024 7:00 AM EDT Temperature 36.8 C (98.2 F) 11/26/2024 7:00 AM EDT Respiratory Rate 16 11/26/2024 7:00 AM EDT Oxygen Saturation 94% 11/26/2024 7:00 AM EDT Inhaled Oxygen Concentration - - Weight - - Height - - Body Mass Index - - documented in this encounter Functional Status * [...] 0 01/2025 12:16 PM EDT Sameera Parnell * Calculated C-SSRS Risk Score (Lifetime/Recent) Answer Date of Assessment Author No Risk Indicated 11/26/2024 8:00 AM EDT Yesenia Ku RN * Question Answer Date of Assessment Author 1. Wish to be (Past 1 Month) No 025 8:00 AM EDT Yesenia Ku RN 2. Non-Specific Active Suici hussain Thoughts (Past 1 Month) No 11/26/2024 8:00 AM EDT Comfort Ku, RN 6. Suicidal Behavior (Lifetime) No 5 8:00 AM EDT Yesenia Ku, RN documented as of this encounter Discharge Instructions * Discharge Instructions* Chela Mendoza MD - 11/26/2024 10:01 AM EDT Follow-Up / Post Discharge Instructions Medication Recommendations: - Okay to resume home medications - Take all medications as prescribed. - Acetaminophen (Tylenol) 650mg every 4-hrs alternating with ibuprofen 600mg every 6hrs for pain control. - Take oxycodone 5mg q4h prn pain -Take Lovenox once a day for 7 days. Do not take any other blood thinner during this time. Activity recommendations + restrictions: - Do not lift > 5lbs - Okay to resume regular diet at home - Move around as you are able - No driving for 24hours or while taking narcotic pain medications - Nothing in the vagina for 6 weeks - no tampons/sex/douching - Okay to shower, no tub bath for 6 weeks - No submersion in water including pools, hot tubs, etc for 6 weeks - Leave steri strips in place if you have them. If still present after 10 days, can remove. - Let warm soapy water run over incision, do not scrub. Pat dry. Call MD ux interaction designer for [facility] service if: - you have a fever of 100.4 F or more - vaginal bleeding similar to a period - uncontrolled pain - difficulty with urination - persistent nausea/vomiting Follow up: A message to the clinic has been sent to schedule your appointment, but if you do not hear from them in 2-3 business days, please call the number below to confirm an appointment. Dr. Meri Tai - [facility] [address] [facility] [address], [place] [address] documented in this encounter Medications at Time of Discharge acetaminophen (Tylenol) 325 MG tablet Take 2 tablets by mouth every 8 hours. Under [place] law, monthly prescriptions (30 days) can be refilled at 25 days and three-month prescriptions (90 days) at 80 days. Please contact the insurance company with questions if refills are denied. 100 tablet 1 5 amLODIPine-benazepr il (Lotrel) 10-40 MG capsule Take 1 capsule by mouth daily. 2 bethanechol (Urecholine) 50 MG tablet Take 1 tablet (50 mg) by mouth 4 (four) times a day. 120 tablet 11 5 08/06/19 26 ibuprofen 600 MG tablet Take 1 tablet by mouth every 6 hours. 100 tablet 5 losartan (Cozaar) 50 MG tablet Take 1 tablet by mouth daily. meloxicam (Mobic) 15 MG tablet Take by mouth daily. 5 multivitamin-minera ls-folic acid-coenzyme q10 (Preservision AREDS 2) capsule Take 1 capsule by mouth daily. omeprazole (PriLOSEC) [address] capsule Take by mouth daily. 2 ondansetron ODT (Zofran-ODT) 4 MG disintegrating tablet Dissolve 1 tablet on the tongue every 6 hours as needed for nausea or vomiting. 10 tablet 5 oxyCODONE (Roxicodone) 5 MG immediate release tablet Take 1 tablet by mouth 1 time as needed (pain score of 3-5 out of 10). 3 tablet 5 pantoprazole (Protonix) 40 MG EC tablet Take 1 tablet by mouth 2 times a day. 5 senna-docusate (Helena-Colace) 8.6-50 MG tablet Take 1 tablet by mouth daily. 30 tablet 1 5 simvastatin (Zocor) 40 MG tablet Take by mouth nightly. 2 enoxaparin (Lovenox) 40 MG/0.4ML solution prefilled syringe Inject 0.4 mL under the skin daily for 7 days. 2.8 mL 5 12/04/19 25 tamsulosin (Flomax) 0.4 MG 24 hr capsule Take 1 capsule by mouth daily. 06/27/20 25 documented as of this encounter Miscellaneous Notes * Hospital Course - Chela Mendoza MD - 11/26/2024 10:41 AM EDT Caty Zayas is a 89 y.o. with Grade 2 EAC admitted for surgical management who underwent RA-TLH/BSO on 11/25. The operation was uncomplicated and the patient tolerated the procedure well. See operative report for full details. Final pathology pending at time of discharge. Following surgery, the patient received routine post-operative care. Home medications were restarted. The patient was treatedwith heparin and Pepcid for DVT and GI prophylaxis, respectively. Her pain was controlled with PO medications. Her diet was advanced per routine. Upon discharge, patient was tolerating po, ambulatingand voiding spontaneously. She was discharged to home on POD#1 with 7 days of Lovenox (per Caprini score) and scheduled to follow up in clinic with Dr. Tai in 4 weeks. * Discharge Summary - Chela Mendoza MD - 11/26/2024 10:02 AM EDT Hospitalization Admit Date/Time: 11/25/2024 5:35 AM Admitting Attending: Meri Tai Discharge Date: 11/26/24 Discharge Attending Physician: Meri Tai MD PCP name and Address: Owen Temple, [address] [place] [address] Referring provider name and address: Chata Temple, [address] [place] [address] Chief Concern, Brief History of Present Illness, and Hospital Course Caty Zayas is a 89 y.o. with Grade 2 EAC admitted for surgical management who underwent RA-TLH/BSO on 11/25. The operation was uncomplicated and the patient tolerated the procedure well. See operative report for full details. Final pathology pending at time of discharge. Following surgery, the patient received routine post-operative care. Home medications were restarted. The patient was treatedwith heparin and Pepcid for DVT and GI prophylaxis, respectively. Her pain was controlled with PO medications. Her diet was advanced per routine. Upon discharge, patient was tolerating po, ambulatingand voiding spontaneously. She was discharged to home on POD#1 with 7 days of Lovenox (per Caprini score) and scheduled to follow up in clinic with Dr. Tai in 4 weeks. Surgeries and Procedures Robot TLHBSO SLN (Bilateral) Medication List .. acetaminophen 325 MG tablet Commonly known as: Tylenol Take 2 tablets by mouth every 8 hours. Under [place] law, monthly prescriptions (30 days) can be refilled at 25 days and three-month prescriptions (90 days) at 80 days. Please contact the insurance company with questions if refills are denied. amLODIPine-benazepril 10-40 MG capsule Commonly known as: Lotrel Take 1 capsule by mouth daily. bethanechol 50 MG tablet Commonly known as: Urecholine Take 1 tablet (50 mg) by mouth 4 (four) times a day. enoxaparin 40 MG/0.4ML solution prefilled syringe Commonly known as: Lovenox Inject 0.4 mL under the skin daily for 7 days. ibuprofen 600 MG tablet Take 1 tablet by mouth every 6 hours. losartan 50 MG tablet Commonly known as: Cozaar Take 1 tablet by mouth daily. meloxicam 15 MG tablet Commonly known as: Mobic Take by mouth daily. ondansetron ODT 4 MG disintegrating tablet Commonly known as: Zofran-ODT Dissolve 1 tablet on the tongue every 6 hours as needed for nausea or vomiting. oxyCODONE 5 MG immediate release tablet Commonly known as: Roxicodone Take 1 tablet by mouth 1 time as needed (pain score of 3-5 out of 10). pantoprazole 40 MG EC tablet Commonly known as: Protonix Take 1 tablet by mouth 2 times a day. senna-docusate 8.6-50 MG tablet Commonly known as: Helena-Colace Take 1 tablet by mouth daily. simvastatin 40 MG tablet Commonly known as: Zocor Take by mouth nightly. tamsulosin 0.4 MG 24 hr capsule Commonly known as: Flomax Take 1 capsule by mouth daily. . lysxwyuazgei-vqnqxrsc-vrqal acid-coenzyme q10 capsule Take 1 capsule by mouth daily. omeprazole [address] capsule Commonly known as: PriLOSEC Take by mouth daily. Where to Get Your Medications These medications were sent to [facility] - [place], [place] - [address] [facility] [id number] acetaminophen 325 MG tablet enoxaparin 40 MG/0.4ML solution prefilled syringe ibuprofen 600 MG tablet ondansetron ODT 4 MG disintegrating tablet oxyCODONE 5 MG immediate release tablet senna-docusate 8.6-50 MG tablet Discharge Diagnosis Medical Problems Active and Resolved Hospital Problems Hospital * (Principal) Endometrial adenocarcinoma (CMS/HCC) Endometrial cancer (CMS/HCC) Gastroesophageal reflux disease without esophagitis Post Discharge Instructions Follow-Up / Post Discharge Instructions Medication Recommendations: - Okay to resume home medications - Take all medications as prescribed. - Acetaminophen (Tylenol) 650mg every 4-hrs alternating with ibuprofen 600mg every 6hrs for pain control. - Take oxycodone 5mg q4h prn pain -Take Lovenox once a day for 7 days. Do not take any other blood thinner during this time. Activity recommendations + restrictions: - Do not lift > 5lbs - Okay to resume regular diet at home - Move around as you are able - No driving for 24hours or while taking narcotic pain medications - Nothing in the vagina for 6 weeks - no tampons/sex/douching - Okay to shower, no tub bath for 6 weeks - No submersion in water including pools, hot tubs, etc for 6 weeks - Leave steri strips in place if you have them. If still present after 10 days, can remove. - Let warm soapy water run over incision, do not scrub. Pat dry. Call MD ux interaction designer for [facility] service if: - you have a fever of 100.4 F or more - vaginal bleeding similar to a period - uncontrolled pain - difficulty with urination - persistent nausea/vomiting Follow up: A message to the clinic has been sent to schedule your appointment, but if you do not hear from them in 2-3 business days, please call the number below to confirm an appointment. Dr. Meri Tai - [facility] [address], [place] [address] Outpatient Follow-Up Future Appointments Date Time Provider Department Center 11/30/2024 12:[address] [facility] [address] [facility] 11/30/2024 2:00 PM [facility] 11/30/2024 3:00 PM [facility] Results Pending At Discharge Pending Labs Order Current Status Surgical Pathology Exam In process Discharge Disposition/Condition Disposition: Home Condition: Stable (s/sx potential problems absent or manageable) I spent < 30 minutes of patient care and instruction time in preparation for this discharge. Chela Mendoza MD PGY-1, Obstetrics and Gynecology [facility] Cosigned by Meri Tai MD at 11/28/2024 7:24 AM EDT Associated attestation - Meri Tai MD - 11/28/2024 7:24 AM EDT I saw and evaluated the patient with the resident/fellow. I discussed the case with the resident/fellow and agree with the findings and plan as documented. * Progress Notes - Lisa Barron MD - 11/26/2024 7:57 AM EDT Gynecologic Oncology Daily Progress Note Subjective Patient did well overnight. Her pain is controlled with PO medications. Tolerating regular diet without nausea/vomiting. Voiding spontaneously. Denies fever, chills, SOA, chest pain, nausea/vomiting. Review of Systems 10-point ROS performed and negative except as per HPI. Objective Temp: [36.5 ??C (97.7 ??F)-37.3 ??C (99.1 ??F)] 36.8 ??C (98.2 ??F) Heart Rate: [57-93] 76 Resp: [12-23] 16 BP: (120-155)/(44-88) 155/65 Vitals: 11/26/24 0700 BP: (!) 155/65 Pulse: 76 Resp: 16 Temp: 36.8 ??C (98.2 ??F) SpO2: 94% I/O last 3 completed shifts: In: 1360 [P.O.:360; I.V.:1000] Out: 1380 [Urine:1380] Physical Exam: GENERAL: Alert, well-appearing, in NAD CARDIOVASCULAR: Normal rate. RESPIRATORY: Normal respiratory effort on room air GASTROINTESTINAL: Soft, appropriately tender, non-distended, no rebound or guarding. 5mm port incisions clean/dry/intact with Dermabond x5. GENITOURINARY: Deferred SKIN: Warm, dry, well-perfused. PSYCHIATRIC: AO x3, with appropriate affect, normal thought processes EXTREMITIES: Symmetric. No peripheral edema. Labs: Lab Results Component Value Date WBC 9.80 11/26/2024 HGB 11.9 11/26/2024 HCT 35.9 11/26/2024 MCV 95 11/26/2024 PLT 190 11/26/2024 GLUCOSE 141 (H) 11/26/2024 BUN 14 11/26/2024 CREATININE 0.81 11/26/2024 NA 136 11/26/2024 K 3.7 11/26/2024 CL 102 11/26/2024 CO2 24 11/26/2024 MG 1.9 11/26/2024 PHOS 3.2 11/26/2024 CALCIUM 8.7 (L) 11/26/2024 Assessment/Plan Caty Lane Prows 89 y.o. s/p RA-TLH/BSO with SLNBx . POD#1. # Post-operative - hemodynamically stable, UOP appropriate - Continue regular diet - Elias catheter anchored overnight unless patient requests removal - encourage IS and ambulation - routine post-operative care # Chronic medical conditions - HLD: continue home statin # FEN/PPx - REG / LR @ 70 mL/hr - replete lytes prn - SQH in AM, SCDs, pepcid Please page on-call [facility] resident at [phone] for questions or concerns regarding this patient's care. Lisa Barron MD PGY2 Obstetrics and Gynecology Cosigned by Meri Tai MD at 11/28/2024 7:24 AM EDT Associated attestation - Meri Tai MD - 11/28/2024 7:24 AM EDT I saw and evaluated the patient with the resident/fellow. I discussed the case with the resident/fellow and agree with the findings and plan as documented. * Yesenia Barrios RN - 11/26/2024 7:39 AM EDT Images from the original note were not included. [id number] Hysterectomy: Surgical Procedures A hysterectomy is the removal of a female's uterus. It can relieve symptoms such as severe pain andbleeding. If you have cancer, it may save your life. You will discuss what type of surgery you willhave with your healthcare provider. This will depend on your health problem. If you have any questions or concerns, let your healthcare provider know. Reaching the uterus There are several ways to reach the uterus to remove it. The best approach depends on the reason for your surgery. The three main approaches are described below: ? Vaginal. An incision is made inside the vagina. The uterus is then removed through this incision.This can be done if the uterus is not too large. ? Laparoscopic. A thin tube with a camera and a light on the end is used. This is called a laparoscope. The surgeon makes two to four small incisions in the abdomen. The scope is put through one of the incisions. The scope sends live pictures to a video screen. This allows the surgeon to see insidethe abdomen. Surgical tools are placed through the other small incisions. The uterus can be removedthrough these incisions or through an incision made in the vagina. One of the following procedures may be done: o The uterus is removed through a small incision in the vagina. This is called LAVH, or laparoscopic assisted vaginal hysterectomy. o The uterus is removed through the small incisions in the abdomen. The cervix is left in place. This is called LSH, or laparoscopic subtotal hysterectomy. o The uterus and cervix are removed through the small incisions in the abdomen. This is called TLH,or total laparoscopic hysterectomy. o During any of these procedures, robotic technique may be used. This assists the surgeon?s vision and hand movements. ? Abdominal. One incision of 4 to 6 inches is made in the abdomen. The uterus is removed through this incision. Types of hysterectomy When the uterus is removed, the cervix may be left in place. Or it may also be removed. If it?s removed, the top of the vagina is closed. In certain cases, the ovaries and fallopian tubes are also removed. ? Removing the uterus. During a total (simple) hysterectomy, the uterus and cervix are removed. During a subtotal hysterectomy, only the uterus is removed. The cervix is left in place. This is also called a supracervical hysterectomy. In either case, the ovaries remain and the fallopian tubes are usually removed to reduce the risk of future cancer related to the fallopian tubes. If you have not yet reached menopause, the ovaries will keep making hormones. You may still feel the changes of menstrual cycles. But you will not have periods and can?t become . Total hysterectomy. Subtotal hysterectomy. ? Removing the uterus, ovaries, and tubes. Along with the uterus, the ovaries and fallopian tubes may also be removed. This is called a hysterectomy with salpingo-oophorectomy. It causes the body?s estrogen levels to drop quickly. This is called ?surgical? menopause. People who have not reached menopause before surgery may have sudden symptoms. But these symptoms can be treated, most commonly through estrogen replacement therapy. Hysterectomy with salpingo-oopherectomy. Deciding on hysterectomy You and your healthcare provider can discuss the best options for you. As you decide, your providermay ask you to think about the following: ? Is your health problem getting in the way of your daily life? Is the problem getting worse? If not, might other treatments be tried first? ? Do you want to have children? If so, other treatments should be considered. ? Should the fallopian tubes be removed, too? This will reduce the chances of ovarian cancer since we now know that many ovarian cancers actually come from the tubes. ? Should the ovaries be removed, too? This is often done to treat or prevent cancer. If removal is needed, talk with your healthcare provider about estrogen replacement therapy. Risks and possible complications of a hysterectomy ? Side effects from the anesthesia ? Infection ? Bleeding, with a possible need for transfusion ? Damage to nearby organs (bladder, bowel, ureters, or nearby nerves or blood vessels) ? Blood clots in the legs or lungs ? Formation of scar tissue that may cause pain or bowel obstruction in the future (this is more common with the abdominal approach) ? Need for second surgery Last Reviewed Date: 2022 00:00:00 ?? [id number] [employer]. All rights reserved. This information is not intended as a substitute for professional medical care. Always follow your healthcare professional's instructions. * Clinician Note - Emy Whitlock MD - 11/25/2024 4:48 PM EDT NIGHT OF SURGERY NOTE: Subjective Patient doing well after surgery. Pain is controlled with TAP/PO meds. She is feeling hungry and about to try solid food. Elias catheter in place. Otherwise doing well without concern. Objective Vitals: 11/25/24 1600 BP: (!) 147/66 Pulse: 72 Resp: 14 Temp: 36.7 ??C (98.1 ??F) SpO2: 94% I/O this shift: In: 1120 [P.O.:120; I.V.:1000] Out: 1030 [Urine:1030] UOP: 530 cc of urine since surgery Physical Exam: Gen: NAD, resting comfortably CV: Regular rate Resp: Non-labored respirations Abd: soft, appropriately tender, nondistended, incisions c/d/i Ext: SCDs in place, no edema Lab Results Component Value Date WBC 6.58 10/22/2024 HGB 13.8 10/22/2024 HCT 41.2 10/22/2024 MCV 95 10/22/2024 PLT 311 10/22/2024 Assessment/Plan Caty Zayas 89 y.o. s/p RA-TLH/BSO with SLNBx . POD#0 # Post-operative - hemodynamically stable, UOP appropriate - Continue regular diet - Elias catheter anchored overnight unless patient requests removal - encourage IS and ambulation - routine post-operative care # Chronic medical conditions - HLD: continue home statin # FEN/PPx - REG, LR @ 70 mL/hr - replete lytes prn - SQH in AM, SCDs, pepcid Please page on-call [facility] resident at [phone] for questions or concerns regarding this patient's care. Emy Whitlock MD PGY-3, Obstetrics & Gynecology * Anesthesia PACU Signout - Evelio Sharp MD - 11/25/2024 12:58 PM EDT Patient: Caty Zayas Anesthesia Type: general Vitals Value Taken Time BP 131/52 11/25/24 12:45 Temp 36.5 ??C (97.7 ??F) 11/25/24 12:00 Pulse 59 11/25/24 12:57 Resp 17 11/25/24 12:57 SpO2 96 % 11/25/24 12:57 Vitals shown include unfiled device data. Anesthesia PACU Signout Patient location during evaluation: PACU Patient participation: complete - patient participated Level of consciousness: baseline and awake Pain management: adequate (pain score 0-3) Airway patency: natural airway Hydration status: acceptable PONV: none Cardiovascular status: acceptable and hemodynamically stable Respiratory status: acceptable, spontaneous ventilation, unassisted and nonlabored ventilation Discharge Disposition: admit to inpatient unit Cosigned by Shoshana Francisco MD at 11/25/2024 2:04 PM EDT Associated attestation - Shoshana Francisco MD - 11/25/2024 2:04 PM EDT Agree with above assessment and evaluation from resident/SEWER PIPE LAYER HELPER. * Op Note - Stephanie Proctor MD - 11/25/2024 8:35 AM EDT Operative Note Date: 11/25/24 Location: [facility] Name: Caty Zayas, : 1935, Diagnoses: Pre-op Diagnosis Endometrial adenocarcinoma (CMS/HCC) Post-op Diagnosis Endometrial adenocarcinoma (CMS/HCC) Procedure(s): RA-TLH, BSO, SLNBx Attending Surgeon(s): * Meri Tai - Primary Ultrasound Sonographer(s): * Stephanie Proctor MD - Fellow Anesthesia: General ASA: III Blood Administration: Blood Product Administration History None Estimated Blood Loss: Minimal Drains: Urethral Catheter Non-latex 16 Fr. (Active) Site Assessment Clean;Skin intact 11/25/24 1200 Output (mL) 325 mL 11/25/24 1600 Specimen: Specimens ID Source Frozen? 1 [place] Lymph Node No Description: right obturator sentinel lymph node 2 Uterus No Description: UTERUS, CERVIX, BILATERAL TUBES AND OVARIES 3 [place] Lymph Node No Description: LEFT COMMON ILIAC SENTINEL LYMPH NODE Findings: 6cm uterus, dense adhesions from cecum to pericolic gutter up to the anterior abdominal wall, normal appearing appendix, sigmoid adhesions to left IP and sidewall. Inflammatory retroperitoneal spaces. SLN mapping to right obturator and left common iliac. Indications: Caty Zayas is an 89 y.o. female who is having surgery for Endometrial adenocarcinoma (CMS/HCC). Narrative: The patient was brought to the operating room after signing informed consent. The patient was induced with general anesthesia. The patient was placed in dorsal lithotomy position using Nikos Stirrups. The vagina was prepped and a Elias catheter was placed. Next, a speculum was inserted into the vagina. The cervix was visualized and grasped with a single tooth tenaculum. The cervix was injected with 4 mL of ICG dye. Injection occurred at 3 and 9 o'clock. One mL of ICG was given superficially anddeep (4 ml Total). The cervix was sounded and dilated. A [employer] uterine manipulator was placed. Thepatient???s arms were tucked and the patient was placed on an pink foam pad to prevent sliding. The abdomen was prepped in usual fashion. A LUQ port was placed in the midclavicular, 25 cm above the pubic symphysis. An optiview trocar andcamera were used to obtain direct entry into the abdominal cavity. The abdomen was insufflated withheated CO2 gas to a pressure of 15 mm Hg. No injuries were noted to bowel or vascular structures. The patient was placed in 25 degrees of trendelenburg. Four robotic ports were placed in a line perpendicular to the axis of the patient. The line was roughly 20 cm superior to the pubic symphysis. Theports were by 8-10 cm. The robot was docked. The surgery took place using a bipolar Cautier grasper (left arm), monopolar scissors (right arm) and an atraumatic grasper (3rd arm). Inspection of the pelvis and aorta for ICG dye was systematically performed. Rochelle LNs were seen at the left common iliac LN group and the right obturator LN group. The left round ligament was grasped and cauterized. The retroperitoneal space was explored and the ureter identified. The left IP ligament was skeletonized and cauterized. The left IP was transected and the ovary was freed of its adnexal attachments. The sentinel LN was grasped and from surrounding structures such as the iliac artery, vein and ureter. Cautery was used for lymphatic and capillary attachments. Once freed, the lymph node was removed via the 12 mm port. The same procedure was performed on the right side. A bladder flap was created sharply. The uterine arteries were skeletonized above the V-care. Bipolar cautery was used to ablate the arteries. Pedicles were created parallel to the cervix until the level of the V-care ring was reached. Anterior and posterior colpotomies were made with the monopolar scissors over the V-care. Once the cervix was circumferentially transected from the vagina, the uterus, cervix, tubes and ovaries were removed from the vagina. The vagina was closed with a 0 V-lock in a running fashion. The abdominal pressure was lowered to 7mm Hg. No vascular bleeding was noted at the IP ligaments or uterine arteries. Surgisnow was placedinto the pelvis. The robot was undocked and the 12 mm ports was removed and all ports were removed under direct visualization of the camera. No bleeding was noted. The port sites were closed with a subcuticular closure, 4.0 monocryl The patient was extubated and transferred to the PACU in stable condition. All sharp, sponge and instrument counts were correct. The patient received a pre- operative dose of antibiotic. There were NO signs of surgical site infection (SSI) present at the time of surgery (PATOS). Complications: None; patient tolerated the procedure well. Submitted by: Stephanie Proctor MD - 11/25/2024 Cosigned by Meri Tai MD at 11/28/2024 7:23 AM EDT Associated attestation - Meri Tai MD - 11/28/2024 7:23 AM EDT I was present for the entirety of the procedure(s). * H&P - Elena Blackman MD - 11/24/2024 5:54 PM EDT Gynecology History and Physical Patient Name: Caty Zayas : 1935 History of Present Illness: Caty Zayas is a 89 y.o. who presents for RA- TLH/BSO for Grade 2 EAC.No acute complaints at this time. Past Medical History: Past Medical History[1] Past Surgical History: Surgical History[2] Family History: Family History[3] Social History: Social History[4] OB History: OB History Para Term AB Living 3 1 SAB IAB Ectopic Multiple Live Births 1 # Outcome Date GA Lbr Will/2nd Weight Sex Type Anes PTL Lv 3 2 1 SAB Medications: Current Medications[5] Allergies: Allergies[6] Subjective Review of Systems: 14-system reviewed, ROS as per HPI. Objective Physical Exam: BMI: There is no height or weight on file to calculate BMI. Weight: Wt Readings from Last 3 Encounters: 11/13/24 85.8 kg (189 lb 2.5 oz) 10/22/24 84.6 kg (186 lb 8.2 oz) 03/02/24 84.6 kg (186 lb 6.4 oz) There were no vitals filed for this visit. Constitutional: Overall well-appearing, in no acute distress. Cardiovascular: No edema. Respiratory: normal respiratory effort without accessory muscle use. Gastrointestinal: Non-tender, non-distended. Genitourinary: deferred Musculoskeletal: moving all extremities equally without obvious deformity Skin: no apparent rashes or lesions Results: Lab Results Component Value Date WBC 6.58 [...] 10/22/2024 ALKPHOS 124 10/22/2024 BILITOT 0.4 10/22/2024 Assessment / Plan Assessment/Plan: This is a 89 y.o. patient presenting for surgery. # Grade 2 Endometrial adenocarcinoma - Consented in pre-op for robot-assisted total laparoscopic hysterectomy, bilateral salpingo-oophorectomy, sentinel lymph node dissection. - Will plan Ancef 2g for surgical prophylaxis. - SQH in pre-op. - Anticipate extended recovery and discharge in the morning. # Chronic medical conditions - HTN: holding amlodipine - HLD: restarting statin Dispo: To OR. [1] Past Medical History: Diagnosis Date GERD (gastroesophageal reflux disease) HLD (hyperlipidemia) Hypertension Macular degeneration Overactive bladder Urinary incontinence [2] Past Surgical History: Procedure Laterality Date LEG SURGERY Left 2016 REVERSE TOTAL SHOULDER ARTHROPLASTY Right 2013 WRIST FRACTURE SURGERY Left [3] Family History Problem Relation Name Age of Onset Anesthesia problems Neg Hx Malig Hyperthermia Neg Hx [4] Social History Socioeconomic History Marital status: Tobacco Use Smoking status: Never Passive exposure: Never Smokeless tobacco: Never Vaping Use Vaping status: Never Used Substance and Sexual Activity Alcohol use: Not Currently Drug use: Not Currently Sexual activity: Not Currently [5] Current Facility-Administered Medications: iothalamate meglumine (Cysto Conray) 17.2 % urethral solution solution 250 mL, 250 mL, Urethral, Once in Luigi sargent Amber E, PRODUCE CLERK, DNP Current Outpatient Medications: amLODIPine-benazepril (Lotrel) 10-40 MG capsule, Take 1 capsule by mouth daily., Disp: , Rfl: bethanechol (Urecholine) 50 MG tablet, Take 1 tablet (50 mg) by mouth 4 (four) times a day., Disp: 120 tablet, Rfl: 11 losartan (Cozaar) 50 MG tablet, Take 1 tablet by mouth daily., Disp: , Rfl: meloxicam (Mobic) 15 MG tablet, Take by mouth daily., Disp: , Rfl: acipeaxqijti-hkqupmma-jgfch acid-coenzyme q10 (Preservision AREDS 2) capsule, Take 1 capsule by mouth daily. (Patient not taking: Reported on 10/22/2024), Disp: , Rfl: omeprazole (PriLOSEC) [address] capsule, Take by mouth daily. (Patient not taking: Reported on 11/13/2024), Disp: , Rfl: pantoprazole (Protonix) 40 MG EC tablet, Take 1 tablet by mouth 2 times a day., Disp: , Rfl: simvastatin (Zocor) 40 MG tablet, Take by mouth nightly., Disp: , Rfl: tamsulosin (Flomax) 0.4 MG 24 hr capsule, Take 1 capsule by mouth daily., Disp: , Rfl: [6] No Known Allergies Cosigned by Meri Tai MD at 11/25/2024 3:58 PM EDT Associated attestation - Meri Tai MD - 11/25/2024 3:58 PM EDT I saw and evaluated the patient with the resident/fellow. I discussed the case with the resident/fellow and agree with the findings and plan as documented. documented in this encounter Plan of Treatment Upcoming Encounters Date Type Department Care Team (Late st Contact Info) Description 12/28/2024 9:30 AM EDT Office Visit [facility]ne[facility] [address] [place] [address] Meri Tai MD [address] [facility] [address] [place] [address] 03/15/2025 10:10 AM EDT Appointment [facility] Radiology [address] [place] [address] 03/15/2025 11:40 AM EDT Clinical Support [facility] [address] [place] [address] 03/15/2025 12:40 PM EDT Office Visit [facility] Urology [address], [address] [place] [address] Sonal Cordero MD [address] [place] [address] documented as of this encounter Goals Goal Patient Goal Type Associated Problems Recent Progress Patient-Stated? Author Autogenerat ed Goal Care Plan Autogenerated Problem No Renetta Myles Jemal documented as of this encounter Procedures Procedure Name Priority Date/Time Associated Diagnosis Comments PHOSPHORUS, PLASMA Routine 11/26/2024 6: 25 AM EDT MAGNESIUM, PLASMA Routine 11/26/2024 6:2 5 AM EDT BASIC METABOLIC PANEL, PLASMA Routine 11/26/2024 6:25 AM EDT IONIZED CALCIUM, WHOLE BLOOD Routine 11/26/2024 4:23 AM EDT CBC W/O DIFFERENTIAL Routine 11/26/2024 4:23 AM EDT SURGICAL PATHOLOGY EXAM Routine 11/25/2024 9:25 AM EDT Endometrial adenocarcinoma (CMS/HCC) [place] LAPAROSCOPY W TOT HYSTERECTUTERUS <=250 GRAM W TUBE/OVARY 11/25/2024 8:00 AM EDT Endometrial adenocarcinoma (CMS/HCC) TYPE AND SCREEN Routine 11/25/2024 6:46 AM EDT POCT GLUCOSE METER UNSOLICITED RESULTS Routine 11/25/2024 5:58 AM EDT documented in this encounter Results * Phosphorus (11/26/2024 6:25 AM EDT) Phosphorus, Plasma 3.2 2.5 - 4.5 mg/dL 11/26/2024 7:[address] [facility] Blood Venous blood specimen / Unknown Venipuncture / Unknown 11/26/2024 6:25 AM EDT 11/26/2024 6:33 AM EDT Meri Tai MD LAB BLOOD ORDERABLES Final Re sult Performing Organization Address [facility]/ZIP Co de Phone Number [facility] [address] [place] [address] * Magnesium, Plasma (11/26/2024 6:25 AM EDT) Magnesium, Plasma 1.9 1.9 - 2.4 mg/dL 11/26/2024 7:[address] [facility] Blood Venous blood specimen / Unknown Venipuncture / Unknown 11/26/2024 6:25 AM EDT 11/26/2024 6:33 AM EDT Meri Tai MD LAB BLOOD ORDERABLES Final Re sult Performing Organization Address [facility] Co de Phone Number [facility] [address] [place] [address] * (ABNORMAL) Basic metabolic panel (11/26/2024 6:25 AM EDT) Glucose, Plasma 141(H) 74 - 99 mg/dL 11/26/2024 7:[address] [facility] BUN, Plasma 14 8 - 23 mg/dL 11/26/2024 7:[address] [facility] Creatinine, Plasma 0.81 0.60 - 1.10 mg/dL 11/26/2024 7:[address] [facility] BUN/Creatinine Ratio 17 11/26/2024 7:[address] [facility] Sodium, Plasma 136 136 - 145 mmol/L 11/26/2024 7:[address] [facility] Potassium, Plasma 3.7 3.6 - 4.9 mmol/L 11/26/2024 7:[address] [facility] Chloride, Plasma 102 97 - 107 mmol/L 11/26/2024 7:[address] [facility] CO2, Plasma 24 22 - 29 mmol/L 11/26/2024 7:[address] [facility] Anion Gap 10 6 - 16 mmol/L 11/26/2024 7:[address] [facility] Total Calcium, Plasma 8.7(L) 8.9 - 10.2 mg/dL 11/26/2024 7:[address] [facility] eGFRcr 69.5 mL/min/1.7 3m*2 11/26/2024 7:[address] [facility] Comment:Reported eGFRcr in m L/min/1.73m2 is based the CKD-EPI 2020 equation that does not use a race coefficient. Blood Venous blood specimen / Unknown Venipuncture / Unknown 11/26/2024 6:25 AM EDT 11/26/2024 6:33 AM EDT Meri Tai MD LAB BLOOD ORDERABLES Final Re sult Performing Organization Address City/[facility]/ZIP Co de Phone Number [facility] [address] [place] [address] * (ABNORMAL) Ionized calcium, whole blood (11/26/2024 4:23 AM EDT) Ionized Calcium, Whole Blood 4.2(L) 4.6 - 5.1 mg/dL LAB HEMATOLOGY METHOD 11/26/2024 4:[address] [facility] Blood Venous blood specimen / Unknown Venipuncture / Unknown 11/26/2024 4:23 AM EDT 11/26/2024 4:46 AM EDT Meri Tai MD LAB BLOOD ORDERABLES Final Re sult Performing Organization Address City/[facility]/ZIP Co de Phone Number [facility] [address] [place] [address] * (ABNORMAL) CBC W/O Differential (11/26/2024 4:23 AM EDT) WBC Count 9.80 3.70 - 10.30 10*3/uL LAB HEMATOLOGY METHOD 11/26/2024 5:[address] [facility] RBC Count 3.77(L) 3.90 - 5.20 10*6/uL LAB HEMATOLOGY METHOD 11/26/2024 5:[address] [facility] HGB 11.9 11.2 - 15.7 g/dL LAB HEMATOLOGY METHOD 11/26/2024 5:[address] [facility] HCT 35.9 34.0 - 45.0 % LAB HEMATOLOGY METHOD 11/26/2024 5:[address] [facility] Platelet Count 190 155 - 369 10*3/uL LAB HEMATOLOGY METHOD 11/26/2024 5:[address] [facility] MCV 95 79 - 98 fL LAB HEMATOLOGY METHOD 11/26/2024 5:[address] [facility] MCH 31.6 26.0 - 32.0 pg LAB HEMATOLOGY METHOD 11/26/2024 5:[address] [facility] MCHC 33.1 30.7 - 35.5 g/dL LAB HEMATOLOGY METHOD 11/26/2024 5:[address] [facility] RDW 12.7 11.5 - 14.5 % LAB HEMATOLOGY METHOD 11/26/2024 5:[address] [facility] MPV 11.6 8.8 - 12.5 fL LAB HEMATOLOGY METHOD 11/26/2024 5:[address] [facility] nRBC 0.0 <=0.0 per 100 WBCs LAB HEMATOLOGY METHOD 11/26/2024 5:[address] [facility] Blood Venous blood specimen / Unknown Venipuncture / Unknown 11/26/2024 4:23 AM EDT 11/26/2024 4:51 AM EDT us Meri Tai MD LAB BLOOD ORDERABLES Final Re sult [facility] [address] [place] [address] * Surgical Pathology Exam (11/25/2024 9:25 AM EDT) Case Report Surgical Pathology Case: [id number] Authorizing Provider: Meri Tai MD Collected: 11/25/2024 0925 Ordering Location: [facility] OPERATING ROOM Received: 11/25/2024 1210 Pathologist: Jennifer Faust MD Specimens: A) - Rochelle Lymph Node, right obturator sentinel lymph node B) - Uterus, UTERUS, CERVIX, BILATERAL TUBES AND OVARIES C) - Rochelle Lymph Node, LEFT COMMON ILIAC SENTINEL LYMPH NODE 12/01/2024 5:39 PM EDT [facility] Addendum This addendum has been issued to report that the entire endometrial lesion is submitted for histologic evaluation in B15-B19. The diagnosis remains unchanged. 12/01/2024 5:39 PM EDT [facility] Addendum electronically signed by Jennifer Faust MD on 12/01/2024 at 1739 EDT Final Diagnosis A. SENTINEL LYMPH NODE, RIGHT OBTURATOR, EXCISION: - THREE LYMPH NODES, NEGATIVE FOR METASTATIC CARCINOMA (0/3). B. UTERUS, CERVIX, BILATERAL FALLOPIAN TUBES AND OVARIES, ROBOTIC ASSISTED TOTAL LAPAROSCOPIC HYSTERECTOMY AND BILATERAL SALPINGO-OOPHORECT ISABELLE: - ENDOMETRIOID ADENOCARCINOMA WITH SQUAMOUS FEATURES, NONINVASIVE, FIGO GRADE 1. 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 - CERVIX WITH NO HISTOPATHOLOGIC ABNORMALITY. - RIGHT OVARY WITH ENDOSALPINGIOSIS. - RIGHT FALLOPIAN TUBE WITH NO SIGNIFICANT HISTOPATHOLOGIC ABNORMALITY. - LEFT OVARY WITH NO SIGNIFICANT HISTOPATHOLOGIC ABNORMALITY. - LEFT FALLOPIAN TUBE WITH PARATUBAL CYST AND FOCAL SALPINGOLITH. C. SENTINEL LYMPH NODE, LEFT COMMON ILIAC, EXCISION: - ONE LYMPH NODE, NEGATIVE FOR METASTATIC CARCINOMA (0/1). 12/01/2024 5:39 PM EDT [facility] at 1729 EDT Comment The performed immunostains on the biopsy specimen at the outside institution showed the following results ([id number]): MMR panel: retained nuclear expression of mismatch-repair proteins P53: wild type 12/01/2024 5:39 PM EDT [facility] Synoptic Checklist ENDOMETRIUM ENDOMETRIUM - All Specimens AJCC 8 - Protocol posted: 05/27/2024 SPECIMEN Procedure: Total hysterectomy Procedure: Bilateral salpingo-oophorect isabelle TUMOR Histologic Type: Endometrioid carcinoma Histologic Grade: FIGO grade 1 Myometrial Invasion: Not identified Uterine Serosal Involvement: Not identified Cervical Involvement: Not identified Other Tissue / Organ Involvement: Not identified (other tissues / organs submitted and not involved) Lymphatic and / or Vascular Invasion: Not identified REGIONAL LYMPH NODES Regional Lymph Node Status: : All regional lymph nodes negative for tumor cells Lymph Nodes Examined: Total Number of Pelvic Nodes Examined: 4 Number of Pelvic Rochelle Nodes Examined: 4 Total Number of Para-aortic Nodes Examined: 0 pTNM CLASSIFICATION (AJCC 8th Edition) Reporting of pT, pN, and (when applicable) pM categories is based on information available to the pathologist at the time the report is issued. As per the AJCC (Chapter 1, 8th Ed.) it is the managing physician's responsibility to establish the final pathologic stage based upon all pertinent information, including but potentially not limited to this pathology report. pT Category: pT1a pN Category: pN0 N Suffix: (sn) FIGO STAGE FIGO Stage (FIGO 2009 Staging / 2018 FIGO Cancer Report): IA FIGO Stage (2022 Staging for Cancer of the Endometrium): IA1 12/01/2024 5:[address] [facility] Clinical Information Endometrial adenocarcinoma (CMS/HCC) [C54.1] 12/01/2024 5:[address] [facility] Gross Description A. RIGHT OBTURATOR SENTINEL LYMPH NODE Received in formalin labeled right obturator sentinel lymph node are 2 clinton-yellow lobulated soft tissue fragments measuring 1.6 x 1.0 x 0.5 cm and 2.8 x 0.8 x 0.5 cm. The specimen is palpated to reveal 3 possible clinton-pink lymph nodes measuring 0.9 x 0.4 x 0.4 cm, 1.4 x 0.5 x 0.4 cm, and 1.5 x 0.8 x 0.5 cm. The possible lymph nodes are serially sectioned perpendicular to the long axis at 2 mm intervals and submitted entirely as follows: A1: 2 possible lymph nodes, 1 inked blue, 1 not inked) A2: 1 possible lymph node Cold Time: <1m ROGELIO Murphy (ASCP) B. UTERUS, CERVIX, BILATERAL TUBES AND OVARIES Received fresh and subsequently placed in formalin labeled u terus, cervix, bilateral tubes and ovaries is a intact total hysterectomy specimen with attached bilateral fallopian tubes and ovaries. The specimen weighs 81.8 g and measures 3.0 cm (anterior to posterior), 7.4 cm (cervix to fundus), and 3.8 cm (cornu to cornu). The serosal surface is clinton-pink and smooth with a slit-like cervical os measuring 0.8 x 0.2 cm. The anterior surface is inked blue and the posterior surface is inked black. The endocervical canal measures 1.2 x 0.7 cm and the endometrial cavity measures 3.3 x 3.0 cm. Within the anterior and posterior aspect of the endometrial cavity is a ill-defined clinton-pink fungating lesion measuring 2.3 x 2.2 x 0.6 cm. The lesion possibly invades 0.2 cm into the myometrium. Adjacent to lesion is a clinton-white whorled intramural nodule located in the anterior aspect crossing the fundus measuring 3.1 x 2.0 x 1.7 cm. No areas of hemorrhage, necrosis, or calcifications are grossly identified. The right fallopian tube measures 5.7 cm in length and 0.5 cm in diameter. The serosal surface is clinton-pink and smooth with a fimbriated end. The fallopian tube is serially sectioned to reveal a pinpoint lumen. The right ovary measures 2.2 x 1.4 x 0.8 cm and weighs 2.3 g. The external surface is clinton-pink and smooth. The ovary is serially sectioned to reveal a prominent corpus albicans and a smooth lined clear serous fluid-filled cyst measuring 0.8 x 0.7 x 0.6 cm. The left fallopian tube measures 5.4 cm in length and 0.3 cm in diameter. The serosal surface is clinton-pink and smooth with a fimbriated end. The fallopian tube is serially sectioned to reveal a pinpoint lumen. The left ovary measures 2.2 x 0.8 x 0.5 cm and weighs 1.4 g. The external surface is clinton-pink and smooth. The ovary is serially sectioned to reveal a prominent corpus albicans. Conductor Orchestra sections of the specimen are submitted as follows: B1: 12:00 cervix B2: 06:00 cervix B3: anterior lower uterine segment B4 :posterior lower uterine segment B5-B8: full-thickness anterior wall, to include lesion to normal endometrium, to nodule, to deepest area invasion (B6-B7 slice, bisected) B9-B10: full-thickness posterior wall, to include lesion B11: right fallopian tube with entire fimbriated end B12: right ovary B13: left fallopian tube with entire fimbriated end B14: left ovary submitted entirely Cold Time: 1h 54m ROGELIO Murphy (ASCP) C. LEFT COMMON ILIAC SENTINEL LYMPH NODE Received in formalin labeled left common iliac sentinel lymph node is a portion of clinton-yellow lobulated soft tissue measuring 1.4 x 1.1 x 0.3 cm. The specimen is palpated to reveal no grossly identifiable lymph nodes. The specimen is submitted entirely in C1. Cold Time: <1m ROGELIO Murphy (ASCP) 12/01/2024 5:[address] [facility] Note: A resident was involved in the service. I attest I examined the relevant preparations for the specimens and confirmed the diagnosis or interpretation. 12/01/2024 5:[address] [facility] Tissue Specimen from sentinel lymph node / Unknown 11/25/2024 9:25 AM EDT 11/25/2024 12:10 PM EDT Comment:Pre-op diagnosis: Endometrial adenocarcinoma (CMS/HCC) [C54.1] Tissue specimen (specimen) Uterine structure / Unknown 11/25/2024 10:16 AM EDT 11/25/2024 12:10 PM EDT Comment:Pre-op diagnosis: Endometrial adenocarcinoma (CMS/HCC) [C54.1] Tissue specimen (specimen) Specimen from sentinel lymph node / Unknown 11/25/2024 11:23 AM EDT 11/25/2024 12:10 PM EDT Comment:Pre-op diagnosis: Endometrial adenocarcinoma (CMS/HCC) [C54.1] us Meri Tai MD LAB PATHOLOGY ORDERABLES Edit ed Result - Final [facility] [address] [place] [address] * Type and screen (11/25/2024 6:46 AM EDT) ABO/Rh A Positive 11/25/2024 6:06 AM EDT [facility] Antibody Screen Negative 11/25/2024 6:06 AM EDT [facility] Specimen Expiration 11/28/2024 23:59 11/25/2024 6:06 AM EDT [facility] Blood Venous blood specimen / Unknown Venipuncture / Unknown 11/25/2024 6:46 AM EDT 11/25/2024 6:58 AM EDT Meri Tai MD LAB BLOOD BANK TEST ORDERABLE S Final Result Performing Organization Address City/[facility]/ZIP Co de Phone Number BLOOD BANK [address] [place] [address], * (ABNORMAL) POCT glucose meter (11/25/2024 5:58 AM EDT) POCT Glucose 114(H) 74 - 99 mg/dL 11/25/2024 6:02 AM EDT [facility] Comment:Accuracy of a glucos e result obtained from a capillary whole blood specimen relies upon adequate, non-compromised capillary blood flow. If the capillary glucose result is not consistent with the patient's clinical signs and symptoms, glucose testing should be repeated with either an arterial or venous sample on the glucometer or sent to the main labortory for testing. Comment 11/25/2024 6:02 AM EDT [facility] Assembler Piano ID Nancy Light 11/26/19 25 6:02 AM EDT [facility] Device ID [id number] 11/25/2024 6:02 AM EDT [facility] Specimen Type POC Capillary 11/25/2024 6:02 AM EDT [facility] Blood Capillary blood specimen / Unknown 11/25/2024 5:58 AM EDT 11/25/2024 6:02 AM EDT Meri Tai MD LAB POINT OF CARE TE ST DOCKED DEVICE UNSOLICITED RESULTS Final Result Performing Organization Address City/[facility]/ZIP Co de Phone Number [facility] [address] [place] [address] documented in this encounter Visit Diagnoses Diagnosis Endometrial adenocarcinoma (CMS/HCC)- Primary Endometrial cancer (CMS/HCC) Malignant neoplasm of corpus uteri, except isthmus Gastroesophageal reflux disease without esophagitis Esophageal reflux documented in this encounter Admitting Diagnoses Diagnosis Endometrial adenocarcinoma (CMS/HCC) Endometrial cancer (CMS/HCC) Malignant neoplasm of corpus uteri, except isthmus documented in this encounter Administered Medications Inactive Administered Medications - up to 3 most recent administrations Medication Order MAR Action Action Date Dose Rate Site acetaminophen (Tylenol) tablet 1,000 mg 1,000 mg, Oral, Once, 1 dose, On Sat11/25/24 at 0700, Routine, Holding - Preprocedure Given 11/25/2024 6:52 AM EDT 1,000 mg acetaminophen (Tylenol) tablet 1,000 mg 1,000 mg, Oral, Once as needed, 1 dose, Starting on Sat11/25/24 at 1142, Until Sat11/25/24 at 1241, Routine, Recovery (Phase I only), pain score of >1 out of 10 Given 11/25/2024 12:41 PM EDT 1,000 mg acetaminophen (Tylenol) tablet 650 mg 650 mg, Oral, Every 8 hours, First dose (after last modification) on Sat11/25/24 at 2115, Until Discontinued, Routine, Recovery(Phase II-Outpatient)/On Unit(Inpatient) Given 11/25/2024 9:09 PM EDT 650 mg atorvastatin (Lipitor) tablet 20 mg 20 mg, Oral, Nightly, First dose on Sat11/25/24 at 2100, Until Discontinued Given 11/25/2024 9:13 PM EDT 20 mg calcium carbonate (Tums) chewable tablet 1,000 mg 1,000 mg, Oral, Once, 1 dose, On [place] 11/26/24 at 0645, Routine Given 11/26/2024 6:04 AM EDT 1,000 mg docusate sodium (Colace) capsule 100 mg 100 mg, Oral, 2 times daily, First dose on Sat11/25/24 at 1315, Until Discontinued, Routine, Phase II/On Unit Given 11/26/2024 8:32 AM EDT 100 mg Given 11/25/2024 9:09 PM EDT 100 mg Given 11/25/2024 1:43 PM EDT 100 mg droperidol (Inapsine) injection 0.625 mg 0.625 mg, Intravenous, Once as needed, 1 dose, Starting on Sat11/25/24 at 1142, Until [place] 11/26/24 at 1241, Routine, Recovery (Phase I only), nausea, vomiting famotidine (Pepcid) 40 MG/5ML suspension 20 mg 20 mg, Oral, 2 times daily, First dose on Sat11/25/24 at 1315, Until Discontinued, Routine, Recovery(Phase II-Outpatient)/On Unit(Inpatient) famotidine (Pepcid) tablet 20 mg 20 mg, Oral, 2 times daily, First dose on Sat11/25/24 at 1315, Until Discontinued, Routine, Recovery(Phase II-Outpatient)/On Unit(Inpatient) Given 11/25/2024 9:09 PM EDT 20 mg Given 11/25/2024 1:43 PM EDT 20 mg famotidine PF (Pepcid) injection 20 mg 20 mg, Intravenous, 2 times daily, First dose on Sat11/25/24 at 1315, Until Discontinued, Routine, Recovery(Phase II-Outpatient)/On Unit(Inpatient) fentaNYL (Sublimaze) injection 25 mcg 25 mcg, Intravenous, Every 5 min PRN, 2 doses, Starting on Sat11/25/24 at 1142, Until [place] 11/26/24 at 1241, Routine, Recovery (Phase I only), pain score of 3-4 out of 10 heparin (porcine) injection 5,000 Units 5,000 Units, Subcutaneous, Once, 1 dose, On Sat11/25/24 at 0700, Routine, Holding - Preprocedure Given 11/25/2024 6:52 AM EDT 5,000 Units Right Upper Arm (Back) HYDROmorphone (Dilaudid) injection 0.5 mg 0.5 mg, Intravenous, Every 10 min PRN, 2 doses, Starting on Sat11/25/24 at 1142, Until [place] 11/26/24 at 1241, Routine, Recovery (Phase I only), pain score of 9-10 out of 10 ibuprofen tablet 600 mg 600 mg, Oral, Every 6 hours scheduled, First dose on Sat11/25/24 at 1315, Until Discontinued, Routine, Recovery(Phase II-Outpatient)/On Unit(Inpatient) Given 11/25/2024 5:22 PM EDT 600 mg Given 11/25/2024 12:42 PM EDT 600 mg lactated Ringer's infusion 50 mL/hr, Intravenous, Continuous, Starting on Sat11/25/24 at 0700, Until Sat11/25/24 at 1720, Routine Restarted 11/25/2024 8:15 AM EDT New Bag 11/25/2024 7:02 AM EDT 50 mL/hr 50 mL/hr lactated Ringer's infusion 70 mL/hr, Intravenous, Continuous, Starting on Sat11/25/24 at 1315, Until [place] 11/26/24 at 0759, Routine New Bag 11/25/2024 6:56 PM EDT 70 mL/ hr 70 mL/hr Restarted 11/25/2024 1:54 PM EDT 70 mL/hr 70 mL/hr naloxone (Narcan) injection 0.4 mg 0.4 mg, Intravenous, As needed, Starting on Sat11/25/24 at 1142, Until [place] 11/26/24 at 1241, Routine, Recovery (Phase I only), respiratory depression ondansetron (Zofran) 4 MG/5ML solution 4 mg 4 mg, Oral, Every 6 hours PRN, Starting on Sat11/25/24 at 1219, Until [place] 11/26/24 at 1241, Routine, Recovery(Phase II-Outpatient)/On Unit(Inpatient), nausea, vomiting ondansetron (Zofran) injection 4 mg 4 mg, Intravenous, Once as needed, 1 dose, Starting on Sat11/25/24 at 1142, Until [place] 11/26/24 at 1241, Routine, Recovery (Phase I only), nausea, vomiting ondansetron (Zofran) injection 4 mg 4 mg, Intravenous, Every 6 hours PRN, Starting on Sat11/25/24 at 1219, Until [place] 11/26/24 at 1241, Routine, Recovery(Phase II-Outpatient)/On Unit(Inpatient), vomiting, nausea ondansetron ODT (Zofran-ODT) disintegrating tablet 4 mg 4 mg, Oral, Every 6 hours PRN, Starting on Sat11/25/24 at 1219, Until [place] 11/26/24 at 1241, Routine, Recovery(Phase II-Outpatient)/On Unit(Inpatient), nausea, vomiting oxyCODONE (Roxicodone) immediate release tablet 10 mg 10 mg, Oral, Once as needed, 2 doses, Starting on Sat11/25/24 at 1142, Until [place] 11/26/24 at 1241, Routine, Recovery (Phase I only), pain score of 6-8 out of 10 oxyCODONE (Roxicodone) immediate release tablet 5 mg 5 mg, Oral, Once as needed, 2 doses, Starting on Sat11/25/24 at 1142, Until [place] 11/26/24 at 1241, Routine, Recovery (Phase I only), pain score of 3-5 out of 10 oxyCODONE (Roxicodone) immediate release tablet 5 mg 5 mg, Oral, Every 4 hours PRN, Starting on Sat11/25/24 at 1219, Until [place] 11/26/24 at 1241, Routine, Recovery(Phase II-Outpatient)/On Unit(Inpatient), moderate pain Given 11/25/2024 4:19 PM EDT 5 mg pantoprazole (Protonix) EC tablet 40 mg 40 mg, Oral, 2 times daily, First dose on Sat11/25/24 at 2100, Until Discontinued, Routine Given 11/26/2024 8:31 AM EDT 40 mg Given 11/25/2024 9:13 PM EDT 40 mg Povidone-Iodine 5 % swab solution 1 Application Nasal, Once, 1 dose, On Sat11/25/24 at 0700, Routine Given 11/25/2024 6:30 AM EDT 1 Application senna (Senokot) tablet 8.6 mg 8.6 mg, Oral, Daily, First dose on Sat11/25/24 at 1315, Until Discontinued, Routine, Phase II/On Unit Given 11/26/2024 8:31 AM EDT 8.6 mg Given 11/25/2024 1:43 PM EDT 8.6 mg sodium chloride 0.9 % flush 10 mL 10 mL, Intravenous, Every 12 hours, First dose on Sat11/25/24 at 0700, Until Discontinued, Routine, Holding - Preprocedure Given 11/26/2024 6:26 AM EDT 10 mL Given 11/25/2024 7:31 PM EDT 10 mL Given 11/25/2024 7:02 AM EDT 10 mL sodium chloride 0.9 % flush 10 mL 10 mL, Intravenous, As needed, Starting on Sat11/25/24 at 0605, Until [place] 11/26/24 at 1241, Routine, Holding - Preprocedure, line care documented in this encounter Active and Recently Administered Medications Times are shown in EDT. Scheduled Medication Order 11/24/2024 11/25/2024 11/26/2024 acetaminophen (Tylenol) tablet 1,000 mg (COMPLETED) 1,000 mg, Oral, Once, 1 dose, On Sat11/25/24 at 0700, Routine, Holding - Preprocedure 0652 (Given - Provider: Guerline Vaz RN) acetaminophen (Tylenol) tablet 650 mg 650 mg, Oral, Every 8 hours, First dose (after last modification) on Sat11/25/24 at 2115, Until Discontinued, Routine, Recovery(Phase II-Outpatient)/On Unit(Inpatient) 2108 (Given - Provider: Vasu Meade RN) 0604 (Not Given - Provider: Miri Rutherford RN - Reason: Patient/family refused) atorvastatin (Lipitor) tablet 20 mg 20 mg, Oral, Nightly, First dose on Sat11/25/24 at 2100, Until Discontinued 2112 (Given - Provider: Vasu Meade RN) calcium carbonate (Tums) chewable tablet 1,000 mg (COMPLETED) 1,000 mg, Oral, Once, 1 dose, On [place] 11/26/24 at 0645, Routine 0604 (Given - Provid er: Miri Rutherford RN) docusate sodium (Colace) capsule 100 mg 100 mg, Oral, 2 times daily, First dose on Sat11/25/24 at 1315, Until Discontinued, Routine, Phase II/On Unit 1343 (Given - Provider: Yesenia Ku RN)2108 (Given - Provider: Vasu Meade RN) 0832 (Given - Provider: Yesenia Ku, ROXANE) famotidine (Pepcid) 40 MG/5ML suspension 20 mg(Linked Group 1) 20 mg, Oral, 2 times daily, First dose on Sat11/25/24 at 1315, Until Discontinued, Routine, Recovery(Phase II-Outpatient)/On Unit(Inpatient) 1343 (See Alternative - Provider: Yesenia Ku RN)2108 (See Alternative - Provider: Vasu Meade RN) 0851 (See Alternative - Provider: Yesenia Ku RN) famotidine (Pepcid) tablet 20 mg(Linked Group 1) 20 mg, Oral, 2 times daily, First dose on Sat11/25/24 at 1315, Until Discontinued, Routine, Recovery(Phase II-Outpatient)/On Unit(Inpatient) 1343 (Given - Provider: Yesenia Ku, RN)2109 (Given - Provider: Vasu Meade RN) 0851 (Canceled Entry - Provider: Yesenia Ku, RN) famotidine PF (Pepcid) injection 20 mg(Linked Group 1) 20 mg, Intravenous, 2 times daily, First dose on Sat11/25/24 at 1315, Until Discontinued, Routine, Recovery(Phase II-Outpatient)/On Unit(Inpatient) 1343 (See Alternative - Provider: Yesenia Ku, RN)2108 (See Alternative - Provider: Vasu Meade RN) 0851 (See Alternative - Provider: Yesenia Ku, RN) heparin (porcine) injection 5,000 Units (COMPLETED) 5,000 Units, Subcutaneous, Once, 1 dose, On Sat11/25/24 at 0700, Routine, Holding - Preprocedure 0652 (Given - Provider: Guerline Vaz RN) ibuprofen tablet 600 mg 600 mg, Oral, Every 6 hours scheduled, First dose on Sat11/25/24 at 1315, Until Discontinued, Routine, Recovery(Phase II-Outpatient)/On Unit(Inpatient) 1242 (Given - Provider: Hailey Anderson)1722 (Given - Provider: Vasu Meade, ROXANE)2338 (Not Given - Provider: Miri Rutherford RN - Reason: Patient/family refused) 0604 (Not Given - Provider: Miri Rutherford RN - Reason: Patient/family refused)1200 (Canceled Entry - Provider: Automatic Discharge Provider - Comment: Automatically canceled at discontinue of medication order) pantoprazole (Protonix) EC tablet 40 mg 40 mg, Oral, 2 times daily, First dose on Sat11/25/24 at 2100, Until Discontinued, Routine 2113 (Given - Provider: Vasu Meade, ROXANE) 0831 (Given - Provider: Yesenia Ku, ROXANE) Povidone-Iodine 5 % swab solution 1 Application (COMPLETED) Nasal, Once, 1 dose, On Sat11/25/24 at 0700, Routine 0630 (Given - Provider: Guerline Vaz RN) senna (Senokot) tablet 8.6 mg 8.6 mg, Oral, Daily, First dose on Sat11/25/24 at 1315, Until Discontinued, Routine, Phase II/On Unit 1343 (Given - Provider: Yesenia Ku RN) 0831 (Given - Provider: Yesenia Ku RN) sodium chloride 0.9 % flush 10 mL(Linked Group 2) 10 mL, Intravenous, Every 12 hours, First dose on Sat11/25/24 at 0700, Until Discontinued, Routine, Holding - Preprocedure 0702 (Given - Provider: Guerline Vaz RN)1931 (Given - Provider: Vasu Meade, RN) 0626 (Given - Provider: Arlyn Castro RN) Continuous Medication Order 11/24/2024 11/25/2024 11/26/2024 lactated Ringer's infusion (CANCELED) 50 mL/hr, Intravenous, Continuous, Starting on Sat11/25/24 at 0700, Until Sat11/25/24 at 1720, Routine 0702 (New Bag - Provider: Guerline Vaz RN)0814 (Paused - Provider: Brayden Velázquez MD - Comment: Switch to gravity)0815 (Restarted - Provider: Brayden Velázquez MD)1016 (Anesthesia Volume Adjustment - Provider: Brayden Velázquez MD) lactated Ringer's infusion (CANCELED) 70 mL/hr, Intravenous, Continuous, Starting on Sat11/25/24 at 1315, Until [place] 11/26/24 at 0759, Routine 1354 (Restarted - Provider: Yesenia Ku RN)1856 (New Bag - Provider: Vasu Meade, RN) PRN Medication Order 11/24/2024 11/25/2024 11/26/2024 acetaminophen (Tylenol) tablet 1,000 mg (COMPLETED) 1,000 mg, Oral, Once as needed, 1 dose, Starting on Sat11/25/24 at 1142, Until Sat11/25/24 at 1241, Routine, Recovery (Phase I only), pain score of >1 out of 10 1241 (Given - Provider: Hailey Anderson) diphenhydrAMINE (Benadryl) tablet 25 mg 25 mg, Oral, Every 6 hours PRN, Starting on Sat11/25/24 at 1219, Until [place] 11/26/24 at 1241, Routine, Recovery(Phase II-Outpatient)/On Unit(Inpatient), itching droperidol (Inapsine) injection 0.625 mg 0.625 mg, Intravenous, Once as needed, 1 dose, Starting on Sat11/25/24 at 1142, Until [place] 11/26/24 at 1241, Routine, Recovery (Phase I only), nausea, vomiting fentaNYL (Sublimaze) injection 25 mcg 25 mcg, Intravenous, Every 5 min PRN, 2 doses, Starting on Sat11/25/24 at 1142, Until [place] 11/26/24 at 1241, Routine, Recovery (Phase I only), pain score of 3-4 out of 10 HYDROmorphone (Dilaudid) injection 0.5 mg 0.5 mg, Intravenous, Every 10 min PRN, 2 doses, Starting on Sat11/25/24 at 1142, Until [place] 11/26/24 at 1241, Routine, Recovery (Phase I only), pain score of 9-10 out of 10 indocyanine green (IC-Green) injection (CANCELED) As needed, Starting on Sat11/25/24 at 0858, Until Sat11/25/24 at 1157, Routine, Intraprocedure 0858 (Given - Provider: Mariel Proctor MD) naloxone (Narcan) injection 0.4 mg 0.4 mg, Intravenous, As needed, Starting on Sat11/25/24 at 1142, Until [place] 11/26/24 at 1241, Routine, Recovery (Phase I only), respiratory depression ondansetron (Zofran) 4 MG/5ML solution 4 mg(Linked Group 3) 4 mg, Oral, Every 6 hours PRN, Starting on Sat11/25/24 at 1219, Until [place] 11/26/24 at 1241, Routine, Recovery(Phase II-Outpatient)/On Unit(Inpatient), nausea, vomiting ondansetron (Zofran) injection 4 mg 4 mg, Intravenous, Once as needed, 1 dose, Starting on Sat11/25/24 at 1142, Until [place] 11/26/24 at 1241, Routine, Recovery (Phase I only), nausea, vomiting ondansetron (Zofran) injection 4 mg(Linked Group 3) 4 mg, Intravenous, Every 6 hours PRN, Starting on Sat11/25/24 at 1219, Until [place] 11/26/24 at 1241, Routine, Recovery(Phase II-Outpatient)/On Unit(Inpatient), vomiting, nausea ondansetron ODT (Zofran-ODT) disintegrating tablet 4 mg(Linked Group 3) 4 mg, Oral, Every 6 hours PRN, Starting on Sat11/25/24 at 1219, Until [place] 11/26/24 at 1241, Routine, Recovery(Phase II-Outpatient)/On Unit(Inpatient), nausea, vomiting oxyCODONE (Roxicodone) immediate release tablet 10 mg(Linked Group 4) 10 mg, Oral, Once as needed, 2 doses, Starting on Sat11/25/24 at 1142, Until [place] 11/26/24 at 1241, Routine, Recovery (Phase I only), pain score of 6-8 out of 10 oxyCODONE (Roxicodone) immediate release tablet 5 mg(Linked Group 4) 5 mg, Oral, Once as needed, 2 doses, Starting on Sat11/25/24 at 1142, Until [place] 11/26/24 at 1241, Routine, Recovery (Phase I only), pain score of 3-5 out of 10 oxyCODONE (Roxicodone) immediate release tablet 5 mg 5 mg, Oral, Every 4 hours PRN, Starting on Sat11/25/24 at 1219, Until [place] 11/26/24 at 1241, Routine, Recovery(Phase II-Outpatient)/On Unit(Inpatient), moderate pain 1619 (Given - Provider: Yesenia Ku RN) polyethylene glycol (Miralax) packet 17 g 17 g, Oral, Daily PRN, Starting on Sat11/25/24 at 1219, Until [place] 11/26/24 at 1241, Routine, Phase II/On Unit, constipation sodium chloride 0.9 % flush 10 mL(Linked Group 2) 10 mL, Intravenous, As needed, Starting on Sat11/25/24 at 0605, Until [place] 11/26/24 at 1241, Routine, Holding - Preprocedure, line care sterile water injection (CANCELED) As needed, Starting on Sat11/25/24 at 0859, Until Sat11/25/24 at 1157, Routine, Intraprocedure 0859 (Given - Provider: Mariel or Biju Proctor MD - Comment: To reconstitute ICG) Linked Groups Order Group 1: famotidine (Pepcid) tablet 20 mgJump to med 20 mg, Oral, 2 times daily, First dose on Sat11/25/24 at 1315, Until Discontinued, Routine, Recovery(Phase II-Outpatient)/On Unit(Inpatient) Or famotidine (Pepcid) 40 MG/5ML suspension 20 mgJump to med 20 mg, Oral, 2 times daily, First dose on Sat11/25/24 at 1315, Until Discontinued, Routine, Recovery(Phase II-Outpatient)/On Unit(Inpatient) Or famotidine PF (Pepcid) injection 20 mgJump to med 20 mg, Intravenous, 2 times daily, First dose on Sat11/25/24 at 1315, Until Discontinued, Routine, Recovery(Phase II-Outpatient)/On Unit(Inpatient) Group 2: Insert peripheral IV (CANCELED) Once, On Sat11/25/24 at 0606, For 1 occurrence, Holding - Preprocedure And Saline lock IV (CANCELED) Once, On Sat11/25/24 at 0606, For 1 occurrence, Holding - Preprocedure And sodium chloride 0.9 % flush 10 mLJump to med 10 mL, Intravenous, Every 12 hours, First dose on Sat11/25/24 at 0700, Until Discontinued, Routine, Holding - Preprocedure And sodium chloride 0.9 % flush 10 mLJump to med 10 mL, Intravenous, As needed, Starting on Sat11/25/24 at 0605, Until [place] 11/26/24 at 1241, Routine, Holding - Preprocedure, line care Group 3: ondansetron ODT (Zofran-ODT) disintegrating tablet 4 mgJump to med 4 mg, Oral, Every 6 hours PRN, Starting on Sat11/25/24 at 1219, Until [place] 11/26/24 at 1241, Routine, Recovery(Phase II-Outpatient)/On Unit(Inpatient), nausea, vomiting Or ondansetron (Zofran) injection 4 mgJump to med 4 mg, Intravenous, Every 6 hours PRN, Starting on Sat11/25/24 at 1219, Until [place] 11/26/24 at 1241, Routine, Recovery(Phase II-Outpatient)/On Unit(Inpatient), vomiting, nausea Or ondansetron (Zofran) 4 MG/5ML solution 4 mgJump to med 4 mg, Oral, Every 6 hours PRN, Starting on Sat11/25/24 at 1219, Until [place] 11/26/24 at 1241, Routine, Recovery(Phase II-Outpatient)/On Unit(Inpatient), nausea, vomiting Group 4: oxyCODONE (Roxicodone) immediate release tablet 5 mgJump to med 5 mg, Oral, Once as needed, 2 doses, Starting on Sat11/25/24 at 1142, Until [place] 11/26/24 at 1241, Routine, Recovery (Phase I only), pain score of 3-5 out of 10 Or oxyCODONE (Roxicodone) immediate release tablet 10 mgJump to med 10 mg, Oral, Once as needed, 2 doses, Starting on Sat11/25/24 at 1142, Until [place] 11/26/24 at 1241, Routine, Recovery (Phase I only), pain score of 6-8 out of 10 documented in this encounter Additional Health Concerns Active Problems Noted Date Diagnosed Date Autogenerated Problem 10/22/2024 Assessment Noted Time A fall risk assessment has been complete d for the patient 10/22/2024 12:17 PM EDT A Body Mass Index follow-up plan has been documented for the patient 08/06/2024 12:03 PM EST documented as of this encounter Care Teams Health Informatics Advisor Relationship Specialty Start Date End Date Owen Temple DO [address] [facility] [address] [place] [id number] PCP - General 08/06/24 Jann Hernandes MD [address] [place] [address] #1 [address] [place] [id number] 12/12/21 Chata Temple DO [address] [place] [address] Resident 10/14/24 documented as of this encounter
--- OUTSIDE RECORDS SUMMARY | 2024-11-25 08:15 | XMS_ITS | Encounter Summary ---
Author Organization [facility] Address [address] [place] [address] Care Team Providers Care Brick Baker Name Role Phone Jann Hernandes MD Unavailable [phone] Owen Temple DO Primary Care Provider [phone] Chata Temple DO Unavailable [phone] Reason for Visit * Auth/Cert (Routine) Specialty Diagnoses / Procedures Referred By Contac t Referred To Contact Diagnoses Endometrial adenocarcinoma (CMS/HCC) Endometrial adenocarcinoma ([facility]/HCC) [C54.1] Procedures PA LAPAROSCOPY W TOT HYSTERECTUTERUS <=250 GRAM W TUBE/OVARY PA INTRAOPERATIVE SENTINEL LYMPH NODE ID W DYE INJECTION PA LAP,PELVIC LYMPHADENECTOMY Robot TLHBSO SLN Meri Tai MD [address] [facility] [address] [place] [address] Phone: tel: fax: [facility] [address] [place] [address] Phone: tel: Referral ID Status Reason Start Date Expiration Date Visits Re quested Visits Authorized [id number] 1 1 Encounter Details Date Type Department Care Team (Late st Contact Info) Description 11/25/2024 8:15 AM EDT Anesthesia Event [facility] [address] [place] [address] Paulie Morris MD [address] [place] [address] Brayden Velázquez MD [address] [place] [id number] Anesthesia Record Procedure Summary Procedure Name Responsible Anesthesiologist Anesthesia Start Time Anesthesia Stop Time Robot TLHBSO SLN (Bilateral: Abdomen) Paulie Morris MD 11/25/24 0815 11/25/24 1207 Events Date Time Event Comment 11/25/2024 0815 In Room 0815 An Start The patient was reevaluated immediately before sedation and remains eligible for anesthesia plan. 0815 An Start Data 0822 An Induction The patient was reevaluated immediately before moderate or deep sedation use and before anesthesia induction. 0826 An Intubation 0835 Proc Start 0843 Anesthesia Ready 1144 Proc Fin 1148 An Extubation 1156 an stop data 1157 Out of Room 1207 Handoff to Receiving I compl eted my handoff to the receiving clinician during which we: 1. Identified the patient 2. Identified the responsible provider 3. Reviewed the pertinent medical history 4. Discussed the surgical course 5. Reviewed intra-op anesthesia management and issues during anesthesia 6. Set expectations for post-procedure period 7. Allowed opportunity for questions and acknowledgement of understanding. 1207 An Stop Meds Name Total fentaNYL (Sublimaze) injection 50 mcg/mL 100 mcg lidocaine PF (Xylocaine-MPF) 2% 100 mg propofol (Diprivan) injection 10 mg/mL 1 50 mg rocuronium (ZeMuron) injection 10 mg/mL 80 mg dexamethasone (Decadron) injection 4 mg/ mL 4 mg HYDROmorphone PF (Dilaudid) injection 1 mg/mL 0.25 mg ondansetron (Zofran) injection 2 mg/mL 4 mg sugammadex (Bridion) injection 100 mg/mL 200 mg ceFAZolin (Ancef) vial 1 g 2 g 0.25% ropivacaine 60 mL esmolol (Brevibloc) injection 10 mg/mL 1 0 mg lactated Ringer's infusion 1,000 mL * Agents No agents on file. * Blood No blood administrations on file. Lines, Drains, and Airways Type Details Placement Removal Peripheral IV Placement Date: 11/15 07/11; Placement Time: 0645; Catheter Size: 20 G; Orientation: Anterior, Right; Location: Forearm; Site Prep: Chlorhexidine ; Local Anesth: [place]; Technique: Anatomical landmarks; Inserted by: ronnie vaz rn; Insertion Attempts: 1; Patient Tolerance: Tolerated well; Removal Date: 11/26/24; Removal Time: 1040 11/25/24 0645 by Guerline Vaz RN 11/26/24 1040 by Yesenia Ku RN ETT Placement Date: 11/15 07/11; Placement Time: 08 (created via procedure documentation); Mask Ventilation: 1; Technique: Direct laryngoscopy; Type: ETT - single; Single Lumen Tube Size: 7 mm; Cuffed: Yes; Laryngoscope: Madhu; Blade Size: 3; Location: Oral; Grade View: Grade I; Insertion Attempts: 1; Placement Verification: Auscultation, Capnometry; Airway Comments: Bilateral Breath Sounds, (+) ETCO2, Atraumatic, No change to dentition. ; Placed by: Resident ; Removal Date: 11/25/24; Removal Time: 1148 11/25/24 0826 by Brayden Velázquez MD 11/25/24 1148 by Brayden Velázquez MD Peripheral IV Placement Date: 11/15 07/11; Placement Time: 0830 (created via procedure documentation); Catheter Size: 20 G; Orientation: Left; Location: Hand; Technique: Anatomical landmarks; Inserted by: Brayden Velázquez MD; Insertion Attempts: 1; Removal Date: 11/26/24; Removal Time: 0500; Removal Reason: Occluded 11/25/24 0830 by Brayden Velázquez MD 11/26/24 0500 by Miri Rutherford RN Urethral Catheter Placement Date: 11/15 07/11; Placement Time: 0834; Inserted by: DR SANCHEZ; Type: Non-latex; Size: 16 Fr.; Balloon Size: 10 mL; Urine Returned: Yes; Removal Date: 11/26/24; Removal Time: 0800 11/25/24 0834 by Osiris Diane RN 11/26/24 0800 by Yesenia Ku RN documented in this encounter Social History Tobacco Use Types Packs/Day Years [...] on file documented as of this encounter Functional Status * Calculated C-SSRS Risk Score (Lifetime/Recent) Answer Date of Assessment Author No Risk Indicated 11/25/2024 6:00 AM EDT Guerline Vaz RN * Question Answer Date of Assessment Author 1. Wish to be (Past 1 Month) No 025 6:00 AM EDT Guerline Vaz RN 2. Non-Specific Active Suici hussain Thoughts (Past 1 Month) No 11/25/2024 6:00 AM EDT Guerline Vaz RN 6. Suicidal Behavior (Lifetime) No 6:00 AM EDT Guerline Vaz RN documented as of this encounter Miscellaneous Notes * Anesthesia Postprocedure Evaluation - Brayden Velázquez MD - 11/25/2024 12:07 PM EDT Patient: Caty Zayas Anesthesia Type: general Vitals Value Taken Time BP 121/44 11/25/24 12:05 Temp 97.7 11/25/24 12:07 Pulse 68 11/25/24 12:06 Resp 19 11/25/24 12:06 SpO2 98 % 11/25/24 12:06 Vitals shown include unfiled device data. Anesthesia Post Evaluation Patient location during evaluation: PACU Patient participation: complete - patient participated Level of consciousness: awake Pain management: adequate (pain score 0-3) Airway patency: natural airway Cardiovascular status: acceptable and hemodynamically stable Respiratory status: acceptable, face mask and nonlabored ventilation Hydration status: acceptable Nausea/Vomiting: No No notable events documented. Cosigned by Paulie Morris MD at 11/25/2024 2:30 PM EDT Associated attestation - Paulie Morris MD - 11/25/2024 2:30 PM EDT I agree with the findings and care plan documented in the postprocedure evaluation note. * Anesthesia Procedure Notes - Brayden Velázquez MD - 11/25/2024 9:36 AM EDT Associated Order(s): Peripheral IV Peripheral IV Date/Time: 11/25/2024 8:30 AM Inserted by: Brayden Velázquez MD Placement Needle size: 20 G Location: hand Site prep: alcohol Technique: anatomical landmarks Attempts: 1 Cosigned by Paulie Morris MD at 11/25/2024 2:30 PM EDT Associated attestation - Paulie Morris MD - 11/25/2024 2:30 PM EDT I was present during all critical and stubbs portions of the procedure(s) and immediately available [place] the entire duration. See resident note for details. * Anesthesia Procedure Notes - Brayden Velázquez MD - 11/25/2024 8:52 AM EDT Associated Order(s): Airway Airway Date/Time: 11/25/2024 8:26 AM Reason: elective Airway not difficult General Information and Staff Patient location during procedure: OR Anesthesiologist: Paulie Morris MD Resident: Brayden Velázquez MD Performed: Resident Patient Condition Indications for airway management: anesthesia Patient position: sniffing Final Airway Details Final airway type: endotracheal airway Successful airway: ETT Cuffed: yes Successful intubation technique: direct laryngoscopy Adjuncts used in placement: intubating stylet Endotracheal tube insertion site: oral Blade: Madhu Blade size: #3 ETT size (mm): 7.0 Cormack-Lehane Classification: grade I - full view of glottis Placement verified by: chest auscultation and capnometry Measured from: lips ETT to lips (cm): 22 Additional Comments Bilateral Breath Sounds, (+) ETCO2, Atraumatic, No change to dentition. Cosigned by Paulie Morris MD at 11/25/2024 2:30 PM EDT Associated attestation - Paulie Morris MD - 11/25/2024 2:30 PM EDT I was present during all critical and stubbs portions of the procedure(s) and immediately available [place] the entire duration. See resident note for details. * Anesthesia Procedure Notes - Clayton Wilson MD - 11/25/2024 8:44 AM EDT Associated Order(s): Peripheral Block Peripheral Block Patient location during procedure: OR Start time: 11/25/2024 8:30 AM End time: 11/25/2024 8:32 AM Reason for block: post-op pain management Block is at surgeon's request Staffing Performed: Resident Anesthesiologist: Shoshana Francisco MD Resident: Clayton Wilson MD Preanesthetic Checklist Completed: patient identified, IV checked, site marked, risks and benefits discussed, surgical consent, monitors and equipment checked, pre-op evaluation and timeout performed Peripheral Block Patient position: supine Prep: ChloraPrep Patient monitoring: continuous pulse ox, heart rate and groundwater monitoring technician Block type: TAP Laterality: left and right Injection technique: single-shot Guidance: ultrasound guided Ultrasound used for needle placement AND ultrasound image retained Needle Needle type: short-bevel Needle gauge: 21 G Needle length: 5 cm Needle localization: anatomical landmarks and ultrasound guidance Needle insertion depth: 3 cm Medications Administered 0.25% ropivacaine - Injection 30 mL - 11/25/2024 8:30:00 AM 30 mL - 11/25/2024 8:31:00 AM Assessment Injection assessment: negative aspiration for heme, local visualized surrounding nerve on ultrasound and incremental injection Paresthesia pain: none Heart rate change: no Slow fractionated injection: yes Cosigned by Shoshana Francisco MD at 11/25/2024 2:04 PM EDT Associated attestation - Shoshana Francisco MD - 11/25/2024 2:04 PM EDT I was present during all critical and stubbs portions of the procedure(s) and immediately available [place] the entire duration. See resident note for details. * Anesthesia Preprocedure Evaluation - Paulie Morris MD - 11/25/2024 7:15 AM EDT LILA Zayas is a 89 y.o. 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 hypertension: is well controlled. Exercise tolerance is 2 flights of stairs. Does not have chest pain. Cardio additional comments: Patient lives by herself. Activity is limited by decreased vision. Can lay flat. No active cardiac complaints. 4/22/25 Cards OV uploaded in media 09/2024 EKG [...] right ventricle is normal size and contractility Rimmaley normal lexiscan myoview study. Respiratory: Patient has [...] INR 2.5 to 3.5 Prevention of recurrent ND INR 2.5 to 3.5 INR 02/13/2016 0.9 (NOTE) OPTIMAL INR RANGES FOR PATIENT ON ORAL ANTICOAGULANT THERAPY Prevention of venous thromboembolism INR 2.0 to 3.0 In patients with heart disease: Atrial fibrillation INR 2.0 to 3.0 Valvular heart disease INR 2.0 to 3.0 Tissue heart valves INR 2.0 to 3.0 Mechanical prosthetic valves INR 2.5 to 3.5 Prevention of recurrent ND INR 2.5 to 3.5 Visit Vitals BP (!) 142/65 Pulse 70 Temp 36.6 ??C (97.9 ??F) (Oral) Resp 16 SpO2 95% OB Status Postmenopausal Smoking Status Never Physical Exam Airway Mallampati: I Mouth opening: normal TM distance: >3 FB Neck ROM: full Cardiovascular Rhythm: regular Rate: normal Dental - normal exam Pulmonary Breath sounds clear to auscultation Neurological Oriented: normal to time, normal to place and normal to person Skin Musculoskeletal Extremities Anesthesia Plan ASA 3 Plan was reviewed with: resident Anesthesia technique(s) discussed with the patient/family: general Anesthesia plan agreed upon was: general Comment: Cardiac records and clearance received and uploaded in media To Whom it may concern: This is to certify that caty Zayas is a patient or mine and was last evaluated in outpatient cardiology clinic at [facility] on 10/06/24. At the time of evaluation, [...] routine care is recommended. Chata Boogie APRN Anesthetic plan and risks discussed with patient. Paulie Morris MD [1] Past Medical History: Diagnosis Date GERD (gastroesophageal reflux disease) HLD (hyperlipidemia) Hypertension Macular degeneration Overactive bladder Urinary incontinence [2] Family History Problem Relation Name Age of Onset Anesthesia problems Neg Hx Malig Hyperthermia Neg Hx [3] Social History Tobacco Use Smoking status: Never Passive exposure: Never Smokeless tobacco: Never Vaping Use Vaping status: Never Used Substance Use Topics Alcohol use: Not Currently Drug use: Not Currently [4] Past Surgical History: Procedure Laterality Date LEG SURGERY Left 2016 REVERSE TOTAL SHOULDER ARTHROPLASTY Right 2013 WRIST FRACTURE SURGERY Left [5] No Known Allergies documented in this encounter Plan of Treatment Upcoming Encounters Date Type Department Care Team (Late st Contact Info) Description 12/28/2024 9:30 AM EDT Office Visit [facility] [address] [place] [address] Meri Tai MD [address] [place] [address] [place] [address] 03/15/2025 10:10 AM EDT Appointment [facility] [address] [place] [address] 03/15/2025 11:40 AM EDT Clinical Support [facility] [address] [place] [address] 03/15/2025 12:40 PM EDT Office Visit [facility] [address] [place] [address] Sonal Cordero MD [address] [place] [address] documented as of this encounter Goals Goal Patient Goal Type Associated Problems Recent Progress Patient-Stated? Author Autogenerat ed Goal Care Plan Autogenerated Problem No Renetta Myles documented as of this encounter Procedures Procedure Name Priority Date/Time Associated Diagnosis Comments ANESTHESIA PERIPHERAL IV PLACEMENT Routine 11/25/2024 8:30 AM EDT PB POINT OF CARE IMAGING PLACEHOLDER Routine 11/25/2024 8:30 AM EDT PB ANESTHESIA PLACEHOLDER Routine 11/25/2024 8:26 AM EDT PA AN ELECTIVE ENDOTRACHEAL AIRWAY Routine 11/25/2024 8:26 AM EDT documented in this encounter Results * Peripheral IV (11/25/2024 8:30 AM EDT) Narrative Paulie Morris MD - 11/25/2024 8:30 AM EDT Paulie Morris MD 11/25/2024 2:30 PM Peripheral IV Date/Time: 11/25/2024 8:30 AM Inserted by: Brayden Velázquez MD Placement Needle size: 20 G Location: hand Site prep: alcohol Technique: anatomical landmarks Attempts: 1 us Paulie Morris MD ANESTHESIA ORDERABLES Fin al Result * PB POINT OF CARE IMAGING PLACEHOLDER (11/25/2024 8:30 AM EDT) Shoshana Espino MD - 11/25/2024 8:30 AM EDT Shoshana Francisco MD 11/25/2024 2:04 PM Peripheral Block Patient location during procedure: OR Start time: 11/25/2024 8:30 AM End time: 11/25/2024 8:32 AM Reason for block: post-op pain management Block is at surgeon's request Staffing Performed: Resident Anesthesiologist: Shoshana Francisco MD Resident: Clayton Wilson MD Preanesthetic Checklist Completed: patient identified, IV checked, site marked, risks and benefits discussed, surgical consent, monitors and equipment checked, pre-op evaluation and timeout performed Peripheral Block Patient position: supine Prep: ChloraPrep Patient monitoring: continuous pulse ox, heart rate and groundwater monitoring technician Block type: TAP Laterality: left and right Injection technique: single-shot Guidance: ultrasound guided Ultrasound used for needle placement AND ultrasound image retained Needle Needle type: short-bevel Needle gauge: 21 G Needle length: 5 cm Needle localization: anatomical landmarks and ultrasound guidance Needle insertion depth: 3 cm Medications Administered 0.25% ropivacaine - Injection 30 mL - 11/25/2024 8:30:00 AM 30 mL - 11/25/2024 8:31:00 AM Assessment Injection assessment: negative aspiration for heme, local visualized surrounding nerve on ultrasound and incremental injection Paresthesia pain: none Heart rate change: no Slow fractionated injection: yes us Paulie Morris MD ANESTHESIA ORDERABLES Fin al Result * PA AN ELECTIVE ENDOTRACHEAL AIRWAY, PB ANESTHESIA PLACEHOLDER (11/25/2024 8:26 AM EDT) Narrative Paulie Morris MD - 11/25/2024 8:26 AM EDT Paulie Morris MD 11/25/2024 2:30 PM Airway Date/Time: 11/25/2024 8:26 AM Reason: elective Airway not difficult General Information and Staff Patient location during procedure: OR Anesthesiologist: Paulie Morris MD Resident: Brayden Velázquez MD Performed: Resident Patient Condition Indications for airway management: anesthesia Patient position: sniffing Final Airway Details Final airway type: endotracheal airway Successful airway: ETT Cuffed: yes Successful intubation technique: direct laryngoscopy Adjuncts used in placement: intubating stylet Endotracheal tube insertion site: oral Blade: Madhu Blade size: #3 ETT size (mm): 7.0 Cormack-Lehane Classification: grade I - full view of glottis Placement verified by: chest auscultation and capnometry Measured from: lips ETT to lips (cm): 22 Additional Comments Bilateral Breath Sounds, (+) ETCO2, Atraumatic, No change to dentition. Paulie Morris MD ANESTHESIA ORDERABLES Fin al Result documented in this encounter Visit Diagnoses Not on filedocumented in this encounter Administered Medications Inactive Administered Medications - up to 3 most recent administrations Medication Order MAR Action Action Date Dose Rate Site ceFAZolin (Ancef) injection Intravenous, As needed, Starting on Sat11/25/24 at 0836, Until Sat11/25/24 at 1207, Routine, Anesthesia Intraprocedure Given 11/25/2024 8:36 AM EDT 2 g dexamethasone (Decadron) injection Intravenous, As needed, Starting on Sat11/25/24 at 0848, Until Sat11/25/24 at 1207, Routine, Anesthesia Intraprocedure Given 11/25/2024 8:48 AM EDT 4 mg esmolol (Brevibloc) injection Intravenous, As needed, Starting on Sat11/25/24 at 0828, Until Sat11/25/24 at 1207, Routine, Anesthesia Intraprocedure Given 11/25/2024 8:28 AM EDT 10 mg fentaNYL (Sublimaze) injection Intravenous, As needed, Starting on Sat11/25/24 at 0823, Until Sat11/25/24 at 1207, Routine, Anesthesia Intraprocedure Given 11/25/2024 9:32 AM EDT 25 mcg Given 11/25/2024 8:55 AM EDT 25 mcg Given 11/25/2024 8:23 AM EDT 50 mcg HYDROmorphone PF (Dilaudid) injection Intravenous, As needed, Starting on Sat11/25/24 at 1003, Until Sat11/25/24 at 1207, Routine, Anesthesia Intraprocedure Given 11/25/2024 10:03 AM EDT 0.25 mg lactated Ringer's infusion 50 mL/hr, Intravenous, Continuous, Starting on Sat11/25/24 at 0700, Until Sat11/25/24 at 1720, Routine Restarted 11/25/2024 8:15 AM EDT New Bag 11/25/2024 7:02 AM EDT 50 mL/hr 50 mL/hr lidocaine PF (Xylocaine) 2 % injection Intravenous, As needed, Starting on Sat11/25/24 at 0823, Until Sat11/25/24 at 1207, Routine, Anesthesia Intraprocedure Given 11/25/2024 8:23 AM EDT 100 mg ondansetron (Zofran) injection Intravenous, As needed, Starting on Sat11/25/24 at 1131, Until Sat11/25/24 at 1207, Routine, Anesthesia Intraprocedure Given 11/25/2024 11:31 AM EDT 4 mg propofol (Diprivan) injection Intravenous, As needed, Starting on Sat11/25/24 at 0823, Until Sat11/25/24 at 1207, Routine, Anesthesia Intraprocedure Given 11/25/2024 8:23 AM EDT 150 mg rocuronium (ZeMuron) injection Intravenous, As needed, Starting on Sat11/25/24 at 0823, Until Sat11/25/24 at 1207, Routine, Anesthesia Intraprocedure Given 11/25/2024 10:01 AM EDT 10 mg Given 11/25/2024 9:26 AM EDT 10 mg Given 11/25/2024 8:23 AM EDT 60 mg ropivacaine (Naropin) injection Injection, Once PRN Procedure, Starting on Sat11/25/24 at 0830, Until Sat11/25/24 at 0831, Routine, Anesthesia Intraprocedure Given 11/25/2024 8:31 AM EDT 30 mL Given 11/25/2024 8:30 AM EDT 30 mL sugammadex (Bridion) 100 MG/ML injection Intravenous, As needed, Starting on Sat11/25/24 at 1146, Until Sat11/25/24 at 1207, Routine, Anesthesia Intraprocedure Given 11/25/2024 11:46 AM EDT 200 mg documented in this encounter Additional Health Concerns Active Problems Noted Date Diagnosed Date Autogenerated Problem 10/22/2024 Assessment Noted Time A fall risk assessment has been complete d for the patient 10/22/2024 12:17 PM EDT A Body Mass Index follow-up plan has been documented for the patient 08/06/2024 12:03 PM EST documented as of this encounter Care Teams Brick Baker Relationship Specialty Start Date End Date wOen Temple DO [address] [facility] [address] [address] PCP - General 08/06/24 Jann Hernandes MD [address] [place] [address] [address] [place] [address] 12/12/21 Chata Temple DO [address] [facility] [address] [place] [address] Resident 10/14/24 documented as of this encounter
--- OUTSIDE RECORDS SUMMARY | 2024-11-25 08:15 | XMS_ITS | Encounter Summary ---
Author Organization [facility] Address [address] [place] [address] Care Team Providers Care Financial Services Consultant Name Role Phone Jann Hernandes MD Unavailable Owen Temple DO Primary Care Provider [phone] Chata Temple DO Unavailable [phone] Reason for Visit * Auth/Cert (Routine) Specialty Diagnoses / Procedures Referred By Contac t Referred To Contact Diagnoses Endometrial adenocarcinoma (CMS/HCC) Endometrial adenocarcinoma ([facility]/HCC) [C54.1] Procedures MS LAPAROSCOPY W TOT HYSTERECTUTERUS <=250 GRAM W TUBE/OVARY MS INTRAOPERATIVE SENTINEL LYMPH NODE ID W DYE INJECTION MS LAP,PELVIC LYMPHADENECTOMY Robot TLHBSO SLN Meri Tai MD [address] [facility] [address] [facility] [address] [place] [address] Phone: tel: fax: [facility] A OPERATING ROOM [address] [place] [address] Phone: tel: Referral ID Status Reason Start Date Expiration Date Visits Re quested Visits Authorized [id number] 1 1 Encounter Details Date Type Department Care Team (Late st Contact Info) Description 11/25/2024 8:15 AM EDT - 11/25/2024 12:20 PM EDT Surgery [facility] OPERATING ROOM [address] [place] [address] Meri Tai MD 800 [facility] [address] [place] [address] Robot TLHBSO SLN [[id number] (CPT )] Surgery Details Date/Time Status Location [...] do not scrub. Pat dry. Call MD technology methodology consultant for GYO service if: - you have [...] confirm an appointment. Dr. Meri Tai - [facility] [place] [facility] [address] [facility] [address], [place] [address] documented in this encounter Medications at Time of Discharge acetaminophen (Tylenol) 325 MG tablet Take 2 tablets by mouth every 8 hours. Under [place] law, monthly prescriptions (30 days) can be [...] capsule Take 1 capsule by mouth daily. 12/12/19 documented as of this encounter Miscellaneous Notes [...] MD PCP name and Address: Owen Temple, DO [address] [place] [address] [address] [place] [address] Referring provider name and address: Chata Temple, DO [address] [place] [address] [address] [place] [address] Chief Concern, Brief History of Present Illness, [...] tablets by mouth every 8 hours. Under [place] law, monthly prescriptions (30 days) can be [...] Take 1 capsule by mouth daily. . moqjylxksmyg-jqgqyxka-boicj acid-coenzyme q10 capsule Take 1 capsule by mouth daily. omeprazole [address] capsule Commonly known as: PriLOSEC Take by mouth daily. Where to Get Your Medications These medications were sent to [facility] - [place], [place] - [address] [facility] [id number] acetaminophen 325 MG tablet enoxaparin 40 MG/0.4ML [...] do not scrub. Pat dry. Call MD technology methodology consultant for GYO service if: - you have [...] confirm an [facility]. [facility] [address] [facility] [address], [place] [address] Outpatient Follow-Up Future Appointments Date Time Provider Department Center 11/30/2024 12:[address] [facility] 11/30/2024 2:00 PM [facility] 11/30/2024 3:00 PM Clark Mathews MD [facility] Test Results Pending At Discharge Pending Labs Order Current Status Surgical Pathology Exam In process Discharge Disposition/Condition Disposition: Home Condition: Stable (s/sx potential problems absent or manageable) I spent < 30 minutes of patient care and instruction time in preparation for this discharge. Chela Mendoza MD PGY-1, Obstetrics and Gynecology [facility] Cosigned by Meri Tai MD at 11/28/2024 [...] pepcid Please page on-call GYO resident at [phone] for questions or concerns regarding this patient's [...] from the original note were not included. [id number] Hysterectomy: Surgical Procedures A hysterectomy is the [...] surgery Last Reviewed Date: 2022 00:00:00 ?? [id number] [employer]. All rights reserved. This information is not [...] pepcid Please page on-call GYO resident at [phone] for questions or concerns regarding this patient's [...] Agree with above assessment and evaluation from resident/TECHNICAL LEAD. * Op Note - Stephanie Proctor MD - 11/25/2024 8:35 AM EDT Operative Note Date: 11/25/24 Location: [facility] Name: Caty Zayas, : 1935, Diagnoses: Pre-op Diagnosis Endometrial adenocarcinoma (CMS/HCC) Post-op Diagnosis Endometrial adenocarcinoma (CMS/HCC) Procedure(s): RA-TLH, BSO, SLNBx Attending Surgeon(s): * Meri Tai - Primary Presentation Designer(s): * Stephanie Proctor MD - Fellow Anesthesia: General ASA: III Blood Administration: Blood Product Administration History None Estimated Blood Loss: Minimal Drains: Urethral Catheter Non-latex 16 Fr. (Active) Site Assessment Clean;Skin intact 11/25/24 1200 Output (mL) 325 mL 11/25/24 1600 Specimen: Specimens ID Source Frozen? 1 [place] Lymph Node No Description: right obturator sentinel lymph node 2 Uterus No Description: UTERUS, CERVIX, BILATERAL TUBES AND OVARIES 3 [place] Lymph Node No Description: LEFT COMMON ILIAC [...] The cervix was sounded and dilated. A Zizerones-BlueKite uterine manipulator was placed. Thepatient???s arms were [...] 20 cm superior to the pubic symphysis. The ports were by 8-10 cm. The robot was docked. The surgery took place using a bipolar Cautier grasper (left arm), monopolar scissors (right arm) and an atraumatic grasper (3rd arm). Inspection of the pelvis and aorta for ICG dye was systematically performed. [place] LNs were seen at the left common [...] 7:23 AM EDT Associated attestation - Meri aTi MD - 11/28/2024 7:23 AM EDT I [...] mL, Urethral, Once in imaging, Ivonne Meyers, PROFESSOR OF GRAPHIC DESIGN, DNP Current Outpatient Medications: amLODIPine-benazepril (Lotrel) 10-40 [...] Take by mouth daily., Disp: , Rfl: gmbrictxnmls-gmkqrhji-lanhj acid-coenzyme q10 (Preservision AREDS 2) capsule, Take [...] [address] [place] [address] Meri Tai MD [address] [place] [address] 03/15/2025 10:10 AM EDT Appointment [facility] [address] [place] [address] 03/15/2025 11:40 AM EDT Clinical Support [facility] [address] [place] [address] 03/15/2025 12:40 PM EDT Office Visit [facility] Urology [address], [address] [place] [address] Sonal Cordero MD [address] [place] [address] documented as of this encounter [...] 11/25/2024 9:25 AM EDT Endometrial adenocarcinoma (CMS/HCC) MS LAPAROSCOPY W TOT HYSTERECTUTERUS <=250 GRAM W TUBE/OVARY 11/25/2024 8:00 AM EDT Endometrial adenocarcinoma (CMS/HCC) TYPE AND SCREEN Routine 11/25/2024 6:46 AM EDT POCT GLUCOSE METER UNSOLICITED RESULTS Routine 11/25/2024 5:58 AM EDT documented in this encounter Results * Phosphorus (11/26/2024 6:25 AM EDT) Phosphorus, Plasma 3.2 2.5 - 4.5 mg/dL 11/26/2024 7:01 AM EDT [facility] Blood Venous blood specimen / Unknown Venipuncture / Unknown 11/26/2024 6:25 AM EDT 11/26/2024 6:33 AM EDT Meri Tai MD LAB BLOOD ORDERABLES Final Re sult Performing Organization Address City/[facility]/ZIP Co de Phone Number [facility] [address] [place] [address] * Magnesium, Plasma (11/26/2024 6:25 AM EDT) Magnesium, Plasma 1.9 1.9 - 2.4 mg/dL 11/26/2024 7:01 AM EDT [facility] Blood Venous blood specimen / Unknown Venipuncture / Unknown 11/26/2024 6:25 AM EDT 11/26/2024 6:33 AM EDT Meri Tai MD LAB BLOOD ORDERABLES Final Re sult [facility] [address] [place] [address] * (ABNORMAL) Basic metabolic panel (11/26/2024 6:25 AM EDT) Glucose, Plasma 141(H) 74 - 99 mg/dL 11/26/2024 7:01 AM EDT [facility] BUN, Plasma 14 8 - 23 mg/dL 11/26/2024 7:01 AM EDT [facility] Creatinine, Plasma 0.81 0.60 - 1.10 mg/dL 11/26/2024 7:01 AM EDT [facility] BUN/Creatinine Ratio 17 11/26/2024 7:01 AM EDT [facility] Sodium, Plasma 136 136 - 145 mmol/L 11/26/2024 7:01 AM EDT [facility] Potassium, Plasma 3.7 3.6 - 4.9 mmol/L 11/26/2024 7:01 AM EDT [facility] Chloride, Plasma 102 97 - 107 mmol/L 11/26/2024 7:01 AM EDT [facility] CO2, Plasma 24 22 - 29 mmol/L 11/26/2024 7:01 AM EDT [facility] Anion Gap 10 6 - 16 mmol/L 11/26/2024 7:01 AM EDT [facility] Total Calcium, Plasma 8.7(L) 8.9 - 10.2 mg/dL 11/26/2024 7:01 AM EDT [facility] eGFRcr 69.5 mL/min/1.7 3m*2 11/26/2024 7:01 AM EDT [facility] Comment:Reported eGFRcr in m L/min/1.73m2 is based the CKD-EPI 2020 equation that does not use a race coefficient. Blood Venous blood specimen / Unknown Venipuncture / Unknown 11/26/2024 6:25 AM EDT 11/26/2024 6:33 AM EDT us Meri Tai MD LAB BLOOD ORDERABLES Final Re sult [facility] [address] [place] [address] * (ABNORMAL) Ionized calcium, whole blood (11/26/2024 4:23 AM EDT) Ionized Calcium, Whole Blood 4.2(L) 4.6 - 5.1 mg/dL LAB HEMATOLOGY METHOD 11/26/2024 4:48 AM EDT [facility] Blood Venous blood specimen / Unknown Venipuncture / Unknown 11/26/2024 4:23 AM EDT 11/26/2024 4:46 AM EDT us Meri Tai MD LAB BLOOD ORDERABLES Final Re sult [facility] [address] [place] [address] * (ABNORMAL) CBC W/O Differential (11/26/2024 4:23 AM EDT) WBC Count 9.80 3.70 - 10.30 10*3/uL LAB HEMATOLOGY METHOD 11/26/2024 5:06 AM EDT [facility] RBC Count 3.77(L) 3.90 - 5.20 10*6/uL LAB HEMATOLOGY METHOD 11/26/2024 5:06 AM EDT [facility] HGB 11.9 11.2 - 15.7 g/dL LAB HEMATOLOGY METHOD 11/26/2024 5:06 AM EDT [facility] HCT 35.9 34.0 - 45.0 % LAB HEMATOLOGY METHOD 11/26/2024 5:06 AM EDT [facility] Platelet Count 190 155 - 369 10*3/uL LAB HEMATOLOGY METHOD 11/26/2024 5:06 AM EDT [facility] MCV 95 79 - 98 fL LAB HEMATOLOGY METHOD 11/26/2024 5:06 AM EDT [facility] MCH 31.6 26.0 - 32.0 pg LAB HEMATOLOGY METHOD 11/26/2024 5:06 AM EDT [facility] MCHC 33.1 30.7 - 35.5 g/dL LAB HEMATOLOGY METHOD 11/26/2024 5:06 AM EDT [facility] RDW 12.7 11.5 - 14.5 % LAB HEMATOLOGY METHOD 11/26/2024 5:06 AM EDT [facility] MPV 11.6 8.8 - 12.5 fL LAB HEMATOLOGY METHOD 11/26/2024 5:06 AM EDT [facility] nRBC 0.0 <=0.0 per 100 WBCs LAB HEMATOLOGY METHOD 11/26/2024 5:06 AM EDT [facility] Blood Venous blood specimen / Unknown Venipuncture / Unknown 11/26/2024 4:23 AM EDT 11/26/2024 4:51 AM EDT us Meri Tai MD LAB BLOOD ORDERABLES Final Re sult [facility] [address] [place] [address] * Surgical Pathology Exam (11/25/2024 9:25 AM EDT) Case Report Surgical Pathology Case: [id number] Authorizing Provider: Meri Tai MD Collected: 11/25/2024 0925 Ordering Location: [facility] A OPERATING ROOM Received: 11/25/2024 1210 Pathologist: Jennifer Faust MD Specimens: A) - [place] Lymph Node, right obturator sentinel lymph node B) - Uterus, UTERUS, CERVIX, BILATERAL TUBES AND OVARIES C) - [place] Lymph Node, LEFT COMMON ILIAC SENTINEL LYMPH NODE 12/01/2024 5:39 PM EDT [facility] Addendum This addendum has been issued to report that the entire endometrial lesion is submitted for histologic evaluation in [id number]. The diagnosis remains unchanged. 12/01/2024 5:39 PM EDT [facility] Addendum electronically signed by Jennifer Faust [...] METASTATIC CARCINOMA (0/1). 12/01/2024 5:39 PM EDT [facility] at 1729 EDT Comment The performed immunostains on the biopsy specimen at the outside institution showed the following results ([id number]): MMR panel: retained nuclear expression of mismatch-repair proteins P53: wild type 12/01/2024 5:39 PM EDT [facility] Synoptic Checklist ENDOMETRIUM ENDOMETRIUM - All Specimens [...] Pelvic Nodes Examined: 4 Number of Pelvic [place] Nodes Examined: 4 Total Number of Para-aortic [...] the Endometrium): IA1 12/01/2024 5:39 PM EDT [facility] Clinical Information Endometrial adenocarcinoma (CMS/HCC) [C54.1] 12/01/2024 5:39 PM EDT [facility] Gross Description A. RIGHT OBTURATOR [...] sectioned to reveal a prominent corpus albicans. Proposal Analyst sections of the specimen are submitted as [...] ROGELIO Murphy (ASCP) 12/01/2024 5:39 PM EDT [facility] Note: A resident was involved in the service. I attest I examined the relevant preparations for the specimens and confirmed the diagnosis or interpretation. 12/01/2024 5:39 PM EDT [facility] Tissue Specimen from sentinel lymph [...] Result - Final Performing Organization Address City/[facility]/ZIP Co de Phone Number [facility] [address] [place] [address] * Type and screen (11/25/2024 6:46 AM EDT) Pathologist [facility] ABO/Rh A Positive 11/25/2024 6:06 AM EDT [facility] Antibody Screen Negative 11/25/2024 6:06 AM EDT [facility] Specimen Expiration 11/28/2024 23:59 11/25/2024 6:06 AM EDT [facility] Blood Venous blood specimen / Unknown Venipuncture / Unknown 11/25/2024 6:46 AM EDT 11/25/2024 6:58 AM EDT Meri Tai MD LAB BLOOD BANK TEST ORDERABLE S Final Result Performing Organization Address [facility] de Phone Number BLOOD BANK [address] [place] [address] * (ABNORMAL) POCT glucose meter (11/25/2024 5:58 AM EDT) [facility] POCT Glucose 114(H) 74 - 99 mg/dL [...] 11/25/2024 6:02 AM EDT [facility] Pressure Dispatcher ID Nancy Light 11/26/19 6:02 AM EDT [facility] Device ID [id number] 11/25/2024 6:02 AM EDT [facility] Specimen Type POC Capillary 11/25/2024 6:02 AM EDT [facility] Blood Capillary blood specimen / Unknown 11/25/2024 5:58 AM EDT 11/25/2024 6:02 AM EDT us Meri Tai MD LAB POINT OF CARE TE ST DOCKED DEVICE UNSOLICITED RESULTS Final Result [facility] [address] [place] [address] documented in this encounter Visit Diagnoses Diagnosis [...] dose, Starting on Sat11/25/24 at 1142, Until Sat11/26/24 at 1241, Routine, Recovery (Phase I only), [...] doses, Starting on Sat11/25/24 at 1142, Until Sat11/26/24 at 1241, Routine, Recovery (Phase I only), [...] doses, Starting on Sat11/25/24 at 1142, Until Sat11/26/24 at 1241, Routine, Recovery (Phase I only), [...] Unit 1343 (Given - Provider: Yesenia Ku RN)210 (Given - Provider: Vasu Meade RN) 0832 (Given - Provider: Yesenia Ku RN) famotidine (Pepcid) 40 MG/5ML suspension 20 mg(Linked Group 1) 20 mg, Oral, 2 times daily, First dose on Sat11/25/24 at 1315, Until Discontinued, Routine, Recovery(Phase II-Outpatient)/On Unit(Inpatient) 1343 (See Alternative - Provider: Yesenia Ku RN)210 (See Alternative - Provider: Vasu Meade RN) [...] Meade, ROXANE)2338 (Not Given - Provider: Miri Rutherford, ROXANE - Reason: Patient/family refused) 0604 (Not Given - Provider: Miri Rutherford, ROXANE - Reason: Patient/family refused)1200 (Canceled Entry - Provider: Automatic Discharge Provider - Comment: Automatically canceled at discontinue of medication order) pantoprazole (Protonix) EC tablet 40 mg 40 mg, Oral, 2 times daily, First dose on Sat11/25/24 at 2100, Until Discontinued, Routine 211 (Given - Provider: Vasu Meade RN) 0831 [...] Preprocedure 0702 (Given - Provider: Guerline Vaz RN)193 (Given - Provider: Vasu Meade, RN) 0626 [...] Routine, Intraprocedure 0858 (Given - Provider: Mariel or Biju Proctor MD) naloxone (Narcan) injection 0.4 mg [...] documented as of this encounter Care Teams Financial Services Consultant Relationship Specialty Start Date End Date Owen Temple DO [address] [facility] [address] [place] [address] PCP - General 08/06/24 Jann Hernandes MD [address] [place] [address] [address]1 [address] [place] [address] 12/12/21 Chata Temple DO [address] [facility] [address] [place] [address] Resident 10/14/24 documented as of this encounter
--- OUTSIDE RECORDS SUMMARY | 2024-12-18 14:40 | XMS_ITS | Encounter Summary ---
Author Organization [facility] Address [address] [place] [address] Care Team Providers Care Bark Skinner Name Role Phone Jann Hernandes MD Unavailable [phone] Owen Temple DO Primary Care Provider [phone] Chata Temple DO Unavailable [phone] Encounter Details Date Type Department Care Team (Late Contact Info) Description 11/12/2024 Orders Only External Location [address] [place] [address] Provider, External Social History Tobacco [...] EDT Office Visit [facility] 800 [facility] [address] [place] [address] Meri Tai MD 800 [facility] [address] [place] [address] 03/15/2025 10:10 AM EDT Appointment [facility] [address] [place] [address] 03/15/2025 11:40 AM EDT Clinical Support [facility] Lab [address] 2[address] [place] [address] 03/15/2025 12:40 PM EDT Office Visit [facility] Urology [address] [place] [address] Sonal Cordero MD [address] [place] [address] documented as of this encounter [...] documented as of this encounter Care Teams Bark Skinner Relationship Specialty Start Date End Date Owen Temple DO [address] [place] [address] PCP - General 08/06/24 Jann Hernandes MD [address] [place] [address] #1 [address] [place] [address] 12/12/21 Chata Temple DO 1210 [facility] [address] [place] [address] Resident 10/14/24 documented as of this encounter
--- OUTSIDE RECORDS SUMMARY | 2024-12-18 14:40 | XMS_ITS | Clinical Summary ---
Author Organization [facility] Address [address] [place] [address] Care Team Providers Care Butadiene Compressor Operator Name Role Phone Jann Hernandes MD Unavailable [phone] Owen Temple DO Primary Care Provider [phone] Chata Temple DO Unavailable Allergies No known active allergies Medications amLODIPine-benaze pril (Lotrel) 10-40 MG capsule Take 1 capsule by mouth daily. 11/01/19 22 Active omeprazole (PriLOSEC) [address] capsule Take by mouth daily. 12/10/19 22 Active simvastatin (Zocor) 40 MG tablet Take by mouth nightly. 12/10/19 22 Active multivitamin-mine rals-folic acid-coenzyme q10 (Preservision AREDS 2) capsule Take 1 capsule by mouth daily. Active losartan (Cozaar) 50 MG tablet Take 1 tablet by mouth daily. Active meloxicam (Mobic) 15 [...] tablets by mouth every 8 hours. Under [place] law, monthly prescriptions (30 days) can be [...] daily. 30 tablet 1 11/27/19 25 Active tamsulosin (Flomax) 0.4 MG 24 hr capsule Take 1 capsule by mouth daily. 30 capsule 2 12/12/19 25 Active tamsulosin (Flomax) 0.4 MG 24 hr capsule Take 1 capsule by mouth daily. 025 Discontin ued(Reord er) enoxaparin (Lovenox) 40 MG/0.4ML solution prefilled syringe [...] Encounters Date Type Department Care Team Description 12/11/2024 Refill [facility] Urology [address] [place] [address] Ivonne Meyers, SCHOOL BOAT DRIVER, DNP 12/04/2024 Results Follow-Up [facility] [address] [place] [address] Stephanie Proctor MD 12/02/2024 Orders Only [facility] Gynecology [address] [facility] [address] [place] [address] aZhra Jones MD 11/30/2024 Telephone [facility] Urology [address] [place] [address] Clark Mathews MD HCN Clinical Concern/Question 11/25/2024 8:15 AM EDT - 11/25/2024 12:20 PM EDT Surgery [facility] OPERATING ROOM [address] [place] [address] Meri aTi MD Robot [id number] SLN [[id number] (CPT )] 11/25/2024 8:15 AM EDT Anesthesia Event [facility] A OPERATING ROOM [address] [place] [address] Paulie Morris MD Kelley, Justin S, MD 11/25/2024 5:35 AM EDT - 11/26/2024 10:41 AM EDT Hospital Encounter [facility] A OPERATING ROOM [address] [place] [address] Meri Tai MD Endometrial adenocarcinoma (CMS/HCC) Discharge Disposition: Home or Self Care 11/25/2024 Telephone [facility] Urology [address], [address] [place] [address] Clark Mathews MD HCN - Patient Message (Reschedule ) 11/25/2024 Travel 11/13/2024 12:30 PM EDT Pre-Admission Testing [facility] Pre-op Clinic [address], [address] [place] [address] Preop examination (Primary Dx) 11/13/2024 Travel 11/12/2024 Orders Only External Location [address] [place] [address] Provider, External 11/12/2024 Orders Only External Location [address] [place] [address] Provider, External 11/12/2024 Telephone [facility] [address] [facility] [address] [place] [address] Meri Tai MD 11/12/2024 Travel 11/03/2024 Telephone [facility] [address] [place] [address] Meri Tai MD 10/22/2024 11:00 AM EDT Office Visit [facility] [address] [place] [address] Meri Tai MD Endometrial adenocarcinoma (CMS/HCC) (Primary Dx); Personal history of other endocrine, nutritional and metabolic disease 10/22/2024 Travel 10/22/2024 Lab Requisition [facility] [address] [place] [address] Meri Tai MD Postmenopausal bleeding 10/14/2024 Orders Only [facility] [address] [place] [address] Chata Temple, Endometrial adenocarcinoma (CMS/HCC) (Primary Dx) from Last 3 Months Immunizations Immunization Administration [...] [address] [place] [address] Meri Tai MD [address] [facility] [address] [place] [address] 03/15/2025 10:10 AM EDT Appointment [facility] Radiology [address] [place] [address] 03/15/2025 11:40 AM EDT [facility] [address], [address] [place] [address] 03/15/2025 12:40 PM EDT [facility] [address], [address] [place] [address] Sonal Cordero MD [address] [place] [address] Health Maintenance Due Date Last Done Comments [facility]-Bone Density Scan 1935 [facility]-Medicare Annual Wellness (AWV) 1935 [facility]-Infant/Child/Adol SDOH Screenings 1935 [id number] Vaccine (#1) 08/21/1940 [facility]- SDOH Screenings 08/21/1953 [facility]-Adult SDOH Screenings 08/21/1953 [facility]-Zoster Vaccines (1 of 2) 08/21/1954 [facility]-RSV Vaccine: 60+ Years or (1 - 1-dose 75+ series) 08/21/2010 [facility]-Pneumococcal Vaccine: 50+ Years (2 of 2 - PCV) 02/13/2017 02/14/2016 [facility]-Influenza Vaccine (#1) 2025 03/30/2020 [facility]-Depression Screening 10/22/2025 10/22/2024 [facility]-Diabetes: [...] Care Plan Autogenerated Problem No Renetta Myles Procedures Procedure Name Priority Date/Time Associated Diagnosis [...] ANESTHESIA PLACEHOLDER Routine 11/25/2024 8:26 AM EDT CO AN ELECTIVE ENDOTRACHEAL AIRWAY Routine 11/25/2024 8:26 AM EDT CO LAPAROSCOPY W TOT HYSTERECTUTERUS <=250 GRAM W [...] - 4.5 mg/dL 11/26/2024 7:01 AM EDT [facility] Blood Venous blood specimen / Unknown Venipuncture / Unknown 11/26/2024 6:25 AM EDT 11/26/2024 6:33 AM EDT Meri Tai MD LAB BLOOD ORDERABLES Final Re sult [facility] [address] [place] [address] * Magnesium, Plasma (11/26/2024 6:25 AM EDT) Magnesium, Plasma 1.9 1.9 - 2.4 mg/dL 11/26/2024 7:01 AM EDT [facility] Blood Venous blood specimen / Unknown Venipuncture / Unknown 11/26/2024 6:25 AM EDT 11/26/2024 6:33 AM EDT Meri Tai MD LAB BLOOD ORDERABLES Final Re sult [facility] [address] [place] [address] * (ABNORMAL) Basic metabolic panel (11/26/2024 6:25 AM EDT) Glucose, Plasma 141(H) 74 - 99 mg/dL 11/26/2024 7:01 AM EDT [facility] BUN, Plasma 14 8 - 23 mg/dL 11/26/2024 7:01 AM EDT [facility] Creatinine, Plasma 0.81 0.60 - 1.10 mg/dL 11/26/2024 7:01 AM EDT [facility] BUN/Creatinine Ratio 17 11/26/2024 7:01 AM EDT [facility] Sodium, Plasma 136 136 - 145 mmol/L 11/26/2024 7:01 AM EDT [facility] Potassium, Plasma 3.7 3.6 - 4.9 mmol/L 11/26/2024 7:01 AM EDT [facility] Chloride, Plasma 102 97 - 107 mmol/L 11/26/2024 7:01 AM EDT [facility] CO2, Plasma 24 22 - 29 mmol/L 11/26/2024 7:01 AM EDT [facility] Anion Gap 10 6 - 16 mmol/L 11/26/2024 7:01 AM EDT [facility] Total Calcium, Plasma 8.7(L) 8.9 - 10.2 mg/dL 11/26/2024 7:01 AM EDT [facility] eGFRcr 69.5 mL/min/1.7 3m*2 11/26/2024 7:01 AM EDT [facility] Comment:Reported eGFRcr in m L/min/1.73m2 is based the CKD-EPI 2020 equation that does not use a race coefficient. Blood Venous blood specimen / Unknown Venipuncture / Unknown 11/26/2024 6:25 AM EDT 11/26/2024 6:33 AM EDT us Meri Tai MD LAB BLOOD ORDERABLES Final Re sult Performing Organization Address City/[facility]/ZIP Co de Phone Number [facility] [address] [place] [address] * (ABNORMAL) Ionized calcium, whole blood (11/26/2024 4:23 AM EDT) [facility] Ionized Calcium, Whole Blood 4.2(L) 4.6 - 5.1 mg/dL LAB HEMATOLOGY METHOD 11/26/2024 4:48 AM EDT [facility] Blood Venous blood specimen / Unknown Venipuncture / Unknown 11/26/2024 4:23 AM EDT 11/26/2024 4:46 AM EDT us Meri Tai MD LAB BLOOD ORDERABLES Final Re sult Performing Organization Address [facility] Co de Phone Number [facility] [address] [place] [address] * (ABNORMAL) CBC W/O Differential (11/26/2024 4:23 AM EDT) Only the most recent of2 resultswithin the time period is included. [facility] WBC Count 9.80 3.70 - 10.30 10*3/uL LAB HEMATOLOGY METHOD 11/26/2024 5:06 AM EDT [facility] RBC Count 3.77(L) 3.90 - 5.20 10*6/uL LAB HEMATOLOGY METHOD 11/26/2024 5:06 AM EDT [facility] HGB 11.9 11.2 - 15.7 g/dL LAB HEMATOLOGY METHOD 11/26/2024 5:06 AM EDT [facility] HCT 35.9 34.0 - 45.0 % LAB HEMATOLOGY METHOD 11/26/2024 5:06 AM EDT [facility] Platelet Count 190 155 - 369 10*3/uL LAB HEMATOLOGY METHOD 11/26/2024 5:06 AM EDT [facility] MCV 95 79 - 98 fL LAB HEMATOLOGY METHOD 11/26/2024 5:06 AM EDT [facility] MCH 31.6 26.0 - 32.0 pg LAB HEMATOLOGY METHOD 11/26/2024 5:06 AM EDT [facility] MCHC 33.1 30.7 - 35.5 g/dL LAB HEMATOLOGY METHOD 11/26/2024 5:06 AM EDT [facility] RDW 12.7 11.5 - 14.5 % LAB HEMATOLOGY METHOD 11/26/2024 5:06 AM EDT [facility] MPV 11.6 8.8 - 12.5 fL LAB HEMATOLOGY METHOD 11/26/2024 5:06 AM EDT [facility] nRBC 0.0 <=0.0 per 100 WBCs LAB HEMATOLOGY METHOD 11/26/2024 5:06 AM EDT [facility] Blood Venous blood specimen / Unknown Venipuncture / Unknown 11/26/2024 4:23 AM EDT 11/26/2024 4:51 AM EDT us Meri Tai MD LAB BLOOD ORDERABLES Final Re sult [facility] [address] [place] [address] * Surgical Pathology Exam (11/25/2024 9:25 AM EDT) Case Report Surgical Pathology Case: [id number] Authorizing Provider: Meri Tai MD Collected: 11/25/2024 0925 Ordering Location: [facility] A OPERATING ROOM Received: 11/25/2024 1210 Pathologist: Jennifer Faust MD Specimens: A) - [place] Lymph Node, right obturator sentinel lymph node B) - Uterus, UTERUS, CERVIX, BILATERAL TUBES AND OVARIES C) - [place] Lymph Node, LEFT COMMON ILIAC SENTINEL LYMPH NODE 12/01/2024 5:39 PM EDT [facility] Addendum This addendum has been issued to report that the entire endometrial lesion is submitted for histologic evaluation in [id number]. The diagnosis remains unchanged. 12/01/2024 5:39 PM EDT [facility] Addendum electronically signed by Jennifer Faust MD [...] METASTATIC CARCINOMA (0/1). 12/01/2024 5:39 PM EDT [facility] at 1729 EDT Comment The performed immunostains on the biopsy specimen at the outside institution showed the following results ([id number]): MMR panel: retained nuclear expression of mismatch-repair proteins P53: wild type 12/01/2024 5:39 PM EDT [facility] Synoptic Checklist ENDOMETRIUM ENDOMETRIUM - All Specimens [...] Pelvic Nodes Examined: 4 Number of Pelvic [place] Nodes Examined: 4 Total Number of Para-aortic [...] the Endometrium): IA1 12/01/2024 5:39 PM EDT [facility] Clinical Information Endometrial adenocarcinoma (CMS/HCC) [C54.1] 12/01/2024 5:39 PM EDT [facility] Gross Description A. RIGHT OBTURATOR SENTINEL LYMPH NODE Received in formalin labeled right obturator sentinel lymph node are 2 lcinton-yellow lobulated soft tissue fragments measuring 1.6 x [...] sectioned to reveal a prominent corpus albicans. Poultry Farm Supervisor sections of the specimen are submitted as [...] ROGELIO Murphy (ASCP) 12/01/2024 5:39 PM EDT [facility] Note: A resident was involved in the service. I attest I examined the relevant preparations for the specimens and confirmed the diagnosis or interpretation. 12/01/2024 5:39 PM EDT [facility] Tissue Specimen from sentinel [...] PATHOLOGY ORDERABLES Edit ed Result - Final [facility] [address] [place] [address] * Peripheral IV (11/25/2024 8:30 AM EDT) Narrative Paulie Morris MD - 11/25/2024 8:30 AM EDT Paulie Morris MD 11/25/2024 2:30 PM Peripheral IV Date/Time: 11/25/2024 8:30 AM Inserted by: Brayden Velázquez MD Placement Needle size: 20 G Location: hand Site prep: alcohol Technique: anatomical landmarks Attempts: 1 Paulie Morris MD ANESTHESIA ORDERABLES Fin al [...] monitoring: continuous pulse ox, heart rate and cardiac catheterization technologist Block type: TAP Laterality: left and right [...] MD ANESTHESIA ORDERABLES Fin al Result * CO AN ELECTIVE ENDOTRACHEAL AIRWAY, PB ANESTHESIA PLACEHOLDER [...] ORDERABLE S Final Result Performing Organization Address City/[facility] Co de Phone Number BLOOD BANK [address] * (ABNORMAL) POCT glucose meter (11/25/2024 [...] 11/25/2024 6:02 AM EDT [facility] Mica Layer ID Nancy Light 11/26/19 25 6:02 AM EDT [facility] Device ID [id number] 11/25/2024 6:02 AM EDT [facility] Specimen Type POC Capillary 11/25/2024 6:02 AM EDT [facility] Blood Capillary blood specimen / Unknown 11/25/2024 5:58 AM EDT 11/25/2024 6:02 AM EDT Meri Tai MD LAB POINT OF CARE TE ST DOCKED DEVICE UNSOLICITED RESULTS Final Result Performing Organization Address City/[facility]/ZIP Co de Phone Number [facility] [address] [place] [address] * CT THORACIC OUTSIDE IMAGES (11/12/2024 9:50 AM EDT) Only the most recent of2 resultswithin the time period is included. Anatomical Region Laterality Modality Computed Tomogra phy 11/12/2024 9:50 AM EDT External Provider IMG CT PROCEDURES Final Result * Methicillin Resistant Staphylococcus aureus (MRSA) by PCR (10/22/2024 1:48 PM EDT) Methicillin Resistant Staphylococcus aureus (MRSA) by PCR Not Detected Not Detected 10/22/2024 3:53 PM EDT [facility] Swab Both anterior nares / Unknown Non-blood Collection / Unknown 10/22/2024 1:48 PM EDT 10/22/2024 2:27 PM EDT Narrative [facility] - 10/22/2024 3:53 PM [...] MICROBIOLOGY - GENERAL OR DERABLES Final Result [facility] [address] [place] [address] * (ABNORMAL) Hemoglobin A1c (10/22/2024 1:48 PM EDT) Hemoglobin A1c 6.3(H) <5.7 % 10/22/2024 5:52 PM EDT [facility] Blood Venous blood specimen / Unknown Venipuncture / Unknown 10/22/2024 1:48 PM EDT 10/22/2024 3:05 PM EDT Narrative [facility] - 10/22/2024 5:52 PM EDT HA1C Interpretive Data: Diagnosis of Diabetes: Diabetic > or = 6.5% Pre-diabetic 5.7 to 6.4% Non-diabetic < or = 5.6% Glycemic Targets for Type I and Type II Diabetics: Non- Adults <7.0% Adults <6.0% Children and Adolescents <7.5% Source: [place] [employer]. Standards of medical care in diabetes,2017. Diabetes Care.2017:40 (suppl 1):S1-S135. us Meri Tai MD LAB BLOOD ORDERABLES Final Re sult [facility] [address] [place] [address] * (ABNORMAL) Comprehensive metabolic panel (10/22/2024 1:48 PM EDT) Glucose, Plasma 113(H) 74 - 99 mg/dL 10/22/2024 3:13 PM EDT [facility] BUN, Plasma 25(H) 8 - 23 mg/dL 10/22/2024 3:13 PM EDT [facility] Creatinine, Plasma 0.91 0.60 - 1.10 mg/dL 10/22/2024 3:13 PM EDT [facility] BUN/Creatinine Ratio 27 10/22/2024 3:13 PM EDT [facility] Sodium, Plasma 137 136 - 145 mmol/L 10/22/2024 3:13 PM EDT [facility] Potassium, Plasma 5.2(H) 3.6 - 4.9 mmol/L 10/22/2024 3:13 PM EDT [facility] Comment:Hemolyzed, result ma y be falsely increased. Chloride, Plasma 106 97 - 107 mmol/L 10/22/2024 3:13 PM EDT [facility] CO2, Plasma 21(L) 22 - 29 mmol/L 10/22/2024 3:13 PM EDT [facility] Anion Gap 10 6 - 16 mmol/L 10/22/2024 3:13 PM EDT [facility] Total Calcium, Plasma 9.3 8.9 - 10.2 mg/dL 10/22/2024 3:13 PM EDT [facility] Total Protein 7.6 6.3 - 7.9 g/dL 10/22/2024 3:13 PM EDT [facility] Albumin, Plasma 3.9 3.5 - 5.2 g/dL 10/22/2024 3:13 PM EDT [facility] AST, Plasma 53(H) 10 - 35 U/L 10/22/2024 3:13 PM EDT [facility] Comment:Hemolyzed, result ma y be falsely increased. ALT, Plasma 21 10 - 35 U/L 10/22/2024 3:13 PM EDT [facility] Comment:Hemolyzed, result ma y be falsely increased or decreased. Alkaline Phosphatase, Plasma 124 46 - 142 U/L 10/22/2024 3:13 PM EDT [facility] Comment:Hemolyzed, result ma y be falsely decreased. Total Bilirubin, Plasma 0.4 0.2 - 1.1 mg/dL 10/22/2024 3:13 PM EDT [facility] eGFRcr 60.4 mL/min/1.7 3m*2 10/22/2024 3:13 PM EDT [facility] Comment:Reported eGFRcr in m L/min/1.73m2 is based the CKD-EPI 2020 equation that does not use a race coefficient. Blood Venous blood specimen / Unknown Venipuncture / Unknown 10/22/2024 1:48 PM EDT 10/22/2024 2:35 PM EDT us Meri Tai MD LAB BLOOD ORDERABLES Final Re sult [facility] [address] [place] [address] * Surgical Pathology Consult (10/22/2024 10:44 AM EDT) Case Report Sugical Pathology Consult Case: [id number] Authorizing Provider: Meri Tai MD Collected: 10/22/2024 1044 Ordering Location: [facility] Received: 10/22/2024 1044 Pathologist: Mely Saleh MD Specimen: Endometrium, [id number] 10/23/2024 10:45 AM EDT [facility] Final Diagnosis Outside slides Date of collection: 10/08/24 Endometrium, curettage: - Endometrial adenocarcinoma, endometrioid type, FIGO grade 2 10/23/2024 10:45 AM EDT [facility] at 1045 EDT Comment Outside IHC (reviewed): MMR panel: retained nuclear expression of mismatch-repair proteins P63: wild type 10/23/2024 10:45 AM EDT [facility] Clinical Information N95.0 - Postmenopausal bleeding [ICD-10-CM] 10/23/2024 10:45 AM EDT [facility] Gross Description A. [id number] Received along with a corresponding pathology report from [facility] are 11 slide(s) labeled outside case: [id number] collected on 10/08/2024. 10/23/2024 10:45 AM EDT [facility] Note: A resident was involved in the service. I attest I examined the relevant preparations for the specimens and confirmed the diagnosis or interpretation. 10/23/2024 10:45 AM EDT [facility] Tissue Endometrial structure / Unknown 10/22/2024 10:44 AM EDT 10/22/2024 10:44 AM EDT us Meri Tai MD LAB PATHOLOGY ORDERABLES Valorie manning Result [facility] [address] [place] [address] from Last 3 Months Additional Health Concerns Active Problems Noted Date Diagnosed Date Autogenerated Problem 10/22/2024 Insurance MEDICARE [facility] Advance Directives * Full Code (Latest Code Status on File) Date Activated Date Inactivated Comments 11/25/2024 12:20 PM 11/26/2024 12:46 PM Question Answer Comments Patient has decision-making capacity? Yes Care Teams Butadiene Compressor Operator Relationship Specialty Start Date End Date Owen Temple DO [address] [place] [facility] [address] [place] [address] PCP - General 08/06/24 Jann Hernandes MD [address] [place] [address] #1 [address] [place] [address] 12/12/21 Chata Temple DO [address] [place] [address] [place], [place] [address] Resident 10/14/24
--- OUTSIDE RECORDS SUMMARY | 2024-12-18 14:40 | XMS_ITS | Encounter Summary ---
Author Organization [facility] Address [address] [id number] Care Team Providers Care Cracking Still Operator Name Role Phone Jann Hernandes MD Unavailable [phone] Owen Temple DO Primary Care Provider [phone] Chata Temple DO Unavailable [phone] Encounter Details Date Type Department Care Team (Late st Contact Info) Description 10/22/2024 Lab Requisition [facility] [address] [place] [address] Meri Tai MD [address] [facility] [address] [place] [address] Postmenopausal bleeding Social History Tobacco [...] [address] [place] [address] Meri Tai MD [address] [place] [address] 03/15/2025 10:10 AM EDT Appointment [facility] Radiology [address] [place] [address] 03/15/2025 11:40 AM EDT Clinical Support [facility] [address] [place] [address] 03/15/2025 12:40 PM EDT Office Visit [facility] Urology [address] [place] [address] Sonal Cordero MD [address] [place] [address] documented as of this encounter Goals Goal [...] EDT) Case Report Sugical Pathology Consult Case: [id number] Authorizing Provider: Meri Tai MD Collected: 10/22/2024 1044 Ordering Location: [facility] Lab Received: 10/22/2024 1044 Pathologist: Mely Saleh MD Specimen: Endometrium, [id number] 10/23/2024 10:[address] [facility] Final Diagnosis Outside slides Date of collection: 10/08/24 Endometrium, curettage: - Endometrial adenocarcinoma, endometrioid type, FIGO grade 2 10/23/2024 10:[address] [facility] at 1045 EDT Comment Outside IHC (reviewed): MMR panel: retained nuclear expression of mismatch-repair proteins P63: wild type 10/23/2024 10:[address] [facility] Clinical Information N95.0 - Postmenopausal bleeding [ICD-10-CM] 10/23/2024 10:45 AM EDT [facility] Gross Description A. [id number] Received along with a corresponding pathology report from [facility] are 11 slide(s) labeled outside case: [id number] collected on 10/08/2024. 10/23/2024 10:45 AM EDT [facility] Note: A resident was involved in the service. I attest I examined the relevant preparations for the specimens and confirmed the diagnosis or interpretation. 10/23/2024 10:45 AM EDT [facility] Tissue Endometrial structure / Unknown 10/22/2024 10:44 AM EDT 10/22/2024 10:44 AM EDT us Meri Tai MD LAB PATHOLOGY ORDERABLES Valorie manning Result [facility] [address] [place] [address] documented in this encounter Visit Diagnoses Diagnosis [...] documented as of this encounter Care Teams Cracking Still Operator Relationship Specialty Start Date End Date Maverick, Owen D, DO [address] [place] [address] [place] [address] PCP - General 08/06/24 Jann Hernandes MD [address] [place] [address] #1 [address] [place] [address] 12/12/21 Chata Temple DO [address] [place] [address] [place] [address] Resident 10/14/24 documented as of this encounter
--- OUTSIDE RECORDS SUMMARY | 2024-12-18 14:40 | XMS_ITS | Encounter Summary ---
Author Organization [facility] Address [address] [place] [address] Care Team Providers Care Meat Molder Name Role Phone Jann Hernandes MD Unavailable [phone] Owen Temple DO Primary Care Provider [phone] Chata Temple DO Unavailable [phone] Reason for Visit * Reason Onset Date Comments HCN - Patient Message 11/25/2024 Reschedule Encounter Details Date Type Department Care Team (Late st Contact Info) Description 11/25/2024 Telephone [facility] Urology [address], 2[address] [place] [address] Clark Mathews MD [address] [place] [address] HCN - Patient Message (Reschedule [...] optimal time of day to reach caller: [phone] Note: Please do not reply to this message. Follow-up communication and further actions as a result of this message need to be communicated with the patient directly, if the patient is not active onMyChart. If the patient is active on MyChart, they will receive notification of the communication/outcome via [employer]. documented in this encounter Plan of Treatment Upcoming Encounters Date Type Department Care Team (Late st Contact Info) Description 12/28/2024 9:30 AM EDT Office Visit [facility] Gynecology [address] [place] [address] Meri Tai MD [address] [place] [address] 03/15/2025 10:10 AM EDT Appointment [facility] Radiology [address] [place] [address] 03/15/2025 11:40 AM EDT Clinical Support [place] [facility] [address], 2nd [place] [address] 03/15/2025 12:40 PM EDT Office Visit [facility] Urology [address], 2[address] [place] [address] Sonal Cordero MD [address] [place] [address] documented as of this encounter [...] documented as of this encounter Care Teams Meat Molder Relationship Specialty Start Date End Date Owen Temple DO 1210 [facility] [address] [place] [address] PCP - General 08/06/24 Jann Hernandes MD [address] [place] [address] #1 #1 [place] [address] 12/12/21 Chata Temple DO [address] [place] [address] Resident 10/14/24 documented as of this encounter
--- OUTSIDE RECORDS SUMMARY | 2024-12-18 14:40 | XMS_ITS | Encounter Summary ---
Author Organization [facility] Address [address] [place] [address] Care Team Providers Care Template Cutter Name Role Phone Zoran Nvaa MD Primary Care Provider Jann Hernandes MD Unavailable [phone] Owen Temple DO Primary Care Provider Chata Temple DO Unavailable [phone] Encounter Details Date Type Department Care Team (Latest Contact Info) Description 04/18/2023 [facility] [address] [place] [address] Coty Cowan MD [address] [place] [address] Exudative age-related macular degeneration of left eye [...] [address] [place] [address] Meri Tai MD [address] [place] [place] [address] 03/15/2025 10:10 AM EDT Appointment [facility] Radiology [address] [place] [address] 03/15/2025 11:40 AM EDT Clinical Support [place] [facility] [address], 2nd [place] [address] 03/15/2025 12:40 PM EDT Office Visit [facility] Urology [address], 2nd [place] [address] Sonal Cordero MD [address] [facility] [address] [place] [address] documented as of this encounter [...] documented as of this encounter Care Teams Template Cutter Relationship Specialty Start Date End Date Zoran Nava MD [address] [place] [address] PCP - General 10/28/20 08/05/24 Owen Temple DO 1210 [facility] [address] [place] [address] PCP - General 08/06/24 Jann Hernandes MD [address] [place] [address] #1 #1 [place] [address] 12/12/21 Chata Temple DO [address] [place] [address] Resident 10/14/24 documented as of this encounter
--- OUTSIDE RECORDS SUMMARY | 2024-12-18 14:40 | XMS_ITS | Encounter Summary ---
Author Organization [facility] Address [address] [place] [address] Care Team Providers Care Informatics Nurse Specialist Name Role Phone Jann Hernandes MD Unavailable [phone] Owen Temple DO Primary Care Provider [phone] Chata Temple DO Unavailable [phone] Encounter Details Date Type Department Care Team (Late Contact Info) Description 11/12/2024 Orders Only External Location [address] [place] [address] Provider, External Social History Tobacco [...] EDT Office Visit [facility] Gynecology 800 [facility] [address] [place] [address] Meri Tai MD 800 [facility] [address] [place] [address] 03/15/2025 10:10 AM EDT Appointment [facility] Radiology [address] [place] [address] 03/15/2025 11:40 AM EDT Clinical Support [facility] Lab [address], 2nd [place] [address] 03/15/2025 12:40 PM EDT Office Visit [facility] Urology [address], [address] [place] [address] Sonal Cordero MD [address] [place] [address] documented as of this encounter [...] documented as of this encounter Care Teams Informatics Nurse Specialist Relationship Specialty Start Date End Date Owen Temple DO [address] [place] [address] [place] [address] PCP - General 08/06/24 Jann Hernandes MD [address] [place] [address] #1 [address]1 [place] [address] 12/12/21 Chata Temple DO 1210 [facility] [address] [place] [address] Resident 10/14/24 documented as of this encounter
--- OUTSIDE RECORDS SUMMARY | 2024-12-18 14:40 | XMS_ITS | Encounter Summary ---
Author Organization [facility] Address [address] [place] [address] Care Team Providers Care Field Clerk Name Role Phone Jann Hernandes MD Unavailable [phone] Owen Temple DO Primary Care Provider [phone] Chata Temple DO Unavailable [phone] Reason for Visit * Reason Onset Date Comments Med Refill 12/11/2024 Encounter Details Date Type Department Care Team (Late st Contact Info) Description 12/11/2024 Refill [facility] U[facility] [address], [address]nd [place] [address] Ivonne Meyers, PROTEIN CHEMIST, DNP [address] [place] [address] Social History Tobacco Use Types Packs/Day Years [...] encounter Miscellaneous Notes * Telephone Encounter - Ivonne Berman, PharmD - 12/11/2024 1:09 PM EDT flomax medication(s) has been approved per protocol. Next appt in Feb. Last visit note says continue flomax documented in this encounter Plan of Treatment Upcoming Encounters Date Type Department Care Team (Late st Contact Info) Description 12/28/2024 9:30 AM EDT Office Visit [facility] [address] [place] [address] Meri Tai MD [address] [place] [address] 03/15/2025 10:10 AM EDT Appointment [facility] [address] [place] [address] 03/15/2025 11:40 AM EDT Clinical Support [facility] Lab [address], 2nd [place] [address] 03/15/2025 12:40 PM EDT Office Visit [facility] Urology [address], [address]nd [place] [address] Sonal Cordero MD [address] [place] [address] documented as of this encounter Goals Goal [...] documented as of this encounter Care Teams Field Clerk Relationship Specialty Start Date End Date Owen Temple, [address] [place] [address] [place] [address] PCP - General 08/06/24 Jann Hernandes MD [address] [place] [address] #1 [address] [place], [place] [id number] 12/12/21 Chata Temple DO [address] [place] [address] [place] [address] Resident 10/14/24 documented as of this encounter
--- OUTSIDE RECORDS SUMMARY | 2024-12-18 14:40 | XMS_ITS ---
Author Organization [facility] Address [address] [place] [address] Care Team Providers Care Preparation Room Worker Name Role Phone Jann Hernandes MD Unavailable [phone] Owen Temple DO Primary Care Provider [phone] Chata Temple DO Unavailable [phone] Active Problems Problem Noted Date Diagnosed [...]
--- OUTSIDE RECORDS SUMMARY | 2024-12-18 14:40 | XMS_ITS | Encounter Summary ---
Author Organization [facility] Address [address] [place] [address] Care Team Providers Care Window Shade Cloth Sewer Name Role Phone Jann Hernandes MD Unavailable [phone] Owen Temple DO Primary Care Provider [phone] Chata Temple DO Unavailable Encounter Details Date Type Department Care Team [...] [address] [place] [address] Meri Tai MD [address] [place] [address] 03/15/2025 10:10 AM EDT Appointment [facility] Radiology [address] [place] [address] 03/15/2025 11:40 AM EDT Clinical Support [facility] Lab [address], 2nd [place] [address] 03/15/2025 12:40 PM EDT Office Visit [facility] Urology [address], 2nd [place] [address] Sonal Cordero MD [address] [place] [address] documented as of this encounter Goals Goal [...] documented as of this encounter Care Teams Window Shade Cloth Sewer Relationship Specialty Start Date End Date Owen Temple DO [address] [place] [address] [place] [address] PCP - General 08/06/24 Jann Hernandes MD [address] [place] [address] #1 #1 [place] [address] 12/12/21 Chata Temple DO 1210 [facility] [address] [place], [place] [address] Resident 10/14/24 documented as of this encounter
--- OUTSIDE RECORDS SUMMARY | 2024-12-18 14:40 | XMS_ITS | Encounter Summary ---
Author Organization [facility] Address [address] [place] [address] Care Team Providers Care Seal Mixer Name Role Phone Jann Hernandes MD Unavailable [phone] Owen Temple DO Primary Care Provider [phone] Chata Temple DO Unavailable [phone] Encounter Details Date Type Department Care [...] [address] [place] [address] Meri Tai MD [address] [place] [address] 03/15/2025 10:10 AM EDT Appointment [facility] Radiology [address] [place] [address] 03/15/2025 11:40 AM EDT Clinical Support [place] [facility] [address], 2nd [place] [address] 03/15/2025 12:40 PM EDT Office Visit [facility] Urology [address], [address]nd [place] [address] Sonal Cordero MD [address] [place] [address] documented as of this encounter Goals Goal [...] documented as of this encounter Care Teams Seal Mixer Relationship Specialty Start Date End Date Owen Temple DO [address] [place] [address] PCP - General 08/06/24 Jann Hernandes MD 430 [facility] #1 #1 [place] [address] 12/12/21 Chata Temple DO 1210 [facility] [address] [place] [address] Resident 10/14/24 documented as of this encounter
--- OUTSIDE RECORDS SUMMARY | 2024-12-18 14:40 | XMS_ITS | Encounter Summary ---
Author Organization [facility] Address [address] [place] [address] Care Team Providers Care Box Lining Machine Operator Name Role Phone Jann Hernandes MD Unavailable [phone] Owen Temple DO Primary Care Provider [phone] Chata Temple DO Unavailable [phone] Encounter Details Date Type Department Care [...] [address] [place] [address] Meri Tai MD [address] [place] [address] 03/15/2025 10:10 AM EDT Appointment [facility] Radiology [address] [place] [address] 03/15/2025 11:40 AM EDT Clinical Support [place] [facility] [address], 2nd [place] [address] 03/15/2025 12:40 PM EDT Office Visit [facility] Urology [address], 2nd [place] [address] Sonal Cordero MD [address] [place] [address] documented as of this encounter Goals Goal [...] documented as of this encounter Care Teams Box Lining Machine Operator Relationship Specialty Start Date End Date Owen Temple DO 1210 [facility] [address] [place] [address] PCP - General 08/06/24 Jann Hernandes MD [address] [place] [address] #1 #1 [place] [address] 12/12/21 Chata Temple DO [address] [place] [address] Resident 10/14/24 documented as of this encounter
--- OUTSIDE RECORDS SUMMARY | 2024-12-18 14:41 | XMS_ITS | Encounter Summary ---
Author Organization [facility] Address [address] [place] [address] Care Team Providers Care Internal Combustion Engine Subassembler Name Role Phone Jann Hernandes MD Unavailable [phone] Owen Temple DO Primary Care Provider [phone] Chata Temple DO Unavailable [phone] Encounter Details Date Type Department Care [...] [address] [place] [address] Meri Tai MD [address] [place] [address] 03/15/2025 10:10 AM EDT Appointment [facility] Radiology [address] [place] [address] 03/15/2025 11:40 AM EDT Clinical Support [place] [facility] [address] 2nd [place] [address] 03/15/2025 12:40 PM EDT Office Visit [facility] Urology [address], 2nd [place] [address] Sonal Cordero MD [address] [place] [address] documented as of this encounter Goals Goal [...] documented as of this encounter Care Teams Internal Combustion Engine Subassembler Relationship Specialty Start Date End Date Owen Temple DO 1210 [facility] [address] [place] [address] PCP - General 08/06/24 Jann Hernandes MD [address] [place] [address] #1 #1 [place] [address] 12/12/21 Chata Temple DO [address] [place] [address] [place] [address] Resident 10/14/24 documented as of this encounter
--- OUTSIDE RECORDS SUMMARY | 2024-12-18 14:41 | XMS_ITS | Encounter Summary ---
Author Organization [facility] Address [address] [place] [address] Care Team Providers Care Manager Engagement Name Role Phone Jann Hernandes MD Unavailable [phone] Owen Temple DO Primary Care Provider [phone] Chata Temple DO Unavailable [phone] Reason for Visit * Reason Onset Date Comments HCN Clinical Concern/Question 11/30/2024 Encounter Details Date Type Department Care Team (Late st Contact Info) Description 11/30/[address] [facility] Urology [address], 2nd [place] [address] Clark Mathews MD [address] [place] [address] HCN Clinical Concern/Question Social History [...] in office procedure today Best contact number: [phone] (mobile) Optimal time of day to reach caller: ANYTIME Additional comments/information from caller: None Note: Please do not reply to this message. Follow-up communication and further actions as a result of this message need to be communicated with the patient directly, if the patient is not active onMyChart. If the patient is active on MyChart, they will receive notification of the communication/outcome via [employer]. documented in this encounter Plan of Treatment Upcoming Encounters Date Type Department Care Team (Late st Contact Info) Description 12/28/2024 9:30 AM EDT Office Visit [facility]necology [address] [place] [address] Meri Tai MD [address] [facility] [address] [place] [address] 03/15/2025 10:10 AM EDT Appointment [facility] Radiology [address] [place] [address] 03/15/2025 11:40 AM EDT Clinical Support [facility] Lab [address], 2nd [place] [address] 03/15/2025 12:40 PM EDT Office Visit [facility] Urology [address], 2nd [place] [address] Sonal Cordero MD [address] [place] [address] documented as of this encounter [...] as of this encounter Care Teams Manager Engagement Relationship Specialty Start Date End Date Owen Temple DO 1210 [facility] [address] [place] [address] PCP - General 08/06/24 Jann Hernandes MD [address] [place] [address] #1 #1 [place] [address] 12/12/21 Chata Temple DO [address] [place] [address] Resident 10/14/24 documented as of this encounter
--- OUTSIDE RECORDS SUMMARY | 2024-12-18 14:41 | XMS_ITS | Encounter Summary ---
Author Organization [facility] Address [address] [place] [id number] Care Team Providers Care Pantograph Machine Operator Name Role Phone Jann Hernandes MD Unavailable [phone] Owen Temple DO Primary Care Provider [phone] Chata Temple DO Unavailable [phone] Encounter Details Date Type Department Care Team (Late st Contact Info) Description 11/12/2024 Telephone [facility] Gynecology 800 [facility] [address] [place] [address] Meri Tai MD [address] [facility] [address] [place] [address] Social History Tobacco Use Types [...] [address] [place] [address] Meri Tai MD [address] [facility] [address] [place] [address] 03/15/2025 10:10 AM EDT Appointment [facility] Radiology [address] [place] [address] 03/15/2025 11:40 AM EDT Clinical Support [facility] Lab [address], 2nd [place] [address] 03/15/2025 12:40 PM EDT Office Visit [facility] Urology [address] [place], 2nd [place] [address] Sonal Cordero MD [address] [place] [address] [place] [address] documented as of this encounter Goals Goal [...] documented as of this encounter Care Teams Pantograph Machine Operator Relationship Specialty Start Date End Date Owen Temple DO 1210 [facility] [address] [place] [address] PCP - General 08/06/24 Jann Hernandes MD [address] [place] [address] #1 #1 [place] [address] 12/12/21 Chata Temple DO 1210 [facility] [address] [place] [address] Resident 10/14/24 documented as of this encounter
--- OUTSIDE RECORDS SUMMARY | 2024-12-18 14:41 | XMS_ITS | Encounter Summary ---
Author Organization [facility] Address [address] [place] [id number] Care Team Providers Care Small Appliance Assembly Supervisor Name Role Phone Jann Hernandes MD Unavailable [phone] Owen Temple DO Primary Care Provider [phone] Chata Temple DO Unavailable [phone] Encounter Details Date Type Department Care Team (Late Contact Info) Description 12/04/2024 Results Follow-Up [facility] [address] [place] [address] Stephanie Proctor MD [address] [place] [address] Social History Tobacco Use Types [...] EDT Office Visit [facility] Gynecology 800 [facility] [address] [place] [address] Meri Tai MD 800 [facility] [address] [place] [address] 03/15/2025 10:10 AM EDT Appointment [facility] Radiology [address] [place] [address] 03/15/2025 11:40 AM EDT Clinical Support [place] [facility] Lab [address] 2[address] [place] [address] 03/15/2025 12:40 PM EDT Office Visit [facility] Urology [address], [address] [place] [address] Sonal Cordero MD [address] [place] [address] documented as of this encounter [...] documented as of this encounter Care Teams Small Appliance Assembly Supervisor Relationship Specialty Start Date End Date Owen Temple DO [address] [place] [address] PCP - General 08/06/24 Jann Hernandes MD [address] [place] [address] #1 #1 [place] [id number] 12/12/21 Chata Temple DO [address] [place] [address] [place] [address] Resident 10/14/24 documented as of this encounter
--- OUTSIDE RECORDS SUMMARY | 2024-12-18 14:41 | XMS_ITS | Encounter Summary ---
Author Organization [facility] Address [address] [place] [id number] Care Team Providers Care Enrollment Coordinator Name Role Phone Jann Hernandes MD Unavailable [phone] Owen Temple DO Primary Care Provider [phone] Chata Temple DO Unavailable [phone] Encounter Details Date Type Department Care Team (Late st Contact Info) Description 11/03/2024 Telephone [facility] Gynecology 800 [facility] [address] [place] [address] Meri Tai MD [address] [facility] [address] [place] [address] Social History Tobacco Use Types [...] EDT Pt scheduled for [facility] CAP at [facility] on 11/12 at 9:15AM. Pt is aware. documented in this encounter Plan of Treatment Upcoming Encounters Date Type Department Care Team (Late st Contact Info) Description 12/28/2024 9:30 AM EDT Office Visit [facility] [address] [place] [address] Meri Tai MD [address] [place] [address] 03/15/2025 10:10 AM EDT Appointment [facility] [address] [place] [address] 03/15/2025 11:40 AM EDT Clinical Support [facility] Lab [address] [place], [address]nd [place] [address] 03/15/2025 12:40 PM EDT Office Visit [facility] Urology [address] [place], 2nd [place] [address] Sonal Cordero MD [address] [place] [address] [place] [address] documented as of this encounter Goals Goal [...] documented as of this encounter Care Teams Enrollment Coordinator Relationship Specialty Start Date End Date Owen Temple, [address] [place], [place] [address] PCP - General 08/06/24 Jann Hernandes MD [address] [place] [address] #1 [address]1 [place] [address] 12/12/21 Chata Temple DO [address] [place] [address] [place], [facility]31 Resident 10/14/24 documented as of this encounter
--- OUTSIDE RECORDS SUMMARY | 2024-12-18 14:41 | XMS_ITS | Encounter Summary ---
Author Organization [facility] Address [address] 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 ([facility]) Coty Cowan MD [address] [address] Phone: tel: fax: Referral ID Status Reason Start Date Expiration Date Visits Requested Visits Authorized [id number] Authorized Specialty Services Required 12/17/2023 06/17/2025 1 1 Encounter Details Date Type Department Care Team (Latest Contact Info) Description 12/17/2023 Community [facility] [address] [place] [address] Coty Cowan MD [address] [place] [address] [place] [address] Advanced atrophic nonexudative age-related macular degeneration of [...] [address] [place] [id number] Meri Tai MD [address] [place] [facility] [address] [place] [address] 03/15/2025 10:10 AM EDT Appointment [facility] [address] [place] [phone] 03/15/2025 11:40 AM EDT Clinical Support [facility] [address] [place] [address] 03/15/2025 12:40 PM EDT Office Visit [facility] [address] [place] [address] Sonal Cordero MD [address] [place] [address] Scheduled Referrals Name Type Priority [...] documented as of this encounter Care Teams Die Out Worker Relationship Specialty Start Date End Date Zoran Nava MD [address] [place] [address] PCP - General 10/28/20 08/05/24 Owen Temple DO 1210 [facility] [address] [place] [id number] PCP - General 08/06/24 Jann Hernandes MD [address] [place] [address] [address] [place] [id number] 12/12/21 Chata Temple DO [address] [place] [facility] [address] [place] [id number] Resident 10/14/24 documented as of this encounter
--- OUTSIDE RECORDS SUMMARY | 2024-12-18 14:41 | XMS_ITS | Encounter Summary ---
Author Organization [facility] Address [address] [id number] Care Team Providers Care Food Scientist Name Role Phone Jann Hernandes MD Unavailable [phone] Owen Temple DO Primary Care Provider [phone] Chata Temple DO Unavailable [phone] Encounter Details Date Type Department Care Team (Late st Contact Info) Description 12/02/2024 Orders Only [facility] [address] [place] [id number] Zahra Jones MD [address] [place] [address] Social History Tobacco Use Types Packs/Day Years [...] [address] [place] [address] Meri Tai MD 800 [facility] [address] [place] [address] 03/15/2025 10:10 AM EDT Appointment [facility] [address] [place] [address] 03/15/2025 11:40 AM EDT Clinical Support [facility] [address] [place] [address] 03/15/2025 12:40 PM EDT Office Visit [facility] [address] [place] [address] Sonal Cordero MD [address] [place] [address] documented as of this encounter [...] documented as of this encounter Care Teams Food Scientist Relationship Specialty Start Date End Date Owen Temple DO [address] [place] [address] PCP - General 08/06/24 Jann Hernandes MD [address] [place] [address] [address] [place] [address] 12/12/21 Chata Temple DO [address] [place] [address] [place] [address] Resident 10/14/24 documented as of this encounter
[2024-12-18 14:46] VITALS: BP 152/75; PULSE 82; RESP 17; TEMP 36.6; O2SAT 96; BMI 28.1
--- NOTE | 2024-12-18 14:47 | ED_ITS ---
Discharge Plan Disposition Patient Disposition: Home, Self-Care Prescriptions Prescriptions: No Action bethanechol chloride 50 mg tablet 50 mg PO QID Patient Comments: TAKE 1 TABLET BY MOUTH 4 TIMES DAILY bethanechol chloride 50 mg tablet 50 mg PO QID PRN nitrofurantoin monohyd/m-cryst [Macrobid] 100 mg capsule 100 mg PO Q12H 7 Days Qty: 14 0RF Rx Instructions: must administer with a meal/food tamsulosin [Flomax] 0.4 mg capsule 0.4 mg PO DAILY Qty: 30 3RF pantoprazole 40 mg tablet,delayed release (DR/EC) 40 mg PO BID Qty: 60 0RF amlodipine 10 mg tablet See Rx Instructions .ROUTE .COMPLEX Qty: 90 0RF Dose Instruction: Take 1 tablet by mouth once daily Rx Instructions: Take 1 tablet by mouth once daily losartan 50 mg tablet See Rx Instructions .ROUTE .COMPLEX Qty: 90 0RF Dose Instruction: Take 1 tablet by mouth once daily Rx Instructions: Take 1 tablet by mouth once daily levofloxacin 750 mg tablet 750 mg PO DAILY Qty: 5 0RF simvastatin 40 mg tablet 40 mg PO DAILY Rx Instructions: TAKE 1 TABLET BY MOUTH AT BEDTIME NIGHTLY FOR CHOLESTEROL ibuprofen 800 mg tablet 800 mg PO Q8H PRN (Reason: pain) Qty: 60 2RF acetaminophen 500 mg tablet 500 mg PO Q6H PRN (Reason: fever or pain) Qty: 30 3RF Referrals Follow up/Referrals: Owen Temple DO [Primary Care Provider, Family Practice] - See instructions Activity Restrictions/Add. Instructions Additional Instructions/Restrictions: Today you were evaluated in the emergency department. Your lab work was normal, we checked your heart enzyme as well which was negative. Clinical Impressions Clinical Impression: Generalized weakness Instructions Patient Instructions: DI for Muscle Weakness Print Language Print Language: Comoran Discharge ED Provider: [facility]PI <Iram Qureshi APRN - Last Filed: 12/18/24 20:48> General Chief complaint: Urogenital-Female Stated complaint: weak, past uti, e coli Time Seen by Provider: 12/18/24 14:37 History of Present Illness HPI narrative: patient is a 89-year-old female PMHx recent history of E. coli UTI, HLD, HTN, uterine cancer (recent hysterectomy 5 weeks ago) who presents to the ED with complaints of generalized weakness for the past 2 days. Patient states that she was recently diagnosed with UTI, placed on antibiotic, the antibiotic was changed to Levaquin after cultures resulted. Related Data Home Medications ?Medication ?Instructions ?Recorded ?Confirmed simvastatin 40 mg tablet 40 mg PO DAILY 09/28/2411/17 bethanechol chloride 50 mg tablet 50 mg PO QID 5 12/14/24 bethanechol chloride 50 mg tablet 50 mg PO QID PRN 12/14/24 Previous Rx's ?Medication ?Instructions ?Recorded tamsulosin 0.4 mg capsule (Flomax) 0.4 mg PO DAILY #30 caps 04/03/24 acetaminophen 500 mg tablet 500 mg PO Q6H PRN fever or pain 10/08/24 #30 tabs ibuprofen 800 mg tablet 800 mg PO Q8H PRN pain #60 t abs 10/08/24 pantoprazole 40 mg tablet,delayed 40 mg PO BID #60 tab s 10/13/24 release amlodipine 10 mg tablet See Rx Instructions .Route 0 11/05/24 .COMPLEX #90 tabs losartan 50 mg tablet See Rx Instructions .Route 0 11/05/24 .COMPLEX #90 tabs nitrofurantoin 100 mg PO Q12H 7 days #14 ca ps 12/09/24 monohydrate/macrocrystals 100 mg capsule (Macrobid) levofloxacin 750 mg tablet 750 mg PO DAILY #5 tabs 07/11 Allergies Allergy/AdvReac Type Severity Reaction Status Date / Time No Known Allergies Allergy Verified 12/14/24 10:28 [facility] <Iram Qureshi APRN - Last Filed: 12/18/24 20:48> [facility] Disclaimer: The information contained in this section may have been updated after the patient was seen, as this information can be updated by other users. Medical History (Updated 12/18/24 @ 16:46 by Iram Qureshi APRN) Hysterectomy planned Contamination of urine culture Diastolic dysfunction Left carotid bruit Carotid artery stenosis Urinary retention Sleep apnea Macular degeneration Hyperlipidemia Hypertension Dyspnea Surgical History History of surgery History of left knee surgery History of right shoulder replacement Family History Other Hypertension Social History Smoking Status: Never smoker second hand exposure: No alcohol intake: never substance use type: denies use current occupational status: retired Travel in the last 8 weeks?: None household members: none housing: house marital status: current occupational exposures/hazards: No caffeine: No Have you lived/traveled outside US in past 30 days?: No Contact w/someone who lives/traveled outside US past 30 days?: No Exposure to someone with infectious disease in past 14 days?: No Do you have a fever (greater than 100.4 F or 38 C)?: No Have you tested positive for COVID-19?: No Exposed to someone with COVID-19 in past 14 days?: No Do you have a sore throat?: No Do you have a cough?: No Do you have any weakness?: No Do you have any diarrhea?: No Are you experiencing any unusual bleeding?: No Do you have any muscle aches/pain?: No Do you have any abdominal pain?: No Are you experiencing loss of taste or smell?: No Other Medical History Have you received the Flu Vaccine for this season: No Have you received the Pneumonia Vaccine: No <Iram Qureshi APRN - Last Filed: 12/18/24 20:48> ROS Obtained: Yes Systems reviewed as appropriate & no additional complaints except as documented Physical Exam <Iram Qureshi APRN - Last Filed: 12/18/24 20:48> General General appearance: alert and in no apparent distress Head Head exam: atraumatic and normocephalic Eye Eye exam: Present normal appearance and PERRL ENT ENT exam: Present normal exam Neck Neck exam: Present normal inspection Chest Chest inspection: Present normal inspection and symmetric chest wall rise; Absent tenderness Respiratory Respiratory exam: Present normal lung sounds bilaterally Cardiovascular Cardiovascular exam: Present regular rate Abdominal Exam Abdominal exam: Present soft, tenderness (mild RLQ tenderness ) and normal bowel sounds Extremities Exam Extremities exam: Present normal inspection and full ROM Back Exam Back exam: Present normal inspection and full ROM Neurological Exam Neurological exam: Present alert and oriented X3 Psychiatric Psychiatric exam: Present normal affect and normal mood Skin Skin exam: Present warm and dry Medical Decision Making <Iram Qureshi APRN - Last Filed: 12/18/24 20:48> Medical Records Screening: Per USPSTF and CDC recommendations, given the prevalence of disease in our region, it is our hospital?s policy to screen for HIV and viral Hepatitis for all patients aged 18 and over and those with ongoing risk factors. Edgardo Inquiry Pt receiving controlled substance: No Vital Signs: 12/18/24 14:46 12/18/24 15:30 12/18/24 16:01 Temperature 97.9 F Temperature Source Oral Pulse Rate 69 65 Pulse Rate [Right] 82 Respiratory Rate 17 18 18 Blood Pressure 140/67 169/68 H Blood Pressure [Right Arm] 152/75 H Blood Pressure Mean 102 101 Blood Pressure Mean [Right Arm] 100 Blood Pressure Source Blood Pressure Source [Right Arm] Automatic Cuff 02 Sat by Pulse Oximetry 96 97 95 Oxygen Delivery Method Room Air 12/18/24 16:46 12/18/24 16:50 Temperature 97.9 F Temperature Source Oral Pulse Rate 70 69 Pulse Rate [Right] Respiratory Rate 18 Blood Pressure 161/97 H 161/67 H Blood Pressure [Right Arm] Blood Pressure Mean Blood Pressure Mean [Right Arm] Blood Pressure Source Automatic Cuff Blood Pressure Source [Right Arm] 02 Sat by Pulse Oximetry 96 Oxygen Delivery Method Room Air Room Air Lab Data Lab Results 12/18/24 15:13: WBC 5.5, RBC 3.89 L, Hgb 12.5, Hct 37.0, MCV 95.1, MCH 32.1 H, MCHC 33.8, RDW 12.4, Plt Count 215, MPV 10.6 H, Neut % (Auto) 55.5, Lymph % (Auto) 29.9, [place] % (Auto) 11.6 H, Eos % (Auto) 1.5, Baso % (Auto) 1.1, Neut # (Auto) 3.0, Lymph # (Auto) 1.6, [place] # (Auto) 0.6, Eos # (Auto) 0.1, Baso # (Auto) 0.1, Sodium 137, Potassium 3.7, Chloride 99, Carbon Dioxide 29, Anion Gap 12.7, BUN 17, Creatinine 1.00, Estimated Creat Clear 49, Estimated GFR 52 L, Est GFR ( Amer) 63, Glucose 103 H, Calcium 9.2, Magnesium 2.0, Total Bilirubin 0.4, AST 22, ALT 16, Alkaline Phosphatase 94, Troponin I < 0.01, Total Protein 7.0, Albumin 4.0, Globulin 3.0, Albumin/Globulin Ratio 1.3 12/18/24 15:22: Urine Color Yellow, Urine Appearance Clear, Urine pH 6.0, Ur Specific [place] 1.020, Urine Protein Negative, Urine Glucose (UA) Negative, Urine Ketones Negative, Urine Blood Negative, Urine Nitrate Negative, Urine Bilirubin Negative, Urine Urobilinogen 0.2, Ur Leukocyte Esterase Trace, Urine WBC 5-10, Ur Squamous Epith Cells 20-50, Urine Bacteria Trace 12/18/24 15:13 12/18/24 15:13 Orders (Tests/Meds): ED MEDICATIONS Discontinued Medications Generic Name Dose Route Start Last Admin Trade Name Freq PRN Reason Stop Dose Admin Sodium Chloride 500 mls @ 999 mls/hr 12/18/24 14:46 12/18/24 15:29 Sod Chlor 0.9% 1000ml Bag IV 12/18/24 15:16 999 mls/hr .Q31M ONE Administration ORDERS Category Date Time Status CXR --portable [XR chest portable] Stat Exams 12/18/24 16:04 Completed CBC w/Auto Diff [Complete Blood Count Auto Diff] Stat Lab 12/18/24 15:13 Completed CMP [Comprehensive Metabolic Panel] Stat Lab 12/18/24 15:13 Completed Magnesium Stat Lab 12/18/24 15:13 Completed Trop I [Troponin I] Stat Lab 12/18/24 15:13 Completed Urinalysis and Microscopic Stat Lab 12/18/24 15:22 Completed Urine Culture(cathed specimen) Stat Micro 12/18/24 15:24 Received Medical Decision Narrative: In summary, patient is a 89-year-old female PMHx recent history of E. coli UTI, HLD, HTN, uterine cancer (recent hysterectomy 3 weeks ago) who presents to the ED with complaints of generalized weakness for the past 2 days. Patient states that she was recently diagnosed with UTI, placed on antibiotic, the antibiotic was changed to Levaquin after cultures resulted. Patient states she does not have any current urinary symptoms however feels generally weaker than normal. Denies fever, chills, body aches, headache, visual disturbances, chest pain, shortness of breath, abdominal pain, back pain, dysuria, hematuria, oliguria, retention. Upon initial evaluation patient is alert, oriented and cooperative. She is hemodynamically stable, ambulatory with her cane. Abdomen is soft, mild tenderness noted over the right lower quadrant. Discussed with patient family we will proceed with labs and urinalysis. IV fluids will be administered. CBC unremarkable for any leukocytosis, stable H&H. CMP unremarkable for any actionable abnormalities. Troponin negative. I independently interpreted the chest x-ray as no acute findings, attending the chest x-ray before final read was resulted as well. Patient is able to tolerate PO. She is ambulatory in the ED. She remained hemodynamically stable, her workup is overall unremarkable. Given this, feel the patient is safe to be discharged home at this time. I discussed with patient and family member that she will need to rest, increase her fluid intake and use her walker as directed instead of the cane. Advised her to call her PCP for follow-up next week, discussed return precautions to the ED. Patient and family verbalized understanding. <Eric Martinez MD - Last Filed: 12/19/24 02:22> Vital Signs: 12/18/24 14:46 12/18/24 15:30 12/18/24 16:01 Temperature 97.9 F Temperature Source Oral Pulse Rate 69 65 Pulse Rate [Right] 82 Respiratory Rate 17 18 18 Blood Pressure 140/67 169/68 H Blood Pressure [Right Arm] 152/75 H Blood Pressure Mean 102 101 Blood Pressure Mean [Right Arm] 100 Blood Pressure Source Blood Pressure Source [Right Arm] Automatic Cuff 02 Sat by Pulse Oximetry 96 97 95 Oxygen Delivery Method Room Air 12/18/24 16:46 12/18/24 16:50 Temperature 97.9 F Temperature Source Oral Pulse Rate 70 69 Pulse Rate [Right] Respiratory Rate 18 Blood Pressure 161/97 H 161/67 H Blood Pressure [Right Arm] Blood Pressure Mean Blood Pressure Mean [Right Arm] Blood Pressure Source Automatic Cuff Blood Pressure Source [Right Arm] 02 Sat by Pulse Oximetry 96 Oxygen Delivery Method Room Air Room Air Lab Data Lab Results 12/18/24 15:13: WBC 5.5, RBC 3.89 L, Hgb 12.5, Hct 37.0, MCV 95.1, MCH 32.1 H, MCHC 33.8, RDW 12.4, Plt Count 215, MPV 10.6 H, Neut % (Auto) 55.5, Lymph % (Auto) 29.9, [place] % (Auto) 11.6 H, Eos % (Auto) 1.5, Baso % (Auto) 1.1, Neut # (Auto) 3.0, Lymph # (Auto) 1.6, [place] # (Auto) 0.6, Eos # (Auto) 0.1, Baso # (Auto) 0.1, Sodium 137, Potassium 3.7, Chloride 99, Carbon Dioxide 29, Anion Gap 12.7, BUN 17, Creatinine 1.00, Estimated Creat Clear 49, Estimated GFR 52 L, Est GFR ( Amer) 63, Glucose 103 H, Calcium 9.2, Magnesium 2.0, Total Bilirubin 0.4, AST 22, ALT 16, Alkaline Phosphatase 94, Troponin I < 0.01, Total Protein 7.0, Albumin 4.0, Globulin 3.0, Albumin/Globulin Ratio 1.3 12/18/24 15:22: Urine Color Yellow, Urine Appearance Clear, Urine pH 6.0, Ur Specific [place] 1.020, Urine Protein Negative, Urine Glucose (UA) Negative, Urine Ketones Negative, Urine Blood Negative, Urine Nitrate Negative, Urine Bilirubin Negative, Urine Urobilinogen 0.2, Ur Leukocyte Esterase Trace, Urine WBC 5-10, Ur Squamous Epith Cells 20-50, Urine Bacteria Trace Orders (Tests/Meds): ED MEDICATIONS Discontinued Medications Generic Name Dose Route Start Last Admin Trade Name Freq PRN Reason Stop Dose Admin Sodium Chloride 500 mls @ 999 mls/hr 12/18/24 14:46 12/18/24 15:29 Sod Chlor 0.9% 1000ml Bag IV 12/18/24 15:16 999 mls/hr .Q31M ONE Administration ORDERS Category Date Time Status CXR --portable [XR chest portable] Stat Exams 12/18/24 16:04 Completed CBC w/Auto Diff [Complete Blood Count Auto Diff] Stat Lab 12/18/24 15:13 Completed CMP [Comprehensive Metabolic Panel] Stat Lab 12/18/24 15:13 Completed Magnesium Stat Lab 12/18/24 15:13 Completed Trop I [Troponin I] Stat Lab 12/18/24 15:13 Completed Urinalysis and Microscopic Stat Lab 12/18/24 15:22 Completed Urine Culture(cathed specimen) Stat Micro 12/18/24 15:24 Received Medical Decision Narrative: In summary, patient is a 89-year-old female PMHx recent history of E. coli UTI, HLD, HTN, uterine cancer (recent hysterectomy 3 weeks ago) who presents to the ED with complaints of generalized weakness for the past 2 days. Patient states that she was recently diagnosed with UTI, placed on antibiotic, the antibiotic was changed to Levaquin after cultures resulted. Patient states she does not have any current urinary symptoms however feels generally weaker than normal. Denies fever, chills, body aches, headache, visual disturbances, chest pain, shortness of breath, abdominal pain, back pain, dysuria, hematuria, oliguria, retention. Upon initial evaluation patient is alert, oriented and cooperative. She is hemodynamically stable, ambulatory with her cane. Abdomen is soft, mild tenderness noted over the right lower quadrant. Discussed with patient family we will proceed with labs and urinalysis. IV fluids will be administered. CBC unremarkable for any leukocytosis, stable H&H. CMP unremarkable for any actionable abnormalities. Troponin negative. I independently interpreted the chest x-ray as no acute findings, attending the chest x-ray before final read was resulted as well. Patient is able to tolerate PO. She is ambulatory in the ED. She remained hemodynamically stable, her workup is overall unremarkable. Given this, feel the patient is safe to be discharged home at this time. I discussed with patient and family member that she will need to rest, increase her fluid intake and use her walker as directed instead of the cane. Advised her to call her PCP for follow-up next week, discussed return precautions to the ED. Patient and family verbalized understanding. I was consulted by the EDSON, and we discussed the complexity of the problems being addressed. I approve the treatment and management plan for this patient's care in the emergency department, thus performing a substantive portion of the medical decision making. Eric Martinez MD Critical Care <Iram Qureshi APRN - Last Filed: 12/18/24 20:48> Critical Care Time Critical Care Time: No
[2024-12-18 15:21] LABS: Hematocrit 37.0 % (37.0-47.0); Hemoglobin 12.5 g/dL (12.2-16.2); Immature Granulocytes % 0.4 %; Mean Corpuscular HGB Conc 33.8 g/dL (31.8-35.4); Mean Corpuscular Hemoglobin 32.1 pg (27.0-31.2); Mean Corpuscular Volume 95.1 fl (81-99); Nucleated Red Blood Cells % 0 %; Platelet Count 215 K/mm3 (142-424); Red Blood Count 3.89 M/mm3 (4.20-5.40); Red Cell Distribution Width-SD 43.5 fL; White Blood Count 5.5 K/mm3 (4.8-10.8)
[2024-12-18 15:27] LABS: Microscopic, Urine URINE MICROSCOPIC (MICROSCOPIC)
[2024-12-18] MEDS: 0.9 % SODIUM CHLORIDE 1000ML 500 ML 999 ML IV (15:29)
[2024-12-18 15:30] VITALS: BP 140/67; PULSE 69; RESP 18; O2SAT 97
[2024-12-18 15:36] LABS: Bilirubin,Urine Negative (Negative); Color,Urine YELLOW (Yellow); Glucose,Urine (UA) Negative (Negative); Ketones,Urine Negative (Negative); Leukocyte Esterase,Urine TRACE (Negative); PH,Urine 6.0 (5.0-8.5); Protein,Urine Negative (Negative); Specific Gravity, Urine 1.020 (1.005-1.030); Urobilinogen,Urine 0.2 EU/dl (0.2)
[2024-12-18 15:42] LABS: Albumin Level 4.0 g/dl (3.5-5.0); Chloride 99 mmol/L (98-107); Potassium 3.7 mmoL/L (3.5-5.1); Sodium 137 mmol/L (136-145)
[2024-12-18 15:45] LABS: Alanine Aminotransferase 16 U/L (12-78); Albumin/Globulin Ratio 1.3 (1.1-1.8); Alkaline Phosphatase 94 U/L (38-126); Anion Gap 12.7 mEq/L (5-15); Aspartate Amino Transferase 22 U/L (14-36); Bilirubin,Total 0.4 mg/dl (0.2-1.3); Blood Urea Nitrogen 17 mg/dl (7-17); Calcium 9.2 mg/dl (8.4-10.2); Carbon Dioxide 29 mmol/L (22.0-30.0); Creatinine Clearance Estimated 49 mL/min (50-200); Creatinine,Serum 1.00 mg/dl (0.52-1.04); Estimated Glomerular Filt Rate 52 ml/min (>60); GFR (African American) 63 ML/MIN (>60); Globulin 3.0 g/dL (1.3-3.2); Glucose 103 mg/dl (74-100); Total Protein,Serum 7.0 g/dl (6.3-8.2)
[2024-12-18 15:47] LABS: Bacteria,Urine Trace /lpf; Squamous Epithelial Cell,Urine 20-50 #/hpf (0-5)
--- NOTE | 2024-12-18 15:58 | PC.NURSE ---
assisted pt to the restroom and back to the stretcher
[2024-12-18 16:01] VITALS: BP 169/68; PULSE 65; RESP 18; O2SAT 95
--- NOTE | 2024-12-18 16:04 | XR_ITS ---
PROCEDURE INFORMATION: Exam: XR Chest Exam date and time: 12/18/2024 4:15 PM Age: 89 years old Clinical indication: Other: Chest pain; Additional info: Cp TECHNIQUE: Imaging protocol: Radiologic exam of the chest. Views: 1 view. COMPARISON: 1. CT CHEST W CON 11/12/2024 9:50 AM 2. CR XR CHEST PORTABLE 06/27/2023 9:52 PM FINDINGS: Lungs: Unremarkable. No consolidation. Pleural spaces: Unremarkable. No pleural effusion. No pneumothorax. Heart/Mediastinum: Unremarkable. No cardiomegaly. Bones/joints: Unremarkable. IMPRESSION: Stable chest x-ray with no acute disease.
--- NOTE | 2024-12-18 16:14 | PC.NURSE ---
Rad @ BS at this time
[2024-12-18 16:22] LABS: Magnesium 2.0 mg/dl (1.6-2.3)
[2024-12-18 16:40] LABS: Troponin I < 0.01 ng/ml (0.00-0.034)
[2024-12-18 16:46] VITALS: BP 161/97; PULSE 70; RESP 18; TEMP 36.6; O2SAT 97
[2024-12-18 16:50] VITALS: BP 161/67; PULSE 69; O2SAT 96
== END 2024-12-18 17:02 | disposition home or self-care (01) ==
PROVIDERS: Nurse Practitioner; Emergency Provider Emergency Medicine; PCP Internal Medicine
DX: R53.1 Weakness (principal)
CPT/HCPCS: 71045; 80053; 81001; 83735; 84484; 85025; 87086; 99283; J7030

== ENCOUNTER 2025-01-30 09:50 | Emergency (ER) | payer MEDICARE, BC, SELFPAY ==
--- OUTSIDE RECORDS SUMMARY | 2024-12-28 12:30 | XMS_ITS | Encounter Summary ---
Author Organization [facility] Address [address] [place] [address] Care Team Providers Care Peer Tutor Name Role Phone Jann Hernandes MD Unavailable [phone] Owen Temple DO Primary Care Provider [phone] Chata Temple DO Unavailable [phone] Reason for Visit * Reason Comments Follow-up Encounter Details Date Type Department Care Team (Late st Contact Info) Description 12/28/2024 12:30 PM EDT Office Visit [facility] [address] [place] [address] Rodrigue Miguel MD [address] [facility] [address] [place] [address] Endometrial adenocarcinoma (CMS/HCC) (Primary Dx) Social History Tobacco Use Types Packs/Day Years Used Date Smoking Tobacco: Never Passive Smoke Exposure: Never Smokeless Tobacco: Never Tobacco Cessation:Counseling Given: Not Answered Alcohol Use Standard Drinks/Week Comments Not Currently 0 (1 standard drink = 0.6 oz pur e alcohol) PHQ-2 Answer Date Recorded Patient Health Questionnaire-2 Score 0 12/28/2024 Comments No Sex and Gender Information Value Date Recorded Sex Assigned at Not on file Legal Sex Female 5:57 PM EDT Gender Identity Not on file Sexual Orientation Not on file documented as of this encounter Last Filed Vital Signs Vital Sign Reading Time Taken Comments Blood Pressure 149/76 12/28/2024 12:42 PM EDT Pulse 94 12/28/2024 12:42 PM EDT Temperature 36.9 C (98.4 F) 12/28/2024 12:42 PM EDT Respiratory Rate 16 12/28/2024 12:42 PM EDT Oxygen Saturation 94% 12/28/2024 12:42 PM EDT Inhaled Oxygen Concentration - - Weight 75.5 kg (166 lb 6.4 oz) 12/28/2024 12:42 PM EDT Height 170.2 cm (5' 7 ) 12/28/2024 12:42 PM EDT Body Mass Index 26.06 12/28/2024 12:42 PM EDT documented in this encounter Functional Status * Over the past 2 weeks, how often have you been bothered by any of the following problems? Question Answer Date of Assessment Author Little interest or pleasure in doing things Not at all 12/28/2024 12:43 PM EDT Brandin Fairbanks Feeling down, depressed, or hopeless Not at all 12/28/2024 12:43 PM EDT Brandin Fairbanks Patient Health Questionnaire-2 Score 0 12/28/2024 12:43 PM EDT Thaddeus Fairbanks * If you checked off any problems on this questionnaire so far, Question Answer Date of Assessment Author How difficult have these problems made it for you to do your work, take care of things at home, or get along with other people? Not difficult at all 12/28/2024 12:43 PM EDT Ricardo Fairbanks documented as of this encounter Miscellaneous Notes * Progress Notes - Rodrigue Miguel MD - 12/28/2024 12:30 PM EDT Images from the original note were not included. Patient ID: Caty Zayas is a 89 y.o. female. Referring Physician: No referring provider defined for this encounter. Primary Care Provider: Owen Temple DO Oncology History: Cancer Staging No matching staging information was found for the patient. Cloth Doffer Cancer Treatment History: post menopausal bleeding and underwent D&C in September 2024 showing grade 2 endometrioid endometrial cancer. History of Present Illness: Mrs. Caty Zayas is seen for postop following EAC robotic staging. Stage IA grade 1 non-invasive cancer. She is doing well since surgery. Had cystitis effectively treated with antibiotics. No complaints today. Referred by Dr. Chata Temple 11/25/2024 Component Addendum This addendum has been issued to report that the entire endometrial lesion is submitted for histologic evaluation in B15-B19. The diagnosis remains unchanged. Addendum electronically signed by Jennifer Faust MD on 12/01/2024 at 1739 EDT Final Diagnosis A. SENTINEL LYMPH NODE, RIGHT OBTURATOR, EXCISION: - THREE LYMPH NODES, NEGATIVE FOR METASTATIC CARCINOMA (0/3). B. UTERUS, CERVIX, BILATERAL FALLOPIAN TUBES AND OVARIES, ROBOTIC ASSISTED TOTAL LAPAROSCOPIC HYSTERECTOMY AND BILATERAL SALPINGO-OOPHORECTOMY: - ENDOMETRIOID ADENOCARCINOMA WITH SQUAMOUS FEATURES, NONINVASIVE, [...] LYMPH NODE, NEGATIVE FOR METASTATIC CARCINOMA (0/1). Employer: No address on file. Travel History Relevant International Travel History: Travel Screening No screening recorded since 10/21/24 0000 Travel History Travel since 09/22/24 No documented travel since 09/22/24 Relevant Domestic Travel History: N/A Immunizations Reviewed VACCINE / DOSE DATE Flu Tetanus Pneumovax 02/14/2016 Shingles Review of Systems: ROS: 14 pt ROS performed with pertinent positives and negatives as noted in HPI. ROS otherwise negative Medical/Family/Social History: Past Medical History[1] Surgical History[2] Family History[3] She reports that she has never smoked. She has never been exposed to tobacco smoke. She has never used smokeless tobacco. She reports that she does not currently use alcohol. She reports that she does not currently use drugs. Medications/Allergies: Current Medications[4] Allergies[5] Physical Exam: BSA: 1.89 meters squared Visit Vitals BP (!) 149/76 (BP Location: Right arm, Patient Position: Sitting, BP Cuff Size: Small adult) Pulse 94 Temp 36.9 ??C (98.4 ??F) (Temporal) Resp 16 Ht 1.702 m (5' 7 ) Wt 75.5 kg (166 lb 6.4 oz) SpO2 94% BMI 26.06 kg/m?? OB Status Postmenopausal Smoking Status Never BSA 1.89 m?? Physical Exam Vitals and nursing note reviewed. Exam conducted with a automation technician present. Constitutional: Appearance: Normal appearance. HENT: Head: [...] She is alert. Results: Labs: WBC Count (10*3/uL) Date/Time Value 11/26/2024 0423 9.80 HGB (g/dL) Date/Time Value 11/26/2024 0423 11.9 HCT (%) Date/Time Value 11/26/2024 0423 35.9 Platelet Count (10*3/uL) Date/Time Value 11/26/2024 0423 190 Creatinine, Plasma (mg/dL) Date/Time Value 11/26/2024 0625 0.81 AST, Plasma (U/L) Date/Time Value 10/22/2024 1348 53 (H) Pathology: Final Diagnosis (no units) Date/Time Value 11/25/2024 0925 A. SENTINEL LYMPH NODE, RIGHT OBTURATOR, EXCISION: - THREE LYMPH NODES, NEGATIVE FOR METASTATIC CARCINOMA (0/3). B. UTERUS, CERVIX, BILATERAL FALLOPIAN TUBES AND OVARIES, ROBOTIC ASSISTED TOTAL LAPAROSCOPIC HYSTERECTOMY AND BILATERAL SALPINGO-OOPHORECTOMY: - ENDOMETRIOID ADENOCARCINOMA WITH SQUAMOUS FEATURES, NONINVASIVE, [...] LYMPH NODE, NEGATIVE FOR METASTATIC CARCINOMA (0/1). Comment (no units) Date/Time Value 11/25/2024924 The performed immunostains on the biopsy specimen at the outside institution showed the following results ([id number]): MMR panel: retained nuclear expression of mismatch-repair proteins P53: wild type Addendum (no units) Date/Time Value 11/25/2024924 This addendum has been issued to report that the entire endometrial lesion is submitted for histologic evaluation in B15-B19. The diagnosis remains unchanged. Synoptic Checklist (no units) Date/Time Value 11/25/2024924 ENDOMETRIUM ENDOMETRIUM - All Specimens AJCC 8 - Protocol posted: 05/27/2024 SPECIMEN Procedure: Total hysterectomy Procedure: Bilateral salpingo-oophorectomy TUMOR Histologic Type: Endometrioid carcinoma Histologic Grade: [...] Pelvic Nodes Examined: 4 Number of Pelvic [place] Nodes Examined: 4 Total Number of Para-aortic Nodes Examined: 0 pTNM CLASSIFICATION (AJCC 8th Edition) Reporting of pT, pN, and (when applicable) pM categories is based on information available to the pathologist at the time the report is issued. As per the AJCC (Chapter 1, 8th Ed.) it is the managingphysician's responsibility to establish the final pathologic stage based upon all pertinent information, including but potentially not limited to this pathology report. pT Category: pT1a pN Category: pN0 N Suffix: (sn) FIGO STAGE FIGO Stage (FIGO 2009 Staging / 2018 FIGO Cancer Report): IA FIGO Stage (2022 Staging for Cancer of the Endometrium): IA1 Assessment and Plan: Performance Status: 0 Stage IA grade 1 endometrioid endometrial cancer. No [place] Normal postop No adjuvant therapy FU with local nautical instrument mechanic 1 year [facility] [address] [facility] [address] [facility] [address] Dept Loc: [phone] [1] Past Medical History: Diagnosis Date GERD (gastroesophageal reflux disease) HLD (hyperlipidemia) Hypertension Macular degeneration Overactive bladder Urinary incontinence [2] Past Surgical History: Procedure Laterality Date LEG SURGERY Left 2016 REVERSE TOTAL SHOULDER ARTHROPLASTY Right 2013 WRIST FRACTURE SURGERY Left [3] Family History Problem Relation Name Age of Onset Anesthesia problems Neg Hx Malig Hyperthermia Neg Hx [4] Current Outpatient Medications: acetaminophen (Tylenol) 325 MG tablet, Take 2 tablets by mouth every 8 hours. Under [place] law, monthly prescriptions (30 days) can be refilled at 25 days and three-month prescriptions (90 days) at80 days. Please contact the insurance company with questions if refills are denied., Disp: 100 tablet, Rfl: 1 amLODIPine-benazepril (Lotrel) 10-40 MG capsule, Take 1 capsule by mouth daily., Disp: , Rfl: bethanechol (Urecholine) 50 MG tablet, Take 1 tablet (50 mg) by mouth 4 (four) times a day., Disp: 120 tablet, Rfl: 11 ibuprofen 600 MG tablet, Take 1 tablet by mouth every 6 hours., Disp: 100 tablet, Rfl: 0 losartan (Cozaar) 50 MG tablet, Take 1 tablet by mouth daily., Disp: , Rfl: meloxicam (Mobic) 15 MG tablet, Take by mouth daily., Disp: , Rfl: aghmggzrqzqj-scsbgbwn-szfaa acid-coenzyme q10 (Preservision AREDS 2) capsule, Take 1 capsule by mouth daily. (Patient not taking: No sig reported), Disp: , Rfl: omeprazole (PriLOSEC) [address] capsule, Take by mouth daily. (Patient not taking: Reported on 11/25/2024), Disp: , Rfl: ondansetron ODT (Zofran-ODT) 4 MG disintegrating tablet, Dissolve 1 tablet on the tongue every 6 hours as needed for nausea or vomiting., Disp: 10 tablet, Rfl: 0 oxyCODONE (Roxicodone) 5 MG immediate release tablet, Take 1 tablet by mouth 1 time as needed (painscore of 3-5 out of 10)., Disp: 3 tablet, Rfl: 0 pantoprazole (Protonix) 40 MG EC tablet, Take 1 tablet by mouth 2 times a day., Disp: , Rfl: senna-docusate ([place]-Colace) 8.6-50 MG tablet, Take 1 tablet by mouth daily., Disp: 30 tablet, Rfl:1 simvastatin (Zocor) 40 MG tablet, Take by mouth nightly., Disp: , Rfl: tamsulosin (Flomax) 0.4 MG 24 hr capsule, Take 1 capsule by mouth daily., Disp: 30 capsule, Rfl: 2 Current Facility-Administered Medications: iothalamate meglumine (Cysto Conray) 17.2 % urethral solution solution 250 mL, 250 mL, Urethral, Once in imaging, Ivonne Meyers, HOUSING LIAISON, DNP [5] No Known Allergies documented in this encounter Plan of Treatment Upcoming Encounters Date Type Department Care Team (Late st Contact Info) Description 03/15/2025 10:20 AM EDT Appointment [facility] [address] [place] [address] 03/15/2025 11:40 AM EDT Clinical Support [facility] [address] [place] [address] 03/15/2025 12:40 PM EDT Office Visit [facility] Urology [address] [place] [address] Sonal Cordero MD [address] [place] [address] documented as of this encounter Goals Goal [...] has been complete d for the patient 12/28/2024 12:43 PM EDT A Body Mass Index follow-up plan has been documented for the patient 08/06/2024 12:03 PM EST documented as of this encounter Care Teams Peer Tutor Relationship Specialty Start Date End Date Owen Temple DO [address] [facility] [address] [id number] PCP - General 08/06/24 Jann Hernandes MD [address] [place] [address] [address] [address] 12/12/21 Chata Temple DO 1210 [facility] [address] [address] Resident 10/14/24 documented as of this encounter
[2025-01-30] VITALS (10 sets, daily range): BP systolic 131–157; BP diastolic 60–82; PULSE 65–79; RESP 16–18; TEMP 36.6–37.2; O2SAT 91–98; BMI 28.1
--- OUTSIDE RECORDS SUMMARY | 2025-01-30 10:00 | XMS_ITS ---
Author Organization [facility] Address [address] [place] [address] Care Team Providers Care Marine Pipefitter Helper Name Role Phone Jann Hernandes MD Unavailable [phone] Owen Temple DO Primary Care Provider [phone] Chata Temple DO Unavailable [phone] Active Problems Problem Noted Date Diagnosed [...]
--- OUTSIDE RECORDS SUMMARY | 2025-01-30 10:00 | XMS_ITS | Encounter Summary ---
Author Organization [facility] Address [address] [place] [address] Care Team Providers Care Station Baggage Agent Name Role Phone Jann Hernandes MD Unavailable [phone] Owen Temple DO Primary Care Provider [phone] Chata Temple DO Unavailable [phone] Reason for Visit * Reason Onset Date Comments HCN - Patient Message 11/25/2024 Reschedule Encounter Details Date Type Department Care Team (Late st Contact Info) Description 11/25/[address] [facility] Urology [address] [place] [address] Clark Mathews MD [address] [place] [address] HCN - Patient Message (Reschedule [...] optimal time of day to reach caller: [phone] Note: Please do not reply to this message. Follow-up communication and further actions as a result of this message need to be communicated with the patient directly, if the patient is not active on MyChart. If the patient is active on MyChart, they will receive notification of the communication/outcome via [employer]. documented in this encounter Plan of Treatment Upcoming Encounters Date Type Department Care Team (Late st Contact Info) Description 03/15/2025 10:20 AM EDT Appointment [facility] [address] [place] [address] 03/15/2025 11:40 AM EDT Clinical Support [facility] [address], [address] [place] [address] 03/15/2025 12:40 PM EDT Office Visit [facility] Urology [address] [place] [address] Sonal Cordero MD [address] [place] [address] documented as of this encounter Goals Goal [...] documented as of this encounter Care Teams Station Baggage Agent Relationship Specialty Start Date End Date Owen Temple DO [address] [facility] [address] [place] [address] PCP - General 08/06/24 Jann Hernandes MD [address] [place] [address] [address] [place] [address] 12/12/21 Chata Temple DO 1210 [facility] [address] [place] [address] Resident 10/14/24 documented as of this encounter
--- OUTSIDE RECORDS SUMMARY | 2025-01-30 10:00 | XMS_ITS | Encounter Summary ---
Author Organization [facility] Address [address] [place] [address] Care Team Providers Care Media Buyer Name Role Phone Zoran Nava MD Primary Care Provider [phone] Jann Hernandes MD Unavailable [phone] Owen Temple DO Primary Care Provider [phone] Chata Temple DO Unavailable [phone] Encounter Details Date Type Department Care Team (Latest Contact Info) Description 04/18/2023 [facility] [address] [place] [address] Coty Cowan MD [address] [place] [address] Exudative age-related macular degeneration of left eye [...] EDT Appointment [facility] [address] [place] [address] 03/15/2025 11:40 AM EDT Clinical Support [facility] [address] [place] [address] 03/15/2025 12:40 PM EDT Office Visit [facility] [address] [place] [address] Sonal Cordero MD [address] [place] [address] documented as of this encounter Visit Diagnoses [...] documented as of this encounter Care Teams Media Buyer Relationship Specialty Start Date End Date Zoran Nava MD [address] [place] [address] PCP - General 10/28/20 08/05/24 Owen Temple DO 1210 [facility] [address] [place] [address] PCP - General 08/06/24 Jann Hernandes MD [address] [place] [address] [address] [place] [address] 12/12/21 Chata Temple DO [address] [place] [address] Resident 10/14/24 documented as of this encounter
--- OUTSIDE RECORDS SUMMARY | 2025-01-30 10:00 | XMS_ITS | Encounter Summary ---
Author Organization [facility] Address [address] [place] [address] Care Team Providers Care General Office Dispatcher Name Role Phone Jann Hernandes MD Unavailable [phone] Owen Temple DO Primary Care Provider [phone] Chata Temple DO Unavailable [phone] Reason for Visit * Reason Onset Date Comments Med Refill 12/11/2024 Encounter Details Date Type Department Care Team (Late st Contact Info) Description 12/11/2024 Refill [facility] [address] [place] [address] Ivonne Meyers, ASSISTANT PROFESSOR OF SURGERY, DNP [address] [place] [address] Social History Tobacco Use Types [...] EDT Appointment [facility] [address] [place] [address] 03/15/2025 11:40 AM EDT Clinical Support [facility] [address] [place] [address] 03/15/2025 12:40 PM EDT Office Visit [facility] Urology [address] [place] [address] Sonal Cordero MD [address] [place] [address] documented as of this encounter Goals Goal Patient Goal Type Associated Problems Recent Progress Patient-Stated? Author Autogenerat ed Goal Care Plan Autogenerated Problem No MylesHitesh alvaronal Joaquin documented as of this encounter Visit Diagnoses [...] as of this encounter Care Teams General Office Dispatcher Relationship Specialty Start Date End Date Owen Temple DO [address] [address] PCP - General 08/06/24 Jann Hernandes MD [address] [facility] [address] [address] 12/12/21 Chata Temple DO [address] [place] [facility] [address] [place] [address] Resident 10/14/24 documented as of this encounter
--- OUTSIDE RECORDS SUMMARY | 2025-01-30 10:00 | XMS_ITS | Clinical Summary ---
Author Organization [facility] Address [address] [place] [address] Care Team Providers Care Head Machine Feeder Name Role Phone Jann Hernandes MD Unavailable [phone] Owen Temple DO Primary Care Provider [phone] Chata Temple DO Unavailable [phone] Allergies No known active allergies Medications amLODIPine-benazep ril (Lotrel) 10-40 MG capsule Take 1 capsule by mouth daily. 11/01/19 22 Active omeprazole (PriLOSEC) [address] capsule Take by mouth daily. 12/10/19 22 Active simvastatin (Zocor) 40 MG tablet Take by mouth nightly. 12/10/19 22 Active multivitamin-psychological examiner als-folic acid-coenzyme q10 (Preservision AREDS 2) [...] tablets by mouth every 8 hours. Under [place] law, monthly prescriptions (30 days) can be [...] daily. 30 capsule 2 12/12/19 25 Active Hospital, Clinic, or Other Facility Administered Medication [...] Encounters Date Type Department Care Team Description 12/28/2024 12:30 PM EDT Office Visit [facility] Gynecology [address] [facility] [address] [place] [address] Rdorigue Miguel MD Endometrial adenocarcinoma (CMS/HCC) (Primary Dx) 12/28/2024 Travel 12/11/2024 Refill [facility] Urology [address], 2nd [place] [address] Ivonne Meyers, PRESS MAINTAINER, DNP 12/04/2024 Results Follow-Up [facility] [address] [place] [address] Stephanie Proctor MD 12/02/2024 Orders Only [facility] [address] [place] [address] Zahra Jones MD 11/30/2024 Telephone [facility] Urology [address], [address] [place] [address] Clark Mathews MD HCN Clinical Concern/Question 11/25/2024 8:15 AM EDT - 11/25/2024 12:20 PM EDT Surgery [facility] A OPERATING ROOM [address] [place] [address] Meri Tai MD Robot TLHBSO SLN [[id number] (CPT )] 11/25/2024 8:15 AM EDT Anesthesia Event [facility] A OPERATING ROOM [address] [place] [address] Paulie Morris MD Kelley, Justin S, MD 11/25/2024 5:35 AM EDT - 11/26/2024 10:41 AM EDT Hospital Encounter [facility] A OPERATING ROOM [address] [place] [address] Meri Tai MD Endometrial adenocarcinoma ([facility]/HCC) Discharge Disposition: Home or Self Care 11/25/2024 Telephone [facility] Urology [address], [address]nd [place] [address] Clark Mathews MD HCN - Patient Message (Reschedule ) 11/25/2024 Travel 11/13/2024 12:30 PM EDT Pre-Admission Testing [facility] Pre-op Clinic [address], 1st [place] [address] Preop examination (Primary Dx) 11/13/2024 Travel 11/12/2024 Orders Only External Location [address] [place] [address] Provider, External 11/12/2024 Orders Only External Location [address] [place] [address] Provider, External 11/12/2024 Telephone [facility] [address] [place] [address] Meri Tai MD 11/12/2024 Travel 11/03/2024 Telephone [facility] [address] [place] [address] Meri Tai MD from Last 3 Months Immunizations Immunization [...] Mass Index 26.06 12/28/2024 12:42 PM EDT Plan of Treatment Upcoming Encounters Date Type Department Care Team (Late st Contact Info) Description 03/15/2025 10:20 AM EDT Appointment [facility] Radiology [address] [place] [address] 03/15/2025 11:40 AM EDT Clinical Support [facility] Lab [address], 2nd [place] [address] 03/15/2025 12:40 PM EDT Office Visit [facility] Urology [address], 2nd [place] [address] Sonal Cordero MD [address] [place] [address] Health Maintenance Due Date Last Done Comments [facility]-Bone Density Scan 1935 [facility]-Medicare Annual Wellness (AWV) 1935 [facility]-Infant/Child/Adol SDOH Screenings 1935 DYK-PKSRI-34 Vaccine (#1) 08/21/1940 [facility]- SDOH Screenings 08/21/1953 [facility]-Adult SDOH Screenings 08/21/1953 [facility]-Zoster Vaccines (1 of 2) 08/21/1954 [facility]-RSV Vaccine: 60+ Years or (1 - 1-dose 75+ series) 08/21/2010 [facility]-Pneumococcal Vaccine: 50+ Years (2 of 2 - PCV) 02/13/2017 02/14/2016 [facility]-Influenza Vaccine (#1) 2025 03/30/2020 [facility]-Diabetes: Hemoglobin A1C 10/22/2025 10/22/2024 [facility]-Depression Screening 12/28/2025 12/28/2024 [facility]-DTaP,Tdap,and Td Vaccines (2 - Td or [...] ANESTHESIA PLACEHOLDER Routine 11/25/2024 8:26 AM EDT FL AN ELECTIVE ENDOTRACHEAL AIRWAY Routine 11/25/2024 8:26 AM EDT FL LAPAROSCOPY W TOT HYSTERECTUTERUS <=250 GRAM W [...] of other endocrine, nutritional and metabolic disease from Last 3 Months or Most Recently Relevant to Health Maintenance Results * Phosphorus (11/26/2024 6:25 AM EDT) Phosphorus, Plasma 3.2 2.5 - 4.5 mg/dL 11/26/2024 7:01 AM EDT [facility] Blood Venous blood specimen / Unknown Venipuncture / Unknown 11/26/2024 6:25 AM EDT 11/26/2024 6:33 AM EDT us Meri Tai MD LAB BLOOD ORDERABLES Final Re sult [facility] [address] [place] [address] * Magnesium, Plasma (11/26/2024 6:25 AM EDT) Magnesium, Plasma 1.9 1.9 - 2.4 mg/dL 11/26/2024 7:01 AM EDT [facility] Blood Venous blood specimen / Unknown Venipuncture / Unknown 11/26/2024 6:25 AM EDT 11/26/2024 6:33 AM EDT us Meri Tai MD LAB BLOOD ORDERABLES Final Re sult [facility] [address] [place] [address] * (ABNORMAL) Basic metabolic panel (11/26/2024 6:25 [...] in m L/min/1.73m2 is based the CKD-EPI 2021 equation that does not use a race coefficient. Blood Venous blood specimen / Unknown Venipuncture / Unknown 11/26/2024 6:25 AM EDT 11/26/2024 6:33 AM EDT Meri Tai MD LAB BLOOD ORDERABLES Final Re sult Performing Organization Address [facility]/ZIP Co de Phone Number [facility] [address] [place] [address] * (ABNORMAL) Ionized calcium, whole blood (11/26/2024 4:23 AM EDT) Ionized Calcium, Whole Blood 4.2(L) 4.6 - 5.1 mg/dL LAB HEMATOLOGY METHOD 11/26/2024 4:48 AM EDT [facility] Blood Venous blood specimen / Unknown Venipuncture / Unknown 11/26/2024 4:23 AM EDT 11/26/2024 4:46 AM EDT Meri Tai MD LAB BLOOD ORDERABLES Final Re sult Performing Organization Address [facility] Co de Phone Number [facility] [address] [place] [address] * (ABNORMAL) CBC W/O Differential (11/26/2024 4:23 [...] Re sult [facility] [address] [place] [address] * Surgical Pathology Exam (11/25/2024 9:25 AM EDT) Case Report Surgical Pathology Case: [id number] Authorizing Provider: Meri Tai MD Collected: 11/25/2024 0925 Ordering Location: [facility] A OPERATING ROOM Received: 11/25/2024 1210 Pathologist: Jennifer Faust MD Specimens: A) - [place] Lymph Node, right obturator sentinel lymph node B) - Uterus, UTERUS, CERVIX, BILATERAL TUBES AND OVARIES C) - [place] Lymph Node, LEFT COMMON ILIAC SENTINEL LYMPH NODE 12/01/2024 5:39 PM EDT [facility] Addendum This addendum has been issued to report that the entire endometrial lesion is submitted for histologic evaluation in [id number]. The diagnosis remains unchanged. 12/01/2024 5:39 PM EDT [facility] Addendum electronically signed by Jennifer Faust [...] METASTATIC CARCINOMA (0/1). 12/01/2024 5:39 PM EDT [facility] at 1729 EDT Comment The performed immunostains on the biopsy specimen at the outside institution showed the following results ([id number]): MMR panel: retained nuclear expression of mismatch-repair [...] Pelvic Nodes Examined: 4 Number of Pelvic [place] Nodes Examined: 4 Total Number of Para-aortic [...] the Endometrium): IA1 12/01/2024 5:39 PM EDT [facility] Clinical Information Endometrial adenocarcinoma (CMS/HCC) [...] sectioned to reveal a prominent corpus albicans. Business Process Architect sections of the specimen are submitted as [...] ed Result - Final Performing Organization Address City/State/[facility] Co de Phone Number [facility] [address] [place] [address] * Peripheral IV (11/25/2024 8:30 AM EDT) [...] monitoring: continuous pulse ox, heart rate and ornamental metal worker Block type: TAP Laterality: left and right [...] MD ANESTHESIA ORDERABLES Fin al Result * FL AN ELECTIVE ENDOTRACHEAL AIRWAY, PB ANESTHESIA PLACEHOLDER [...] (+) ETCO2, Atraumatic, No change to dentition. us Paulie Morris MD ANESTHESIA ORDERABLES Fin al Result * Type and screen (11/25/2024 6:46 AM EDT) [facility] ABO/Rh A Positive 11/25/2024 6:06 AM EDT BLO[facility] Antibody Screen Negative 11/25/2024 6:06 AM EDT [facility] Specimen Expiration 11/28/2024 23:59 11/25/2024 6:06 AM EDT [facility] Blood Venous blood specimen / Unknown Venipuncture / Unknown 11/25/2024 6:46 AM EDT 11/25/2024 6:58 AM EDT Meri Tai MD LAB BLOOD BANK TEST ORDERABLE S Final Result Performing Organization Address City/[facility]/ZIP Co de Phone Number BLOOD BANK [address] [place] [address], * (ABNORMAL) POCT glucose meter (11/25/2024 5:58 AM EDT) [facility] POCT Glucose 114(H) 74 - 99 mg/dL [...] 11/25/2024 6:02 AM EDT [facility] Ware Tester ID Nancy Light 11/26/19 25 6:02 AM EDT HEALTHCARE LAB Device ID [id number] 11/25/2024 6:02 AM EDT [facility] Specimen Type POC Capillary 11/25/2024 6:02 AM EDT [facility] Blood Capillary blood specimen / Unknown 11/25/2024 5:58 AM EDT 11/25/2024 6:02 AM EDT Meri Tai MD LAB POINT OF CARE TE ST DOCKED DEVICE UNSOLICITED RESULTS Final Result [facility] [address] [place] [address] * CT THORACIC OUTSIDE IMAGES (11/12/2024 9:50 AM EDT) Only the most recent of2 resultswithin the time period is included. Anatomical Region Laterality Modality Computed Tomogra phy 11/12/2024 9:50 AM EDT External Provider IMG CT PROCEDURES Final Result * (ABNORMAL) Hemoglobin A1c (10/22/2024 1:48 PM EDT) Hemoglobin A1c 6.3(H) <5.7 % 10/22/2024 5:52 PM EDT [facility] Blood Venous blood specimen / Unknown [...] Adults <6.0% Children and Adolescents <7.5% Source: [place] [employer]. Standards of medical care in diabetes,2017. Diabetes Care.2017:40 (suppl 1):S1-S135. Meri Tai MD LAB BLOOD ORDERABLES Final Re sult [facility] [address] [place] [address] from Last 3 Months or Most Recently Relevant to Health Maintenance Additional Health Concerns Active Problems Noted Date Diagnosed Date Autogenerated Problem 10/22/2024 Insurance MEDICARE ANTHEM Advance Directives * Full Code (Latest Code Status on File) Date Activated Date Inactivated Comments 11/25/2024 12:20 PM 11/26/2024 12:46 PM Question Answer Comments Patient has decision-making capacity? Yes Care Teams Head Machine Feeder Relationship Specialty Start Date End Date Owen Temple DO [facility] [address] [place] [address] PCP - General 08/06/24 Jann Hernandes MD [address] [place] [address] [address]1 [address] [place] [address] 12/12/21 Chata Temple DO [address] [place] [address] [place], [place] [address] Resident 10/14/24
--- OUTSIDE RECORDS SUMMARY | 2025-01-30 10:00 | XMS_ITS | Encounter Summary ---
Author Organization [facility] Address [address] [id number] Care Team Providers Care Bowling Pin Setters Installer Name Role Phone Jann Hernandes MD Unavailable [phone] Owen Temple DO Primary Care Provider [phone] Chata Temple DO Unavailable [phone] Encounter Details Date Type Department Care Team (Late st Contact Info) Description 10/22/2024 Lab Requisition [facility] Lab [address] [place] [address] Meri Tai MD [address] [facility] [address] [place] [address] Postmenopausal bleeding Social History Tobacco [...] Info) Description 03/15/2025 10:20 AM EDT Appointment [facility] Radiology [address] [place] [address] 03/15/2025 11:40 AM EDT Clinical Support [facility] Lab [address], 2[address] [place] [address] 03/15/2025 12:40 PM EDT Office Visit [facility] Urology [address], [address] [place] [address] Sonal Cordero MD [address] [place] [address] documented as of this encounter Goals Goal Patient Goal Type Associated Problems Recent Progress Patient-Stated? Author Autogenerat ed Goal Care Plan Autogenerated Problem No Hitesh Mylesronal Manning documented as of this encounter Procedures Procedure Name Priority Date/Time Associated Diagnosis Comments SURGICAL PATHOLOGY CONSULT Routine 10/22/2024 10:44 AM EDT Postmenopausal bleeding documented in this encounter Results * Surgical Pathology Consult (10/22/2024 10:44 AM EDT) Case Report Sugical Pathology Consult Case: [id number] Authorizing Provider: Meri Tai MD Collected: 10/22/20241043 Ordering Location: [facility] Received: 10/22/20241043 Pathologist: Mely Saleh MD Specimen: Endometrium, [id number] 10/23/2024 10:45 AM EDT [facility] Final Diagnosis Outside slides Date of collection: 10/08/24 Endometrium, curettage: - Endometrial adenocarcinoma, endometrioid type, FIGO grade 2 10/23/2024 10:45 AM EDT [facility] at 1045 EDT Comment Outside IHC (reviewed): MMR panel: retained nuclear expression of mismatch-repair proteins P63: wild type 10/23/2024 10:45 AM EDT [facility] Clinical Information N95.0 - Postmenopausal bleeding [ICD-10-CM] 10/23/2024 10:45 AM EDT [facility] Gross Description A. [id number] Received along with a corresponding pathology report from [facility] are 11 slide(s) labeled outside case: [id number] collected on 10/08/2024. 10/23/2024 10:45 AM EDT [facility] Note: A resident was involved in the service. I attest I examined the relevant preparations for the specimens and confirmed the diagnosis or interpretation. 10/23/2024 10:45 AM EDT [facility] Tissue Endometrial structure / Unknown 10/22/2024 10:44 AM EDT 10/22/2024 10:44 AM EDT us Meri Tai MD LAB PATHOLOGY ORDERABLES Valorie manning Result [facility] [address] [place] [address] documented in this encounter Visit Diagnoses Diagnosis [...] documented as of this encounter Care Teams Bowling Pin Setters Installer Relationship Specialty Start Date End Date Owen Temple DO [address] [place] [address] [place] [address] PCP - General 08/06/24 Jann Hernandes MD [address] [place] [address] [address]1 [address] [place] [address] 12/12/21 Chata Temple DO [address] [place] [id number] Resident 10/14/24 documented as of this encounter
--- OUTSIDE RECORDS SUMMARY | 2025-01-30 10:01 | XMS_ITS | Encounter Summary ---
Author Organization [facility] Address [address] 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 ([facility]) Coty Cowan MD [address] [address] Phone: tel: fax: Referral ID Status Reason Start Date Expiration Date Visits Requested Visits Authorized [id number] Authorized Specialty Services Required 12/17/2023 06/17/2025 1 1 Encounter Details Date Type Department Care Team (Latest Contact Info) Description 12/17/2023 Community [facility] [address] [place] [address] Coty Cowan MD [address] [place] [address] Advanced atrophic nonexudative age-related macular degeneration of [...] EDT Appointment [facility] Radiology [address] [place] [address] 03/15/2025 11:40 AM EDT Clinical Support [facility] Lab [address] 2nd [place] [address] 03/15/2025 12:40 PM EDT Office Visit [facility] Urology [address], [address] [place] [address] Sonal Cordero MD [address] [place] [address] Scheduled Referrals Name Type Priority Associated Diagnoses [...] documented as of this encounter Care Teams Server Assistant Relationship Specialty Start Date End Date Zoran Nava MD [address] [place] [address] PCP - General 10/28/20 08/05/24 [place] [address] [place] [address] [address] [place] [address] PCP - General 08/06/24 Jann Hernandes MD [address] [place] [address] [address] [place] [address] 12/12/21 Chata Temple DO 1210 [facility] [address] [place] [address] Resident 10/14/24 documented as of this encounter
--- OUTSIDE RECORDS SUMMARY | 2025-01-30 10:01 | XMS_ITS | Encounter Summary ---
Author Organization [facility] Address [address] [place] [address] Care Team Providers Care Iron And Steel Work Supervisor Name Role Phone Jann Hernandes MD Unavailable [phone] Owen Temple DO Primary Care Provider Chata Temple DO Unavailable [phone] Encounter Details Date Type Department Care Team (Latest Contact Info) Description 12/28/2024 Travel Social History Tobacco Use Types Packs/Day [...] Ricardo Fairbanks documented as of this encounter Plan of Treatment Upcoming Encounters Date Type Department Care Team (Late st Contact Info) Description 03/15/2025 10:20 AM EDT Appointment [facility] Radiology [address] [place] [address] 03/15/2025 11:40 AM EDT Clinical Support [facility] [address], [address] [place] [address] 03/15/2025 12:40 PM EDT Office Visit [facility] Urology [address], [address] [place] [address] Sonal Cordero MD [address] [place] [address] documented as of this encounter Goals Goal [...] documented as of this encounter Care Teams Iron And Steel Work Supervisor Relationship Specialty Start Date End Date Owen Temple DO [address] [place] [address] PCP - General 08/06/24 Jann Hernandes MD [address] [place] [address] [address] [place] [address] 12/12/21 Chata Tempel DO [address] [place] [address] Resident 10/14/24 documented as of this encounter
--- OUTSIDE RECORDS SUMMARY | 2025-01-30 10:01 | XMS_ITS | Encounter Summary ---
Author Organization [facility] Address [address] [place] [address] Care Team Providers Care Marketing Operations Coordinator Name Role Phone Jann Hernandes MD Unavailable [phone] Owen Temple DO Primary Care Provider [phone] Chata Temple DO Unavailable [phone] Reason for Visit * Reason Onset Date Comments HCN Clinical Concern/Question 11/30/2024 Encounter Details Date Type Department Care Team (Late st Contact Info) Description 11/30/[address] [facility] Urology [address] [place] [address] Clark Mathews MD [address] [place] [address] HCN Clinical Concern/Question Social History [...] in office procedure today Best contact number: [phone] (mobile) Optimal time of day to reach caller: ANYTIME Additional comments/information from caller: None Note: Please do not reply to this message. Follow-up communication and further actions as a result of this message need to be communicated with the patient directly, if the patient is not active onMyChart. If the patient is active on MyChart, they will receive notification of the communication/outcome via [facility]. documented in this encounter Plan of Treatment Upcoming Encounters Date Type Department Care Team (Late st Contact Info) Description 03/15/2025 10:20 AM EDT Appointment [facility] Radiology [address] [place] [address] 03/15/2025 11:40 AM EDT Clinical Support [facility] [address] [place] [address] 03/15/2025 12:40 PM EDT Office Visit [facility] Urology [address], [address] [place] [address] Sonal Cordero MD [address] [place] [address] documented as of this encounter Goals Goal [...] documented as of this encounter Care Teams Marketing Operations Coordinator Relationship Specialty Start Date End Date Owen Temple DO [address] [facility] [address] [place] [address] PCP - General 08/06/24 Jann Hernandes MD [address] [place] [address] #1 [address] [place] [address] 12/12/21 Chata Temple DO [address] [place] [address] Resident 10/14/24 documented as of this encounter
--- OUTSIDE RECORDS SUMMARY | 2025-01-30 10:01 | XMS_ITS | Encounter Summary ---
Author Organization [facility] Address [address] [place] [address] Care Team Providers Care Deputy Editor In Chief Name Role Phone Jann Hernandes MD Unavailable [phone] Owen Temple DO Primary Care Provider [phone] Chata Temple DO Unavailable [phone] Encounter Details Date Type Department Care Team (Late Contact Info) Description 12/02/2024 Orders Only [facility] Gynecology 800 [facility] [address] [place] [address] Zahra Jones MD [address] [place] [address] Social History Tobacco Use Types [...] Upcoming Encounters Date Type Department Care Team ([facility] Contact Info) Description 03/15/2025 10:20 AM EDT Appointment [facility] Radiology [address] [place] [address] 03/15/2025 11:40 AM EDT Clinical Support [facility] [address] [place] [address] 03/15/2025 12:40 PM EDT Office Visit [facility] Urology [address] [place] [address] Sonal Cordero MD [address] [place] [address] documented as of this encounter Goals Goal [...] documented as of this encounter Care Teams Deputy Editor In Chief Relationship Specialty Start Date End Date Owen Temple DO 1210 [facility] [address] [place] [address] PCP - General 08/06/24 Jann Hernandes MD [address] [place] [address] [address]1 [address] [place] [address] 12/12/21 Chata Temple DO [address] [place] [address] Resident 10/14/24 documented as of this encounter
--- OUTSIDE RECORDS SUMMARY | 2025-01-30 10:01 | XMS_ITS | Encounter Summary ---
Author Organization [facility] Address [address] [place] [address] Care Team Providers Care Check Processing Clerk Name Role Phone Jann Hernandes MD Unavailable [phone] Owen Temple DO Primary Care Provider [phone] Chata Temple DO Unavailable [phone] Encounter Details Date Type Department Care Team (Late Contact Info) Description 12/04/2024 Results Follow-Up [facility] [address] [place] [address] Stephanie Proctor MD [address] [place] [id number] Social History Tobacco Use Types Packs/Day Years [...] Department Care Team (Late Contact Info) Description 03/15/2025 10:20 AM EDT Appointment [facility] Radiology [address] [place] [address] 03/15/2025 11:40 AM EDT [facility] [address] [place] [address] 03/15/2025 12:40 PM EDT Office Visit [facility] Urology [address] [place] [address] Sonal Cordero MD [address] [place] [address] documented as of this encounter [...] documented as of this encounter Care Teams Check Processing Clerk Relationship Specialty Start Date End Date Owen Temple DO 1210 [facility] [address] [place] [address] PCP - General 08/06/24 Jann Hernandes MD [address] [place] [address] #1 [address] [place] [address] 12/12/21 Chata Temple DO [address] [place] [address] Resident 10/14/24 documented as of this encounter
--- NOTE | 2025-01-30 10:05 | ECG_ITS ---
APPROVED REPORT Exam: Resting ECG HR:75 bpm ECG Measurements Heart Rate 75 AXES WI 169 P 55 QRSd 76 QRS 35 QT 361 T 39 QTc 390 Conclusion NSR Normal axis Normal intervals No STEMI Electronically signed by : Sen Ware, 01/30/2025 15:42:45
--- NOTE | 2025-01-30 10:22 | CT_ITS ---
PROCEDURE INFORMATION: Exam: CT Abdomen And Pelvis With Contrast Exam date and time: 01/30/2025 11:32 AM Age: 89 years old Clinical indication: Abdominal pain; Additional info: Rlq abdominal pain and tenderness TECHNIQUE: Imaging protocol: Computed tomography of the abdomen and pelvis with contrast. Radiation optimization: All CT scans at this facility use at least one of these dose optimization techniques: automated exposure control; mA and/or kV adjustment per patient size (includes targeted exams where dose is matched to clinical indication); or iterative reconstruction. Contrast material: ISOVUE; Contrast volume: 75 ml; Contrast route: IV; COMPARISON: CT ABDOMEN PELVIS W CON 11/12/2024 9:50 AM FINDINGS: Lungs: No consolidation, lung nodules, or pleural effusions. Coronary arteries: Coronary artery calcifications. Liver: No mass. No evidence of fat deposition. No surrounding fluid. Gallbladder and biliary ducts: Gallbladder has several calcified stones without wall thickening or luminal distention. No biliary ductal dilatation. Pancreas: No masses. No ductal dilation. Spleen: No splenomegaly. No masses or surrounding fluid. Adrenal glands: No mass. Kidneys and ureters: No hydronephrosis, calcified stones, or masses. Stomach and bowel: No intestinal masses, bowel wall thickening, or abnormal dilatation. Appendix: No evidence of appendicitis. Intraperitoneal space: No free air. No masses or significant fluid collection. Vasculature: Moderate atherosclerotic calcification. No aortic aneurysm. No significant arterial stenoses or occlusions. Lymph nodes: No enlarged lymph nodes. Urinary bladder: No masses or asymmetric wall thickening. Reproductive: No abnormalities as visualized. Bones/joints: Joint space narrowing and bone hypertrophy in the left hip with meniscal ossicles or loose bodies. Mild spinal stenosis at L3-L4 and L4-L5. Soft tissues: No masses or other abnormalities. IMPRESSION: 1. No acute findings in the abdomen and pelvis. 2. Cholelithiasis. No biliary ductal dilatation. 3. Incidental findings include atherosclerosis and spinal stenosis in the lower lumbar spine
[2025-01-30 10:29] LABS: Hematocrit 39.5 % (37.0-47.0); Hemoglobin 12.9 g/dL (12.2-16.2); Immature Granulocytes % 0.4 %; Mean Corpuscular HGB Conc 32.7 g/dL (31.8-35.4); Mean Corpuscular Hemoglobin 31.5 pg (27.0-31.2); Mean Corpuscular Volume 96.6 fl (81-99); Nucleated Red Blood Cells % 0 %; Platelet Count 210 K/mm3 (142-424); Red Blood Count 4.09 M/mm3 (4.20-5.40); Red Cell Distribution Width-SD 44.8 fL; White Blood Count 5.7 K/mm3 (4.8-10.8)
[2025-01-30 10:30] LABS: Microscopic, Urine URINE MICROSCOPIC (MICROSCOPIC)
[2025-01-30 10:39] LABS: Bilirubin,Urine Negative (Negative); Color,Urine YELLOW (Yellow); Glucose,Urine (UA) Negative (Negative); Ketones,Urine Negative (Negative); Leukocyte Esterase,Urine Negative (Negative); PH,Urine 7.5 (5.0-8.5); Protein,Urine Negative (Negative); Specific Gravity, Urine 1.015 (1.005-1.030); Urobilinogen,Urine 0.2 EU/dl (0.2)
[2025-01-30 10:39] LABS: Albumin Level 4.2 g/dl (3.5-5.0); Chloride 102 mmol/L (98-107)
[2025-01-30 10:40] LABS: Potassium 3.8 mmoL/L (3.5-5.1); Sodium 135 mmol/L (136-145)
[2025-01-30 10:42] LABS: Alanine Aminotransferase 21 U/L (12-78); Alkaline Phosphatase 128 U/L (38-126); Anion Gap 7.8 mEq/L (5-15); Aspartate Amino Transferase 26 U/L (14-36); Bilirubin,Total 0.9 mg/dl (0.2-1.3); Blood Urea Nitrogen 13 mg/dl (7-17); Carbon Dioxide 29 mmol/L (22.0-30.0); Creatinine Clearance Estimated 49 mL/min (50-200); Creatinine,Serum 0.70 mg/dl (0.52-1.04); Estimated Glomerular Filt Rate 79 ml/min (>60); GFR (African American) 95 ML/MIN (>60)
[2025-01-30 10:43] LABS: Albumin/Globulin Ratio 1.3 (1.1-1.8); Calcium 9.3 mg/dl (8.4-10.2); Globulin 3.2 g/dL (1.3-3.2); Glucose 112 mg/dl (74-100); Lipase 45 U/L (23-300); Total Protein,Serum 7.4 g/dl (6.3-8.2)
--- NOTE | 2025-01-30 10:45 | PC.NURSE ---
gave report to melanie kaba
[2025-01-30 10:49] LABS: Bacteria,Urine Trace /lpf; Squamous Epithelial Cell,Urine Occasional #/hpf (0-5); WBC,Urine Occasional #/hpf (0-3)
[2025-01-30 10:50] LABS: Creatine Kinase < 20 U/L (30-135)
[2025-01-30 10:54] LABS: Troponin I < 0.01 ng/ml (0.00-0.034)
[2025-01-30] MEDS: SODIUM CHLORIDE 0.9% 10ML SYR (RAD ONLY) 10 ML IV (11:32)
[2025-01-30] MEDS: IOPAMIDOL-370 (76%);100ML BOTTLE 75 ML IV (11:32)
--- NOTE | 2025-01-30 13:04 | HMH.EDGENADL ---
Discharge Plan Disposition Patient Disposition: Home, Self-Care Condition: Good Prescriptions Prescriptions: No Action pantoprazole 40 mg tablet,delayed release (DR/EC) 40 mg PO DAILY Qty: 90 0RF bethanechol chloride 50 mg tablet 50 mg PO QID Patient Comments: TAKE 1 TABLET BY MOUTH 4 TIMES DAILY diclofenac sodium 1 % gel 4 g topical QID PRN (Reason: pain ) Qty: 100 2RF Rx Instructions: apply to single knee, ankle, foot; for foot includes sole/toes/top of foot bethanechol chloride 50 mg tablet 50 mg PO QID tamsulosin [Flomax] 0.4 mg capsule 0.4 mg PO DAILY Qty: 30 3RF amlodipine 10 mg tablet See Rx Instructions .ROUTE .COMPLEX Qty: 90 0RF Dose Instruction: Take 1 tablet by mouth once daily Rx Instructions: Take 1 tablet by mouth once daily losartan 50 mg tablet See Rx Instructions .ROUTE .COMPLEX Qty: 90 0RF Dose Instruction: Take 1 tablet by mouth once daily Rx Instructions: Take 1 tablet by mouth once daily levofloxacin 750 mg tablet 750 mg PO DAILY Qty: 5 0RF meloxicam 7.5 mg tablet 7.5 mg PO DAILY Qty: 30 2RF metaxalone 400 mg tablet 400 mg PO BID PRN (Reason: muscle spasm) Qty: 30 0RF simvastatin 40 mg tablet 40 mg PO DAILY Rx Instructions: TAKE 1 TABLET BY MOUTH AT BEDTIME NIGHTLY FOR CHOLESTEROL ibuprofen 800 mg tablet 800 mg PO Q8H PRN (Reason: pain) Qty: 60 2RF acetaminophen 500 mg tablet 500 mg PO Q6H PRN (Reason: fever or pain) Qty: 30 3RF Referrals Follow up/Referrals: Owen Temple DO [Primary Care Provider, Family Practice] - See instructions Activity Restrictions/Add. Instructions Additional Instructions/Restrictions: Please follow up with your primary care physician. If you have any new or worsening symptoms please return. Clinical Impressions Clinical Impression: Weakness, Urinary frequency Print Language Print Language: Turkmen Discharge ED Provider: Sen Ware Adult HPI General Chief complaint: Weakness Stated complaint: weakness, strong urine oder Time Seen by Provider: 01/30/25 09:58 Mode of Arrival: Wheelchair Source of Information: Patient Description of Symptoms (Recalled from ER Triage Doc. by RN): pt presents to the er for weakness, increased urination, and decreased appetite for 3-4 days, son reports foul smelling urine and states it is dark in color, denies fever or chills History of Present Illness HPI narrative: This is an 89-year-old female patient, with past medical history of hypertension as well as recurrent urinary tract infections, who is presenting to the emergency department today for evaluation of weakness. She presents with her son who states that over the course of the last month she has not been eating as much food as usual and he feels like this is contributing to her weakness. In addition to this, the patient states that she has had some urinary frequency but no overt hematuria or dysuria. She has not noted any abdominal pain, nausea, vomiting, or diarrhea. No constipation. She is not having chest pain or shortness of breath. Related Data Home Medications ?Medication ?Instructions ?Recorded ?Confirmed simvastatin 40 mg tablet 40 mg PO DAILY 09/28/24 01/30/25 bethanechol chloride 50 mg tablet 50 mg PO QID 10/06/24 01/30/25 bethanechol chloride 50 mg tablet 50 mg PO QID 12/09/24 01/30/25 Previous Rx's ?Medication ?Instructions ?Recorded tamsulosin 0.4 mg capsule (Flomax) 0.4 mg PO DAILY #30 caps 04/03/24 acetaminophen 500 mg tablet 500 mg PO Q6H PRN fever or pain 10/08/24 #30 tabs ibuprofen 800 mg tablet 800 mg PO Q8H PRN pain #60 tabs 10/08/24 amlodipine 10 mg tablet See Rx Instructions .Route 11/05/24 .COMPLEX #90 tabs losartan 50 mg tablet See Rx Instructions .Route 11/05/24 .COMPLEX #90 tabs levofloxacin 750 mg tablet 750 mg PO DAILY #5 tabs 12/15/24 pantoprazole 40 mg tablet,delayed 40 mg PO DAILY #90 tabs 12/24/24 release meloxicam 7.5 mg tablet 7.5 mg PO DAILY #30 tabs 01/13/25 diclofenac sodium 1 % topical gel 4 g topical QID PRN pain #100 01/18/25 grams metaxalone 400 mg tablet 400 mg PO BID PRN muscle spasm #30 01/29/25 tabs Allergies Allergy/AdvReac Type Severity Reaction Status Date / Time No Known Allergies Allergy Verified 01/30/25 10:07 [facility] Disclaimer: The information contained in this section may have been updated after the patient was seen, as this information can be updated by other users. Medical History Hysterectomy planned Contamination of urine culture Diastolic dysfunction Left carotid bruit Carotid artery stenosis Urinary retention Sleep apnea Macular degeneration Hyperlipidemia Hypertension Dyspnea Surgical History History of surgery myosure and polypectomy History of left knee surgery History of right shoulder replacement Family History Other Hypertension Social History Smoking Status: Never smoker second hand exposure: No alcohol intake: never substance use type: denies use current occupational status: retired Travel in the last 8 weeks?: None household members: none housing: house marital status: current occupational exposures/hazards: No caffeine: No Have you lived/traveled outside US in past 30 days?: No Contact w/someone who lives/traveled outside US past 30 days?: No Exposure to someone with infectious disease in past 14 days?: No Do you have a fever (greater than 100.4 F or 38 C)?: No Have you tested positive for COVID-19?: No Exposed to someone with COVID-19 in past 14 days?: No Do you have a sore throat?: No Do you have a cough?: No Do you have any weakness?: No Do you have any diarrhea?: No Are you experiencing any unusual bleeding?: No Do you have any muscle aches/pain?: No Do you have any abdominal pain?: No Are you experiencing loss of taste or smell?: No Other Medical History Have you received the Flu Vaccine for this season: No Have you received the Pneumonia Vaccine: No ROS Obtained: Yes Systems reviewed as appropriate & no additional complaints except as documented Physical Exam General General appearance: other (See MDM) Respiratory Respiratory exam: Present other (See MDM) Cardiovascular Cardiovascular exam: Present other (See MDM) Neurological Exam Neurological exam: Present other (See MDM) Medical Decision Making Medical Records Medical records reviewed: Yes I reviewed the patient's medical records. Screening: Per USPSTF and CDC recommendations, given the prevalence of disease in our region, it is our hospital?s policy to screen for HIV and viral Hepatitis for all patients aged 18 and over and those with ongoing risk factors. Edgardo Inquiry Pt receiving controlled substance: No Edgardo was queried for this patient: No Vital Signs: 01/30/25 09:56 01/30/25 10:00 01/30/25 10:00 Temperature 99.0 F Temperature Source Oral Pulse Rate 76 76 Pulse Rate [Left Radial] 76 Respiratory Rate 18 Blood Pressure 155/66 H 145/71 H Blood Pressure [Right Arm] 155/66 H Blood Pressure Mean [Right Arm] 95 Blood Pressure Source [Right Arm] Automatic Cuff Blood Pressure Position [Right Arm] Sitting 02 Sat by Pulse Oximetry 93 L 93 L 95 Oxygen Delivery Method Room Air 01/30/25 10:31 01/30/25 11:00 01/30/25 12:00 Temperature Temperature Source Pulse Rate 72 70 73 Pulse Rate [Left Radial] Respiratory Rate Blood Pressure 157/71 H 153/77 H 131/60 Blood Pressure [Right Arm] Blood Pressure Mean [Right Arm] Blood Pressure Source [Right Arm] Blood Pressure Position [Right Arm] 02 Sat by Pulse Oximetry 97 97 98 Oxygen Delivery Method 01/30/25 12:30 01/30/25 13:00 01/30/25 13:30 Temperature Temperature Source Pulse Rate 65 70 76 Pulse Rate [Left Radial] Respiratory Rate Blood Pressure 135/60 134/64 140/82 Blood Pressure [Right Arm] Blood Pressure Mean [Right Arm] Blood Pressure Source [Right Arm] Blood Pressure Position [Right Arm] 02 Sat by Pulse Oximetry 91 L 98 98 Oxygen Delivery Method Lab Data Lab Results 01/30/25 10:20: WBC 5.7, RBC 4.09 L, Hgb 12.9, Hct 39.5, MCV 96.6, MCH 31.5 H, MCHC 32.7, RDW 12.6, Plt Count 210, MPV 10.8 H, Neut % (Auto) 64.3, Lymph % (Auto) 25.2, [place] % (Auto) 8.1, Eos % (Auto) 0.9, Baso % (Auto) 1.1, Neut # (Auto) 3.7, Lymph # (Auto) 1.4, [place] # (Auto) 0.5, Eos # (Auto) 0.1, Baso # (Auto) 0.1, Sodium 135 L, Potassium 3.8, Chloride 102, Carbon Dioxide 29, Anion Gap 7.8, BUN 13, Creatinine 0.70, Estimated Creat Clear 49, Estimated GFR 79, Est GFR ( Amer) 95, Glucose 112 H, Calcium 9.3, Total Bilirubin 0.9, AST 26, ALT 21, Alkaline Phosphatase 128 H, Total Creatine Kinase < 20 L, Troponin I < 0.01, Total Protein 7.4, Albumin 4.2, Globulin 3.2, Albumin/Globulin Ratio 1.3, Lipase 45 01/30/25 10:26: Urine Color Yellow, Urine Appearance Clear, Urine pH 7.5, Ur Specific [place] 1.015, Urine Protein Negative, Urine Glucose (UA) Negative, Urine Ketones Negative, Urine Blood Negative, Urine Nitrate Negative, Urine Bilirubin Negative, Urine Urobilinogen 0.2, Ur Leukocyte Esterase Negative, Urine RBC None, Urine WBC Occasional, Ur Squamous Epith Cells Occasional, Urine Bacteria Trace 01/30/25 10:20 01/30/25 10:20 Orders (Tests/Meds): ED MEDICATIONS Generic Name Dose Route Start Last Admin Trade Name Freq PRN Reason Stop Dose Admin Sodium Chloride 10 ml 01/30/25 11:31 01/30/25 11:32 Sodium Chloride 0.9% 10ml Syr (Rad Only) IV 03/01/25 11:30 10 ml NEEDED PRN Administration Maintain IV Site Discontinued Medications Generic Name Dose Route Start Last Admin Trade Name Freq PRN Reason Stop Dose Admin Iopamidol 75 ml 01/30/25 11:31 01/30/25 11:32 Iopamidol-370 (76%);100ml Bottle IV 01/30/25 11:32 75 ml ONCE ONE Administration ORDERS Category Date Time Status CT abdomen pelvis w con Stat Cat Scan 01/30/25 10:22 Completed CBC w/Auto Diff [Complete Blood Count Auto Diff] Stat Lab 01/30/25 10:20 Completed CK [Creatine Kinase] Stat Lab 01/30/25 10:20 Completed CMP [Comprehensive Metabolic Panel] Stat Lab 01/30/25 10:20 Completed Lipase Stat Lab 01/30/25 10:20 Completed Troponin I Q3H Lab 01/30/25 16:30 Ordered Troponin I Stat Lab 01/30/25 10:20 Completed Urinalysis and Microscopic Stat Lab 01/30/25 10:26 Completed ECG Data Tracing #1: I reviewed this ECG and interpreted as documented below: EKG personally interpreted by me demonstrates normal sinus rhythm with a rate of 75 bpm, normal axis, no MT prolongation, narrow QRS, no QTc prolongation. No ST elevation or depression. No overt signs of ischemia or arrhythmia. Medical Decision Narrative: In summary this is an 89-year-old female patient who is presenting to the emergency department today for evaluation of weakness with urinary frequency. Comorbidities include hypertension and recurrent urinary tract infections. On initial evaluation of the patient they were resting comfortably in no acute distress and nontoxic in appearance. They are hemodynamically stable, saturating well room air, and are neurologically intact. On physical examination of the patient she has normal heart and lung sounds bilaterally. On examination of her abdomen she did have tenderness in the far right lower quadrant. The right upper quadrant, left upper quadrant, and left lower quadrant are nontender to palpation. She has no evidence of peritonitis on exam. She has no difficulty or pain with movement of the right hip. She has no lumbar spine tenderness. She appears well-hydrated overall. Differential diagnosis to include urinary tract infection, colitis, appendicitis, right-sided diverticulitis, ACS/DE, electrolyte derangement, acute kidney injury, anemia, cholecystitis, among others. We proceeded with hematologic labs as well as urinalysis and a CT scan of the abdomen and pelvis given her right lower quadrant abdominal tenderness on exam. Labs were personally turbid by me and demonstrate no actionable or maladies. Initial troponin is undetectably low. No evidence of anemia. No significant electrolyte derangements or acute kidney injury. She has no evidence of transaminitis. Bilirubin is normal. A CT scan of the abdomen and pelvis was personally interpreted by me and demonstrates no evidence of pneumoperitoneum. Official radiology read is in agreement and states there is no acute findings in the abdomen or pelvis however they do note that there is cholelithiasis present. There is no associated biliary ductal dilatation and no evidence of cholecystitis. On repeat evaluation of the patient she still does not have any tenderness in the right upper quadrant. And the tenderness in her right lower quadrant has improved. My overall impression is that this is an incidental finding of cholelithiasis and I do not feel that this is actively causing her symptoms today. I have encouraged the patient to eat and drink adequately as her decrease in oral intake reported by her could be contributing to her symptoms. I have also encouraged that she follow-up with her primary care physician. At this time all questions were answered and all parties were agreeable with the decision to discharge Critical Care Critical Care Time Critical Care Time: No
== END 2025-01-30 14:21 | disposition home or self-care (01) ==
PROVIDERS: Emergency Provider Student in an Organized Health Care Education/Training Program; PCP Internal Medicine
DX: R53.1 Weakness (principal); R35.0 Frequency of micturition
CPT/HCPCS: 74177; 80053; 81001; 82550; 83690; 84484; 85025; 93005; 99284; Q9967

== ENCOUNTER 2025-02-02 12:46 | Outpatient (RCR) | payer MEDICARE, BC, SELFPAY | END 2025-02-02 23:59 | disposition home or self-care (01) | LOC: PT 12:46 | PROVIDERS: PCP Internal Medicine; Visit Provider Specialist/Technologist Athletic Trainer | DX: M43.16 Spondylolisthesis, lumbar region (principal) ==

== ENCOUNTER 2025-03-11 09:17 | Outpatient (CLI) | payer MEDICARE, BC, SELFPAY ==
--- OUTSIDE RECORDS SUMMARY | 2025-03-11 09:21 | XMS_ITS | Encounter Summary ---
Author Organization [facility] Address [address] [id number] Care Team Providers Care Gate Manager Name Role Phone Jann Hernandes MD Unavailable [phone] Owen Temple DO Primary Care Provider [phone] Chata Temple DO Unavailable [phone] Encounter Details Date Type Department Care Team (Late st Contact Info) Description 12/04/2024 Results Follow-Up [facility] Women's Care [address] [place] [address] Stephanie Proctor MD [address] [place] [address] Social History Tobacco Use Types Packs/Day Years [...] 12/28/2024 12:43 PM EDT Thaddeus Fairbanks * How difficult have these problems made it for you to do your work, take care of things at home, or get along with other people? Answer Date of Assessment Author Not difficult at all 12/28/2024 12:43 PM EDT Ricardo Vega documented as of this encounter Plan of Treatment Upcoming Encounters Date Type Department Care Team (Late st Contact Info) Description 03/15/2025 10:20 AM EDT Appointment [facility] [address] [place] [address] 03/15/2025 11:40 AM EDT Clinical Support [facility] Lab [address] [place] [address] 03/15/2025 12:40 PM EDT Office Visit [facility] Urology [address] [place] [address] Sonal Cordero MD [address] [place] [address] documented as of this encounter Goals Goal [...] documented as of this encounter Care Teams Gate Manager Relationship Specialty Start Date End Date Owen Temple DO [address] [facility] [address] [address] PCP - General 08/06/24 Jann Hernandes MD [address] [place] [address] #1 [address] [address] 12/12/21 Chata Temple DO [address] [place] [facility] [place] [address] [address] Resident 10/14/24 documented as of this encounter
--- OUTSIDE RECORDS SUMMARY | 2025-03-11 09:21 | XMS_ITS | Encounter Summary ---
Author Organization [facility] Address [address] [place] [address] Care Team Providers Care Penology Professor Name Role Phone Jann Hernandes MD Unavailable [phone] Owen Temple DO Primary Care Provider [phone] Chata Temple DO Unavailable [phone] Reason for Visit * Reason Comments Med Refill Encounter Details Date Type Department Care Team (Late Contact Info) Description 03/08/2025 Refill [facility] [address] [place] [address] Ivonne Meyers, MARKETING SALES MANAGER, DNP [address] [place] [address] Social History Tobacco Use Types [...] EDT Appointment [facility] [address] [place] [address] 03/15/2025 11:40 AM EDT Clinical Support [facility] [address] [place] [address] 03/15/2025 12:40 PM EDT Office Visit [facility] Urology [address] [place] [address] Sonal Cordero MD [address] [place] [address] documented as of this encounter Goals Goal [...] documented as of this encounter Care Teams Penology Professor Relationship Specialty Start Date End Date Owen Temple DO [address] [facility] [address] [address] PCP - General 08/06/24 Jann Hernandes MD [address] [place] [address] #1 [address] [address] 12/12/21 Chata Temple DO [address] [address] Resident 10/14/24 documented as of this encounter
--- OUTSIDE RECORDS SUMMARY | 2025-03-11 09:21 | XMS_ITS | Encounter Summary ---
Author Organization [facility] Address [address] [id number] Care Team Providers Care Assistant Chief Nursing Officer Name Role Phone Jann Hernandes MD Unavailable [phone] Owen Temple DO Primary Care Provider [phone] Chata Temple DO Unavailable [phone] Encounter Details Date Type Department Care Team (Late st Contact Info) Description 10/22/2024 Lab Requisition [facility] [address] [place] [address] Meri Tai MD [address] [facility] [address] [place] [address] Postmenopausal bleeding Social History Tobacco [...] EDT Appointment [facility] [address] [place] [address] 03/15/2025 11:40 AM EDT Clinical Support [facility] Lab [address] [place] [address] 03/15/2025 12:40 PM EDT Office Visit [facility] Urology [address] [place] [address] Sonal Cordero MD [address] [place] [address] documented as of this encounter Goals Goal [...] EDT) Case Report [facility] Consult Case: [id number] Authorizing Provider: Meri Tai MD Collected: 10/22/20241043 Ordering Location: [facility] Lab Received: 10/22/20241043 Pathologist: Mely Saleh MD Specimen: Endometrium, [id number] 10/23/2024 10:[address] [facility] Final Diagnosis Outside slides Date of collection: 10/08/24 Endometrium, curettage: - Endometrial adenocarcinoma, endometrioid type, FIGO grade 2 10/23/2024 10:[address] [facility] at 1045 EDT Comment Outside IHC (reviewed): MMR panel: retained nuclear expression of mismatch-repair proteins P63: wild type 10/23/2024 10:[address] [facility] Clinical Information N95.0 - Postmenopausal bleeding [ICD-10-CM] 10/23/2024 10:[address] [facility] Gross Description A. [id number] Received along with a corresponding pathology report from [facility] are 11 slide(s) labeled outside case: [id number] collected on 10/08/2024. 10/23/2024 10:[address] [facility] Note: A resident was involved in the service. I attest I examined the relevant preparations for the specimens and confirmed the diagnosis or interpretation. 10/23/2024 10:[address] [facility] Tissue Endometrial structure / Unknown 10/22/2024 10:44 AM EDT 10/22/2024 10:44 AM EDT us Meri Tai MD LAB PATHOLOGY ORDERABLES Valorie manning Result [facility] [address] [place] [address] documented in this encounter Visit Diagnoses Diagnosis [...] documented as of this encounter Care Teams Assistant Chief Nursing Officer Relationship Specialty Start Date End Date Owen Temple DO [address] [place] [address] [address] PCP - General 08/06/24 Jann Hernandes MD [address] [place] [address] #1 [address] [address] 12/12/21 Chata Temple DO [address] [id number] Resident 10/14/24 documented as of this encounter
--- OUTSIDE RECORDS SUMMARY | 2025-03-11 09:21 | XMS_ITS | Clinical Summary ---
Author Organization [facility] Address [address] [place] [address] Care Team Providers Care Test Development Engineer Name Role Phone Jann Hernandes MD Unavailable [phone] Owen Temple DO Primary Care Provider [phone] Chata Temple DO Unavailable [phone] Allergies No known active allergies Medications amLODIPine-benaze pril (Lotrel) 10-40 MG capsule Take 1 capsule by mouth daily. Active omeprazole (PriLOSEC) [address] capsule Take by mouth daily. Active simvastatin (Zocor) 40 MG tablet Take by mouth nightly. Active multivitamin-mine rals-folic acid-coenzyme q10 (Preservision AREDS 2) capsule Take 1 capsule by mouth daily. Active losartan (Cozaar) 50 MG tablet Take 1 tablet by mouth daily. Active meloxicam (Mobic) 15 MG tablet Take by mouth daily. Active bethanechol (Urecholine) 50 MG tablet Take 1 tablet (50 mg) by mouth 4 (four) times a day. 120 tablet 11 025 2025 Active pantoprazole (Protonix) 40 MG EC tablet Take 1 tablet by mouth 2 times a day. Active acetaminophen (Tylenol) 325 MG tablet Take 2 tablets by mouth every 8 hours. Under [place] law, monthly prescriptions (30 days) can be refilled at 25 days and three-month prescriptions (90 days) at 80 days. Please contact the insurance company with questions if refills are denied. 100 tablet 1 025 Active ibuprofen 600 MG tablet Take 1 tablet by mouth every 6 hours. 100 tablet 025 Active ondansetron ODT (Zofran-ODT) 4 MG disintegrating tablet Dissolve 1 tablet on the tongue every 6 hours as needed for nausea or vomiting. 10 tablet 025 Active oxyCODONE (Roxicodone) 5 MG immediate release tablet Take 1 tablet by mouth 1 time as needed (pain score of 3-5 out of 10). 3 tablet 025 Active senna-docusate (Helena-Colace) 8.6-50 MG tablet Take 1 tablet by mouth daily. 30 tablet 1 025 Active tamsulosin (Flomax) 0.4 MG 24 hr capsule Take 1 capsule by mouth once daily 30 capsule 025 Active tamsulosin (Flomax) 0.4 MG 24 hr capsule Take 1 capsule by mouth daily. 30 capsule 2 025 2024 Discontinued Hospital, Clinic, or Other Facility Administered Medication [...] loop recorder present 12/17/2023 Macular degeneration 12/17/2023 Syncope 12/17/2023 Urge incontinence 12/17/2023 Incomplete emptying of bladder 12/17/2023 Vascular calcification 12/17/2023 Urinary frequency 12/17/2023 Stress incontinence 12/17/2023 [...] will proceed with biopsy at that time Resolved Problems Problem Noted Date Diagnosed Date Resolved Date Overweight with body mass in dex (BMI) 25.0-29.9 12/17/2023 03/07/2025 Nocturia 12/17/2023 03/07/2025 Encounters Date Type Department Care Team Description 03/08/2025 Refill [place] [facility] [address] [place] [address] Ivonne Meyers APRN, DNP 12/28/2024 12:30 PM EDT Office Visit [facility] [address] [place] [address] Rodrigue Miguel MD Endometrial adenocarcinoma (CMS/HCC) (Primary Dx) 12/28/2024 Travel 12/11/2024 Refill [place] [facility] [address] [place] [address] Ivonne Meyers APRN, DNP from Last 3 Months Immunizations Immunization Administration [...] EDT Appointment [facility] [address] [place] [address] 03/15/2025 11:40 AM EDT Clinical Support [facility] [address] [place] [address] 03/15/2025 12:40 PM EDT Office Visit [facility] [address] [place] [address] Sonal Cordero MD [address] [place] [address] Health Maintenance Due Date Last Done Comments [facility]-Bone Density Scan 1935 [facility]-Medicare Annual Wellness (AWV) 1935 [facility]-Infant/Child/Adol SDOH Screenings 1935 EG[facility]-DCFST-12 Vaccine (#1) 08/21/1940 [facility]- SDOH Screenings 08/21/1953 [...] Procedure Name Priority Date/Time Associated Diagnosis Comments HEMOGLOBIN A1C Routine 10/22/2024 1:48 PM EDT Endometrial adenocarcinoma (CMS/HCC) Personal history of other endocrine, nutritional and metabolic disease from Last 3 Months or Most Recently Relevant to Health Maintenance Results * (ABNORMAL) Hemoglobin A1c (10/22/2024 1:48 PM EDT) Hemoglobin A1c 6.3(H) <5.7 % 10/22/2024 5:52 PM EDT [facility] Blood Venous blood specimen / Unknown Venipuncture / Unknown 10/22/2024 1:48 PM EDT 10/22/2024 3:05 PM EDT Narrative [facility] - 10/22/2024 5:52 PM EDT HA1C Interpretive Data: Diagnosis of Diabetes: Diabetic > or = 6.5% Pre-diabetic 5.7 to 6.4% Non-diabetic < or = 5.6% Glycemic Targets for Type I and Type II Diabetics: Non- Adults <7.0% Adults <6.0% Children and Adolescents <7.5% Source: [place] [employer]. Standards of medical care in diabetes,2017. Diabetes Care.2017:40 (suppl 1):S1-S135. us Meri Tai MD LAB BLOOD ORDERABLES Final Re sult [facility] [address] [place] [address] from Last 3 Months or Most Recently Relevant to Health Maintenance Additional Health Concerns Active Problems Noted Date Diagnosed Date Autogenerated Problem 10/22/2024 [place] [address] [facility] Advance Directives * Full Code (Latest Code Status on File) Date Activated Date Inactivated Comments 11/25/2024 12:20 PM 11/26/2024 12:46 PM Question Answer Comments Patient has decision-making capacity? Yes Care Teams Test Development Engineer Relationship Specialty Start Date End Date Owen Temple DO [address] [place] [address] [place] [address] PCP - General 08/06/24 Jann Hernandes MD [address] [place] [address] [address] [place] [address] 12/12/21 Chata Temple DO [address] [place] [address] [place] [id number] Resident 10/14/24
--- OUTSIDE RECORDS SUMMARY | 2025-03-11 09:21 | XMS_ITS | Encounter Summary ---
Author Organization [facility] Address [address] [place] [address] Care Team Providers Care Camp Coordinator Name Role Phone Zoran Nava MD Primary Care Provider [phone] Jann Hernandes MD Unavailable [phone] Owen Temple DO Primary Care Provider Chata Temple DO Unavailable [phone] Encounter Details Date Type Department Care Team (Latest Contact Info) Description 04/18/2023 [facility] [address] [place] [address] Coty Cowan MD [address] [place] [address] Exudative age-related macular degeneration of left eye [...] Appointment [facility] [address] [place] [address] 03/15/2025 11:40 AM EDT Clinical Support [facility] [address] [place] [address] 03/15/2025 12:40 PM EDT Office Visit [facility] [address] [place] [address] Sonal Cordero MD [address] [place] [address] documented as of this encounter Visit Diagnoses [...] documented as of this encounter Care Teams Camp Coordinator Relationship Specialty Start Date End Date Zoran Nava MD [address] [place] [address] PCP - General 10/28/20 08/05/24 Owen Temple DO [address] [facility] [address] [place] [address] PCP - General 08/06/24 Jann Hernandes MD [address] [place] [address] [address] [place] [address] 12/12/21 Chata Temple DO [address] [place] [address] Resident 10/14/24 documented as of this encounter
--- OUTSIDE RECORDS SUMMARY | 2025-03-11 09:21 | XMS_ITS ---
Author Organization [facility] Address [address] [place] [address] Care Team Providers Care Accounts Receivable Executive Name Role Phone Jann Hernandes MD Unavailable [phone] Owen Temple DO Primary Care Provider [phone] Chata Temple DO Unavailable [phone] Active Problems Problem Noted Date Diagnosed [...] Kerma 80.063 mGy 80.063 mGy 0 mGy Resolved Problems Problem Noted Date Diagnosed Date Resolved Date Overweight with body mass in dex (BMI) 25.0-29.9 12/17/2023 03/07/2025 Nocturia 12/17/2023 03/07/2025
--- OUTSIDE RECORDS SUMMARY | 2025-03-11 09:21 | XMS_ITS | Encounter Summary ---
Author Organization [facility] Address [address] 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 ([facility]) Coty Cowan MD [address] [address] Phone: tel: fax: Referral ID Status Reason Start Date Expiration Date Visits Requested Visits Authorized [id number] Authorized Specialty Services Required 12/17/2023 06/17/2025 1 1 Encounter Details Date Type Department Care Team (Latest Contact Info) Description 12/17/2023 [facility] [address] [place] [address] Coty Cowan MD [address] [place] [address] Advanced atrophic nonexudative age-related macular degeneration of [...] EDT Appointment [facility] [address] [place] [address] 03/15/2025 11:40 AM EDT Clinical Support [facility] [address] [place] [address] 03/15/2025 12:40 PM EDT Office Visit [facility] [address] [place] [address] Sonal Cordero MD [address] [place] [address] Scheduled Referrals Name Type Priority Associated Diagnoses [...] documented as of this encounter Care Teams Warehouse General Laborer Relationship Specialty Start Date End Date Zoran Nava MD [address] [place] [address] PCP - General 10/28/20 08/05/24 [place] [address] [place] [address] [address] [place] [address] PCP - General 08/06/24 Jann Hernandes MD [address] [place] [address] [address] [place] [address] 12/12/21 Chata Temple DO 1210 [facility] [address] [place] [address] Resident 10/14/24 documented as of this encounter
[2025-03-11 10:06] LABS: Alanine Aminotransferase 21 U/L (12-78); Albumin Level 3.8 g/dl (3.5-5.0); Alkaline Phosphatase 102 U/L (38-126); Aspartate Amino Transferase 25 U/L (14-36); Bilirubin,Direct 0.0 mg/dl (0.0-0.4); Bilirubin,Indirect 0.7 mg/dL (0.0-0.9); Bilirubin,Total 0.7 mg/dl (0.2-1.3); Bilirubin,Unconjugated 0.6 mg/dL (0.0-1.1); Cholesterol 164 mg/dl (140-200); Total Protein,Serum 6.2 g/dl (6.3-8.2); Triglycerides 104 mg/dl (30-150)
[2025-03-11 11:28] LABS: HDL Cholesterol 61 mg/dl (40-60)
== END 2025-03-11 23:59 | disposition home or self-care (01) ==
LOC: LAB 09:19
PROVIDERS: PCP Internal Medicine; Visit Provider Nurse Practitioner Family
DX: E78.5 Hyperlipidemia, unspecified (principal); I10 Essential (primary) hypertension
CPT/HCPCS: 36415; 80061; 80076

== ENCOUNTER 2025-03-15 08:00 | Outpatient (RCR) | payer MEDICARE, BC, SELFPAY | END 2025-03-15 23:59 | disposition home or self-care (01) | LOC: PT 08:00 | PROVIDERS: PCP Internal Medicine; Visit Provider Specialist/Technologist Athletic Trainer | DX: M43.16 Spondylolisthesis, lumbar region (principal) | CPT/HCPCS: 97110; 97112; 97530 ==

== ENCOUNTER 2025-04-14 08:00 | Outpatient (RCR) | payer MEDICARE, BC, SELFPAY | END 2025-04-14 23:59 | disposition home or self-care (01) | LOC: PT 08:00 | PROVIDERS: PCP Internal Medicine; Visit Provider Specialist/Technologist Athletic Trainer | DX: M43.16 Spondylolisthesis, lumbar region (principal) | CPT/HCPCS: 97110; 97112; 97530 ==

== ENCOUNTER 2025-05-05 08:00 | Outpatient (RCR) | payer MEDICARE, BC, SELFPAY | END 2025-05-05 23:59 | disposition home or self-care (01) | LOC: PT 08:00 | PROVIDERS: PCP Internal Medicine; Visit Provider Specialist/Technologist Athletic Trainer | DX: M43.16 Spondylolisthesis, lumbar region (principal) | CPT/HCPCS: 97110; 97530 ==

== ENCOUNTER 2025-05-12 08:00 | Outpatient (RCR) | payer MEDICARE, BC, SELFPAY ==
--- NOTE | 2025-05-10 08:47 | HMH.PTOPEV ---
PT Evaluation Rehab PT Outpatient Evaluation Start: 05/10/25 07:53 Freq: Status: Active Protocol: Document 05/10/25 07:55 KAELA (Rec: 05/10/25 08:47 KAELA [id number]) E-signed By Evelio May, PT Outpatient Therapy Subjective History Subjective History Pt is a 89 yof who presents to [facility] outpatient PT with complaints of R knee pain. Pt reports that this pain has been ongoing for approximately 2-3 years. Pt reports that this pain come on insidiously. Pt reports that her pain is relatively constant. Pt reports that her knee will loosen up when she is up walking for longer periods. Pt reports that she uses a FWW for almost all mobility. She reports that she doesn't always use the cane when she is at home because she has furniture that she can hold onto. Pt was previously attending PT for her back but reports that she did not have much improvement. 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 Pt reports that stairs are something that give her some extra difficulty. PMH: Left carotid bruit, Carotid artery stenosis, Macular degeneration, Hypertension, vision loss New diagnosis of No cancer in past 12 months? Chief Complaint Pain,Stiff Symptom Type Ache,Sharp Symptoms Relieved By Heat,OTC Meds Symptoms Aggravated Standing,Walking,Lifting By Prior Functional None Limitations Current Functional Lifting,Housework,Standing,Sitting,Squatting,Walking, Limitations Stairs Symptom Description Constant but Variable,Activity Dependent Level of pain today 4 (0-10) Pain scale - at its 1 best (0-10) Pain scale - at its 8 worst (0-10) Hip/Knee Eval MMT right Hip Flexion Strength 3 Fair Grade Hip Abduction 3 Fair Strength Grade Hip Adduction 3 Fair Strength Grade Hip Extension 3 Fair Strength Grade Knee Extension 2 Poor Strength Grade Knee Flexion 2 Poor Strength Grade Lower Extremity Functional Index Activities Today, do you or would you have any difficulty at all with: a.Any of your usual Moderate difficulty work, housework or school activities b. Your usual Moderate difficulty hobbies, recreational or sporting activities c. Getting into or Quite a bit of difficulty out of the bath d. Walking between A little bit of difficulty rooms e. Putting on your A little bit of difficulty shoes or socks f. Squatting Quite a bit of difficulty g. Lifting an object Quite a bit of difficulty , like a bag of groceries from the floor h. Performing light Moderate difficulty activities around your home i. Performing heavy Extreme difficulty or unable to perform activity activities around your home j. Getting into or A little bit of difficulty out of a car k. Walking 2 blocks A little bit of difficulty l. Walking a mile Extreme difficulty or unable to perform activity m. Going up or down Extreme difficulty or unable to perform activity 10 stairs (about 1 flight of stairs) n. Standing for 1 Extreme difficulty or unable to perform activity hour o. Sitting for 1 No difficulty hour p. Running on even Extreme difficulty or unable to perform activity ground q. Running on uneven Extreme difficulty or unable to perform activity ground r. Making sharp Extreme difficulty or unable to perform activity turns while running fast s. Hopping Extreme difficulty or unable to perform activity t. Rolling over in A little bit of difficulty bed LEFI Score Lower Extremity 28 Functional Index Score Miscellaneous Dx PT Eval Objective Objective 5xSTS: 34s w UE support TUs with FWW Outpatient Therapy Assessment Impairments Problems/ Palpation Tenderness,Impaired Strength,Impaired Gait Impairmments Pattern,Impaired Walking,Impaired Household Care, Impaired Stair Climbing,Impaired Squatting,Impaired Balance,Subjective C/O Pain,Impaired Self Care/Self Management Prognosis Rehab Potential Fair Comment w HEP compliance Clinical Impression Consistent with Yes Diagnosis Consistent with R Knee OA PT Patient Goals PT Patient Goals PT Short Term In 4 weeks: Patient Goals 1. Pt will improve bilateral hip and knee strength to at least 3/5 grossly upon MMT to better facilitate functional movement patterns, such as standing from a chair. 2. Pt will improve 5xSTS test to 27s to decrease fall risk, demonstrate improved endurance and to better align with age appropriate norms. 3. Pt will improve TUG time to 25s to demonstrate improved functional mobility and decreased fall risk. 4. Pt will improve LEFS score to to 38 demonstrate a decreased fall risk and improved in-home and community mobility. 5. Pt will be able to stand for 15 minutes in order to prepare a small meal in her kitchen without requiring a rest break. 6. Pt will report HEP adherence by completing her prescribed HEP 4-5x/week. PT Half-Way Patient In 8 weeks: Goals 1. Pt will improve bilateral hip and knee strength to at least 4/5 grossly upon MMT to better facilitate functional movement patterns, such as standing from a chair. 2. Pt will improve 5xSTS score to 20s to decrease fall risk, demonstrate improved endurance and to better align with age appropriate norms. 3. Pt will improve TUG time to 20s to demonstrate improved functional mobility and decreased fall risk. 4. Pt will improve LEFS score to 48 to demonstrate a decreased fall risk and improved in-home and community mobility. 5. Pt will be able to stand for 30 minutes in order to prepare a larger meal in her kitchen without requiring a rest break. 6. Pt will be able to navigate a flight of stairs with a hand-rail, in order to demonstrate improved community mobility. Outpatient Therapy Plan of Care Treatment Plan May Include Therapeutic Exercise Yes Including Home Exercise Program Manual Therapy Yes Techniques Neuromuscular Re- Yes education Therapeutic Yes Activities to Return to Previous Functional/Work Level Gait Training Yes Thermal Modalities Yes Electrical Yes Stimulation Massage Yes Manual Lymphatic Yes Drainage Eval/Re-Eval Yes Frequency Times per week 2 Duration Number of Weeks 8 Addendums This patient is a No candidate for social or vocational rehab ? Patient/Guardian Yes verbally acknowledges understanding of treatment program and consents to further treatment? Patient/Guardian Yes verbally acknowledges understanding of diagnosis, prognosis and goals for treatment? Eval Complexity PT Charges 67979 - High Complexity Shoulder/Elbow Eval Shoulder Objective Measurements Elbow Objective Measurements PHYSICIAN CERTIFICATION: I certify the specified therapy services for Caty Zayas are required, authorized, and reviewed every 30 days.
== END 2025-05-12 23:59 | disposition home or self-care (01) ==
LOC: PT 08:00
PROVIDERS: PCP Internal Medicine; Visit Provider Physician Assistant
DX: M25.569 Pain in unspecified knee (principal)
CPT/HCPCS: 97110; 97163

== ENCOUNTER 2025-05-22 08:32 | Outpatient (CLI) | payer MEDICARE, BC, SELFPAY ==
[2025-05-22 20:22] LABS: Coronavirus 19, PCR Not Detected (NotDetected); Influenza A, PCR Not Detected (NotDetected); Influenza B, PCR Not Detected (NotDetected)
== END 2025-05-22 23:59 | disposition home or self-care (01) ==
LOC: LAB.DROPOF 05-24 08:33
PROVIDERS: PCP Internal Medicine; Visit Provider Nurse Practitioner Family
DX: J06.9 Acute upper respiratory infection, unspecified (principal)
CPT/HCPCS: 87631

== ENCOUNTER 2025-06-16 08:00 | Outpatient (RCR) | payer MEDICARE, BC, SELFPAY | END 2025-06-16 23:59 | disposition home or self-care (01) | LOC: PT 08:00 | PROVIDERS: PCP Internal Medicine; Visit Provider Physician Assistant | DX: M25.569 Pain in unspecified knee (principal) | CPT/HCPCS: 97110; 97112; 97530 ==